=== PATIENT | male | born 1935 | race Caucasian/White ===

== ENCOUNTER → 2016-05-18 | Outpatient (CLI) | payer MEDICARE, OTHER ==
[2016-05-18 09:50] LABS: PROTHROMBIN TIME 28.3 SEC (11.4-15.4)
== END ==
LOC: OD 08:06
PROVIDERS: ATTEND Internal Medicine Cardiovascular Disease
DX: I48.91 Unspecified atrial fibrillation (principal); Z79.01 Long term (current) use of anticoagulants
CPT/HCPCS: 36415; 85610

== ENCOUNTER → 2016-06-01 | Outpatient (CLI) | payer MEDICARE, OTHER ==
[2016-06-01 10:34] LABS: PROTHROMBIN TIME 27.6 SEC (11.4-15.4)
== END ==
LOC: OD 09:08
PROVIDERS: ATTEND Internal Medicine Cardiovascular Disease
DX: I48.0 Paroxysmal atrial fibrillation (principal); Z79.01 Long term (current) use of anticoagulants
CPT/HCPCS: 36415; 85610

== ENCOUNTER → 2016-06-28 | Outpatient (CLI) | payer MEDICARE, OTHER ==
[2016-06-28 10:30] LABS: PROTHROMBIN TIME 30.7 SEC (11.4-15.4)
== END ==
LOC: OD 09:22
PROVIDERS: ATTEND Internal Medicine Cardiovascular Disease
DX: I48.91 Unspecified atrial fibrillation (principal)
CPT/HCPCS: 36415; 85610

== ENCOUNTER → 2016-07-12 | Outpatient (CLI) | payer MEDICARE, OTHER ==
[2016-07-12 08:48] LABS: PROTHROMBIN TIME 25.3 SEC (11.4-15.4)
[2016-07-12 09:12] LABS: ALANINE AMINOTRANSFERASE 65 U/L (21-72); ALBUMIN 3.9 g/dL (3.5-5.0); ALKALINE PHOSPHATASE 71 U/L (38-126); ANION GAP 10 (5-19); ASPARTATE AMINO TRANSFERASE 38 U/L (17-59); BILIRUBIN,TOTAL 1.1 mg/dL (0.2-1.3); BLOOD UREA NITROGEN 32 mg/dL (7-20); CALCIUM 9.7 mg/dL (8.4-10.2); CARBON DIOXIDE 29 mmol/L (22-30); CHLORIDE 101 mmol/L (98-107); CREATININE RESULT 1.41 mg/dL (0.52-1.25); GLUCOSE 163 mg/dL (75-110); MAGNESIUM 1.8 mg/dL (1.6-2.3); POTASSIUM 5.3 mmol/L (3.6-5.0); SODIUM 139.6 mmol/L (137-145)
== END ==
LOC: OD 07:14
PROVIDERS: ATTEND Internal Medicine Cardiovascular Disease
DX: I48.91 Unspecified atrial fibrillation (principal); Z79.01 Long term (current) use of anticoagulants; Z79.899 Other long term (current) drug therapy
CPT/HCPCS: 36415; 80048; 80076; 83735; 85610

== ENCOUNTER → 2016-07-27 | Outpatient (CLI) | payer MEDICARE, OTHER | LOC: OD 17:56 | PROVIDERS: ATTEND Urology | DX: N40.0 Benign prostatic hyperplasia without lower urinary tract symptoms (principal) | CPT/HCPCS: 36415; 84153 ==

== ENCOUNTER → 2016-08-09 | Outpatient (CLI) | payer MEDICARE, OTHER ==
[2016-08-09 08:27] LABS: PROTHROMBIN TIME 26.4 SEC (11.4-15.4)
[2016-08-09 15:54] LABS: CHOLESTEROL 144.11 mg/dL (0-200); Direct HDL 24 mg/dL (>40); TRIGLYCERIDES 281 mg/dL (<150)
[2016-08-09 16:05] LABS: DIRECT LDL 44 mg/dL (<100)
[2016-08-09 16:09] LABS: VLDL CHOLESTEROL 56.2 mg/dL (10-31)
== END ==
LOC: OD 07:37
PROVIDERS: ATTEND Internal Medicine Cardiovascular Disease
DX: Z79.899 Other long term (current) drug therapy (principal); E78.2 Mixed hyperlipidemia; I48.91 Unspecified atrial fibrillation; Z79.01 Long term (current) use of anticoagulants
CPT/HCPCS: 36415; 80061; 83735; 85610

== ENCOUNTER → 2016-09-06 | Outpatient (CLI) | payer MEDICARE, OTHER ==
[2016-09-06 10:49] LABS: PROTHROMBIN TIME 26.2 SEC (11.4-15.4)
== END ==
LOC: OD 09:54
PROVIDERS: ATTEND Internal Medicine Cardiovascular Disease
DX: Z79.01 Long term (current) use of anticoagulants (principal); I48.0 Paroxysmal atrial fibrillation
CPT/HCPCS: 36415; 85610

== ENCOUNTER → 2016-09-09 | Outpatient (CLI) | payer MEDICARE, OTHER ==
[2016-09-09 09:27] LABS: ABSOLUTE BASOPHILS # (AUTO) 0.1 10^3/uL (0.0-0.2); ABSOLUTE EOSINOPHILS # (AUTO) 0.1 10^3/uL (0.0-0.6); ABSOLUTE LYMPHOCYTES (AUTO) 1.1 10^3/uL (0.5-4.7); ABSOLUTE MONOCYTES (AUTO) 0.8 10^3/uL (0.1-1.4); ABSOLUTE NEUT (AUTO) 5.1 10^3/uL (1.7-8.2); BASOPHILS % (AUTO) 1.2 % (0-2); EOSINOPHILS % (AUTO) 1.4 % (0-6); HEMATOCRIT 46.3 % (37.9-51.0); HEMOGLOBIN 15.5 g/dL (13.5-17.0); HGB HCT DIFFERENCE 0.2; LYMPHOCYTES % (AUTO) 15.5 % (13-45); MEAN CORPUSCULAR HEMOGLOBIN 27.5 pg (27.0-33.4); MEAN CORPUSCULAR HGB CONC 33.4 g/dL (32.0-36.0); MEAN CORPUSCULAR VOLUME 82 fl (80-97); MONOCYTES % (AUTO) 10.6 % (3-13); RED BLOOD COUNT 5.64 10^6/uL (4.35-5.55); RED CELL DISTRIBUTION WIDTH 16.2 % (11.5-14.0); SEGMENTED NEUTROPHILS % (AUTO) 71.3 % (42-78); WHITE BLOOD COUNT 7.2 10^3/uL (4.0-10.5)
[2016-09-09 10:04] LABS: ALANINE AMINOTRANSFERASE 70 U/L (21-72); ALBUMIN 4.1 g/dL (3.5-5.0); ALKALINE PHOSPHATASE 77 U/L (38-126); ANION GAP 12 (5-19); ASPARTATE AMINO TRANSFERASE 44 U/L (17-59); BILIRUBIN,DIRECT 0.3 mg/dL (0.0-0.4); BILIRUBIN,TOTAL 1.4 mg/dL (0.2-1.3); BLOOD UREA NITROGEN 28 mg/dL (7-20); CALCIUM 9.3 mg/dL (8.4-10.2); CARBON DIOXIDE 29 mmol/L (22-30); CHLORIDE 104 mmol/L (98-107); CHOLESTEROL 147.35 mg/dL (0-200); CREATININE RESULT 1.37 mg/dL (0.52-1.25); Direct HDL 28 mg/dL (>40); GLUCOSE 122 mg/dL (75-110); POTASSIUM 5.5 mmol/L (3.6-5.0); SODIUM 145.1 mmol/L (137-145); TOTAL PROTEIN 7.4 g/dL (6.3-8.2); TRIGLYCERIDES 306 mg/dL (<150)
[2016-09-09 10:15] LABS: DIRECT LDL 52 mg/dL (<100)
[2016-09-09 10:23] LABS: VLDL CHOLESTEROL 61.2 mg/dL (10-31)
== END ==
LOC: OD 08:21
PROVIDERS: ATTEND Internal Medicine
DX: E11.9 Type 2 diabetes mellitus without complications (principal); I25.10 Atherosclerotic heart disease of native coronary artery without angina pectoris; E78.5 Hyperlipidemia, unspecified; R53.83 Other fatigue
CPT/HCPCS: 36415; 80053; 80061; 83036; 84443; 85025

== ENCOUNTER → 2016-10-04 | Outpatient (CLI) | payer MEDICARE, OTHER ==
[2016-10-04 10:57] LABS: PROTHROMBIN TIME 27.8 SEC (11.4-15.4)
[2016-10-04 11:07] LABS: ALANINE AMINOTRANSFERASE 85 U/L (21-72); ALBUMIN 3.6 g/dL (3.5-5.0); ALKALINE PHOSPHATASE 74 U/L (38-126); ANION GAP 11 (5-19); ASPARTATE AMINO TRANSFERASE 49 U/L (17-59); BILIRUBIN,DIRECT 0.3 mg/dL (0.0-0.4); BILIRUBIN,TOTAL 1.2 mg/dL (0.2-1.3); BLOOD UREA NITROGEN 41 mg/dL (7-20); CALCIUM 8.9 mg/dL (8.4-10.2); CARBON DIOXIDE 26 mmol/L (22-30); CHLORIDE 102 mmol/L (98-107); GLUCOSE 161 mg/dL (75-110); MAGNESIUM 2.1 mg/dL (1.6-2.3); POTASSIUM 4.8 mmol/L (3.6-5.0); SODIUM 138.5 mmol/L (137-145); TOTAL PROTEIN 6.5 g/dL (6.3-8.2)
== END ==
LOC: OD 09:59
PROVIDERS: ATTEND Internal Medicine Cardiovascular Disease
DX: I48.91 Unspecified atrial fibrillation (principal); Z79.01 Long term (current) use of anticoagulants; Z79.899 Other long term (current) drug therapy
CPT/HCPCS: 36415; 80048; 80076; 83735; 85610

== ENCOUNTER → 2016-11-01 | Outpatient (CLI) | payer MEDICARE, OTHER ==
[2016-11-01 11:34] LABS: PROTHROMBIN TIME 25.7 SEC (11.4-15.4)
== END ==
LOC: OD 10:10
PROVIDERS: ATTEND Internal Medicine Cardiovascular Disease
DX: I48.0 Paroxysmal atrial fibrillation (principal); Z79.01 Long term (current) use of anticoagulants
CPT/HCPCS: 36415; 85610

== ENCOUNTER → 2016-11-02 | Outpatient (CLI) | payer MEDICARE, OTHER ==
[2016-11-02 10:56] LABS: ALANINE AMINOTRANSFERASE 64 U/L (21-72); ALBUMIN 3.5 g/dL (3.5-5.0); ALKALINE PHOSPHATASE 77 U/L (38-126); ASPARTATE AMINO TRANSFERASE 49 U/L (17-59); BILIRUBIN,DIRECT 0.3 mg/dL (0.0-0.4); BILIRUBIN,TOTAL 1.1 mg/dL (0.2-1.3); TOTAL PROTEIN 6.4 g/dL (6.3-8.2)
== END ==
LOC: OD 09:28
PROVIDERS: ATTEND Internal Medicine Cardiovascular Disease
DX: Z79.01 Long term (current) use of anticoagulants (principal)
CPT/HCPCS: 36415; 80076

== ENCOUNTER → 2016-11-29 | Outpatient (CLI) | payer MEDICARE, OTHER ==
[2016-11-29 10:48] LABS: PROTHROMBIN TIME 23.6 SEC (11.4-15.4)
[2016-11-29 11:34] LABS: ALANINE AMINOTRANSFERASE 59 U/L (21-72); ALBUMIN 3.4 g/dL (3.5-5.0); ALKALINE PHOSPHATASE 85 U/L (38-126); ANION GAP 10 (5-19); ASPARTATE AMINO TRANSFERASE 36 U/L (17-59); BILIRUBIN,DIRECT 0.3 mg/dL (0.0-0.4); BLOOD UREA NITROGEN 33 mg/dL (7-20); CARBON DIOXIDE 27 mmol/L (22-30); CHLORIDE 102 mmol/L (98-107); CREATININE RESULT 1.35 mg/dL (0.52-1.25); GLUCOSE 234 mg/dL (75-110); MAGNESIUM 1.8 mg/dL (1.6-2.3); POTASSIUM 5.5 mmol/L (3.6-5.0); SODIUM 138.6 mmol/L (137-145); TOTAL PROTEIN 6.6 g/dL (6.3-8.2)
== END ==
LOC: OD 09:20
PROVIDERS: ATTEND Internal Medicine Cardiovascular Disease
DX: I48.91 Unspecified atrial fibrillation (principal); Z79.01 Long term (current) use of anticoagulants; Z79.899 Other long term (current) drug therapy
CPT/HCPCS: 36415; 80048; 80076; 83735; 85610

== ENCOUNTER → 2016-12-03 | Outpatient (CLI) | payer MEDICARE, OTHER ==
[2016-12-03 11:52] LABS: ANION GAP 11 (5-19); BLOOD UREA NITROGEN 32 mg/dL (7-20); CALCIUM 8.9 mg/dL (8.4-10.2); CARBON DIOXIDE 27 mmol/L (22-30); CHLORIDE 102 mmol/L (98-107); CREATININE RESULT 1.37 mg/dL (0.52-1.25); GLUCOSE 186 mg/dL (75-110); POTASSIUM 4.9 mmol/L (3.6-5.0); SODIUM 139.6 mmol/L (137-145)
== END ==
LOC: OD 09:57
PROVIDERS: ATTEND Internal Medicine Nephrology
DX: E11.22 Type 2 diabetes mellitus with diabetic chronic kidney disease (principal); I12.9 Hypertensive chronic kidney disease with stage 1 through stage 4 chronic kidney disease, or unspecified chronic kidney disease; N18.3 Chronic kidney disease, stage 3 (moderate); E87.5 Hyperkalemia
CPT/HCPCS: 36415; 80048

== ENCOUNTER → 2016-12-13 | Outpatient (CLI) | payer MEDICARE, OTHER ==
[2016-12-13 10:23] LABS: PROTHROMBIN TIME 23.6 SEC (11.4-15.4)
== END ==
LOC: OD 09:21
PROVIDERS: ATTEND Internal Medicine Cardiovascular Disease
DX: I48.91 Unspecified atrial fibrillation (principal); Z79.01 Long term (current) use of anticoagulants; Z79.899 Other long term (current) drug therapy; E87.5 Hyperkalemia
CPT/HCPCS: 36415; 85610

== ENCOUNTER → 2016-12-27 | Outpatient (CLI) | payer MEDICARE, OTHER ==
[2016-12-27 12:20] LABS: ALANINE AMINOTRANSFERASE 62 U/L (21-72); ALBUMIN 3.6 g/dL (3.5-5.0); ALKALINE PHOSPHATASE 96 U/L (38-126); ANION GAP 10 (5-19); ASPARTATE AMINO TRANSFERASE 43 U/L (17-59); BILIRUBIN,DIRECT 0.4 mg/dL (0.0-0.4); BILIRUBIN,TOTAL 1.3 mg/dL (0.2-1.3); BLOOD UREA NITROGEN 24 mg/dL (7-20); CALCIUM 8.9 mg/dL (8.4-10.2); CARBON DIOXIDE 27 mmol/L (22-30); CHLORIDE 103 mmol/L (98-107); CREATININE RESULT 1.19 mg/dL (0.52-1.25); GLUCOSE 122 mg/dL (75-110); MAGNESIUM 1.8 mg/dL (1.6-2.3); POTASSIUM 4.5 mmol/L (3.6-5.0); SODIUM 139.8 mmol/L (137-145); TOTAL PROTEIN 6.9 g/dL (6.3-8.2)
[2016-12-29 12:07] LABS: PROTHROMBIN TIME 34.9 SEC (11.4-15.4)
== END ==
LOC: OD 10:35
PROVIDERS: ATTEND Internal Medicine Cardiovascular Disease
DX: I48.1 Persistent atrial fibrillation (principal); Z79.899 Other long term (current) drug therapy
CPT/HCPCS: 36415; 80048; 80076; 83735; 85610

== ENCOUNTER → 2017-01-10 | Outpatient (CLI) | payer MEDICARE, OTHER | LOC: OD 10:17 | PROVIDERS: ATTEND Internal Medicine Cardiovascular Disease | DX: I48.91 Unspecified atrial fibrillation (principal); Z79.01 Long term (current) use of anticoagulants; Z79.899 Other long term (current) drug therapy | CPT/HCPCS: 36415; 85610 ==

== ENCOUNTER → 2017-01-19 | Outpatient (CLI) | payer MEDICARE, OTHER ==
[2017-01-19 08:40] LABS: PROTHROMBIN TIME 35.1 SEC (11.4-15.4)
== END ==
LOC: OD 07:53
PROVIDERS: ATTEND Internal Medicine Cardiovascular Disease
DX: I48.91 Unspecified atrial fibrillation (principal); Z79.01 Long term (current) use of anticoagulants
CPT/HCPCS: 36415; 85610

== ENCOUNTER 2017-01-24 17:01 | Inpatient (IN) | payer MEDICARE, OTHER ==
[2017-01-24] MEDS ORDERED: NORMAL SALINE 1000 ML 1,000 ML IV ONE (17:39)
--- NOTE | 2017-01-24 17:39 | ER Document Report ---
ED Medical Screen (RME) - General Chief Complaint: Weakness Stated Complaint: WEAKNESS Time Seen by Provider: 01/24/17 17:36 Mode of Arrival: Wheelchair Information source: Patient Notes: 81-year-old male presents to ED for weakness blurry vision dizziness for several days and dark stools for 2 weeks. States he went to the eye doctor today and they told him he needs to have wet macular degeneration or diabetes changes. He is a diabetic takes 34 units of Lantus insulin at night this morning his blood sugar is 148 this afternoon it was 146. states she told him that if he did need he she was going to the emergency room to get admitted but he is also having black stools for 2 weeks that he did not tell the until Tuesday. Manual blood pressure when I checked it 99/40. Lungs sound diminished clear I have greeted and performed a rapid initial assessment of this patient. A comprehensive ED assessment and evaluation of the patient, analysis of test results and completion of medical decision making process will be conducted by an additional ED providers. TRAVEL OUTSIDE OF THE [place] IN LAST 30 DAYS: No - Related Data Allergies/Adverse Reactions: amoxicillin [Amoxicillin] Allergy (Verified 01/24/17 17:11) amoxicillin trihydrate [From Augmentin XR] Allergy (Verified 01/24/17 17:11) cephalexin monohydrate [From Keflex] Allergy (Verified 01/24/17 17:11) Potassium Clavulanate * [From Augmentin XR] Allergy (Verified 01/24/17 17:11) Tuberculin,Ppd,Multi-Puncture [From Tuberculin PPD Mireya Test] Allergy (Verified 01/24/17 17:11) Past Medical History - Past Medical History Cardiac Medical History: Reports: Hx Atrial Fibrillation, Hx Congestive Heart Failure, Hx Coronary Artery Disease - high chol , Hx Heart Attack, Hx Hypercholesterolemia, Hx Hypertension Neurological Medical History: Denies: Hx Seizures Endocrine Medical History: Reports: Hx Diabetes Mellitus Type 2 Renal/ Medical History: Denies: Hx Peritoneal Dialysis Musculoskeltal Medical History: Reports Hx Arthritis Psychiatric Medical History: Reports: Hx Depression Past Surgical History: Reports: Hx Cardiac Catheterization, Hx Cardiac Surgery - stent x's4, patient had 2 stents on 07/18/2013 at [facility], Hx Tonsillectomy - Immunizations Hx Diphtheria, Pertussis, Tetanus Vaccination: Yes Physical Exam - Vital signs Vitals: Temp Pulse Resp BP Pulse Ox 97.5 F 55 L 16 127/40 H 97 01/24/17 17:02 01/24/17 17:02 01/24/17 17:02 01/24/17 17:02 01/24/17 17:02 Course - Vital Signs Vital signs: Temp Pulse Resp BP Pulse Ox 97.5 F 55 L 16 127/40 H 97 01/24/17 17:02 01/24/17 17:02 01/24/17 17:02 01/24/17 17:02 01/24/17 17:02
--- NOTE | 2017-01-24 18:25 | ER Document Report ---
ED General - General Mode of Arrival: Wheelchair Information source: Patient TRAVEL OUTSIDE OF THE [place] IN LAST 30 DAYS: No - HPI Similar symptoms previously: No Recently seen / treated by doctor: No <CHANEL PADILLA - Last Filed: 01/24/17 19:04> <ALBIN GASTELUM - Last Filed: 01/24/17 20:56> - General Chief Complaint: Weakness Stated Complaint: WEAKNESS Time Seen by Provider: 01/24/17 17:36 Notes: This 81-year-old male patient is a dark black stools for 2 weeks. He is on Coumadin. 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 No bleeding was found at that time. Family history he subsequently was seen at [facility] and scoped more than once and reportedly had bleeding from a little polyp. Family is a little confused about a history claiming the bleeding started here after he had a colonoscopy, when in fact the colonoscopy was done because of the bleeding. (ALBIN GASTELUM) - HPI Notes: Patient is an 81 year old male presenting to the emergency department black stools x 2 weeks and some weakness/blurry vision x 3-4 days. Patient states he feels weak and has some dizziness when standing up and doing activities. Patient states he has had some blurry vision especially in this right eye. Patient describes it as blurry and a "dark cloud." Patient did see an physician office nurse today and had his eyes dilated. Patient takes Coumadin and has not been taking Plavix for some time. Patient did not get his dose of Coumadin at 18 :00 this evening. Patient has a history of A-fib, CAD, CHF, [place] x4, cardiac stents, hypertension, hypercholesterolemia, and diabetes. Patient takes 34 units of Lantis for his diabetes. (CHANEL PADILLA) - Related Data Allergies/Adverse Reactions: amoxicillin [Amoxicillin] Allergy (Verified 01/24/17 17:11) amoxicillin trihydrate [From Augmentin XR] Allergy (Verified 01/24/17 17:11) cephalexin monohydrate [From Keflex] Allergy (Verified 01/24/17 17:11) Potassium Clavulanate * [From Augmentin XR] Allergy (Verified 01/24/17 17:11) Tuberculin,Ppd,Multi-Puncture [From Tuberculin PPD Mireya Test] Allergy (Verified 01/24/17 17:11) Past Medical History - General Information source: Patient - Social History Smoking Status: Never Smoker Cigarette use (# per day): No Chew tobacco use (# tins/day): No Smoking Education Provided: No Frequency of alcohol use: None Drug Abuse: None Family History: CAD, DM Patient has suicidal ideation: No Patient has homicidal ideation: No - Past Medical History Cardiac Medical History: Reports: Hx Atrial Fibrillation, Hx Congestive Heart Failure, Hx Coronary Artery Disease - high chol , Hx Heart Attack - x4, Hx Hypercholesterolemia, Hx Hypertension Endocrine Medical History: Reports: Hx Diabetes Mellitus Type 2 Musculoskeltal Medical History: Reports Hx Arthritis Psychiatric Medical History: Reports: Hx Depression Past Surgical History: Reports: Hx Cardiac Catheterization, Hx Cardiac Surgery - stent x's4, patient had 2 stents on 07/18/2013 at [facility], Hx Tonsillectomy - Immunizations Hx Diphtheria, Pertussis, Tetanus Vaccination: Yes Hx Pneumococcal Vaccination: 05/25/13 <CHANEL PADILLA - Last Filed: 01/24/17 19:04> Review of Systems - Review of Systems Constitutional: No symptoms reported EENT: See HPI, Blurred vision Cardiovascular: See HPI, Dizziness Respiratory: No symptoms reported Gastrointestinal: See HPI, Black stools - x2 weeks Genitourinary: No symptoms reported Male Genitourinary: No symptoms reported Musculoskeletal: No symptoms reported Skin: No symptoms reported Hematologic/Lymphatic: No symptoms reported Neurological/Psychological: See HPI, Weakness -: Yes All other systems reviewed and negative <CHANEL PADILLA - Last Filed: 01/24/17 19:04> Physical Exam - Vital signs Interpretation: Normal <CHANEL PADILLA - Last Filed: 01/24/17 19:04> <ALBIN GASTELUM - Last Filed: 01/24/17 20:56> - Vital signs Vitals: Temp Pulse Resp BP Pulse Ox 97.5 F 55 L 16 127/40 H 97 01/24/17 17:02 01/24/17 17:02 01/24/17 17:02 01/24/17 17:02 01/24/17 17:02 - Notes Notes: GENERAL: Alert, interacts well. No acute distress. HEAD: Normocephalic, atraumatic. EYES: Appear normal. Pupils equal, round, and reactive to light. Conjunctiva is pale. ENT: Moist mucus membranes, tongue midline. NECK: Full range of motion. Supple. Trachea midline. No bruit but the systolic murmur can be heard in the neck. LUNGS: Clear to auscultation bilaterally, no wheezes, rales, or rhonchi. No respiratory distress. HEART: Regular rate and rhythm. 2-3 systolic murmur. ABDOMEN: Soft, non-tender. Non-distended. Normal bowel sounds. RECTAL: Stool is black. EXTREMITIES: Moves all 4 extremities spontaneously. Normal strength. No edema. NEUROLOGICAL: Alert and oriented x3. Normal speech. No focal neurological deficits. GCS 15. PSYCH: Normal affect, normal mood. SKIN: Warm, dry, normal turgor. No rashes or lesions noted. (CHANEL PADILLA) Course - Laboratory Result Diagrams: 01/24/17 18:20 01/24/17 18:20 <CHANEL PADILLA - Last Filed: 01/24/17 19:04> - Laboratory Result Diagrams: 01/24/17 18:20 01/24/17 18:20 - EKG Interpretation by De EKG shows normal: Sinus rhythm, [place], Intervals, QRS Complexes. abnormal: ST-T Waves - Borderline T-wave abnormalities Rate: Normal - 55 Rhythm: NSR - Consults Dr. Mendez Consulted provider: will see as inpatient - We will be available for endoscopic consultation if needed. Dr. Callahan Time consulted: 20:50 Consulted provider: will come to ER - IMCU admission <ALBIN GASTELUM - Last Filed: 01/24/17 20:56> - Vital Signs Vital signs: Temp Pulse Resp BP Pulse Ox 97.5 F 55 L 16 111/59 L 94 01/24/17 17:02 01/24/17 17:02 01/24/17 19:02 01/24/17 19:02 01/24/17 19:02 - Laboratory Laboratory results interpreted by wy: 01/24/17 01/24/17 01/24/17 18:20 18:20 18:20 RBC 3.30 L Hgb 8.9 L Hct 27.7 L MCH 26.9 L RDW 15.7 H PT BUN 94 H Creatinine 1.62 H Est GFR ( Amer) 50 L Est GFR (Non-Af Amer) 41 L Glucose 115 H Urine Ascorbic Acid Crossmatch See Detail 01/24/17 01/24/17 18:20 19:30 RBC Hgb Hct MCH RDW PT 37.1 H BUN Creatinine Est GFR ( Amer) Est GFR (Non-Af Amer) Glucose Urine Ascorbic Acid 20 H Crossmatch Discharge <CHANEL PADILLA - Last Filed: 01/24/17 19:04> - Discharge Admitting Provider: Hospitalist Unit Admitted: IMCU <ALBIN GASTELUM - Last Filed: 01/24/17 20:56> - Discharge Clinical Impression: Upper GI bleeding, 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, Excessive anticoagulation Anemia Qualifiers: Anemia type: other cause Other causes of anemia: acute posthemorrhagic Qualified Code(s): D62 - Acute posthemorrhagic anemia Condition: Stable Disposition: ADMITTED INPATIENT Referrals: LEANDRA HOPKINS MD [Primary Care Provider] - Follow up as needed Scribe Attestation: 01/24/17 20:46 I personally performed the services described in the documentation, reviewed and edited the documentation which was dictated to the scribe in my presence, and it accurately records my words and actions. (ALBIN GASTELUM) Scribe Documentation - Scribe Written by Alize:: Alize King 01/24/2017 18:40 acting as scribe for :: Fan <CHANEL PADILLA - Last Filed: 01/24/17 19:04>
--- NOTE | 2017-01-24 18:44 | RADIOLOGY REPORT (SQ) ---
EXAM DESCRIPTION: CHEST PA/LAT COMPLETED DATE/TIME: 01/24/2017 6:17 pm REASON FOR STUDY: weakness COMPARISON: August 2014 EXAM PARAMETERS: NUMBER OF VIEWS: two views TECHNIQUE: Digital Frontal and Lateral radiographic views of the chest acquired. RADIATION DOSE: NA LIMITATIONS: none FINDINGS: LUNGS AND PLEURA: No opacities, masses or pneumothorax. No pleural effusion. MEDIASTINUM AND HILAR STRUCTURES: No masses or contour abnormalities. HEART AND VASCULAR STRUCTURES: Heart normal size. No evidence for failure. BONES: Degenerative changes are identified in the thoracic spine. HARDWARE: None in the chest. OTHER: Some elevation of the left hemidiaphragm is again seen. IMPRESSION: No significant interval change. No acute findings. Other findings as noted above TECHNICAL DOCUMENTATION: JOB ID: [id number] [employer]- All Rights Reserved
[2017-01-24 18:53] LABS: ABSOLUTE BASOPHILS # (AUTO) 0.1 10^3/uL (0.0-0.2); ABSOLUTE EOSINOPHILS # (AUTO) 0.1 10^3/uL (0.0-0.6); ABSOLUTE LYMPHOCYTES (AUTO) 1.7 10^3/uL (0.5-4.7); ABSOLUTE NEUT (AUTO) 7.3 10^3/uL (1.7-8.2); EOSINOPHILS % (AUTO) 0.8 % (0-6); HEMATOCRIT 27.7 % (37.9-51.0); HEMOGLOBIN 8.9 g/dL (13.5-17.0); LYMPHOCYTES % (AUTO) 16.3 % (13-45); MEAN CORPUSCULAR HEMOGLOBIN 26.9 pg (27.0-33.4); MEAN CORPUSCULAR HGB CONC 32.1 g/dL (32.0-36.0); MEAN CORPUSCULAR VOLUME 84 fl (80-97); RED CELL DISTRIBUTION WIDTH 15.7 % (11.5-14.0); SEGMENTED NEUTROPHILS % (AUTO) 71.9 % (42-78); WHITE BLOOD COUNT 10.2 10^3/uL (4.0-10.5)
[2017-01-24 19:03] LABS: PROTHROMBIN TIME 37.1 SEC (11.4-15.4)
[2017-01-24 19:09] LABS: ALANINE AMINOTRANSFERASE 49 U/L (21-72); ALBUMIN 3.5 g/dL (3.5-5.0); ALKALINE PHOSPHATASE 71 U/L (38-126); ANION GAP 12 (5-19); ASPARTATE AMINO TRANSFERASE 28 U/L (17-59); BILIRUBIN,DIRECT 0.3 mg/dL (0.0-0.4); BILIRUBIN,TOTAL 0.6 mg/dL (0.2-1.3); BLOOD UREA NITROGEN 94 mg/dL (7-20); CALCIUM 9.7 mg/dL (8.4-10.2); CARBON DIOXIDE 24 mmol/L (22-30); CHLORIDE 103 mmol/L (98-107); CREATINE KINASE 57 U/L (55-170); CREATININE RESULT 1.62 mg/dL (0.52-1.25); GLUCOSE 115 mg/dL (75-110); MAGNESIUM 2.3 mg/dL (1.6-2.3); POTASSIUM 4.8 mmol/L (3.6-5.0); SODIUM 138.7 mmol/L (137-145); TOTAL PROTEIN 6.3 g/dL (6.3-8.2)
[2017-01-24 19:22] LABS: CREATINE KINASE MB 2.07 ng/mL (<4.55); TROPONIN I < 0.012 ng/mL
[2017-01-24 19:48] LABS: APPEARANCE,URINE CLEAR; BILIRUBIN,URINE NEGATIVE (NEGATIVE); GLUCOSE, URINE NEGATIVE (NEGATIVE); KETONES,URINE NEGATIVE (NEGATIVE); LEUKOCYTE ESTERASE,URINE NEGATIVE (NEGATIVE); NITRITE,URINE NEGATIVE (NEGATIVE); PROTEIN,URINE NEGATIVE (NEGATIVE); URINE SPECIFIC GRAVITY 1.009; UROBILINOGEN,URINE NEGATIVE mg/dL (<2.0)
[2017-01-24] MEDS ORDERED: NORMAL SALINE 250 ML IV PRN (20:29)
--- NOTE | 2017-01-24 20:35 | EKG REPORT ---
SEVERITY:- BORDERLINE ECG - SINUS RHYTHM BORDERLINE T WAVE ABNORMALITIES : Confirmed by: Negro Chaidez 24-Jan-2017 20:35:25
[2017-01-24] MEDS ORDERED: PHYTONADIONE INJ 10 MG/1 ML AMPULE PO ONE (20:42)
[2017-01-25] MEDS ORDERED: DEXTROSE 40% GEL 15 GM TUBE PO PRN ×2 (00:34)
[2017-01-25] MEDS ORDERED: DEXTROSE 50%-WATER 25 GM/50 ML DISP.SYRIN IV PRN ×2 (00:34)
[2017-01-25] MEDS ORDERED: GLUCAGON,HUMAN RECOMB 1 MG INJ IM PRN (00:34)
[2017-01-25] MEDS ORDERED: PROMETHAZINE HCL 25 MG TABLET PO PRN (00:59)
[2017-01-25] MEDS ORDERED: ACETAMINOPHEN 325 MG TABLET PO PRN (00:59)
--- NOTE | 2017-01-25 01:27 | PDOC H&P ---
History of Present Illness Admission Date/PCP: 01/24/17 21:[address] Patient complains of: black stools History of Present Illness: ADELAIDE COOPER JR is a 81 year old male with underlying type 1 diabetes mellitus, hyperlipidemia, hypothyroidism, and atrial fibrillation, on chronic Coumadin for same, who presents to the emergency room for evaluation of a 2 week history of black stools. Associated weakness and dizziness with standing up and doing activities. However, no fever or chills, chest or abdominal pain. No nausea vomiting. No bright red blood per rectum. Patient has been discussed with emergency room physician who evaluated the patient. Rectal exam by emergency room physician revealed melenic stool. Prior to my being called, the emergency room physician did speak with the on- call general surgeon, Dr. Mendez, who has agreed to see the patient in consultation, and provide endoscopy services. He is currently resting quietly, without specific complaints. He is status post upper endoscopy November 2013 that revealed erosive gastritis, and fundic gland polyps. He is status post colonoscopy May 2013 that revealed polyps in the ascending colon and sigmoid colon and rectum, moderate- sized internal hemorrhoids, and cecal angiodysplasia. Negative upper endoscopy at that time. Denies any specific history of peptic ulcer disease. 1 unit of packed cells has been started by the emergency room physician, with ER physician having signed a blood transfusion permit. Dictation via voice recognition software. Laboratory results are listed in [employer] and are reviewed. X-ray summary results are listed below, with full report(s) reviewed. . EKG reviewed and compared to prior tracing from September 10, 2014. Social history/personal habits: . Adult children. Lives with . Retired. No use of alcohol tobacco or illicit drugs. Allergies/adverse reactions are listed in [employer] and are reviewed. Home medications initially autopopulated into [employer] may not accurately reflect patient's true medications, dosages, and/or frequencies. model technician has reconciled medications. REVIEW OF SYSTEMS: Constitutional: No fever or chills. Eyes: Wears glasses. ENT: No swallowing problems or complaints. Partial hearing loss. Pulmonary: No current complaints. Cardiovascular: No current complaints, including chest pain. Gastrointestinal: See history and present illness. Skin: No current complaints, including rashes. Hematologic: Easy bruising. Neurologic: No current complaints, including numbness or tingling. Musculoskeletal: Joint pain from arthritis. Psychiatric: Mild anxiety and depression. Denies suicidal or homicidal ideation. Endocrine: No current complaints, including polyuria. Genitourinary: No current complaints, including dysuria. PHYSICAL EXAMINATION: 5 feet 6 inches tall. 84.8 kg. BMI 30.2 kg/m. Blood pressure 121/51. Pulse 60 and regular. 94% saturation on room air. Respirations are 16 and unlabored. Temperature 97.9. Slightly obese otherwise well-nourished well-developed male who appears a number of years younger than his stated age. Pleasant awake alert and cooperative. No obvious distress other than somewhat anxious. Skin is warm and dry. No grossly obvious evidence of rash in areas of skin examined. No subcutaneous nodules palpated. ENT: Hearing grossly normal to normal conversation. Tongue midline on protrusion pink and slightly tacky. Eyes: No scleral icterus. Pupils equal and reactive to light at 4 mm. [place] conjunctivae. Neck is supple and nontender to gentle active range of motion and palpation. Midline trachea. No palpable thyroid nodule mass enlargement or tenderness. Lymphatic: No palpable cervical or clavicular nodes. Neck and lymphatic exams limited by patient body habitus. Psychiatric: Reasonable insight into acute and chronic medical issues. Oriented to time location and why here. Lungs: Auscultation reveals clear and equal breath sounds bilaterally. No use of accessory respiratory muscles. Cardiovascular: Heart regular rate and rhythm, without gallop or rub. No carotid or abdominal aortic bruits. No ankle or pedal edema. Faintly palpable dorsalis pedis pulses. Very subtle holosystolic ejection murmur heard at cardiac apex. Abdomen:soft slightly distended nontender with positive bowel sounds. Unable to adequately evaluate abdomen for masses or organomegaly due to distention. Extremities: Feet are warm and dry. No calf tenderness to compression. No grossly obvious visual evidence of calf swelling. Gentle manipulation of lower extremities fails to reveal any obvious evidence of injury or instability to knees hips or ankles. Neurologic: Moves upper extremities grossly normally. Patellar reflexes absent. Absent Babinski. Light touch is intact at feet. Dorsiflexion and plantarflexion of feet 5 / 5 and symmetric. Past Medical History Cardiac Medical History: Reports: Atrial Fibrillation, Congestive Heart Failure , Coronary Artery Disease, Myocardial Infarction - x4, Hyperlipidema, Hypertension Denies: DVT, Pulmonary Embolism Pulmonary Medical History: Denies: Asthma, Bronchitis, Chronic Obstructive Pulmonary Disease (COPD), Pneumonia, Tuberculosis EENT Medical History: Reports: Eyes - Glasses, Ears - Partial hearing loss Denies: Throat Neurological Medical History: Denies: Hemorrhagic CVA, Ischemic CVA, Seizures Endocrine Medical History: Reports: Diabetes Mellitus Type 1, Hypothyroidism Denies: Hyperthyroidism Renal/ Medical History: Reports: Chronic Kidney Disease GI Medical History: Reports: Other - Angiodysplasia of cecum, 2013. Denies: Cirrhosis, Gastroesophageal Reflux Disease, Hepatitis Musculoskeltal Medical History: Reports: Arthritis Skin Medical History: Reports: None Psychiatric Medical History: Reports: Depression, General Anxiety Disorder Denies: Alcohol Dependency, Substance Abuse, Tobacco Dependency Infectious Medical History: Denies: Hepatitis B, Hepatitis C Past Surgical History Past Surgical History: Reports: Cardiac Catheterization, Coronary Stent - 5, Tonsillectomy Social History Information Source: Patient, Emergency Med Personnel, [facility] Records Lives with: Spouse/Significant other Smoking Status: Unknown if Ever Smoked Frequency of Alcohol Use: None Hx Recreational Drug Use: No Drugs: None Hx Prescription Drug Abuse: No - Advance Directive Resuscitation Status: Full Code Surrogate healthcare decision maker:: Family History Family History: CAD, DM Parental Family History Reviewed: Yes - Mother of TB; father of [place]. Children Family History Reviewed: Yes - Healthy Sibling(s) Family History Reviewed.: Yes - Brother ; sister with heart trouble Medication/Allergy Home Medications: Amlodipine Besylate [Norvasc 10 mg Tablet] 10 mg PO DAILY 01/24/17 Atorvastatin Calcium [Lipitor 40 mg Tablet] 40 mg PO DAILY 01/24/17 Cetirizine HCl [Zyrtec 10 mg Tablet] 10 mg PO QHS 01/24/17 Ezetimibe [Zetia 10 mg Tablet] 10 mg PO QAM 01/24/17 Hydrochlorothiazide [Hydrodiuril 12.5 mg Capsule] 12.5 mg PO QAM 01/24/17 Levothyroxine Sodium [Synthroid] 100 mcg PO QAM 01/24/17 Losartan Potassium [Cozaar 50 mg Tablet] 50 mg PO QAM 01/24/17 Magnesium Oxide [Mag-Ox 400 mg Tablet] 400 mg PO BID 01/24/17 Sotalol HCl [Sotalol] 80 mg PO BID@0800,199901/24/17 Ubidecarenone/Vit E Acetate [Co Q-10 100 mg Softgel] 1 each PO DAILY 01/24/17 Vit C/Asif AC/Lut/Copper/Znox [Preservision Lutein Softgel] 1 each PO DAILY 04/01 Warfarin Sodium [Coumadin] 5 mg PO ASDIR PRN 01/24/17 Allergies/Adverse Reactions: amoxicillin [Amoxicillin] Allergy (Verified 01/24/17 17:11) amoxicillin trihydrate [From Augmentin XR] Allergy (Verified 01/24/17 17:11) cephalexin monohydrate [From Keflex] Allergy (Verified 01/24/17 17:11) Potassium Clavulanate * [From Augmentin XR] Allergy (Verified 01/24/17 17:11) Tuberculin,Ppd,Multi-Puncture [From Tuberculin PPD Mireya Test] Allergy (Verified 01/24/17 17:11) Physical Exam Vital Signs: Temp Pulse Resp BP Pulse Ox 97.9 F 55 L 17 123/47 L 93 01/24/17 23:52 01/24/17 17:02 01/24/17 23:52 01/24/17 23:52 01/24/17 23:52 Intake & Output 01/24/17 01/25/17 01/26/17 00:59 00:59 00:59 Intake Total 0 Balance 0 Results Impressions: Chest X-Ray 01/24/17 17:39 IMPRESSION: No significant interval change. No acute findings. Other findings as noted above Assessment & Plan - Diagnosis (1) Acute post-hemorrhagic anemia Is this a current diagnosis for this admission?: Yes Plan: Transfuse as needed. He is receiving his first unit of packed cells at the present time. Blood transfusion permit has been signed by ER physician. (2) Acute worsening of stage 3 chronic kidney disease Is this a current diagnosis for this admission?: Yes Plan: Follow-up chemistry. (3) Melena Is this a current diagnosis for this admission?: Yes Plan: Surgery consult with Dr. Mendez, who has agreed to see the patient in consultation, and will provide endoscopic services. I have strongly encouraged patient not to get out of bed without notifying staff , to avoid a fall with injury. Knee high SCDs for DVT prophylaxis; with patient anticoagulated with Coumadin, no need for Lovenox or heparin, combined with his obvious GI bleeding. Impression and plans were discussed with patient, who concurs. Time spent in evaluation and management of patient: 80 minutes. (4) Supratherapeutic INR Is this a current diagnosis for this admission?: Yes Plan: As received vitamin K per ER physician. Follow-up PT/INR. (5) Atrial fibrillation Qualifiers: Atrial fibrillation type: unspecified Qualified Code(s): I48.91 - Unspecified atrial fibrillation Is this a current diagnosis for this admission?: Yes Plan: Resume home medications as appropriate once these have been determined and reviewed. (6) Diabetes mellitus type 1 Qualifiers: Diabetes mellitus complication status: without complication Qualified Code( s): E10.9 - Type 1 diabetes mellitus without complications Is this a current diagnosis for this admission?: Yes Plan: Ice chips only at the present time. Accu-Cheks with appropriate sliding scale coverage. Resume home medications as appropriate once these have been determined and reviewed. (7) HLD (hyperlipidemia) Qualifiers: Hyperlipidemia type: unspecified Qualified Code(s): E78.5 - Hyperlipidemia , unspecified Is this a current diagnosis for this admission?: Yes Plan: Resume home medications as appropriate once these have been determined and reviewed. (8) Hypothyroid Qualifiers: Hypothyroidism type: unspecified Qualified Code(s): E03.9 - Hypothyroidism , unspecified Is this a current diagnosis for this admission?: Yes Plan: Resume home medications as appropriate once these have been determined and reviewed. (9) Stented coronary artery Is this a current diagnosis for this admission?: Yes Plan: Resume home medications as appropriate once these have been determined and reviewed. - Time Time Spent: Greater than 70 Minutes Medications reviewed and adjusted accordingly: Yes Anticipated discharge: Home Within: within 72 hours - Inpatient Certification Based on my medical assessment, after consideration of the patient's comorbidities, presenting symptoms, or acuity I expect that the services needed warrant INPATIENT care.: Yes I certify that my determination is in accordance with my understanding of Medicare's requirements for reasonable and necessary INPATIENT services [42 CFR 412.3e].: Yes Medical Necessity: Need Close Monitoring Due to Risk of Patient Decompensation, Need For Continuous Telemetry Monitoring, Risk of Diagnosis Which Will Require Inpatient Eval/Care/Monitoring Post Hospital Care: D/C or Transfer Summary
[2017-01-25] MEDS: PANTOPRAZOLE SODIUM 40 MG VIAL IV SCH ×3 (01:49→21:16)
[2017-01-25] MEDS: SUCRALFATE 1 GM TABLET PO SCH ×5 (01:49→23:58)
[2017-01-25 03:03] LABS: HEMATOCRIT 27.5 % (37.9-51.0); HEMOGLOBIN 9.3 g/dL (13.5-17.0); HGB HCT DIFFERENCE 0.4; MEAN CORPUSCULAR HEMOGLOBIN 28.6 pg (27.0-33.4); MEAN CORPUSCULAR HGB CONC 33.9 g/dL (32.0-36.0); MEAN CORPUSCULAR VOLUME 85 fl (80-97); RED BLOOD COUNT 3.25 10^6/uL (4.35-5.55); RED CELL DISTRIBUTION WIDTH 16.5 % (11.5-14.0); WHITE BLOOD COUNT 9.4 10^3/uL (4.0-10.5)
[2017-01-25 03:12] LABS: PROTHROMBIN TIME 37.9 SEC (11.4-15.4)
[2017-01-25 03:23] LABS: ANION GAP 8 (5-19); BLOOD UREA NITROGEN 76 mg/dL (7-20); CALCIUM 8.9 mg/dL (8.4-10.2); CARBON DIOXIDE 24 mmol/L (22-30); CHLORIDE 109 mmol/L (98-107); CREATININE RESULT 1.42 mg/dL (0.52-1.25); GLUCOSE 100 mg/dL (75-110); POTASSIUM 4.5 mmol/L (3.6-5.0); SODIUM 140.7 mmol/L (137-145)
[2017-01-25] MEDS ORDERED: NORMAL SALINE 1000 ML 1,000 ML IV PRN (08:07)
[2017-01-25] MEDS ORDERED: NORMAL SALINE 250 ML IV PRN ×2 (08:08)
[2017-01-25] MEDS: LEVOTHYROXINE SODIUM 0.1 MG TABLET PO SCH (08:14)
[2017-01-25] MEDS: EZETIMIBE 10 MG TABLET PO SCH (08:18)
--- NOTE | 2017-01-25 09:43 | CONSULTATION REPORT E ---
Consultation Report NAME: ADELAIDE COOPER : 1935 AGE: 81Y DATE: 01/25/2017 321 A TO: CARI MEEHAN M.D. FROM: ANNY SHRESTHA M.D. Requesting Physician REASON FOR CONSULTATION: Patient with dark stools for the past 2 weeks with weakness and hemoglobin of 8.9 when admitted last night in the emergency room. HISTORY OF PRESENT ILLNESS: This is an 81-year-old male with a history of A-fib and has been on Coumadin, noted to have dark stools for the past 2 weeks. Past 3-4 days complaining of weakness and worse when seen in the emergency room last night with hemoglobin 8.9. He was transfused a unit of blood. Patient denies any abdominal pains, diarrhea, nor constipation. No nausea or vomiting. PAST MEDICAL HISTORY: 1. He had colon polyps removed about 3 years ago. Also, at this time, he was noted to have lower GI bleed and had a cecal AVM cauterized. 2. He also had 2 stents placed in the coronary arteries in [place] around that time. He also had another 2 coronary artery stents placed about 10 years prior. 3. He had a history of atrial fibrillation and CHF. 4. Coronary artery disease, with high cholesterol. 5. IA x4. 6. Hypercholesterolemia. 7. Hypertension. 8. Endocrine history of diabetes mellitus type 2. 9. Musculoskeletal: Reports arthritis. 10. Psychiatric: Complaining of depression. PAST SURGICAL HISTORY: 1. *------* catheterization x2 with stent placement. 2. History of tonsillectomy. SOCIAL HISTORY: Never smoked. Denies alcohol use. Denies drug use. FAMILY HISTORY: Positive for coronary artery disease and diabetes mellitus. ALLERGIES: 1. AMOXICILLIN. 2. CEPHALEXIN. 3. AUGMENTIN. 4. TUBERCULIN PPD. REVIEW OF SYSTEMS: GENERAL: Complaining of weakness. ENT: Complaining of blurred vision. No ear or nasal problems. CARDIOVASCULAR: Complaining of dizziness. No chest pains. RESPIRATORY: No shortness of breath. GASTROINTESTINAL: Black stool x2 weeks. GENITOURINARY: No symptoms reported. MUSCULOSKELETAL: No joint pains. SKIN: No rash. HEMATOLOGIC: No easy bruisability or lymph node enlargement. NEUROLOGIC/PSYCHOLOGICAL: Complaining of weakness. Patient is alert and oriented. No seizures. Other systems reviewed and negative. PHYSICAL EXAMINATION: GENERAL: Well-developed, well-nourished, male, alert and oriented, in no apparent acute distress. VITAL SIGNS: Temp 97.5 degrees Fahrenheit, heart rate of 55 per minute, respiratory rate 16 per minute, blood pressure 127/40, pulse ox of 97% on room air. LUNGS: Clear. HEART: Irregular rate and rhythm. ABDOMEN: Soft, nontender. RECTAL: Stool is black. EXTREMITIES: Moves all extremities. Normal strength. NEUROLOGIC: Alert and oriented x3. PSYCHIATRIC: Normal affect. SKIN: Warm, dry. No rash. LABORATORY: On admission, his hemoglobin is 8.9 and had a unit of packed cells with a hemoglobin going up to 9.3. His coag is low. PT last night was 37.9, INR 3.65. He did not take his last dose of Coumadin last night. Electrolytes are essentially normal. BUN is 76, creatinine of 1.42. Stool is positive for occult blood. UA: Ascorbic acid elevated to 20, but no evidence of infection. LFTs were normal and troponin was normal. TSH of 6.16. IMPRESSION: 1. Diabetes mellitus type 2. 2. Atrial fib on Coumadin. 3. GI bleed with dark stools and anemia. PLAN: 1. Agree with blood transfusion. 2. Discussed with Dr. Wright, his primary physician, who told me his previous GI was Dr. Mcgrath, so we will consult Dr. Mcgrath again for possible upper and lower endoscopy. 3. Meantime, hold off on the Coumadin and consult Cardiology. DICTATING PHYSICIAN: CARI MEEHAN M.D. [id number] PHY#: [id number] ID: [id number] JOB#: [id number] ACCT: [id number] cc:CARI MEEHAN M.D. >
[2017-01-25] MEDS: ATORVASTATIN CALCIUM 40 MG TABLET PO SCH (09:45)
[2017-01-25] MEDS: AMLODIPINE BESYLATE 10 MG TABLET PO SCH (09:45)
--- NOTE | 2017-01-25 10:37 | PDOC CONSULTATION ---
Consultation Consult Date: 01/25/17 Attending physician:: TRAVIS MARROQUIN Consult reason:: Upper GI bleeding. patient on anticoagulation. history of polyps. cecal AVM History of Present Illness Admission Date/PCP: 01/24/17 21:09 LEANDRA HOPKINS, History of Present Illness: I am asked to see this patient by the primary attending. patient was seen about 3 years ago. He had been a patient of Dr Pierce in 2013, the story is somewhat confusing but apparently had a colonoscopy done that demonstrated multiple polyps that were removed. There is a possibility that patient had some bleeding after that colonoscopy. went to [facility] and had another colonoscopy done there did not appear to have a post polypectomy bleed but a cecal AVM was noted that was cauterized patient then came to see me at the request of Dr Maldonado following that Dr Maldonado continues to be his primary nuclear engineer, and in fact did see patient last Tuesday he had previously been on Plavix but is now on Coumadin previous colonoscopy did demonstrate polyp that were removed he is due for a surveillance has been having dark stools, decreased H/H and receiving transfusions Coumadin has been stopped not clear what his baseline H/H is, will ask Dr Maldonado to see patient will need to have EGD and possibly another colonoscopy done his dark stools are more indicative of a possible upper GI source he does have a history of A FIB and several stent placements patient will need colonoscopy as well to see if his AVM is the culprit lesion patient is willing to proceed will talk to Dr Maldonado to see how to manage his anticoagulation status, whether or not we can allow his INR to drift back down or whether it would be OK to correct with either Vit K or FFP . Past Medical History Cardiac Medical History: Reports: Atrial Fibrillation, Congestive Heart Failure , Coronary Artery Disease, Myocardial Infarction - x4, Hyperlipidema, Hypertension Denies: DVT, Pulmonary Embolism Pulmonary Medical History: Denies: Asthma, Bronchitis, Chronic Obstructive Pulmonary Disease (COPD), Pneumonia, Tuberculosis EENT Medical History: Reports: Eyes - Glasses, Ears - Partial hearing loss Denies: Throat Neurological Medical History: Denies: Hemorrhagic CVA, Ischemic CVA, Seizures Endocrine Medical History: Reports: Diabetes Mellitus Type 1, Diabetes Mellitus Type 2, Hypothyroidism Denies: Hyperthyroidism Renal/ Medical History: Reports: Chronic Kidney Disease GI Medical History: Reports: Other - Angiodysplasia of cecum, 2014. Denies: Cirrhosis, Gastroesophageal Reflux Disease, Hepatitis Musculoskeltal Medical History: Reports: Arthritis Skin Medical History: Reports: None Psychiatric Medical History: Reports: Depression, General Anxiety Disorder Denies: Alcohol Dependency, Substance Abuse, Tobacco Dependency Hematology: Denies: Anemia Infectious Medical History: Denies: Hepatitis B, Hepatitis C Past Surgical History Past Surgical History: Reports: Cardiac Catheterization, Coronary Stent - 5, Tonsillectomy Social History Lives with: Spouse/Significant other Smoking Status: Unknown if Ever Smoked Frequency of Alcohol Use: None Hx Recreational Drug Use: No Drugs: None Hx Prescription Drug Abuse: No - Advance Directive Resuscitation Status: Full Code Family History Family History: CAD, DM Parental Family History Reviewed: Yes Children Family History Reviewed: Unknown Sibling(s) Family History Reviewed.: Unknown Medication/Allergy Home Medications: Amlodipine Besylate [Norvasc 10 mg Tablet] 10 mg PO DAILY 01/24/17 Atorvastatin Calcium [Lipitor 40 mg Tablet] 40 mg PO DAILY 01/24/17 Cetirizine HCl [Zyrtec 10 mg Tablet] 10 mg PO QHS 01/24/17 Ezetimibe [Zetia 10 mg Tablet] 10 mg PO QAM 01/24/17 Hydrochlorothiazide [Hydrodiuril 12.5 mg Capsule] 12.5 mg PO QAM 01/24/17 Levothyroxine Sodium [Synthroid] 100 mcg PO QAM 01/24/17 Losartan Potassium [Cozaar 50 mg Tablet] 50 mg PO QAM 01/24/17 Magnesium Oxide [Mag-Ox 400 mg Tablet] 400 mg PO BID 01/24/17 Sotalol HCl [Sotalol] 80 mg PO BID@0800,2000 01/24/17 Ubidecarenone/Vit E Acetate [Co Q-10 100 mg Softgel] 1 each PO DAILY 01/24/17 Vit C/Asif AC/Lut/Copper/Znox [Preservision Lutein Softgel] 1 each PO DAILY 04/01 Warfarin Sodium [Coumadin] 5 mg PO ASDIR PRN 01/24/17 Allergies/Adverse Reactions: amoxicillin [Amoxicillin] Allergy (Verified 01/24/17 17:11) amoxicillin trihydrate [From Augmentin XR] Allergy (Verified 01/24/17 17:11) cephalexin monohydrate [From Keflex] Allergy (Verified 01/24/17 17:11) Potassium Clavulanate * [From Augmentin XR] Allergy (Verified 01/24/17 17:11) Tuberculin,Ppd,Multi-Puncture [From Tuberculin PPD Mireya Test] Allergy (Verified 01/24/17 17:11) Review of Systems Constitutional: PRESENT: weakness. ABSENT: fever(s), headache(s), night sweats Eyes: ABSENT: visual disturbances Ears: ABSENT: hearing changes Nose, Mouth, and Throat: ABSENT: mouth pain, sore throat Cardiovascular: ABSENT: chest pain, orthropnea Respiratory: ABSENT: dyspnea, hemoptysis Gastrointestinal: ABSENT: dysphagia, nausea, vomiting Genitourinary: ABSENT: dysuria, hematuria Musculoskeletal: ABSENT: deformity, joint swelling Integumentary: ABSENT: pruritus Neurological: ABSENT: syncope, tingling, tremor(s), vertigo Endocrine: ABSENT: polydipsia, polyphagia, polyuria Hematologic/Lymphatic: ABSENT: easy bruising Physical Exam Vital Signs: Temp Pulse Resp BP Pulse Ox 97.5 F 59 L 16 111/47 L 100 01/25/17 10:09 01/25/17 10:09 01/25/17 10:09 01/25/17 10:09 01/25/17 10:09 Intake & Output 01/24/17 01/25/17 01/26/17 06:59 06:59 06:59 Intake Total 320 0 Balance 320 0 Weight 86 kg General appearance: PRESENT: no acute distress, well-developed, well-nourished Head exam: PRESENT: atraumatic, normocephalic Eye exam: PRESENT: EOMI, PERRLA. ABSENT: nystagmus, scleral icterus Mouth exam: PRESENT: moist, neck supple Throat exam: ABSENT: tonsillar exudate Neck exam: ABSENT: meningismus, tenderness, thyromegaly Respiratory exam: PRESENT: symmetrical, unlabored. ABSENT: tachypnea, wheezes Cardiovascular exam: PRESENT: RRR, +S1, +S2 GI/Abdominal exam: PRESENT: soft. ABSENT: rebound, rigid, tenderness Extremities exam: PRESENT: full ROM. ABSENT: calf tenderness, joint swelling Musculoskeletal exam: PRESENT: full ROM Neurological exam: PRESENT: oriented to time, oriented to situation, CN II-XII grossly intact Psychiatric exam: PRESENT: appropriate affect Skin exam: PRESENT: normal color. ABSENT: mottled, pallor, petechiae, urticaria , vesicles Results Laboratory Results: 01/25/17 02:57 01/25/17 02:57 01/25/17 01/25/17 02:57 02:57 WBC 9.4 RBC 3.25 L Hgb 9.3 L Hct 27.5 L MCV 85 MCH 28.6 MCHC 33.9 RDW 16.5 H Plt Count 189 Sodium 140.7 Potassium 4.5 Chloride 109 H Carbon Dioxide 24 Anion Gap 8 BUN 76 H Creatinine 1.42 H Est GFR ( Amer) 58 L Est GFR (Non-Af Amer) 48 L Glucose 100 Calcium 8.9 Impressions: Chest X-Ray 01/24/17 17:39 IMPRESSION: No significant interval change. No acute findings. Other findings as noted above Assessment & Plan - Diagnosis (1) Upper GI bleeding Plan: As discussed above, the question is whether or not this is an upper GI source vs cecal AVM that is bleeding patient does not want to see Dr Pierce, which I had offered to him since it was Dr Pierce that initally saw him in 2013. he will need EGD and colonoscopy Risks, benefits and alternatives are discussed with the patient in detail he is willing to proceed I will ask Dr Maldonado to assist with his anticoagulant management at this point further recommendations to follow, - Time Time Spent: 50 to 70 Minutes
[2017-01-25] MEDS: FUROSEMIDE INJ/PF 40 MG/4 ML SDV IV SCH ×2 (12:18→21:16)
[2017-01-25] MEDS: INSULIN LISPRO 100 UNIT/ML 3 ML VIAL SUBCUT PRN ×2 (13:04→21:52)
[2017-01-25 18:25] LABS: ABSOLUTE BASOPHILS # (AUTO) 0.1 10^3/uL (0.0-0.2); ABSOLUTE EOSINOPHILS # (AUTO) 0.1 10^3/uL (0.0-0.6); ABSOLUTE LYMPHOCYTES (AUTO) 1.2 10^3/uL (0.5-4.7); ABSOLUTE NEUT (AUTO) 6.5 10^3/uL (1.7-8.2); BASOPHILS % (AUTO) 0.9 % (0-2); EOSINOPHILS % (AUTO) 1.2 % (0-6); HGB HCT DIFFERENCE 0.8; LYMPHOCYTES % (AUTO) 13.5 % (13-45); MEAN CORPUSCULAR HEMOGLOBIN 28.9 pg (27.0-33.4); MEAN CORPUSCULAR VOLUME 85 fl (80-97); MONOCYTES % (AUTO) 11.1 % (3-13); RED BLOOD COUNT 4.34 10^6/uL (4.35-5.55); SEGMENTED NEUTROPHILS % (AUTO) 73.3 % (42-78); WHITE BLOOD COUNT 8.9 10^3/uL (4.0-10.5)
[2017-01-25 18:38] LABS: HEMOGLOBIN 12.6 g/dL (13.5-17.0)
[2017-01-25] MEDS: SOTALOL HCL 80 MG TABLET PO SCH (21:17)
[2017-01-26 04:59] LABS: ABSOLUTE BASOPHILS # (AUTO) 0.1 10^3/uL (0.0-0.2); ABSOLUTE EOSINOPHILS # (AUTO) 0.2 10^3/uL (0.0-0.6); ABSOLUTE LYMPHOCYTES (AUTO) 1.1 10^3/uL (0.5-4.7); ABSOLUTE MONOCYTES (AUTO) 0.9 10^3/uL (0.1-1.4); BASOPHILS % (AUTO) 0.9 % (0-2); EOSINOPHILS % (AUTO) 1.7 % (0-6); HEMATOCRIT 35.8 % (37.9-51.0); HGB HCT DIFFERENCE 0.2; LYMPHOCYTES % (AUTO) 11.9 % (13-45); MEAN CORPUSCULAR HEMOGLOBIN 28.5 pg (27.0-33.4); MEAN CORPUSCULAR HGB CONC 33.5 g/dL (32.0-36.0); MEAN CORPUSCULAR VOLUME 85 fl (80-97); MONOCYTES % (AUTO) 10.1 % (3-13); RED BLOOD COUNT 4.19 10^6/uL (4.35-5.55); RED CELL DISTRIBUTION WIDTH 16.1 % (11.5-14.0); SEGMENTED NEUTROPHILS % (AUTO) 75.4 % (42-78); WHITE BLOOD COUNT 9.2 10^3/uL (4.0-10.5)
[2017-01-26] MEDS: SUCRALFATE 1 GM TABLET PO SCH ×3 (05:18→17:32)
[2017-01-26 05:19] LABS: ALANINE AMINOTRANSFERASE 39 U/L (21-72); ALBUMIN 3.2 g/dL (3.5-5.0); ALKALINE PHOSPHATASE 71 U/L (38-126); ANION GAP 10 (5-19); ASPARTATE AMINO TRANSFERASE 25 U/L (17-59); BILIRUBIN,DIRECT 0.5 mg/dL (0.0-0.4); BILIRUBIN,TOTAL 2.3 mg/dL (0.2-1.3); BLOOD UREA NITROGEN 47 mg/dL (7-20); CALCIUM 8.7 mg/dL (8.4-10.2); CARBON DIOXIDE 28 mmol/L (22-30); CHLORIDE 105 mmol/L (98-107); CREATININE RESULT 1.44 mg/dL (0.52-1.25); GLUCOSE 90 mg/dL (75-110); POTASSIUM 4.4 mmol/L (3.6-5.0); SODIUM 143.3 mmol/L (137-145); TOTAL PROTEIN 5.9 g/dL (6.3-8.2)
[2017-01-26] MEDS ORDERED: NORMAL SALINE 1000 ML 1,000 ML IV PRN (08:11)
--- NOTE | 2017-01-26 08:19 | PDOC PROGRESS REPORT ---
Subjective Progress Note for:: 01/26/17 Subjective:: The patient states to feel better. He denies any lightheadedness. His blood pressure is well controlled. He denies any chest pain or shortness of breath. He denies any further bowel movements. Physical Exam Vital Signs: Temp Pulse Resp BP Pulse Ox 97.6 F 58 L 18 123/50 L 97 01/26/17 04:15 01/26/17 04:15 01/26/17 04:15 01/26/17 04:15 01/26/17 04:15 Intake & Output 01/25/17 01/26/17 01/27/17 06:59 06:59 06:59 Intake Total 320 4938 Output Total 2250 Balance 320 2688 Weight 86 kg General appearance: PRESENT: no acute distress Head exam: PRESENT: atraumatic Eye exam: PRESENT: conjunctiva pink Mouth exam: PRESENT: moist Neck exam: ABSENT: carotid bruit Respiratory exam: PRESENT: clear to auscultation erika Cardiovascular exam: PRESENT: +S1, +S2 Pulses: PRESENT: +1 pedal pulses bilateral GI/Abdominal exam: PRESENT: normal bowel sounds, soft Extremities exam: PRESENT: full ROM Musculoskeletal exam: PRESENT: ambulatory Neurological exam: PRESENT: alert, awake Results Laboratory Results: 01/26/17 04:24 01/26/17 04:24 01/25/17 01/26/17 01/26/17 18:10 04:24 04:24 WBC 8.9 9.2 RBC 4.34 L 4.19 L Hgb 12.6 L D 12.0 L Hct 37.0 L 35.8 L MCV 85 85 MCH 28.9 28.5 MCHC 34.0 33.5 RDW 16.0 H 16.1 H Plt Count 226 195 Seg Neutrophils % 73.3 75.4 Lymphocytes % 13.5 11.9 L Monocytes % 11.1 10.1 Eosinophils % 1.2 1.7 Basophils % 0.9 0.9 Absolute Neutrophils 6.5 7.0 Absolute Lymphocytes 1.2 1.1 Absolute Monocytes 1.0 0.9 Absolute Eosinophils 0.1 0.2 Absolute Basophils 0.1 0.1 Sodium 143.3 Potassium 4.4 Chloride 105 Carbon Dioxide 28 Anion Gap 10 BUN 47 H Creatinine 1.44 H Est GFR ( Amer) 57 L Est GFR (Non-Af Amer) 47 L Glucose 90 Calcium 8.7 Total Bilirubin 2.3 H AST 25 ALT 39 Alkaline Phosphatase 71 Total Protein 5.9 L Albumin 3.2 L TSH 01/26/17 04:24 WBC RBC Hgb Hct MCV MCH MCHC RDW Plt Count Seg Neutrophils % Lymphocytes % Monocytes % Eosinophils % Basophils % Absolute Neutrophils Absolute Lymphocytes Absolute Monocytes Absolute Eosinophils Absolute Basophils Sodium Potassium Chloride Carbon Dioxide Anion Gap BUN Creatinine Est GFR ( Amer) Est GFR (Non-Af Amer) Glucose Calcium Total Bilirubin AST ALT Alkaline Phosphatase Total Protein Albumin TSH 5.68 H Impressions: Chest X-Ray 01/24/17 17:39 IMPRESSION: No significant interval change. No acute findings. Other findings as noted above Assessment & Plan - Diagnosis (1) Acute post-hemorrhagic anemia Is this a current diagnosis for this admission?: Yes Plan: Patient was transfused with 3 units of packed red blood cells. No further bleeding noted (2) Acute worsening of stage 3 chronic kidney disease Is this a current diagnosis for this admission?: Yes Plan: Most probably secondary to GI bleed and dehydration. Creatinine has improved with IV fluids (3) Melena Is this a current diagnosis for this admission?: Yes Plan: Patient is scheduled for EGD and colonoscopy (4) Upper GI bleeding Is this a current diagnosis for this admission?: Yes Plan: Scheduled for EGD and colonoscopy (5) 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 Is this a current diagnosis for this admission?: Yes Plan: Awaiting colonoscopy and EGD (6) Atrial fibrillation Qualifiers: Atrial fibrillation type: unspecified Qualified Code(s): I48.91 - Unspecified atrial fibrillation Is this a current diagnosis for this admission?: Yes Plan: Stable continue current medications (7) Diabetes mellitus type 2 with complications Is this a current diagnosis for this admission?: Yes Plan: Continue Accu-Cheks and insulin (8) Hypothyroid Qualifiers: Hypothyroidism type: unspecified Qualified Code(s): E03.9 - Hypothyroidism , unspecified Is this a current diagnosis for this admission?: Yes Plan: TSH slightly elevated. I would not adjust the dose until the patient is stable and discharged home where we can recheck it and adjust accordingly (9) History of myocardial infarction Is this a current diagnosis for this admission?: Yes Plan: Continue current medications
[2017-01-26] MEDS: EZETIMIBE 10 MG TABLET PO SCH (08:39)
[2017-01-26] MEDS: LEVOTHYROXINE SODIUM 0.1 MG TABLET PO SCH (08:39)
[2017-01-26] MEDS: SOTALOL HCL 80 MG TABLET PO SCH ×2 (08:40→21:16)
--- NOTE | 2017-01-26 09:31 | PDOC PROGRESS REPORT ---
Subjective Progress Note for:: 01/26/17 Subjective:: patient is seen and examined, family is in room Dr Maldonado has been in touch with the family will check his coagulation status today and see where he is Dr Maldonado to see patient a little later patient did get VitK in the ED no further bleeding patient had elevated INR has had several unit PRBC transfusion he denies any SOB or CP no further melena Physical Exam Vital Signs: Temp Pulse Resp BP Pulse Ox 97.6 F 125 H 18 114/47 L 100 01/26/17 08:13 01/26/17 08:13 01/26/17 08:13 01/26/17 08:13 01/26/17 08:13 Intake & Output 01/25/17 01/26/17 01/27/17 06:59 06:59 06:59 Intake Total 320 4938 Output Total 2250 Balance 320 2688 Weight 86 kg General appearance: PRESENT: no acute distress, well-developed, well-nourished Head exam: PRESENT: atraumatic, normocephalic Eye exam: PRESENT: EOMI, PERRLA. ABSENT: scleral icterus Mouth exam: PRESENT: moist, neck supple Throat exam: ABSENT: tonsillar exudate Neck exam: ABSENT: meningismus, tenderness, thyromegaly Respiratory exam: PRESENT: symmetrical, unlabored. ABSENT: tachypnea, wheezes Cardiovascular exam: PRESENT: irregular rhythm, +S1, +S2. ABSENT: RRR Pulses: PRESENT: normal carotid pulses GI/Abdominal exam: PRESENT: soft. ABSENT: rebound, rigid, tenderness Extremities exam: ABSENT: joint swelling Musculoskeletal exam: PRESENT: full ROM Neurological exam: PRESENT: oriented to time, oriented to situation, CN II-XII grossly intact Psychiatric exam: PRESENT: appropriate affect Skin exam: PRESENT: normal color. ABSENT: mottled, pallor, urticaria, vesicles Results Laboratory Results: 01/26/17 04:24 01/26/17 04:24 01/25/17 01/26/17 01/26/17 18:10 04:24 04:24 WBC 8.9 9.2 RBC 4.34 L 4.19 L Hgb 12.6 L D 12.0 L Hct 37.0 L 35.8 L MCV 85 85 MCH 28.9 28.5 MCHC 34.0 33.5 RDW 16.0 H 16.1 H Plt Count 226 195 Seg Neutrophils % 73.3 75.4 Lymphocytes % 13.5 11.9 L Monocytes % 11.1 10.1 Eosinophils % 1.2 1.7 Basophils % 0.9 0.9 Absolute Neutrophils 6.5 7.0 Absolute Lymphocytes 1.2 1.1 Absolute Monocytes 1.0 0.9 Absolute Eosinophils 0.1 0.2 Absolute Basophils 0.1 0.1 Sodium 143.3 Potassium 4.4 Chloride 105 Carbon Dioxide 28 Anion Gap 10 BUN 47 H Creatinine 1.44 H Est GFR ( Amer) 57 L Est GFR (Non-Af Amer) 47 L Glucose 90 Calcium 8.7 Total Bilirubin 2.3 H AST 25 ALT 39 Alkaline Phosphatase 71 Total Protein 5.9 L Albumin 3.2 L TSH 01/26/17 04:24 WBC RBC Hgb Hct MCV MCH MCHC RDW Plt Count Seg Neutrophils % Lymphocytes % Monocytes % Eosinophils % Basophils % Absolute Neutrophils Absolute Lymphocytes Absolute Monocytes Absolute Eosinophils Absolute Basophils Sodium Potassium Chloride Carbon Dioxide Anion Gap BUN Creatinine Est GFR ( Amer) Est GFR (Non-Af Amer) Glucose Calcium Total Bilirubin AST ALT Alkaline Phosphatase Total Protein Albumin TSH 5.68 H Impressions: Chest X-Ray 01/24/17 17:39 IMPRESSION: No significant interval change. No acute findings. Other findings as noted above Assessment & Plan - Diagnosis (1) Upper GI bleeding Is this a current diagnosis for this admission?: Yes Plan: patient is scheduled for EGD and colonoscopy tomorrow to allow for any potential adjustment of coagulation profile since had melena will need EGD has a history of both colon polyps ( due for surveillance) and a history of of colonic AVM ( previously ablated at [facility]) Risks, benefits and alternatives are discussed with the patient in detail further recommendations to follow - Time Time Spent with patient: 15-24 minutes
[2017-01-26] MEDS: ATORVASTATIN CALCIUM 40 MG TABLET PO SCH (09:41)
[2017-01-26] MEDS: FUROSEMIDE 40 MG TABLET PO SCH (09:42)
[2017-01-26] MEDS: AMLODIPINE BESYLATE 10 MG TABLET PO SCH (09:42)
[2017-01-26] MEDS: PANTOPRAZOLE SODIUM 40 MG VIAL IV SCH (09:43)
[2017-01-26] MEDS: MAGNESIUM OXIDE 400 MG TABLET PO SCH ×2 (09:43→17:33)
[2017-01-26 10:24] LABS: PROTHROMBIN TIME 34.4 SEC (11.4-15.4)
[2017-01-26 10:25] LABS: PARTIAL THROMBOPLASTIN TIME 50.4 SEC (23.5-35.8)
[2017-01-26] MEDS ORDERED: PEG 3350/NA SULF,BICARB,CL/KCL 4000 ML PO ONE (12:00)
[2017-01-26] MEDS: INSULIN LISPRO 100 UNIT/ML 3 ML VIAL SUBCUT PRN ×2 (12:13→17:09)
--- NOTE | 2017-01-26 13:42 | PROGRESS NOTE E ---
Progress Note NAME: ADELAIDE COOPER : 1935 AGE: 81Y DATE: 01/26/2017 ROOM: 321 The patient continued to have no abdominal pains. His vital signs are stable. His hemoglobin is up to 12.0 and white count of 9.2. He has not had a bowel movement yet today. He is supposed to have upper and lower endoscopy to be done by Dr. Mcgrath tomorrow afternoon. His abdomen is soft and remains nontender. His PT/INR is still elevated. PT is 34 and INR of 3.2 and a PTT of 50.4. At this point, the patient appears to have been quite stable and will follow him up on a p.r.n. basis. DICTATING PHYSICIAN: CARI MEEHAN M.D. [id number] PHY#: [id number] ID: [id number] JOB#: [id number] ACCT: [id number] cc: >
--- NOTE | 2017-01-27 00:23 | CONSULTATION REPORT E ---
Consultation Report NAME: ADELAIDE COOPER : 1935 AGE: 81Y DATE: 01/26/2017 321 A TO: JESSICA HUBBARD M.D. FROM: ANNY SHRESTHA M.D. Requesting Physician CHIEF COMPLAINT: GI bleed; paroxysmal atrial fibrillation on rhythm control; over-coumadinization secondary to drug-drug interaction with Tylenol. PRESENT ILLNESS: This very pleasant 81-year-old male noticed black stool for approximately 2 weeks but did not bring it to my attention. Then he started feeling weak for the past one week with postural dizziness, no nausea or vomiting, no fever, no chest pain, no shortness of breath, and he came to the ER whereupon he was diagnosed as having GI bleed because of melena. His blood pressure was 121/51 and the heart rate was 60 because he was on sotalol. Examination of the heart showed a systolic ejection murmur. Abdomen was benign. There was no peripheral edema. Initial hemoglobin was 8.9. PT/INR was 3.55. The BUN was 94, creatinine was 1.62. The troponin I was less than 0.012. The TSH was 6.16, showing no hyperthyroidism. The stool was positive for blood. The initial EKG showed sinus rhythm with nonspecific anterolateral ST-changes. The chest x-ray was negative for heart failure. The patient was given 1 mg IV vitamin K in the ER by Dr. Wilson. Also he was given IV fluids with up to 3 units of packed cells. After discussion with Dr. Mcgrath, the GI automobile sales consultant, he recommended he get a couple of units of FFP, which he is now getting his second unit to bring INR back to below 2 before upper and lower endoscopy tomorrow if possible and appropriate treatment for whatever the source of his bleeding discovered on endoscopy. The patient is currently stable in terms of vital signs. He is undergoing GI prep and he said his stool color is now green, not melanotic. MEDICAL PROBLEMS: 1. Paroxysmal atrial fibrillation. His CHADS2-VASc is 4/9. He is under rhythm control on Sotalol and stroke prevention on Coumadin. On admission, his rhythm was still in sinus rhythm and Sotalol has been continued since his admission. Prior to admission, we deliberately tried to keep his PT/INR in the low 2 to 2.5 due to his known risk of GI bleed. On 01/19/2017 his INR was discovered to be 3.3 on 5 mg 5 days a week and 2.5 mg 2 days a week, and patient reported recent use of Tylenol, so on that day, we requested him to stop his Coumadin for one day and then reduce the dose to 5 mg 4 days a week and 2.5 mg 3 days a week with repeat INR in 2 weeks. At that time we did not know that his stool was already melanotic. 2. Gastrointestinal hemorrhage. The patient is known to have high risk GI bleed due to previous findings of cecal AVM during a GI bleed episode on 06/10/2013 treated at [place], where he had GI bleed x 3-4 days and was admitted through ER. At that time his INR was only 2.7 when that happened. On colonoscopy he was found to have AVM in the cecum and a 6 mm polyp in the proximal ascending colon which was not removed(?) and there were moderate sized hemorrhoids. Later he was found to have proximal descending colon polyp which turned out to be tubular adenoma, and he had a rectal polyp with inflamed hyperplastic polyp which was not removed. Subsequently in November 2013 he was found to have C. difficile colitis and treated with Flagyl and subsequently put on probiotic. Hence, he is at high risk for GI bleeding. 3. 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 The patient's latest stents were done on 08/2014 and was subsequently treated with triple antiplatelet/Coumadin TAPT for about a month followed by 11 months of Plavix and Coumadin without aspirin (in order to decrease the risk of GI bleeding). He is also known to be a high-risk stent patient due to the multiple stents he has had and previous MO, diabetes, CKD, age greater than 65 with documented in-stent restenosis in the proximal and mid LAD stents followed by distal diffuse disease. His most recent stress test was done on 10/20/2016 and this showed no reversible ischemia, only fixed diffusion defects. 4. Hypertension. 5. Hypercholesterolemia with recent LDL in July of 2016 of 44, controlled by Lipitor 40 mg and Zetia 10 mg, and tolerated this combination without any muscle side effects. 6. Mild aortic stenosis by echo as recent as September 2016. This showed that patient had mild calcific aortic valvular stenosis especially due to a fixed noncoronary cusp with a peak pressure gradient of 28 and mean pressure gradient of 19 but no aortic regurgitation. There was mild left ventricular hypertrophy, trace mitral regurgitation, normal EF of 60% with stage 1 left ventricular dysfunction with hypokinetic IVS and the posterior wall with no pulmonary hypertension in the right heart. 7. Chronic kidney disease. His most recent 12/29/2016 renal function showed BUN 24, creatinine 1.19, sodium 140, potassium 4.5 with an estimated GFR of 59 mL/min. He is under Dr Sanders for CKD. CURRENT MEDICATIONS: 1. Hydrochlorothiazide 12.5 mg 3 times a week. 2. Cozaar 50 mg daily. 3. Zetia 10 mg daily. 4. Lipitor 40 mg daily. 5. Sotalol 80 mg twice a day. 6. Norvasc 10 mg daily. 7. Magnesium oxide 400 mg b.i.d. 8. Synthroid 100 mg daily. 9. Nitroglycerin p.r.n. 10. Lantus insulin. 11. Coumadin as described above. 12. Zyrtec. 13. Restasis. 14. Pressure Vision AREDS 2 capsule. ALLERGIES: 1. POTASSIUM CLAVULANATE. 2. AMOXICILLIN. 3. CRESTOR. 4. KEFLEX. 5. TAPE RASH. REVIEW OF SYSTEMS: Showed the patient had fatigue and postural dizziness and weakness for approximately 1-2 weeks without nausea, vomiting or fever. He has arthritis. He had no stroke symptoms and no recent chest pains, mild exertional dyspnea. No genitourinary symptoms. No neurologic deficits or stroke symptoms. PHYSICAL EXAMINATION: VITAL SIGNS: Temperature afebrile. Blood pressure 123/47, pulse oximetry 93, respirations 17. CARDIOVASCULAR: Showed PMI not palpable. S4 present. Heart sounds normal. A 3/6 systolic ejection murmur in the aortic area radiating to the neck was heard. CHEST: Normal to auscultation and percussion. ABDOMEN: Showed active bowel sounds. No specific tenderness in any of the 4 quadrants and no hepatosplenomegaly. EXTREMITIES: Showed no ankle edema. NEUROLOGIC: Entirely normal. LABORATORY DATA: Laboratory testing and diagnostic testing are dictated above. ASSESSMENT: 1. Gastrointestinal bleeding. Pending upper endoscopy and colonoscopy. Known history of GI bleeding from 2013 due to AVM in the cecum. Also has hemorrhoids, polyps, tubular adenoma and rectal polyp including episodes of C. difficile colitis in 2014. This makes his second GI bleeding while on Coumadin. His previous INR in 2014 when he bled was 2.7. His INR when he was bleeding this time was 3.3 secondary to ingestion of Tylenol. 2. Supratherapeutic INR. 3. Paroxysmal atrial fibrillation. On rhythm control with Sotalol and for stroke prevention due to CHADS2-VASc of 4/9 on Coumadin. 4. Coronary artery disease with multiple stents ever since 2000 with known in-stent restenosis. The patient is a high risk stent patient and had been on Coumadin and not aspirin due to history of easy bleeding from his GI. 5. Anemia. Hemoglobin 8.9, transfused to 12.0 after 3 units of packed cells. RECOMMENDATIONS: Continue sotalol 80 mg p.o. b.i.d. for rhythm control so patient can stay in sinus rhythm without lapsing into atrial fibrillation, which would increase his chance of stroke while he is off the Coumadin for purpose of normalization of the INR so that we can do upper and lower endoscopy to discover the site of his GI bleed at this time. FFP has been given 2 units to help normalize the INR. Once the source is identified, hopefully they can be treated effectively. Once his repeat stool is negative for blood after 3-4 days, (it may be possible to resume his Coumadin in about 7 days). Restarting Coumadin after an episode of major GIB is assoc. with improved survival and decreased TE without increased risk of GIB after 7 days of interruption. (AJC vol 113, issue 4, pp 542-133, 06/30/13). However, Long-term protection from stroke, cannot be rely on through the use of Coumadin, since this is the second time he bled and he is a proven high-risk major bleeder. Therefore, I would seriously consider GENNARO device protection using either aWatchman's device or the Lariat. This is recommended so that his dependence on oral anticoagulants, whether it be Coumadin or Eliquis , can be short term instead of fpc. Once the device is deployed and is proven to be working (ie no leaks) then he can be treated with aspirin to prevent stent thrombosis and if he should need further stenting for his high-risk coronary artery disease, even DAPT could be possible down the road, with less fear of major rebleed. I have discussed in detail the possible options of using Watchman device to help him prevent stroke in the future. Will call Dr. Almodovar his interventionalist to coordinate the heart team at [facility] to explore this option. ( 2 hours 8-10 pm 01/26/17. ) DICTATING PHYSICIAN: JESSICA HUBBARD M.D. [id number] PHY#: [id number] ID: [id number] JOB#: [id number] ACCT: [id number] cc:JESSICA HUBBARD M.D. > MTDD
[2017-01-27] MEDS: PANTOPRAZOLE SODIUM 40 MG VIAL IV SCH ×2 (00:39→11:18)
[2017-01-27] MEDS: SUCRALFATE 1 GM TABLET PO SCH ×5 (00:47→23:25)
[2017-01-27 01:12] LABS: HEMATOCRIT 35.4 % (37.9-51.0); HGB HCT DIFFERENCE 0.6; MEAN CORPUSCULAR HEMOGLOBIN 28.1 pg (27.0-33.4); MEAN CORPUSCULAR HGB CONC 33.9 g/dL (32.0-36.0); MEAN CORPUSCULAR VOLUME 83 fl (80-97); RED BLOOD COUNT 4.27 10^6/uL (4.35-5.55); RED CELL DISTRIBUTION WIDTH 16.1 % (11.5-14.0)
[2017-01-27 01:19] LABS: PARTIAL THROMBOPLASTIN TIME 40.3 SEC (23.5-35.8)
[2017-01-27 05:53] LABS: PROTHROMBIN TIME 22.3 SEC (11.4-15.4)
[2017-01-27 05:54] LABS: ABSOLUTE BASOPHILS # (AUTO) 0.1 10^3/uL (0.0-0.2); ABSOLUTE EOSINOPHILS # (AUTO) 0.1 10^3/uL (0.0-0.6); ABSOLUTE MONOCYTES (AUTO) 0.9 10^3/uL (0.1-1.4); ABSOLUTE NEUT (AUTO) 6.2 10^3/uL (1.7-8.2); BASOPHILS % (AUTO) 0.8 % (0-2); HEMATOCRIT 31.9 % (37.9-51.0); HGB HCT DIFFERENCE 1.1; LYMPHOCYTES % (AUTO) 12.1 % (13-45); MEAN CORPUSCULAR HEMOGLOBIN 28.6 pg (27.0-33.4); MEAN CORPUSCULAR HGB CONC 34.5 g/dL (32.0-36.0); MEAN CORPUSCULAR VOLUME 83 fl (80-97); MONOCYTES % (AUTO) 11.3 % (3-13); RED BLOOD COUNT 3.85 10^6/uL (4.35-5.55); RED CELL DISTRIBUTION WIDTH 16.1 % (11.5-14.0); SEGMENTED NEUTROPHILS % (AUTO) 74.8 % (42-78); WHITE BLOOD COUNT 8.3 10^3/uL (4.0-10.5)
[2017-01-27 06:26] LABS: ALANINE AMINOTRANSFERASE 33 U/L (21-72); ALBUMIN 3.3 g/dL (3.5-5.0); ALKALINE PHOSPHATASE 78 U/L (38-126); ANION GAP 11 (5-19); ASPARTATE AMINO TRANSFERASE 25 U/L (17-59); BILIRUBIN,DIRECT 0.4 mg/dL (0.0-0.4); BILIRUBIN,TOTAL 1.9 mg/dL (0.2-1.3); BLOOD UREA NITROGEN 31 mg/dL (7-20); CALCIUM 8.1 mg/dL (8.4-10.2); CARBON DIOXIDE 27 mmol/L (22-30); CHLORIDE 102 mmol/L (98-107); CREATININE RESULT 1.32 mg/dL (0.52-1.25); GLUCOSE 117 mg/dL (75-110); POTASSIUM 3.7 mmol/L (3.6-5.0); SODIUM 140.2 mmol/L (137-145)
--- NOTE | 2017-01-27 08:18 | PDOC PROGRESS REPORT ---
Subjective Progress Note for:: 01/27/17 Subjective:: The patient states to feel better. He denies any further melena. He is having some lower abdominal cramping after GoLYTELY. He is presently scheduled for an upper endoscopy and colonoscopy. He has received 3 units of FFP's and 3 units of blood Physical Exam Vital Signs: Temp Pulse Resp BP Pulse Ox 98.5 F 76 18 120/40 L 95 01/27/17 03:44 01/27/17 03:44 01/27/17 03:44 01/27/17 03:44 01/27/17 03:44 Intake & Output 01/26/17 01/27/17 01/28/17 06:59 06:59 06:59 Intake Total 4938 3412 Output Total 2250 1625 Balance 2688 1787 Weight 85.8 kg General appearance: PRESENT: mild distress Head exam: PRESENT: atraumatic Eye exam: PRESENT: conjunctiva pink Neck exam: ABSENT: carotid bruit Respiratory exam: PRESENT: clear to auscultation erika Cardiovascular exam: PRESENT: irregular rhythm Pulses: PRESENT: +1 pedal pulses bilateral Vascular exam: PRESENT: pallor GI/Abdominal exam: PRESENT: soft, tenderness Extremities exam: PRESENT: full ROM Musculoskeletal exam: PRESENT: ambulatory Neurological exam: PRESENT: alert, awake Results Laboratory Results: 01/27/17 05:40 01/27/17 05:40 01/27/17 01/27/17 01/27/17 01:00 05:40 05:40 WBC 12.0 H 8.3 RBC 4.27 L 3.85 L Hgb 12.0 L 11.0 L Hct 35.4 L 31.9 L MCV 83 83 MCH 28.1 28.6 MCHC 33.9 34.5 RDW 16.1 H 16.1 H Plt Count 238 195 Seg Neutrophils % 74.8 Lymphocytes % 12.1 L Monocytes % 11.3 Eosinophils % 1.0 Basophils % 0.8 Absolute Neutrophils 6.2 Absolute Lymphocytes 1.0 Absolute Monocytes 0.9 Absolute Eosinophils 0.1 Absolute Basophils 0.1 Sodium 140.2 Potassium 3.7 Chloride 102 Carbon Dioxide 27 Anion Gap 11 BUN 31 H Creatinine 1.32 H Est GFR ( Amer) > 60 Est GFR (Non-Af Amer) 52 L Glucose 117 H Calcium 8.1 L Total Bilirubin 1.9 H AST 25 ALT 33 Alkaline Phosphatase 78 Total Protein 6.0 L Albumin 3.3 L Impressions: Chest X-Ray 01/24/17 17:39 IMPRESSION: No significant interval change. No acute findings. Other findings as noted above Assessment & Plan - Diagnosis (1) Acute post-hemorrhagic anemia Is this a current diagnosis for this admission?: Yes Plan: Patient has received 3 units of blood (2) Acute worsening of stage 3 chronic kidney disease Is this a current diagnosis for this admission?: Yes Plan: Continue IV hydration (3) Melena Is this a current diagnosis for this admission?: Yes (4) Upper GI bleeding Is this a current diagnosis for this admission?: Yes Plan: Cornelia scheduled for an upper endoscopy (5) 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 Is this a current diagnosis for this admission?: Yes Plan: Continue holding Coumadin and upper and lower endoscopy (6) Atrial fibrillation Qualifiers: Atrial fibrillation type: unspecified Qualified Code(s): I48.91 - Unspecified atrial fibrillation Is this a current diagnosis for this admission?: Yes Plan: Cardiology consultation appreciated. Will continue with current medications (7) Diabetes mellitus type 2 with complications Is this a current diagnosis for this admission?: Yes Plan: Continue current treatment (8) Hypothyroid Qualifiers: Hypothyroidism type: unspecified Qualified Code(s): E03.9 - Hypothyroidism , unspecified Is this a current diagnosis for this admission?: Yes Plan: Continue current medications (9) History of myocardial infarction Is this a current diagnosis for this admission?: Yes Plan: Follow cardiology recommendations
--- NOTE | 2017-01-27 08:57 | PDOC PROGRESS REPORT ---
Subjective Progress Note for:: 01/27/17 Subjective:: Feels well. No complaints. Tolerated bowel prep. Denies any blood per rectum with his bowel prep. Physical Exam Vital Signs: Temp Pulse Resp BP Pulse Ox 98.1 F 82 16 135/54 H 94 01/27/17 08:43 01/27/17 08:43 01/27/17 07:58 01/27/17 07:58 01/27/17 08:43 Intake & Output 01/26/17 01/27/17 01/28/17 06:59 06:59 06:59 Intake Total 4938 3412 0 Output Total 2250 1625 Balance 2688 1787 0 Weight 85.8 kg General appearance: PRESENT: no acute distress, cooperative Respiratory exam: PRESENT: clear to auscultation erika Cardiovascular exam: PRESENT: irregular rhythm GI/Abdominal exam: PRESENT: other - Soft, nondistended, nontender to palpation. Results Laboratory Results: 01/27/17 05:40 01/27/17 05:40 01/27/17 01/27/17 01/27/17 01:00 05:40 05:40 WBC 12.0 H 8.3 RBC 4.27 L 3.85 L Hgb 12.0 L 11.0 L Hct 35.4 L 31.9 L MCV 83 83 MCH 28.1 28.6 MCHC 33.9 34.5 RDW 16.1 H 16.1 H Plt Count 238 195 Seg Neutrophils % 74.8 Lymphocytes % 12.1 L Monocytes % 11.3 Eosinophils % 1.0 Basophils % 0.8 Absolute Neutrophils 6.2 Absolute Lymphocytes 1.0 Absolute Monocytes 0.9 Absolute Eosinophils 0.1 Absolute Basophils 0.1 Sodium 140.2 Potassium 3.7 Chloride 102 Carbon Dioxide 27 Anion Gap 11 BUN 31 H Creatinine 1.32 H Est GFR ( Amer) > 60 Est GFR (Non-Af Amer) 52 L Glucose 117 H Calcium 8.1 L Total Bilirubin 1.9 H AST 25 ALT 33 Alkaline Phosphatase 78 Total Protein 6.0 L Albumin 3.3 L Impressions: Chest X-Ray 01/24/17 17:39 IMPRESSION: No significant interval change. No acute findings. Other findings as noted above Assessment & Plan - Diagnosis (1) Gastrointestinal bleeding Is this a current diagnosis for this admission?: Yes Plan: Of unknown etiology. Pending EGD and colonoscopy by gastroenterology. Although his hematocrit did decrease slightly patient appears stable and patient denies any recent blood per rectum.
[2017-01-27] MEDS ORDERED: NALOXONE HCL INJ/PF 0.4 MG/1 ML SDV ONE (10:45)
[2017-01-27] MEDS ORDERED: DIPHENHYDRAMINE HCL 50 MG/ML VIAL ONE (10:45)
[2017-01-27] MEDS ORDERED: ONDANSETRON HCL INJ/PF 4 MG/2 ML SDV ONE (10:45)
[2017-01-27] MEDS ORDERED: MIDAZOLAM 2 MG/2 ML INJ ONE (10:46)
[2017-01-27] MEDS ORDERED: FLUMAZENIL INJ 0.5 MG/5 ML VIAL ONE (10:46)
[2017-01-27] MEDS ORDERED: EPINEPHRINE INJ 1 MG/10 ML DISP.SYRIN ONE (10:46)
[2017-01-27] MEDS ORDERED: FENTANYL CITRATE INJ/PF 100 MCG/2 ML AMPUL ONE (10:46)
[2017-01-27] MEDS ORDERED: GLUCAGON,HUMAN RECOMB 1 MG INJ ONE (10:46)
[2017-01-27] MEDS: ATORVASTATIN CALCIUM 40 MG TABLET PO SCH (11:18)
[2017-01-27] MEDS: LEVOTHYROXINE SODIUM 0.1 MG TABLET PO SCH (11:18)
[2017-01-27] MEDS: EZETIMIBE 10 MG TABLET PO SCH (11:18)
[2017-01-27] MEDS: AMLODIPINE BESYLATE 10 MG TABLET PO SCH (11:18)
[2017-01-27] MEDS: SOTALOL HCL 80 MG TABLET PO SCH ×2 (11:18→21:13)
[2017-01-27] MEDS: MAGNESIUM OXIDE 400 MG TABLET PO SCH ×2 (11:18→18:31)
[2017-01-27] MEDS: FUROSEMIDE 40 MG TABLET PO SCH (11:18)
[2017-01-27] MEDS: MIDAZOLAM 2 MG/2 ML INJ ONE ×3 (12:36→12:49)
--- NOTE | 2017-01-27 14:35 | Operative Report ---
Operative Report DATE OF SURGERY: 01/27/17 Operative Report: The risks, benefits and alternatives of the procedure including risks of bleeding, perforation requiring surgery are explained to the patient detail and informed consent was obtained. Patient was taken to the endoscopy suite and placed in the left, lateral decubital position. Timeout was called. Conscious sedation medications administered. A rectal examination was done which did not reveal any masses, tears or fissures. An Olympus videoscope was inserted into the patient's rectum. The scope was then carefully advanced all the way to the cecum. The cecum was identified by the usual anatomical landmarks including the ileocecal valve as well as the appendiceal office. Photodocumentation is obtained. Scope was then sequentially pulled back via the various segments of the colon including the ascending colon, hepatic flexure, transverse colon, splenic flexure, descending colon finding to the rectosigmoid portions of the colon. Retroflexion maneuvers performed. The risks benefits and alternatives of the procedure explained to the patient in detail and informed consent is obtained.A GIF Olympus video scope was inserted into the patient's mouth and hypopharynx, the esophagus is identified intubated and insufflated, the scope was then advanced through the esophagus stomach and duodenum, retroflexion maneuver is done, the esophagus stomach and first and second portions of the duodenum examined PREOPERATIVE DIAGNOSIS: GI bleeding. Personal history of polyps. Chronic anemia POSTOPERATIVE DIAGNOSIS: 8 polyps noted at the colon, there was a polyp that looked as though there was some bleeding at the head of the polyp. This polyp was located in the descending colon. The other polyps are as noted one in the cecal area that was removed via snare polypectomy the second at the hepatic flexure which was essentially ablated in situ another one in the ascending colon another polyp noted in the splenic flexure, and a total of 4 ascending colon polyps. Internal hemorrhoids. Gastritis status post biopsy OPERATION: Colonoscopy with snare polypectomy. EGD with biopsy SURGEON: TRAVIS MARROQUIN ANESTHESIA: Moderate Sedation - 4 mg of Versed, 50 mcg of fentanyl. TISSUE REMOVED OR ALTERED: All the polyps as noted above retrieved. COMPLICATIONS: None. ESTIMATED BLOOD LOSS: None. INTRAOPERATIVE FINDINGS: As described above. No upper GI lesion that is bleeding. Previous cecal AVM that was ablated looks as though there is no longer an issue. Mild diverticulosis. Could have been the cause of bleeding as well. PROCEDURE: Patient tolerated the procedure well. No immediate postprocedure complications are noted. Patient sent back to his room in good condition. I spoke with his painter mirror regarding the resumption of his anticoagulation. It would be preferable to restart his anticoagulation in 48 hours to allow for the post polypectomy sites to heal. His new anticoagulation regimen will be dual antiplatelet therapy with aspirin and Eliquis No further Coumadin for now. Surveillance colonoscopy in 5 years. Watch for other signs of bleeding and possibly needing a bleeding scan We will continue to follow patient
[2017-01-27 15:12] LABS: PROTHROMBIN TIME 19.8 SEC (11.4-15.4)
[2017-01-28 04:51] LABS: ABSOLUTE EOSINOPHILS # (AUTO) 0.1 10^3/uL (0.0-0.6); ABSOLUTE MONOCYTES (AUTO) 0.8 10^3/uL (0.1-1.4); ABSOLUTE NEUT (AUTO) 5.8 10^3/uL (1.7-8.2); BASOPHILS % (AUTO) 0.5 % (0-2); EOSINOPHILS % (AUTO) 1.1 % (0-6); HEMATOCRIT 31.7 % (37.9-51.0); HGB HCT DIFFERENCE 1.3; LYMPHOCYTES % (AUTO) 13.2 % (13-45); MEAN CORPUSCULAR HGB CONC 34.8 g/dL (32.0-36.0); MEAN CORPUSCULAR VOLUME 84 fl (80-97); MONOCYTES % (AUTO) 10.1 % (3-13); RED BLOOD COUNT 3.79 10^6/uL (4.35-5.55); RED CELL DISTRIBUTION WIDTH 16.7 % (11.5-14.0); SEGMENTED NEUTROPHILS % (AUTO) 75.1 % (42-78); WHITE BLOOD COUNT 7.8 10^3/uL (4.0-10.5)
[2017-01-28 04:55] LABS: PROTHROMBIN TIME 19.3 SEC (11.4-15.4)
[2017-01-28 05:13] LABS: ALANINE AMINOTRANSFERASE 31 U/L (21-72); ALKALINE PHOSPHATASE 71 U/L (38-126); ANION GAP 11 (5-19); ASPARTATE AMINO TRANSFERASE 21 U/L (17-59); BILIRUBIN,DIRECT 0.4 mg/dL (0.0-0.4); BILIRUBIN,TOTAL 1.7 mg/dL (0.2-1.3); BLOOD UREA NITROGEN 23 mg/dL (7-20); CARBON DIOXIDE 27 mmol/L (22-30); CHLORIDE 103 mmol/L (98-107); CREATININE RESULT 1.35 mg/dL (0.52-1.25); GLUCOSE 110 mg/dL (75-110); POTASSIUM 3.8 mmol/L (3.6-5.0); SODIUM 140.7 mmol/L (137-145); TOTAL PROTEIN 5.7 g/dL (6.3-8.2)
[2017-01-28] MEDS: SUCRALFATE 1 GM TABLET PO SCH (05:14)
--- NOTE | 2017-01-28 08:05 | EKG REPORT ---
SEVERITY:- BORDERLINE ECG - SINUS RHYTHM BORDERLINE T WAVE ABNORMALITIES : Confirmed by: Negro Chaidez 28-Jan-2017 08:03:46
--- NOTE | 2017-01-28 08:55 | PDOC DISCHARGE SUMMARY ---
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 We will start aspirin and Eliquis as an outpatient in 48 hours (7) Diabetes mellitus type 2 with complications Is this a current diagnosis for this admission?: Yes Summary: Continue diabetic diet (8) Hypothyroid Is this a current diagnosis for this admission?: Yes (9) History of myocardial infarction Is this a current diagnosis for this admission?: Yes Summary: Continue current medications aloe up with cardiology - Additional Information Resuscitation Status: Full Code Discharge Diet: As Tolerated Discharge Activity: Activity As Tolerated Home Medications: Amlodipine Besylate [Norvasc 10 mg Tablet] 10 mg PO DAILY 01/24/17 Atorvastatin Calcium [Lipitor 40 mg Tablet] 40 mg PO DAILY 01/24/17 Cetirizine HCl [Zyrtec 10 mg Tablet] 10 mg PO QHS 01/24/17 Ezetimibe [Zetia 10 mg Tablet] 10 mg PO QAM 01/24/17 Hydrochlorothiazide [Hydrodiuril 12.5 mg Capsule] 12.5 mg PO QAM 01/24/17 Levothyroxine Sodium [Synthroid] 100 mcg PO QAM 01/24/17 Losartan Potassium [Cozaar 50 mg Tablet] 50 mg PO QAM 01/24/17 Magnesium Oxide [Mag-Ox 400 mg Tablet] 400 mg PO BID 01/24/17 Sotalol HCl [Sotalol] 80 mg PO BID@0800,199901/24/17 Ubidecarenone/Vit E Acet [Co Q-10 100 mg Softgel] 1 each PO DAILY 01/24/17 Vit C/Vit E AC/Lut/Copper/Zinc [Preservision Lutein Softgel] 1 each PO DAILY 04/01 Acetaminophen [Tylenol 325 mg Tablet] 650 mg PO Q8HP PRN tablet 01/28/17 History of Present Illness History of Present Illness: ADELAIDE COOPER JR is a 81 year old male Hospital Course Hospital Course: The patient was admitted with profound symptomatic lower GI bleed and anemia. The possibility of an upper GI bleed has been undertaken. He has received 3 units of packed red blood cells. His Coumadin was stopped. He has received vitamin K in the emergency room and FFP's after the hospitalization. His H&H has remained stable. He underwent a colonoscopy and the source of bleeding was found and cauterized. His H&H has remained stable. Discussed with cardiology about restarting Eliquis and stopping Coumadin. Will give 48-72 hours for the current areas of recent treatment to heal Physical Exam Vital Signs: Temp Pulse Resp BP Pulse Ox 98.7 F 64 19 123/38 L 92 01/28/17 03:06 01/28/17 03:06 01/27/17 23:54 01/28/17 03:06 01/28/17 03:06 Intake & Output 01/27/17 01/28/17 01/29/17 06:59 06:59 06:59 Intake Total 3412 3641 Output Total 1625 Balance 1787 3641 Weight 85.8 kg General appearance: PRESENT: no acute distress Head exam: PRESENT: atraumatic Eye exam: PRESENT: conjunctiva pink Neck exam: ABSENT: carotid bruit Respiratory exam: PRESENT: clear to auscultation erika Cardiovascular exam: PRESENT: irregular rhythm, +S1, +S2 Pulses: PRESENT: +1 pedal pulses bilateral GI/Abdominal exam: PRESENT: normal bowel sounds, soft Extremities exam: PRESENT: full ROM Musculoskeletal exam: PRESENT: ambulatory Neurological exam: PRESENT: awake Results Laboratory Results: 01/28/17 04:31 01/28/17 04:31 01/28/17 01/28/17 04:31 04:31 WBC 7.8 RBC 3.79 L Hgb 11.0 L Hct 31.7 L MCV 84 MCH 29.0 MCHC 34.8 RDW 16.7 H Plt Count 188 Seg Neutrophils % 75.1 Lymphocytes % 13.2 Monocytes % 10.1 Eosinophils % 1.1 Basophils % 0.5 Absolute Neutrophils 5.8 Absolute Lymphocytes 1.0 Absolute Monocytes 0.8 Absolute Eosinophils 0.1 Absolute Basophils 0.0 Sodium 140.7 Potassium 3.8 Chloride 103 Carbon Dioxide 27 Anion Gap 11 BUN 23 H Creatinine 1.35 H Est GFR ( Amer) > 60 Est GFR (Non-Af Amer) 51 L Glucose 110 Calcium 8.0 L Total Bilirubin 1.7 H AST 21 ALT 31 Alkaline Phosphatase 71 Total Protein 5.7 L Albumin 3.0 L Impressions: Chest X-Ray 01/24/17 17:39 IMPRESSION: No significant interval change. No acute findings. Other findings as noted above
[2017-01-28] MEDS: SOTALOL HCL 80 MG TABLET PO SCH (10:14)
[2017-01-28] MEDS: EZETIMIBE 10 MG TABLET PO SCH (10:14)
[2017-01-28] MEDS: MAGNESIUM OXIDE 400 MG TABLET PO SCH (10:15)
[2017-01-28] MEDS: FUROSEMIDE 40 MG TABLET PO SCH (10:15)
[2017-01-28] MEDS: LEVOTHYROXINE SODIUM 0.1 MG TABLET PO SCH (10:16)
[2017-01-28] MEDS: ATORVASTATIN CALCIUM 40 MG TABLET PO SCH (10:16)
[2017-01-28] MEDS: AMLODIPINE BESYLATE 10 MG TABLET PO SCH (10:16)
[2017-01-28 10:20] VITALS: BP 129/51
--- NOTE | 2017-01-28 10:48 | PROGRESS NOTE E ---
Progress Note NAME: ADELAIDE COOPER : 1935 AGE: 81Y DATE: 01/28/2017 ROOM: 321 The patient had colonoscopy done by Dr. Mcgrath yesterday and showed bleeding likely from a polyp. This was cauterized by Dr. Mcgrath and removed a couple of more polyps. This morning his abdomen is soft and no tenderness. No more bloody bowel movement. I agree with stopping his Coumadin and switching him to Eliquis. We will see him in followup on a p.r.n. basis. DICTATING PHYSICIAN: CARI MEEHAN M.D. [id number] PHY#: [id number] ID: [id number] JOB#: [id number] ACCT: [id number] cc: >
== END 2017-01-28 10:38 | disposition home or self-care (01) | DRG 378 ==
LOC: ER 17:01 → UNDOADMIN 21:09 → EH 21:09 → 3W 01-25 01:14 → EH 01-25 01:14
PROVIDERS: ADMIT Family Medicine; ATTEND Family Medicine
PROC: 30233N1 Transfusion of Nonautologous Red Blood Cells into Peripheral Vein, Percutaneous Approach (ICD-10-PCS; 2017-01-25)
PROC: 30233K1 Transfusion of Nonautologous Frozen Plasma into Peripheral Vein, Percutaneous Approach (ICD-10-PCS; 2017-01-26)
PROC: 0DBL8ZX Excision of Transverse Colon, Via Natural or Artificial Opening Endoscopic, Diagnostic (ICD-10-PCS; 2017-01-27)
PROC: 0DBK8ZX Excision of Ascending Colon, Via Natural or Artificial Opening Endoscopic, Diagnostic (ICD-10-PCS; 2017-01-27)
PROC: 0DBM8ZX Excision of Descending Colon, Via Natural or Artificial Opening Endoscopic, Diagnostic (ICD-10-PCS; 2017-01-27)
PROC: 30233K1 Transfusion of Nonautologous Frozen Plasma into Peripheral Vein, Percutaneous Approach (ICD-10-PCS; 2017-01-27)
PROC: 0DB68ZX Excision of Stomach, Via Natural or Artificial Opening Endoscopic, Diagnostic (ICD-10-PCS; principal; 2017-01-27 12:30)
PROC: 0DBH8ZX Excision of Cecum, Via Natural or Artificial Opening Endoscopic, Diagnostic (ICD-10-PCS; 2017-01-27 12:30)
DX: K92.2 Gastrointestinal hemorrhage, unspecified (principal); D62 Acute posthemorrhagic anemia; I13.0 Hypertensive heart and chronic kidney disease with heart failure and stage 1 through stage 4 chronic kidney disease, or unspecified chronic kidney disease; D12.4 Benign neoplasm of descending colon; D12.0 Benign neoplasm of cecum; D12.2 Benign neoplasm of ascending colon; D12.3 Benign neoplasm of transverse colon; K64.8 Other hemorrhoids; K29.70 Gastritis, unspecified, without bleeding; K57.30 Diverticulosis of large intestine without perforation or abscess without bleeding; Z86.010 Personal history of colon polyps; E10.22 Type 1 diabetes mellitus with diabetic chronic kidney disease; N18.3 Chronic kidney disease, stage 3 (moderate); I50.9 Heart failure, unspecified; I48.91 Unspecified atrial fibrillation; E78.5 Hyperlipidemia, unspecified; E03.9 Hypothyroidism, unspecified; I25.10 Atherosclerotic heart disease of native coronary artery without angina pectoris; F32.9 Major depressive disorder, single episode, unspecified; F41.1 Generalized anxiety disorder; Z79.01 Long term (current) use of anticoagulants; I25.2 Old myocardial infarction; Z95.5 Presence of coronary angioplasty implant and graft; Z88.1 Allergy status to other antibiotic agents; Z91.09 Other allergy status, other than to drugs and biological substances
CPT/HCPCS: 36415; 36430; 43239; 45385; 71020; 80048; 80053; 81001; 82272; 82550; 82553; 82962; 83735; 84443; 84484; 85025; 85027; 85610; 85730; 86850; 86900; 86901; 86920; 88305; 93005; 93010; 99285; J0171; J1200; J1610; J1815; J1940; J2250; J2310; J2405; J3010; J3490; J7030; P9016; P9017; S0164

== ENCOUNTER → 2017-02-04 | Outpatient (CLI) | payer MEDICARE, OTHER ==
[2017-02-04 13:47] LABS: ABSOLUTE BASOPHILS # (AUTO) 0.1 10^3/uL (0.0-0.2); ABSOLUTE EOSINOPHILS # (AUTO) 0.1 10^3/uL (0.0-0.6); ABSOLUTE MONOCYTES (AUTO) 0.8 10^3/uL (0.1-1.4); ABSOLUTE NEUT (AUTO) 6.2 10^3/uL (1.7-8.2); BASOPHILS % (AUTO) 0.9 % (0-2); HEMATOCRIT 35.2 % (37.9-51.0); HEMOGLOBIN 11.9 g/dL (13.5-17.0); HGB HCT DIFFERENCE 0.5; LYMPHOCYTES % (AUTO) 11.6 % (13-45); MEAN CORPUSCULAR HEMOGLOBIN 28.6 pg (27.0-33.4); MEAN CORPUSCULAR HGB CONC 33.8 g/dL (32.0-36.0); MEAN CORPUSCULAR VOLUME 85 fl (80-97); MONOCYTES % (AUTO) 10.2 % (3-13); RED BLOOD COUNT 4.16 10^6/uL (4.35-5.55); RED CELL DISTRIBUTION WIDTH 15.9 % (11.5-14.0); SEGMENTED NEUTROPHILS % (AUTO) 76.3 % (42-78); WHITE BLOOD COUNT 8.2 10^3/uL (4.0-10.5)
[2017-02-04 14:44] LABS: ERYTHROCYTE SEDIMENTATION RATE 78 mm/hr (0-20)
== END ==
LOC: OD 11:43
PROVIDERS: ATTEND Ophthalmology
DX: D31.32 Benign neoplasm of left choroid (principal); H53.131 Sudden visual loss, right eye
CPT/HCPCS: 36415; 85025; 85652; 86140

== ENCOUNTER → 2017-03-29 | Outpatient (CLI) | payer MEDICARE, OTHER ==
[2017-03-29 09:38] LABS: PROTHROMBIN TIME 45.8 SEC (11.4-15.4)
== END ==
LOC: OD 08:27
PROVIDERS: ATTEND Internal Medicine Cardiovascular Disease
DX: I48.0 Paroxysmal atrial fibrillation (principal); Z79.01 Long term (current) use of anticoagulants
CPT/HCPCS: 36415; 85610

== ENCOUNTER 2017-03-31 09:04 | Emergency (ER) | payer MEDICARE, OTHER ==
[2017-03-31 09:39] LABS: ABSOLUTE BASOPHILS # (AUTO) 0.2 10^3/uL (0.0-0.2); ABSOLUTE EOSINOPHILS # (AUTO) 0.1 10^3/uL (0.0-0.6); ABSOLUTE LYMPHOCYTES (AUTO) 1.4 10^3/uL (0.5-4.7); ABSOLUTE MONOCYTES (AUTO) 1.2 10^3/uL (0.1-1.4); ABSOLUTE NEUT (AUTO) 7.4 10^3/uL (1.7-8.2); BASOPHILS % (AUTO) 1.5 % (0-2); HEMATOCRIT 34.8 % (37.9-51.0); HEMOGLOBIN 11.5 g/dL (13.5-17.0); HGB HCT DIFFERENCE -0.3; LYMPHOCYTES % (AUTO) 13.3 % (13-45); MEAN CORPUSCULAR VOLUME 82 fl (80-97); MONOCYTES % (AUTO) 12.1 % (3-13); RED BLOOD COUNT 4.26 10^6/uL (4.35-5.55); RED CELL DISTRIBUTION WIDTH 16.2 % (11.5-14.0); SEGMENTED NEUTROPHILS % (AUTO) 72.1 % (42-78); WHITE BLOOD COUNT 10.2 10^3/uL (4.0-10.5)
--- NOTE | 2017-03-31 09:40 | ER Document Report ---
ED General - General Chief Complaint: Black/Tarry Stools Stated Complaint: BREATHING PROBLEMS Information source: Patient Notes: 81-year-old male with past medical history as recorded including myocardial infarction 5 and stent 6, on Coumadin for intermittent atrial fibrillation, status post watchman appendage placed in the heart at [facility] secondary to an episode in January of GI bleeding. During that episode in January the patient was found to have multiple polyps with some resections. Patient states April 20, 45 days status post surgery, if the watchman appendage is successful he will be taken off his Coumadin. Patient presents today stating some 4 out of 10 maximum chest "pressure" with some radiation this morning. He denies any vomiting. He states mild nausea. He denies any calf pain or leg swelling. Patient states mild shortness of breath when he was here in the emergency department. He denies any palpitations. Patient also states he had one episode of black stool this morning. He denies any gross blood. He denies any and all abdominal pain, flank pain, or dysuria. TRAVEL OUTSIDE OF THE [place] IN LAST 30 DAYS: No - HPI Onset: Other - See above Onset/Duration: Gradual Quality of pain: Other - See above Severity: Mild Pain Level: Denies Associated symptoms: Other - See above Exacerbated by: Denies Relieved by: Denies Similar symptoms previously: Yes Recently seen / treated by doctor: Yes - Related Data Allergies/Adverse Reactions: amoxicillin [Amoxicillin] Allergy (Verified 01/24/17 17:11) amoxicillin trihydrate [From Augmentin XR] Allergy (Verified 01/24/17 17:11) cephalexin monohydrate [From Keflex] Allergy (Verified 01/24/17 17:11) Potassium Clavulanate * [From Augmentin XR] Allergy (Verified 01/24/17 17:11) Tuberculin,Ppd,Multi-Puncture [From Tuberculin PPD Mireya Test] Allergy (Verified 01/24/17 17:11) Past Medical History - General Information source: Patient - Social History Smoking Status: Unknown if Ever Smoked Cigarette use (# per day): No Chew tobacco use (# tins/day): No Smoking Education Provided: No Family History: CAD, DM - Past Medical History Cardiac Medical History: Reports: Hx Atrial Fibrillation, Hx Congestive Heart Failure, Hx Coronary Artery Disease, Hx Heart Attack - x4, Hx Hypercholesterolemia, Hx Hypertension Denies: Hx DVT, Hx Pulmonary Embolism Pulmonary Medical History: Denies: Hx Asthma, Hx Bronchitis, Hx COPD, Hx Pneumonia, Hx Tuberculosis Neurological Medical History: Denies: Hx Seizures Endocrine Medical History: Reports: Hx Diabetes Mellitus Type 1, Hx Diabetes Mellitus Type 2, Hx Hypothyroidism. Denies: Hx Hyperthyroidism Renal/ Medical History: Denies: Hx Peritoneal Dialysis GI Medical History: Denies: Hx Cirrhosis, Hx Gastroesophageal Reflux Disease, Hx Hepatitis Musculoskeltal Medical History: Reports Hx Arthritis Psychiatric Medical History: Reports: Hx Depression Infectious Medical History: Denies: Hx Hepatitis Past Surgical History: Reports: Hx Cardiac Catheterization, Hx Cardiac Surgery - stent x's4, patient had 2 stents on 07/18/2013 at [facility], Hx Coronary Stent - 5, Hx Tonsillectomy - Immunizations Hx Diphtheria, Pertussis, Tetanus Vaccination: Yes Hx Pneumococcal Vaccination: 05/25/13 Review of Systems - Review of Systems Constitutional: denies: Fever EENT: denies: Eye discharge, Nose discharge Cardiovascular: Chest pain. denies: Palpitations Respiratory: denies: Cough, Hurts to breathe Gastrointestinal: Nausea. denies: Diarrhea, Vomiting Genitourinary: denies: Dysuria Musculoskeletal: denies: Leg swelling Skin: Other - no hives. denies: Rash Neurological/Psychological: Other - no slurred speech -: Yes All other systems reviewed and negative Physical Exam - Vital signs Vitals: Resp Pulse Ox 18 100 03/31/17 09:18 03/31/17 09:18 Notes: Reviewed vital signs and nursing note as charted by RN. CONSTITUTIONAL: Alert and oriented and responds appropriately to questions. Well -appearing; well-nourished HEAD: Normocephalic; atraumatic EYES: Sclerae non-icteric ENT: Moist mucous membranes; pharynx without lesions noted NECK: Supple without meningismus; non-tender CARD: Regular rate and rhythm; 4/6 systolic murmur heard best at the right sternal border, no clicks, no rubs, no gallops; symmetric distal pulses RESP: Normal chest excursion without splinting or tachypnea; breath sounds clear and equal bilaterally ABD/GI: Normal bowel sounds; non-distended; soft, non-tende; no palpable organomegaly or masses BACK: The back appears normal and is non-tender to palpation EXT: Normal ROM in all joints; non-tender to palpation; no edema SKIN: No acute lesions noted NEURO: Moves all extremities equally; Motor and sensory function intact PSYCH: The patient's mood and manner are appropriate. Grooming and personal hygiene are appropriate. Course - Re-evaluation Re-evalutation: 03/31/17 09:39 Given the above history and physical examination, we will obtain basic labs, troponin, EKG, PT/INR, and reassess. Patient had an oxygen saturation of 88% without a waveform out front. Patient's: Oxygen saturation on room air is 98%. Heart rate is 62. I do believe pulmonary embolism and aortic dissection to be unlikely at this time. Patient currently is pain-free. I will hold aspirin given his GI bleeding on Coumadin. EKG shows a heart rate of 51, normal sinus rhythm, normal axis, no obvious ST elevation or depression. I performed a rectal examination and see no gross blood. Hemoccult is pending. 03/31/17 11:32 Hemoglobin is recorded. Patient currently has no abdominal or chest pain. Vital signs are stable. INR is 4. Hemoccult is positive. I am attempting to call the patient's primary care provider. 03/31/17 11:47 Repeat EKG shows a heart of 53, normal sinus rhythm, normal axis, no obvious ST elevation or depression. Possibly increase flattening T waves in leads I, 2, aVL, V4 through V6. - Vital Signs Vital signs: Temp Pulse Resp BP Pulse Ox 23 H 98/52 L 95 03/31/17 11:31 03/31/17 11:31 03/31/17 11:31 - Laboratory Result Diagrams: 03/31/17 09:20 03/31/17 09:20 Laboratory results interpreted by me: 03/31/17 03/31/17 03/31/17 09:20 09:20 09:20 RBC 4.26 L Hgb 11.5 L Hct 34.8 L RDW 16.2 H PT 43.1 H BUN 35 H Creatinine 1.47 H Est GFR ( Amer) 55 L Est GFR (Non-Af Amer) 46 L Glucose 144 H Direct Bilirubin 0.5 H Discharge - Discharge Clinical Impression: Rectal bleeding, Supratherapeutic INR Chest pain Qualifiers: Chest pain type: unspecified Qualified Code(s): R07.9 - Chest pain, unspecified Condition: Fair Disposition: Tertiary-Other Referrals: LEANDRA HOPKINS MD [Primary Care Provider] - Follow up as needed
[2017-03-31 09:54] LABS: PROTHROMBIN TIME 43.1 SEC (11.4-15.4)
[2017-03-31 10:06] LABS: ALANINE AMINOTRANSFERASE 35 U/L (21-72); ALBUMIN 3.8 g/dL (3.5-5.0); ALKALINE PHOSPHATASE 75 U/L (38-126); ANION GAP 8 (5-19); ASPARTATE AMINO TRANSFERASE 29 U/L (17-59); BILIRUBIN,DIRECT 0.5 mg/dL (0.0-0.4); BILIRUBIN,TOTAL 0.9 mg/dL (0.2-1.3); BLOOD UREA NITROGEN 35 mg/dL (7-20); CALCIUM 9.2 mg/dL (8.4-10.2); CARBON DIOXIDE 30 mmol/L (22-30); CHLORIDE 105 mmol/L (98-107); CREATINE KINASE 81 U/L (55-170); CREATININE RESULT 1.47 mg/dL (0.52-1.25); GLUCOSE 144 mg/dL (75-110); POTASSIUM 4.8 mmol/L (3.6-5.0); SODIUM 143.1 mmol/L (137-145); TOTAL PROTEIN 7.2 g/dL (6.3-8.2)
[2017-03-31 10:17] LABS: CREATINE KINASE MB 2.1 ng/mL (<4.55); TROPONIN I 0.018 ng/mL
--- NOTE | 2017-03-31 10:19 | RADIOLOGY REPORT (SQ) ---
EXAM DESCRIPTION: CHEST SINGLE VIEW COMPLETED DATE/TIME: 03/31/2017 10:07 am REASON FOR STUDY: dif breathing COMPARISON: 01/24/2017, 09/09/2014 EXAM PARAMETERS: NUMBER OF VIEWS: One view. TECHNIQUE: Single frontal radiographic view of the chest acquired. RADIATION DOSE: NA LIMITATIONS: None. FINDINGS: LUNGS AND PLEURA: No opacities, masses or pneumothorax. No pleural effusion. MEDIASTINUM AND HILAR STRUCTURES: No masses. Contour normal. HEART AND VASCULAR STRUCTURES: Heart normal in size. Normal vasculature. BONES: No acute findings. HARDWARE: None in the chest. OTHER: No other significant finding. IMPRESSION: NO ACUTE RADIOGRAPHIC FINDING IN THE CHEST. TECHNICAL DOCUMENTATION: JOB ID: [id number] [employer]- All Rights Reserved
[2017-03-31] MEDS ORDERED: NORMAL SALINE 1000 ML 1,000 ML IV ONE (12:03)
[2017-03-31 13:56] VITALS: BP 129/50
--- NOTE | 2017-04-01 09:34 | EKG REPORT ---
SEVERITY:- BORDERLINE ECG - SINUS RHYTHM BORDERLINE T WAVE ABNORMALITIES : Confirmed by: Negro Chaidez 01-Apr-2017 09:33:12
--- NOTE | 2017-04-01 09:34 | EKG REPORT ---
SEVERITY:- NORMAL ECG - SINUS RHYTHM : Confirmed by: Negro Chaidez 01-Apr-2017 09:33:16
== END 2017-03-31 14:23 | disposition short-term general hospital (02) ==
LOC: ER 09:04
DX: K62.5 Hemorrhage of anus and rectum (principal); R79.1 Abnormal coagulation profile; R07.9 Chest pain, unspecified; R11.0 Nausea; I48.91 Unspecified atrial fibrillation; I50.9 Heart failure, unspecified; I25.10 Atherosclerotic heart disease of native coronary artery without angina pectoris; E78.00 Pure hypercholesterolemia, unspecified; I11.0 Hypertensive heart disease with heart failure; E11.9 Type 2 diabetes mellitus without complications; I25.2 Old myocardial infarction
CPT/HCPCS: 93005; 99285; 96360; 36415; 82553; 82550; 85025; 85610; 82272; 80053; 84484; 71010; 93010; J7030

== ENCOUNTER → 2017-04-11 | Outpatient (CLI) | payer MEDICARE, OTHER | LOC: OD 10:17 | PROVIDERS: ATTEND Internal Medicine Cardiovascular Disease | DX: Z79.01 Long term (current) use of anticoagulants (principal); I48.0 Paroxysmal atrial fibrillation | CPT/HCPCS: 36415; 85610 ==

== ENCOUNTER 2017-04-13 17:19 | Emergency (ER) | payer MEDICARE, OTHER ==
[2017-04-13] MEDS ORDERED: NORMAL SALINE 1000 ML 1,000 ML IV ONE (17:58)
--- NOTE | 2017-04-13 17:59 | ER Document Report ---
ED Medical Screen (RME) - General Chief Complaint: Bloody Stools Stated Complaint: BLOOD IN STOOL Time Seen by Provider: 04/13/17 17:58 Notes: Patient states he was at [facility] several days ago for GI bleeding. He states he had both a lower and upper GI studies done. He states some lesions were cauterized mainly in the upper intestinal tract. He states he started once again today with chest pain as well as bright red blood from the rectum. TRAVEL OUTSIDE OF THE [place] IN LAST 30 DAYS: No - Related Data Allergies/Adverse Reactions: amoxicillin [Amoxicillin] Allergy (Verified 01/24/17 17:11) amoxicillin trihydrate [From Augmentin XR] Allergy (Verified 01/24/17 17:11) cephalexin monohydrate [From Keflex] Allergy (Verified 01/24/17 17:11) Potassium Clavulanate * [From Augmentin XR] Allergy (Verified 01/24/17 17:11) Tuberculin,Ppd,Multi-Puncture [From Tuberculin PPD Mireya Test] Allergy (Verified 01/24/17 17:11) Past Medical History - Social History Chew tobacco use (# tins/day): No Frequency of alcohol use: None Drug Abuse: None - Past Medical History Cardiac Medical History: Reports: Hx Atrial Fibrillation, Hx Congestive Heart Failure, Hx Coronary Artery Disease, Hx Heart Attack - x4, Hx Hypercholesterolemia, Hx Hypertension Denies: Hx DVT, Hx Pulmonary Embolism Pulmonary Medical History: Denies: Hx Asthma, Hx Bronchitis, Hx COPD, Hx Pneumonia, Hx Tuberculosis Neurological Medical History: Denies: Hx Seizures Endocrine Medical History: Reports: Hx Diabetes Mellitus Type 1, Hx Diabetes Mellitus Type 2, Hx Hypothyroidism. Denies: Hx Hyperthyroidism Renal/ Medical History: Denies: Hx Peritoneal Dialysis GI Medical History: Denies: Hx Cirrhosis, Hx Gastroesophageal Reflux Disease, Hx Hepatitis Musculoskeltal Medical History: Reports Hx Arthritis Psychiatric Medical History: Reports: Hx Depression Infectious Medical History: Denies: Hx Hepatitis Past Surgical History: Reports: Hx Cardiac Catheterization, Hx Cardiac Surgery - stent x's4, patient had 2 stents on 07/18/2013 at [facility], Hx Coronary Stent - 5, Hx Tonsillectomy - Immunizations Hx Diphtheria, Pertussis, Tetanus Vaccination: Yes Physical Exam - Vital signs Vitals: Temp Pulse Resp BP Pulse Ox 97.8 F 62 20 122/48 L 95 04/13/17 17:33 04/13/17 17:33 04/13/17 17:33 04/13/17 17:33 04/13/17 17:33 Course - Vital Signs Vital signs: Temp Pulse Resp BP Pulse Ox 97.8 F 62 20 122/48 L 95 04/13/17 17:33 04/13/17 17:33 04/13/17 17:33 04/13/17 17:33 04/13/17 17:33
[2017-04-13 19:10] LABS: ABSOLUTE BASOPHILS # (AUTO) 0.1 10^3/uL (0.0-0.2); ABSOLUTE EOSINOPHILS # (AUTO) 0.1 10^3/uL (0.0-0.6); ABSOLUTE LYMPHOCYTES (AUTO) 0.9 10^3/uL (0.5-4.7); ABSOLUTE NEUT (AUTO) 7.2 10^3/uL (1.7-8.2); BASOPHILS % (AUTO) 1.4 % (0-2); EOSINOPHILS % (AUTO) 0.9 % (0-6); HEMATOCRIT 28.2 % (37.9-51.0); HEMOGLOBIN 9.3 g/dL (13.5-17.0); HGB HCT DIFFERENCE -0.3; LYMPHOCYTES % (AUTO) 9.9 % (13-45); MEAN CORPUSCULAR HEMOGLOBIN 26.4 pg (27.0-33.4); MEAN CORPUSCULAR HGB CONC 32.9 g/dL (32.0-36.0); MEAN CORPUSCULAR VOLUME 80 fl (80-97); MONOCYTES % (AUTO) 10.6 % (3-13); RED BLOOD COUNT 3.52 10^6/uL (4.35-5.55); RED CELL DISTRIBUTION WIDTH 16.9 % (11.5-14.0); SEGMENTED NEUTROPHILS % (AUTO) 77.2 % (42-78); WHITE BLOOD COUNT 9.3 10^3/uL (4.0-10.5)
[2017-04-13 19:29] LABS: ALANINE AMINOTRANSFERASE 24 U/L (21-72); ALBUMIN 3.5 g/dL (3.5-5.0); ALKALINE PHOSPHATASE 62 U/L (38-126); ANION GAP 10 (5-19); ASPARTATE AMINO TRANSFERASE 19 U/L (17-59); BILIRUBIN,DIRECT 0.3 mg/dL (0.0-0.4); BILIRUBIN,TOTAL 0.4 mg/dL (0.2-1.3); BLOOD UREA NITROGEN 29 mg/dL (7-20); CALCIUM 8.5 mg/dL (8.4-10.2); CARBON DIOXIDE 25 mmol/L (22-30); CHLORIDE 107 mmol/L (98-107); CREATININE RESULT 1.72 mg/dL (0.52-1.25); GLUCOSE 142 mg/dL (75-110); POTASSIUM 4.6 mmol/L (3.6-5.0); SODIUM 142.3 mmol/L (137-145); TOTAL PROTEIN 6.4 g/dL (6.3-8.2)
--- NOTE | 2017-04-13 20:03 | RADIOLOGY REPORT (SQ) ---
EXAM DESCRIPTION: CHEST SINGLE VIEW COMPLETED DATE/TIME: 04/13/2017 7:48 pm REASON FOR STUDY: acute GI bleed COMPARISON: 03/31/2017 EXAM PARAMETERS: NUMBER OF VIEWS: One view. TECHNIQUE: Single frontal radiographic view of the chest acquired. RADIATION DOSE: NA LIMITATIONS: None. FINDINGS: LUNGS AND PLEURA: No acute opacities, masses or pneumothorax. No pleural effusion. MEDIASTINUM AND HILAR STRUCTURES: Stable. HEART AND VASCULAR STRUCTURES: Stable. BONES: No acute findings. HARDWARE: None in the chest. OTHER: No other significant finding. IMPRESSION: NO ACUTE RADIOGRAPHIC FINDING IN THE CHEST. TECHNICAL DOCUMENTATION: JOB ID: [id number] [place]-72 2010 [employer]- All Rights Reserved
--- NOTE | 2017-04-13 20:18 | EKG REPORT ---
SEVERITY:- NORMAL ECG - SINUS RHYTHM : Confirmed by: Abel Maldonado MD 13-Apr-2017 20:17:28
[2017-04-13] MEDS ORDERED: PANTOPRAZOLE SODIUM 40 MG VIAL IV PRN (21:03)
[2017-04-13 22:15] VITALS: BP 112/54
--- NOTE | 2017-04-13 23:56 | ER Document Report ---
ED General - General Chief Complaint: Bloody Stools Stated Complaint: BLOOD IN STOOL Time Seen by Provider: 04/13/17 17:58 Mode of Arrival: Wheelchair Information source: Patient Notes: This is an 81-year-old man with a history of atrial fibrillation (on Coumadin), history of GI bleeding, who is brought into the emergency room because of lower abdominal cramping and GI bleeding. Patient's states that he had a bowel movement at 5 PM which was gross blood. Patient did have 2 bloody bowel movements in the emergency room. I did witness toilet filled with bright red blood. TRAVEL OUTSIDE OF THE [place] IN LAST 30 DAYS: No - HPI Onset: Just prior to arrival Onset/Duration: Sudden Quality of pain: Cramping Severity: None Pain Level: 1 Associated symptoms: denies: Chills, Fever Exacerbated by: Denies Relieved by: Denies Similar symptoms previously: Yes Recently seen / treated by doctor: Yes - Related Data Allergies/Adverse Reactions: amoxicillin [Amoxicillin] Allergy (Verified 01/24/17 17:11) amoxicillin trihydrate [From Augmentin XR] Allergy (Verified 01/24/17 17:11) cephalexin monohydrate [From Keflex] Allergy (Verified 01/24/17 17:11) Potassium Clavulanate * [From Augmentin XR] Allergy (Verified 01/24/17 17:11) Tuberculin,Ppd,Multi-Puncture [From Tuberculin PPD Mireya Test] Allergy (Verified 01/24/17 17:11) Past Medical History - General Information source: Patient - Social History Smoking Status: Never Smoker Cigarette use (# per day): No Chew tobacco use (# tins/day): No Frequency of alcohol use: None Drug Abuse: None Lives with: Spouse/Significant other Family History: CAD, DM Patient has suicidal ideation: No Patient has homicidal ideation: No - Past Medical History Cardiac Medical History: Reports: Hx Atrial Fibrillation, Hx Congestive Heart Failure, Hx Coronary Artery Disease, Hx Heart Attack - x4, Hx Hypercholesterolemia, Hx Hypertension Denies: Hx DVT, Hx Pulmonary Embolism Pulmonary Medical History: Denies: Hx Asthma, Hx Bronchitis, Hx COPD, Hx Pneumonia, Hx Tuberculosis Neurological Medical History: Denies: Hx Seizures Endocrine Medical History: Reports: Hx Diabetes Mellitus Type 1, Hx Diabetes Mellitus Type 2, Hx Hypothyroidism. Denies: Hx Hyperthyroidism Renal/ Medical History: Denies: Hx Peritoneal Dialysis GI Medical History: Denies: Hx Cirrhosis, Hx Gastroesophageal Reflux Disease, Hx Hepatitis Musculoskeltal Medical History: Reports Hx Arthritis Psychiatric Medical History: Reports: Hx Depression Infectious Medical History: Denies: Hx Hepatitis Past Surgical History: Reports: Hx Cardiac Catheterization, Hx Cardiac Surgery - stent x's4, patient had 2 stents on 07/18/2013 at [facility], Hx Coronary Stent - 5, Hx Tonsillectomy - Immunizations Hx Diphtheria, Pertussis, Tetanus Vaccination: Yes Hx Pneumococcal Vaccination: 05/25/13 Review of Systems - Review of Systems Constitutional: Chills, Fever EENT: No symptoms reported Cardiovascular: No symptoms reported Respiratory: No symptoms reported Gastrointestinal: See HPI Genitourinary: No symptoms reported Male Genitourinary: No symptoms reported Musculoskeletal: No symptoms reported Skin: No symptoms reported Hematologic/Lymphatic: No symptoms reported Neurological/Psychological: No symptoms reported Physical Exam - Vital signs Vitals: Temp Pulse Resp BP Pulse Ox 97.8 F 62 20 122/48 L 95 04/13/17 17:33 04/13/17 17:33 04/13/17 17:33 04/13/17 17:33 04/13/17 17:33 Notes: Physical exam: GENERAL: 81-year-old man, alert and oriented 3, no acute distress HEAD: Atraumatic, normocephalic. EYES: Pupils equal round and reactive to light, extraocular movements intact, sclera anicteric, conjunctiva are normal. ENT: TMs normal, nares patent, oropharynx clear without exudates. Moist mucous membranes. NECK: Normal range of motion, supple without obvious mass or JVD. LUNGS: Breath sounds clear to auscultation bilaterally and equal. No wheezes rales or rhonchi. HEART: Regular rate and rhythm without murmurs, rubs or gallops. ABDOMEN: Soft, normoactive bowel sounds. Mild tenderness to the lower quadrants , without rebound or guarding. Rectal: Shows gross blood EXTREMITIES: Normal range of motion, no pitting or edema. No clubbing or cyanosis. NEUROLOGICAL: Cranial nerves II through XII grossly intact. Normal speech, moving all extremities. PSYCH: Normal mood, normal affect. SKIN: Warm, Dry, normal turgor, no rashes or lesions noted. Course - Re-evaluation Re-evalutation: 04/13/17 23:[address] Ken Astudillo is willing to accept the patient in transfer. We do not have GI services. - Vital Signs Vital signs: Temp Pulse Resp BP Pulse Ox 98.3 F 63 16 112/54 L 96 04/13/17 22:25 04/13/17 22:25 04/13/17 22:53 04/13/17 22:53 04/13/17 22:53 - Laboratory Result Diagrams: 04/13/17 18:52 04/13/17 18:52 Laboratory results interpreted by me: 04/13/17 04/13/17 04/13/17 18:52 18:52 18:52 RBC 3.52 L Hgb 9.3 L Hct 28.2 L MCH 26.4 L RDW 16.9 H Lymphocytes % 9.9 L PT 25.0 H BUN 29 H Creatinine 1.72 H Est GFR ( Amer) 46 L Est GFR (Non-Af Amer) 38 L Glucose 142 H Critical Care Note - Critical Care Note Total time excluding time spent on procedures (mins): 60 Discharge - Discharge Clinical Impression: GI bleed Condition: Stable Disposition: OTHER Referrals: LEANDRA HOPKINS MD [Primary Care Provider] - Follow up as needed
== END 2017-04-13 22:25 | disposition other institution (70) ==
LOC: ER 17:19
DX: K92.2 Gastrointestinal hemorrhage, unspecified (principal); R50.9 Fever, unspecified; R10.30 Lower abdominal pain, unspecified; I48.91 Unspecified atrial fibrillation; Z79.01 Long term (current) use of anticoagulants; I25.10 Atherosclerotic heart disease of native coronary artery without angina pectoris; I10 Essential (primary) hypertension; I25.2 Old myocardial infarction; E11.9 Type 2 diabetes mellitus without complications; Z95.5 Presence of coronary angioplasty implant and graft; Z88.0 Allergy status to penicillin; Z88.1 Allergy status to other antibiotic agents; Z88.7 Allergy status to serum and vaccine
CPT/HCPCS: 93005; 99291; 96361; 96374; 36415; 85025; 85610; 80053; 84484; 71010; 93010; C9113; J7030; S0164

== ENCOUNTER → 2017-04-20 | Outpatient (CLI) | payer MEDICARE, OTHER ==
[2017-04-20 09:15] LABS: ALANINE AMINOTRANSFERASE 29 U/L (21-72); ALBUMIN 3.3 g/dL (3.5-5.0); ALKALINE PHOSPHATASE 63 U/L (38-126); ANION GAP 12 (5-19); ASPARTATE AMINO TRANSFERASE 18 U/L (17-59); BILIRUBIN,DIRECT 0.3 mg/dL (0.0-0.4); BILIRUBIN,TOTAL 0.8 mg/dL (0.2-1.3); BLOOD UREA NITROGEN 14 mg/dL (7-20); CALCIUM 8.5 mg/dL (8.4-10.2); CARBON DIOXIDE 27 mmol/L (22-30); CHLORIDE 106 mmol/L (98-107); CREATININE RESULT 1.32 mg/dL (0.52-1.25); GLUCOSE 115 mg/dL (75-110); MAGNESIUM 1.4 mg/dL (1.6-2.3); POTASSIUM 4.9 mmol/L (3.6-5.0); SODIUM 144.8 mmol/L (137-145); TOTAL PROTEIN 5.6 g/dL (6.3-8.2)
== END ==
LOC: OD 07:57
PROVIDERS: ATTEND Internal Medicine Cardiovascular Disease
DX: I48.0 Paroxysmal atrial fibrillation (principal); N18.9 Chronic kidney disease, unspecified; Z79.899 Other long term (current) drug therapy; Z79.01 Long term (current) use of anticoagulants
CPT/HCPCS: 36415; 80048; 80076; 83735

== ENCOUNTER → 2017-04-26 | Outpatient (CLI) | payer MEDICARE, OTHER ==
[2017-04-27 11:56] LABS: HEMATOCRIT 32.4 % (37.9-51.0); HEMOGLOBIN 10.8 g/dL (13.5-17.0); MEAN CORPUSCULAR HEMOGLOBIN 27.6 pg (27.0-33.4); MEAN CORPUSCULAR HGB CONC 33.2 g/dL (32.0-36.0); RED CELL DISTRIBUTION WIDTH 16.7 % (11.5-14.0)
[2017-04-27 11:57] LABS: MEAN CORPUSCULAR VOLUME 83 fl (80-97)
== END ==
LOC: OD 08:03
PROVIDERS: ATTEND Internal Medicine Cardiovascular Disease
DX: K92.2 Gastrointestinal hemorrhage, unspecified (principal)
CPT/HCPCS: 36415; 82272; 85027

== ENCOUNTER → 2017-05-05 | Outpatient (CLI) | payer MEDICARE, OTHER | LOC: OD 10:18 | PROVIDERS: ATTEND Ophthalmology Retina Specialist | DX: H35.371 Puckering of macula, right eye (principal); H35.722 Serous detachment of retinal pigment epithelium, left eye; H47.011 Ischemic optic neuropathy, right eye; E11.9 Type 2 diabetes mellitus without complications; H43.811 Vitreous degeneration, right eye; H35.4 Peripheral retinal degeneration; H04.123 Dry eye syndrome of bilateral lacrimal glands | CPT/HCPCS: 36415; 85652; 86140 ==

== ENCOUNTER → 2017-05-25 | Outpatient (CLI) | payer MEDICARE, OTHER ==
[2017-05-25 18:49] LABS: ANION GAP 12 (5-19); BLOOD UREA NITROGEN 36 mg/dL (7-20); CALCIUM 9.9 mg/dL (8.4-10.2); CARBON DIOXIDE 26 mmol/L (22-30); CHLORIDE 106 mmol/L (98-107); GLUCOSE 85 mg/dL (75-110); MAGNESIUM 1.9 mg/dL (1.6-2.3); POTASSIUM 5.3 mmol/L (3.6-5.0); SODIUM 143.5 mmol/L (137-145)
[2017-05-26 12:58] LABS: HEMATOCRIT 33.9 % (37.9-51.0); HEMOGLOBIN 10.8 g/dL (13.5-17.0); MEAN CORPUSCULAR HEMOGLOBIN 24.8 pg (27.0-33.4); MEAN CORPUSCULAR HGB CONC 31.8 g/dL (32.0-36.0); PLATELET COUNT 367 10^3/uL (150-450); RED BLOOD COUNT 4.35 10^6/uL (4.35-5.55); RED CELL DISTRIBUTION WIDTH 18.3 % (11.5-14.0); WHITE BLOOD COUNT 8.2 10^3/uL (4.0-10.5)
[2017-05-26 13:14] LABS: MEAN CORPUSCULAR VOLUME 78 fl (80-97)
== END ==
LOC: OD 17:31
PROVIDERS: ATTEND Internal Medicine Cardiovascular Disease
DX: R07.9 Chest pain, unspecified (principal); D64.9 Anemia, unspecified; I48.91 Unspecified atrial fibrillation
CPT/HCPCS: 36415; 80048; 83735; 84443; 84484; 85027

== ENCOUNTER → 2017-06-03 | Outpatient (CLI) | payer MEDICARE, OTHER ==
[2017-06-03 15:20] LABS: HEMATOCRIT 33.3 % (37.9-51.0); HEMOGLOBIN 11.1 g/dL (13.5-17.0); MEAN CORPUSCULAR HEMOGLOBIN 24.9 pg (27.0-33.4); MEAN CORPUSCULAR HGB CONC 33.2 g/dL (32.0-36.0); MEAN CORPUSCULAR VOLUME 75 fl (80-97); PLATELET COUNT 378 10^3/uL (150-450); RED BLOOD COUNT 4.44 10^6/uL (4.35-5.55); WHITE BLOOD COUNT 7.9 10^3/uL (4.0-10.5)
[2017-06-03 15:36] LABS: APPEARANCE,URINE CLEAR; BILIRUBIN,URINE NEGATIVE (NEGATIVE); COLOR,URINE YELLOW; GLUCOSE, URINE NEGATIVE (NEGATIVE); KETONES,URINE NEGATIVE (NEGATIVE); LEUKOCYTE ESTERASE,URINE NEGATIVE (NEGATIVE); NITRITE,URINE NEGATIVE (NEGATIVE); PROTEIN,URINE 30 mg/dL (NEGATIVE); URINE SPECIFIC GRAVITY 1.006; UROBILINOGEN,URINE NEGATIVE mg/dL (<2.0)
[2017-06-03 16:09] LABS: UR PRO/CREAT RATIO RESULT 1.2 mg/mg (0.0-0.2); URINE CREATININE 53.7 mg/dL (22-328); URINE PROTEIN 64.3 mg/dL (<12)
[2017-06-03 16:15] LABS: ANION GAP 10 (5-19); BLOOD UREA NITROGEN 29 mg/dL (7-20); CALCIUM 9.2 mg/dL (8.4-10.2); CARBON DIOXIDE 23 mmol/L (22-30); CHLORIDE 107 mmol/L (98-107); GLUCOSE 66 mg/dL (75-110); POTASSIUM 4.5 mmol/L (3.6-5.0); SODIUM 139.6 mmol/L (137-145)
== END ==
LOC: OD 14:29
PROVIDERS: ATTEND Physician Assistant Medical
DX: I12.9 Hypertensive chronic kidney disease with stage 1 through stage 4 chronic kidney disease, or unspecified chronic kidney disease (principal); N18.3 Chronic kidney disease, stage 3 (moderate); E11.9 Type 2 diabetes mellitus without complications; E87.5 Hyperkalemia; R80.9 Proteinuria, unspecified
CPT/HCPCS: 36415; 80048; 81001; 82570; 84156; 85027

== ENCOUNTER 2017-07-01 22:45 | Emergency (ER) | payer MEDICARE, OTHER ==
[2017-07-01 23:31] LABS: HEMATOCRIT 37.7 % (37.9-51.0); MEAN CORPUSCULAR HEMOGLOBIN 24.2 pg (27.0-33.4); MEAN CORPUSCULAR HGB CONC 31.8 g/dL (32.0-36.0); MEAN CORPUSCULAR VOLUME 76 fl (80-97); PLATELET COUNT 344 10^3/uL (150-450); RED BLOOD COUNT 4.94 10^6/uL (4.35-5.55); RED CELL DISTRIBUTION WIDTH 20.2 % (11.5-14.0); WHITE BLOOD COUNT 18.1 10^3/uL (4.0-10.5)
[2017-07-01 23:32] LABS: INTERNATIONAL RATION (INR) 0.94; PROTHROMBIN TIME 13.3 SEC (11.4-15.4)
[2017-07-01 23:48] LABS: ABSOLUTE LYMPHOCYTES# (MANUAL) 0.5 10^3/uL (0.5-4.7); ABSOLUTE MONOCYTES # (MANUAL) 0.4 10^3/uL (0.1-1.4); ABSOLUTE NEUTROPHILS# (MANUAL) 17.2 10^3/uL (1.7-8.2); BAND NEUTROPHILS % (MANUAL) 1 % (3-5); BASOPHILS % (MANUAL) 0 % (0-2); EOSINOPHILS % (MANUAL) 0 % (0-6); LYMPHOCYTES % (MANUAL) 3 % (13-45); MONOCYTES % (MANUAL) 2 % (3-13); SEGMENTED NEUTROPHILS % (MAN) 94 % (42-78); TOTAL CELLS COUNTED 100
[2017-07-01 23:51] LABS: TOXIC VACUOLATION PRESENT
[2017-07-01 23:52] LABS: ANISOCYTOSIS 2+
[2017-07-01 23:53] LABS: POIKILOCYTOSIS 1+; POLYCHROMASIA SLIGHT
[2017-07-01 23:56] LABS: HYPOCHROMASIA SLIGHT; OVALOCYTES 2+; PLATELET COMMENT ADEQUATE
[2017-07-02 00:09] LABS: CREATINE KINASE MB 2.45 ng/mL (<4.55)
[2017-07-02 00:14] LABS: TROPONIN I 0.038 ng/mL
--- NOTE | 2017-07-02 01:09 | ER Document Report ---
Addendum entered and electronically signed by MARIELA NAQVI PA 07/02/17 07:54: Course - Re-evaluation Re-evalutation: 07/02/17 07:50 Called and spoke to patient's , Sonal, updated her on patient's status and transfer location. She states she will meet him up at [facility]. Reevaluated patient at bedside, discussed conversation, he states that he is chest pain-free , denies any current complaints. Vital signs unchanged. Stable for transport. - Vital Signs Vital signs: Temp Pulse Resp BP Pulse Ox 98.0 F 57 L 16 143/59 H 98 07/02/17 06:31 07/01/17 23:00 07/02/17 07:31 07/02/17 07:31 07/02/17 07:31 - Laboratory Result Diagrams: 07/01/17 22:18 07/02/17 00:34 Laboratory results interpreted by me: 07/01/17 07/02/17 07/02/17 22:18 00:34 03:22 WBC 18.1 H Hgb 12.0 L Hct 37.7 L MCV 76 L MCH 24.2 L MCHC 31.8 L RDW 20.2 H Seg Neuts % (Manual) 94 H Band Neutrophils % 1 L Lymphocytes % (Manual) 3 L Monocytes % (Manual) 2 L Abs Neuts (Manual) 17.2 H Carbon Dioxide 21 L BUN 49 H Creatinine 1.54 H Est GFR ( Amer) 53 L Est GFR (Non-Af Amer) 43 L Glucose 339 H AST 16 L Urine Protein 100 H Urine Glucose (UA) >=500 H Urine Ascorbic Acid 40 H Original Note: ED Cardiac - General TRAVEL OUTSIDE OF THE [place] IN LAST 30 DAYS: No <MARIELA NAQVI - Last Filed: 07/02/17 07:51> <DIA DE LEON - Last Filed: 07/02/17 08:44> - General Chief Complaint: Chest Pain Stated Complaint: CHEST PAIN Time Seen by Provider: 07/02/17 00:49 Notes: Patient is an 81-year-old male comes emergency department for chief complaint of chest pain. He states that 830 tonight he started having pressure in his chest, he took nitroglycerin, he states it improved but then when he was changing clothes later it worsened and he called the ambulance. EMS gave him 324 mg of aspirin, 3 sublingual nitroglycerin, afterwards pain resolved. Patient denies any current symptoms. He does state that he has had a mild cough and congestion for the past few days but he denies fever chills, nausea or vomiting, abdominal pain, headache, dizziness. Patient has significant medical history of for heart attacks, 5 stents, last stent was about 5 years ago. He also has atrial fibrillation, he is on Plavix, he has CHF, hypertension , diabetes. He states his stents were placed at [facility] in [place]. He sees local java analyst Dr. Maldonado. ([facility]) - Related Data Allergies/Adverse Reactions: amoxicillin [Amoxicillin] Allergy (Verified 01/24/17 17:11) amoxicillin trihydrate [From Augmentin XR] Allergy (Verified 01/24/17 17:11) cephalexin monohydrate [From Keflex] Allergy (Verified 01/24/17 17:11) Potassium Clavulanate * [From Augmentin XR] Allergy (Verified 01/24/17 17:11) Tuberculin,Ppd,Multi-Puncture [From Tuberculin PPD Mireya Test] Allergy (Verified 01/24/17 17:11) Past Medical History - General Information source: Patient - Social History Smoking Status: Never Smoker Frequency of alcohol use: None Drug Abuse: None Family History: CAD, DM - Past Medical History Cardiac Medical History: Reports: Hx Atrial Fibrillation, Hx Congestive Heart Failure, Hx Coronary Artery Disease, Hx Heart Attack - x4, Hx Hypercholesterolemia, Hx Hypertension Denies: Hx DVT, Hx Pulmonary Embolism Pulmonary Medical History: Denies: Hx Asthma, Hx Bronchitis, Hx COPD, Hx Pneumonia, Hx Tuberculosis Neurological Medical History: Denies: Hx Seizures Endocrine Medical History: Reports: Hx Diabetes Mellitus Type 1, Hx Diabetes Mellitus Type 2, Hx Hypothyroidism. Denies: Hx Hyperthyroidism Renal/ Medical History: Denies: Hx Peritoneal Dialysis GI Medical History: Denies: Hx Cirrhosis, Hx Gastroesophageal Reflux Disease, Hx Hepatitis Musculoskeltal Medical History: Reports Hx Arthritis Psychiatric Medical History: Reports: Hx Depression Infectious Medical History: Denies: Hx Hepatitis Past Surgical History: Reports: Hx Cardiac Catheterization, Hx Cardiac Surgery - stent x's4, patient had 2 stents on 07/18/2013 at [facility], Hx Coronary Stent - 5, Hx Tonsillectomy - Immunizations Hx Diphtheria, Pertussis, Tetanus Vaccination: Yes Hx Pneumococcal Vaccination: 05/25/13 <DRISSBOBMARIELA - Last Filed: 07/02/17 07:51> Review of Systems - Review of Systems Constitutional: See HPI EENT: No symptoms reported Cardiovascular: No symptoms reported Respiratory: No symptoms reported Gastrointestinal: No symptoms reported Genitourinary: No symptoms reported Male Genitourinary: No symptoms reported Musculoskeletal: See HPI Skin: No symptoms reported Hematologic/Lymphatic: No symptoms reported Neurological/Psychological: See HPI <DRISSBOBMARIELA Kendrick Last Filed: 07/02/17 07:51> Physical Exam - General General appearance: Appears well In distress: None - HEENT Head: Normocephalic, Atraumatic Eyes: Normal Extraocular movements intact: Yes Eyelashes: Normal Pupils: PERRL Mouth/Lips: Normal Mucous membranes: Normal Pharynx: Normal Neck: Normal - Respiratory Respiratory status: No respiratory distress Breath sounds: Normal. No: Decreased air movement, Wheezing - Cardiovascular Rhythm: Regular Heart sounds: Normal auscultation, S1 appreciated, S2 appreciated Murmur: Yes Normal capillary refill: Yes - Abdominal Inspection: Normal Tenderness: Nontender. No: Tender, Guarding - Back Back: Normal, Nontender. No: Tender - Extremities General upper extremity: Normal inspection, Nontender, Normal strength, Normal temperature General lower extremity: Normal inspection, Nontender, Normal strength, Normal temperature. 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 Sensory: Normal - Psychological Associated symptoms: Normal affect, Normal mood - Skin Skin Temperature: Warm Skin Moisture: Dry Skin Color: Normal <TOBINMARIELA ROMEO Last Filed: 07/02/17 07:51> - Vital signs Vitals: Temp Pulse Resp BP Pulse Ox 97.5 F 57 L 20 134/46 H 95 07/01/17 23:00 07/01/17 23:00 07/01/17 23:00 07/01/17 23:00 07/01/17 23:00 Course - Laboratory Result Diagrams: 07/01/17 22:18 02/17/18 00:34 <MARIELA NAQVI - Last Filed: 07/02/17 07:51> - Laboratory Result Diagrams: 07/01/17 22:18 07/02/17 00:34 <DIA DE LEON - Last Filed: 07/02/17 08:44> - Re-evaluation Re-evalutation: EKG shows sinus rhythm with no ST segment or T-wave inversions in consecutive leads. Chest x-ray is unremarkable. Patient is alert and well-appearing, vital signs are unremarkable. CBC shows leukocytosis, however patient Been on the steroids "for his eyes", states he was taking oral prednisone 4 days. Most likely secondary to steroids. Urinalysis does not show infection, abdomen is soft, patient with no sick symptoms. No fever. Chemistry shows hyperglycemia with bicarbonate of 21 and normal anion gap. Chronic kidney disease. Initial troponin is 0.038, indeterminate. This was cycled and is slightly uptrending at 0.052. Patient's presentation with chest pain on exertion that resolves with nitroglycerin, is concerning previous medical history of multiple MIs with multiple stents, and his recent stress test in April all are concerning that patient most likely needs a cardiac catheterization and management by interventional cardiology. He states he sees Dr. Wright [facility] in [place] , he states that that is his place of choice. I discussed patient with Dr. Pittman, recommendation is to transfer him for interventional cardiology evaluation and management. Patient states that he was starting to feel a twinge of discomfort, he was given nitroglycerin and this resolved. He has been chest pain-free since. 07/02/17 04:[address] Barth, cardiology on-call for Dr. Wright, he accepts patient for transfer. Patient states satisfaction with this plan. (MARIELA NAQVI) 07/02/17 08:44 Upon transport arrival patient was complaining of some mild chest pain. He was involved in a cardiac arrest at that time requested that the nurse obtained an EKG. I did review the EKG no signs of acute ST segment elevations. By the time I was able to evaluate the patient in person patient now resting comfortably states he has no chest pain and is ready to be transported to [facility]. Informed the transport. I agree with transport at this time. (DIA DE LEON) - Vital Signs Vital signs: Temp Pulse Resp BP Pulse Ox 98.0 F 57 L 16 143/59 H 98 07/02/17 06:31 07/01/17 23:00 07/02/17 08:37 07/02/17 08:37 07/02/17 08:37 - Laboratory Laboratory results interpreted by me: 07/01/17 07/02/17 07/02/17 22:18 00:34 03:22 WBC 18.1 H Hgb 12.0 L Hct 37.7 L MCV 76 L MCH 24.2 L MCHC 31.8 L RDW 20.2 H Seg Neuts % (Manual) 94 H Band Neutrophils % 1 L Lymphocytes % (Manual) 3 L Monocytes % (Manual) 2 L Abs Neuts (Manual) 17.2 H Carbon Dioxide 21 L BUN 49 H Creatinine 1.54 H Est GFR ( Amer) 53 L Est GFR (Non-Af Amer) 43 L Glucose 339 H AST 16 L Urine Protein 100 H Urine Glucose (UA) >=500 H Urine Ascorbic Acid 40 H Discharge <MARIELA NAQVI - Last Filed: 07/02/17 07:51> <DIA DE LEON - Last Filed: 07/02/17 08:44> - Discharge Clinical Impression: Elevated troponin Chest pain Qualifiers: Chest pain type: unspecified Qualified Code(s): R07.9 - Chest pain, unspecified Condition: Stable Disposition: OTHER Referrals: LEANDRA HOPKINS MD [Primary Care Provider] - Follow up as needed
[2017-07-02 01:12] LABS: ALANINE AMINOTRANSFERASE 24 U/L (21-72); ALBUMIN 3.9 g/dL (3.5-5.0); ALKALINE PHOSPHATASE 71 U/L (38-126); ANION GAP 13 (5-19); ASPARTATE AMINO TRANSFERASE 16 U/L (17-59); BILIRUBIN,DIRECT 0.4 mg/dL (0.0-0.4); BILIRUBIN,TOTAL 0.7 mg/dL (0.2-1.3); BLOOD UREA NITROGEN 49 mg/dL (7-20); CALCIUM 9.7 mg/dL (8.4-10.2); CARBON DIOXIDE 21 mmol/L (22-30); CHLORIDE 103 mmol/L (98-107); CREATINE KINASE 68 U/L (55-170); GLUCOSE 339 mg/dL (75-110); POTASSIUM 4.9 mmol/L (3.6-5.0); SODIUM 137.3 mmol/L (137-145); TOTAL PROTEIN 6.7 g/dL (6.3-8.2)
--- NOTE | 2017-07-02 01:56 | RADIOLOGY REPORT (SQ) ---
EXAM DESCRIPTION: CHEST SINGLE VIEW CLINICAL HISTORY: 81 years Male, cp COMPARISON: 04/13/2017 NUMBER OF VIEWS/TECHNIQUE: 1/AP LIMITATIONS: None. FINDINGS: Moderate lung volume, clear parenchyma, normal cardiac silhouette, and intact bony thorax. IMPRESSION: No acute cardiopulmonary findings.
[2017-07-02 03:44] LABS: APPEARANCE,URINE CLEAR; BILIRUBIN,URINE NEGATIVE (NEGATIVE); COLOR,URINE YELLOW; GLUCOSE, URINE >=500 mg/dL (NEGATIVE); KETONES,URINE NEGATIVE (NEGATIVE); LEUKOCYTE ESTERASE,URINE NEGATIVE (NEGATIVE); NITRITE,URINE NEGATIVE (NEGATIVE); PROTEIN,URINE 100 mg/dL (NEGATIVE); URINE SPECIFIC GRAVITY 1.014; UROBILINOGEN,URINE NEGATIVE mg/dL (<2.0)
[2017-07-02] MEDS ORDERED: NITROGLYCERIN 2% OINTMENT 1 GM PACKET TP ONE (05:09)
[2017-07-02 07:34] VITALS: BP 143/59
--- NOTE | 2017-07-02 09:54 | EKG REPORT ---
SEVERITY:- NORMAL ECG - SINUS RHYTHM : Confirmed by: Negro Chaidez 02-Jul-2017 09:53:58
--- NOTE | 2017-07-02 09:55 | EKG REPORT ---
SEVERITY:- NORMAL ECG - SINUS RHYTHM : Confirmed by: Negro Chaidez 02-Jul-2017 09:54:06
== END 2017-07-02 08:58 | disposition other institution (70) ==
LOC: ER 22:45
DX: R07.9 Chest pain, unspecified (principal); R79.89 Other specified abnormal findings of blood chemistry; I48.91 Unspecified atrial fibrillation; Z79.02 Long term (current) use of antithrombotics/antiplatelets; I50.9 Heart failure, unspecified; I10 Essential (primary) hypertension; E11.9 Type 2 diabetes mellitus without complications; I25.2 Old myocardial infarction; E78.00 Pure hypercholesterolemia, unspecified
CPT/HCPCS: 93005 ×2; 99285; 36415; 82553; 82550; 85025; 85610; 80053; 81001; 84484; 71045; 93010 ×2; A9270

== ENCOUNTER → 2017-07-13 | Outpatient (CLI) | payer MEDICARE, OTHER ==
[2017-07-13 13:02] LABS: HEMOGLOBIN 13.5 g/dL (13.5-17.0); MEAN CORPUSCULAR HEMOGLOBIN 24.5 pg (27.0-33.4); MEAN CORPUSCULAR HGB CONC 31.3 g/dL (32.0-36.0); MEAN CORPUSCULAR VOLUME 78 fl (80-97); PLATELET COUNT 274 10^3/uL (150-450); RED BLOOD COUNT 5.49 10^6/uL (4.35-5.55); RED CELL DISTRIBUTION WIDTH 21.2 % (11.5-14.0); WHITE BLOOD COUNT 17.2 10^3/uL (4.0-10.5)
[2017-07-13 13:22] LABS: ALANINE AMINOTRANSFERASE 38 U/L (21-72); ALKALINE PHOSPHATASE 62 U/L (38-126); ANION GAP 9 (5-19); ASPARTATE AMINO TRANSFERASE 22 U/L (17-59); BILIRUBIN,DIRECT 0.4 mg/dL (0.0-0.4); BILIRUBIN,TOTAL 1.2 mg/dL (0.2-1.3); BLOOD UREA NITROGEN 42 mg/dL (7-20); CALCIUM 9.3 mg/dL (8.4-10.2); CARBON DIOXIDE 28 mmol/L (22-30); CHLORIDE 103 mmol/L (98-107); GLUCOSE 227 mg/dL (75-110); POTASSIUM 5.4 mmol/L (3.6-5.0); SODIUM 139.7 mmol/L (137-145); TOTAL PROTEIN 6.7 g/dL (6.3-8.2)
== END ==
LOC: OD 12:01
PROVIDERS: ATTEND Internal Medicine Cardiovascular Disease
DX: I48.0 Paroxysmal atrial fibrillation (principal); K92.2 Gastrointestinal hemorrhage, unspecified; Z79.899 Other long term (current) drug therapy
CPT/HCPCS: 36415; 80048; 80076; 82272; 83735; 85027

== ENCOUNTER → 2017-07-18 | Outpatient (CLI) | payer MEDICARE, OTHER ==
[2017-07-18 10:02] LABS: ANION GAP 9 (5-19); BLOOD UREA NITROGEN 47 mg/dL (7-20); CALCIUM 9.6 mg/dL (8.4-10.2); CARBON DIOXIDE 29 mmol/L (22-30); CHLORIDE 105 mmol/L (98-107); GLUCOSE 80 mg/dL (75-110); POTASSIUM 4.5 mmol/L (3.6-5.0); SODIUM 142.8 mmol/L (137-145)
== END ==
LOC: OD 07:06
PROVIDERS: ATTEND Internal Medicine Cardiovascular Disease
DX: E87.5 Hyperkalemia (principal)
CPT/HCPCS: 36415; 80048

== ENCOUNTER → 2017-07-19 | Outpatient (CLI) | payer MEDICARE, OTHER ==
[2017-07-19 08:06] LABS: ABSOLUTE BASOPHILS # (AUTO) 0.1 10^3/uL (0.0-0.2); ABSOLUTE EOSINOPHILS # (AUTO) 0.1 10^3/uL (0.0-0.6); ABSOLUTE LYMPHOCYTES (AUTO) 1.4 10^3/uL (0.5-4.7); ABSOLUTE NEUT (AUTO) 8.7 10^3/uL (1.7-8.2); BASOPHILS % (AUTO) 0.5 % (0-2); EOSINOPHILS % (AUTO) 0.5 % (0-6); HEMOGLOBIN 13.3 g/dL (13.5-17.0); LYMPHOCYTES % (AUTO) 12.6 % (13-45); MEAN CORPUSCULAR HEMOGLOBIN 24.6 pg (27.0-33.4); MEAN CORPUSCULAR HGB CONC 31.7 g/dL (32.0-36.0); MEAN CORPUSCULAR VOLUME 78 fl (80-97); MONOCYTES % (AUTO) 8.8 % (3-13); PLATELET COUNT 190 10^3/uL (150-450); RED BLOOD COUNT 5.41 10^6/uL (4.35-5.55); SEGMENTED NEUTROPHILS % (AUTO) 77.6 % (42-78); TOTAL CELLS COUNTED % (AUTO) 100 %; WHITE BLOOD COUNT 11.2 10^3/uL (4.0-10.5)
[2017-07-19 08:32] LABS: ALANINE AMINOTRANSFERASE 41 U/L (21-72); ALBUMIN 3.8 g/dL (3.5-5.0); ALKALINE PHOSPHATASE 48 U/L (38-126); ANION GAP 10 (5-19); ASPARTATE AMINO TRANSFERASE 19 U/L (17-59); BILIRUBIN,DIRECT 0.3 mg/dL (0.0-0.4); BLOOD UREA NITROGEN 46 mg/dL (7-20); CALCIUM 9.5 mg/dL (8.4-10.2); CARBON DIOXIDE 29 mmol/L (22-30); CHLORIDE 103 mmol/L (98-107); CHOLESTEROL 125.04 mg/dL (0-200); GLUCOSE 58 mg/dL (75-110); SODIUM 142.2 mmol/L (137-145); TRIGLYCERIDES 95 mg/dL (<150)
[2017-07-19 08:43] LABS: DIRECT LDL 63 mg/dL (<100)
== END ==
LOC: OD 07:10
PROVIDERS: ATTEND Internal Medicine
DX: E11.9 Type 2 diabetes mellitus without complications (principal); I25.10 Atherosclerotic heart disease of native coronary artery without angina pectoris; E78.5 Hyperlipidemia, unspecified
CPT/HCPCS: 36415; 80053; 80061; 83036; 84443; 85025

== ENCOUNTER → 2017-07-25 | Outpatient (CLI) | payer MEDICARE, OTHER | LOC: OD 07:18 | PROVIDERS: ATTEND Urology | DX: C61 Malignant neoplasm of prostate (principal) | CPT/HCPCS: 36415; 84153 ==

== ENCOUNTER 2017-08-01 11:39 | Inpatient (IN) | payer MEDICARE, OTHER ==
[2017-08-01] MEDS ORDERED: ASPIRIN 81 MG TABLET, CHEWABLE PO ONE (11:44)
[2017-08-01] MEDS ORDERED: DILTIAZEM HCL INJ 25 MG/5 ML VIAL IV ONE (11:54)
--- NOTE | 2017-08-01 11:59 | ER Document Report ---
ED General - General Stated Complaint: CHEST PAIN Time Seen by Provider: 08/01/17 11:44 Mode of Arrival: Medic Information source: Patient Notes: 81 yr old male hx of afib, 5 stents 4 VT presents with complaints of racing heart rate in the 140s, pt notes he is on sotalol bid, has no recent changes of meds. pt also notes that he had chest pain 1 hour prior to arrival. TRAVEL OUTSIDE OF THE [place] IN LAST 30 DAYS: No - HPI Onset: This morning Onset/Duration: Sudden Quality of pain: Pressure Severity: Mild Pain Level: 1 Associated symptoms: Chest pain Exacerbated by: Denies Relieved by: Denies Similar symptoms previously: Yes Recently seen / treated by doctor: Yes - Related Data Allergies/Adverse Reactions: amoxicillin [Amoxicillin] Allergy (Verified 08/01/17 12:20) amoxicillin trihydrate [From Augmentin XR] Allergy (Verified 08/01/17 12:20) cephalexin monohydrate [From Keflex] Allergy (Verified 08/01/17 12:20) Potassium Clavulanate * [From Augmentin XR] Allergy (Verified 08/01/17 12:20) Tuberculin,Ppd,Multi-Puncture [From Tuberculin PPD Mireya Test] Allergy (Verified 08/01/17 12:20) Past Medical History - Social History Smoking Status: Never Smoker Cigarette use (# per day): No Chew tobacco use (# tins/day): No Smoking Education Provided: No Family History: CAD, DM - Past Medical History Cardiac Medical History: Reports: Hx Atrial Fibrillation, Hx Congestive Heart Failure, Hx Coronary Artery Disease, Hx Heart Attack - x4, Hx Hypercholesterolemia, Hx Hypertension Denies: Hx DVT, Hx Pulmonary Embolism Pulmonary Medical History: Denies: Hx Asthma, Hx Bronchitis, Hx COPD, Hx Pneumonia, Hx Tuberculosis Neurological Medical History: Denies: Hx Seizures Endocrine Medical History: Reports: Hx Diabetes Mellitus Type 1, Hx Diabetes Mellitus Type 2, Hx Hypothyroidism. Denies: Hx Hyperthyroidism Renal/ Medical History: Denies: Hx Peritoneal Dialysis GI Medical History: Denies: Hx Cirrhosis, Hx Gastroesophageal Reflux Disease, Hx Hepatitis Musculoskeltal Medical History: Reports Hx Arthritis Psychiatric Medical History: Reports: Hx Depression Infectious Medical History: Denies: Hx Hepatitis Past Surgical History: Reports: Hx Cardiac Catheterization, Hx Cardiac Surgery - stent x's4, patient had 2 stents on 07/18/2013 at [facility], Hx Coronary Stent - 5, Hx Tonsillectomy - Immunizations Hx Diphtheria, Pertussis, Tetanus Vaccination: Yes Hx Pneumococcal Vaccination: 05/25/13 Review of Systems - Review of Systems Notes: REVIEW OF SYSTEMS: CONSTITUTIONAL : Denies fever, chills, or sweats. Denies recent illness. EENT: Denies eye, ear, throat, or mouth pain or symptoms. Denies nasal or sinus congestion or discharge. Denies throat, tongue, or mouth swelling or difficulty swallowing. CARDIOVASCULAR: Admits to chest pain or racing heart. RESPIRATORY: Denies cough, cold, or chest congestion. Denies shortness of breath, difficulty breathing, or wheezing. GASTROINTESTINAL: Denies abdominal pain or distention. Denies nausea, vomiting , or diarrhea. Denies blood in vomitus, stools, or per rectum. Denies black, tarry stools. Denies constipation. GENITOURINARY: Denies difficulty urinating, painful urination, burning, frequency, blood in urine, or discharge. MUSCULOSKELETAL: Denies back or neck pain or stiffness. Denies joint pain or swelling. SKIN: Denies rash, lesions or sores. HEMATOLOGIC : Denies easy bruising or bleeding. LYMPHATIC: Denies swollen, enlarged glands. NEUROLOGICAL: Denies confusion or altered mental status. Denies passing out or loss of consciousness. Denies dizziness or lightheadedness. Denies headache. Denies weakness or paralysis or loss of use of either side. Denies problems with gait or speech. Denies sensory loss, numbness, or tingling. Denies seizures. PSYCHIATRIC: Denies anxiety or stress. Denies depression, suicidal ideation, or homicidal ideation. ALL OTHER SYSTEMS REVIEWED AND NEGATIVE. Dictation was performed using [employer] voice recognition software PHYSICAL EXAMINATION: GENERAL: Well-appearing, well-nourished and in no acute distress. HEAD: Atraumatic, normocephalic. EYES: Pupils equal round and reactive to light, extraocular movements intact, sclera anicteric, conjunctiva are normal. ENT: Nares patent, oropharynx clear without exudates. Moist mucous membranes. NECK: Normal range of motion, supple without lymphadenopathy LUNGS: Breath sounds clear to auscultation bilaterally and equal. No wheezes rales or rhonchi. HEART: A. fib RVR ABDOMEN: Soft, nontender, nondistended abdomen. No guarding, no rebound. No masses appreciated. Musculoskeletal: Normal range of motion, no pitting or edema. No cyanosis. NEUROLOGICAL: Cranial nerves grossly intact. Normal speech, normal gait. Normal sensory, motor exams PSYCH: Normal mood, normal affect. SKIN: Warm, Dry, normal turgor, no rashes or lesions noted. Physical Exam - Vital signs Vitals: Resp BP Pulse Ox 18 149/91 H 95 08/01/17 11:51 08/01/17 11:51 08/01/17 11:51 Course - Re-evaluation Re-evalutation: 08/01/17 11:59 Patient is noted to be in A. fib rvrwill give Cardizem lab work pending 08/01/17 13:01 Pt hr improved significantly with cardizem bolus will defer on drip. 08/01/17 14:01 Patient's heart rate on its own went down to 43 Dr correa pagechrista 08/01/17 14:23 Dr Garay will accept to the IMCU - Vital Signs Vital signs: Temp Pulse Resp BP Pulse Ox 98.0 F 21 H 128/56 H 92 08/01/17 12:02 08/01/17 14:46 08/01/17 14:46 08/01/17 14:46 - Laboratory Result Diagrams: 08/01/17 11:53 08/01/17 11:53 Laboratory results interpreted by me: 08/01/17 08/01/17 11:53 11:53 WBC 13.2 H RBC 5.92 H MCV 78 L MCH 25.2 L RDW 23.1 H Seg Neutrophils % 88.9 H Lymphocytes % 6.3 L Absolute Neutrophils 11.8 H Potassium 5.1 H BUN 50 H Creatinine 1.38 H Est GFR (Non-Af Amer) 49 L Glucose 65 L Creatine Kinase 41 L - Diagnostic Test Radiology reviewed: Image reviewed, Reports reviewed - EKG Interpretation by Me EKG shows normal: QRS Complexes, ST-T Waves Rate: Tachycardia Rhythm: A.Fib Critical Care Note - Critical Care Note Total time excluding time spent on procedures (mins): 33 Comments: 33 minutes of critical care time spent in direct contact evaluating and reevaluating the patient, treating symptoms, reviewing labs and studies and speaking with family and consultants excluding any procedures Discharge - Discharge Clinical Impression: Atrial fibrillation with RVR Chest pain Qualifiers: Chest pain type: unspecified Qualified Code(s): R07.9 - Chest pain, unspecified Condition: Stable Disposition: ADMITTED INPATIENT Admitting Provider: Kyle Unit Admitted: [facility]
[2017-08-01 12:18] LABS: ABSOLUTE EOSINOPHILS # (AUTO) 0.1 10^3/uL (0.0-0.6); ABSOLUTE LYMPHOCYTES (AUTO) 0.8 10^3/uL (0.5-4.7); ABSOLUTE MONOCYTES (AUTO) 0.5 10^3/uL (0.1-1.4); ABSOLUTE NEUT (AUTO) 11.8 10^3/uL (1.7-8.2); BASOPHILS % (AUTO) 0.3 % (0-2); EOSINOPHILS % (AUTO) 0.4 % (0-6); HEMATOCRIT 46.4 % (37.9-51.0); HEMOGLOBIN 14.9 g/dL (13.5-17.0); LYMPHOCYTES % (AUTO) 6.3 % (13-45); MEAN CORPUSCULAR HEMOGLOBIN 25.2 pg (27.0-33.4); MEAN CORPUSCULAR HGB CONC 32.1 g/dL (32.0-36.0); MEAN CORPUSCULAR VOLUME 78 fl (80-97); MONOCYTES % (AUTO) 4.1 % (3-13); PLATELET COUNT 247 10^3/uL (150-450); RED BLOOD COUNT 5.92 10^6/uL (4.35-5.55); RED CELL DISTRIBUTION WIDTH 23.1 % (11.5-14.0); SEGMENTED NEUTROPHILS % (AUTO) 88.9 % (42-78); TOTAL CELLS COUNTED % (AUTO) 100 %; WHITE BLOOD COUNT 13.2 10^3/uL (4.0-10.5)
--- NOTE | 2017-08-01 12:23 | RADIOLOGY REPORT (SQ) ---
EXAM DESCRIPTION: CHEST SINGLE VIEW COMPLETED DATE/TIME: 08/01/2017 12:03 pm REASON FOR STUDY: chest pain COMPARISON: 07/02/2017 EXAM PARAMETERS: NUMBER OF VIEWS: One view. TECHNIQUE: Single frontal radiographic view of the chest acquired. RADIATION DOSE: NA LIMITATIONS: None. FINDINGS: LUNGS AND PLEURA: No opacities, masses or pneumothorax. No pleural effusion. MEDIASTINUM AND HILAR STRUCTURES: No masses. Contour normal. HEART AND VASCULAR STRUCTURES: Heart normal in size. Normal vasculature. BONES: No acute findings. HARDWARE: None in the chest. OTHER: No other significant finding. IMPRESSION: 1 No significant interval changes since the prior examination dated 07/02/2017. No acute pulmonary findings. TECHNICAL DOCUMENTATION: JOB ID: [id number] [employer]- All Rights Reserved Reading location - IP/workstation name: [email or web address]
[2017-08-01 12:26] LABS: ALANINE AMINOTRANSFERASE 47 U/L (21-72); ALBUMIN 4.2 g/dL (3.5-5.0); ALKALINE PHOSPHATASE 55 U/L (38-126); ANION GAP 11 (5-19); ASPARTATE AMINO TRANSFERASE 24 U/L (17-59); BILIRUBIN,DIRECT 0.3 mg/dL (0.0-0.4); BLOOD UREA NITROGEN 50 mg/dL (7-20); CALCIUM 10.2 mg/dL (8.4-10.2); CARBON DIOXIDE 28 mmol/L (22-30); CHLORIDE 104 mmol/L (98-107); CREATINE KINASE 41 U/L (55-170); GLUCOSE 65 mg/dL (75-110); POTASSIUM 5.1 mmol/L (3.6-5.0); SODIUM 142.6 mmol/L (137-145)
[2017-08-01 12:36] LABS: CREATINE KINASE MB 3.57 ng/mL (<4.55)
[2017-08-01 12:42] LABS: TROPONIN I 0.059 ng/mL
[2017-08-01] MEDS ORDERED: DEXTROSE 40% GEL 15 GM TUBE PO PRN ×2 (17:08)
[2017-08-01] MEDS ORDERED: DEXTROSE 50%-WATER 25 GM/50 ML DISP.SYRIN IV PRN ×2 (17:08)
[2017-08-01] MEDS ORDERED: GLUCAGON,HUMAN RECOMB 1 MG INJ IM PRN (17:08)
--- NOTE | 2017-08-01 17:15 | PDOC H&P ---
History of Present Illness Admission Date/PCP: 08/01/17 14:53 Patient complains of: Chest pain and palpitations History of Present Illness: ADELAIDE COOPER JR is a 81 year old male Past Medical History Cardiac Medical History: Reports: Atrial Fibrillation, Congestive Heart Failure , Coronary Artery Disease, Myocardial Infarction - x4, Hyperlipidema, Hypertension Denies: DVT, Pulmonary Embolism Pulmonary Medical History: Denies: Asthma, Bronchitis, Chronic Obstructive Pulmonary Disease (COPD), Pneumonia, Tuberculosis Neurological Medical History: Denies: Seizures Endocrine Medical History: Reports: Diabetes Mellitus Type 2, Hypothyroidism Denies: Hyperthyroidism GI Medical History: Denies: Cirrhosis, Gastroesophageal Reflux Disease, Hepatitis Musculoskeltal Medical History: Reports: Arthritis Psychiatric Medical History: Reports: Depression Hematology: Denies: Anemia Past Surgical History Past Surgical History: Reports: Cardiac Catheterization, Coronary Stent - 5, Tonsillectomy Social History Information Source: Patient Lives with: Spouse/Significant other Smoking Status: Never Smoker Frequency of Alcohol Use: None Hx Recreational Drug Use: No Drugs: None Hx Prescription Drug Abuse: No - Advance Directive Resuscitation Status: Full Code Family History Family History: CAD, DM Parental Family History Reviewed: Yes Children Family History Reviewed: Yes Sibling(s) Family History Reviewed.: Yes Medication/Allergy Home Medications: Amlodipine Besylate [Norvasc 10 mg Tablet] 10 mg PO DAILY 01/24/17 Atorvastatin Calcium [Lipitor 40 mg Tablet] 40 mg PO DAILY 01/24/17 Ezetimibe [Zetia 10 mg Tablet] 10 mg PO DAILY 01/24/17 Levothyroxine Sodium [Synthroid] 100 mcg PO Q6AM 01/24/17 Losartan Potassium [Cozaar 50 mg Tablet] 50 mg PO DAILY 01/24/17 Magnesium Oxide [Mag-Ox 400 mg Tablet] 800 mg PO DAILY 01/24/17 Sotalol HCl [Sotalol] 80 mg PO BID@0800,199901/24/17 Aspirin [Ecotrin] 81 mg PO DAILY 08/01/17 Clopidogrel Bisulfate [Plavix 75 mg Tablet] 75 mg PO DAILY 08/01/17 Dexlansoprazole [Dexilant 30 mg Capsule] 30 mg PO DAILY 08/01/17 Ferrous Sulfate [Feosol 325 mg Tablet] 325 mg PO BID 08/01/17 Hydrochlorothiazide [Hydrochlorothiazide] 1 tab PO DAILY 08/01/17 Insulin Glargine,Hum.rec.anlog [Lantus Solostar] 34 unit SQ QHS 08/01/17 Isosorbide Mononitrate [Imdur 60 mg Tablet.er] 60 mg PO DAILY 08/01/17 Nitroglycerin [Nitrostat 0.4 mg (1/150 Gr) Tabs 25/Bottle] 1 tab SL Q5MP PRN Prednisone 20 mg PO TID 08/01/17 Ubidecarenone [Co Q-10] 100 mg PO DAILY 08/01/17 Vit C/Vit E/Lutein/Min/[place]-3 [Ocuvite Softgel] 1 each PO DAILY 08/01/17 Allergies/Adverse Reactions: amoxicillin [Amoxicillin] Allergy (Verified 08/01/17 12:20) amoxicillin trihydrate [From Augmentin XR] Allergy (Verified 08/01/17 12:20) cephalexin monohydrate [From Keflex] Allergy (Verified 08/01/17 12:20) Potassium Clavulanate * [From Augmentin XR] Allergy (Verified 08/01/17 12:20) Tuberculin,Ppd,Multi-Puncture [From Tuberculin PPD Mireya Test] Allergy (Verified 08/01/17 12:20) Review of Systems All systems: as per PMH Physical Exam Vital Signs: Temp Pulse Resp BP Pulse Ox 98.0 F 16 134/65 H 95 08/01/17 12:02 08/01/17 17:02 08/01/17 17:02 08/01/17 17:02 General appearance: PRESENT: mild distress Head exam: PRESENT: atraumatic Eye exam: PRESENT: conjunctiva pink Neck exam: ABSENT: JVD Respiratory exam: PRESENT: crackles Cardiovascular exam: PRESENT: irregular rhythm, +S1, +S2 Pulses: PRESENT: +1 pedal pulses bilateral GI/Abdominal exam: PRESENT: normal bowel sounds, soft Extremities exam: PRESENT: full ROM Musculoskeletal exam: PRESENT: ambulatory Neurological exam: PRESENT: alert, awake Results Laboratory Results: 08/01/17 15:30 Troponin I 0.056 Impressions: Chest X-Ray 08/01/17 11:44 IMPRESSION: 1 No significant interval changes since the prior examination dated 07/02/2017. No acute pulmonary findings. Assessment & Plan - Diagnosis (1) Atrial fibrillation with RVR Is this a current diagnosis for this admission?: Yes Plan: Continue monitoring. Will consider starting on Cardizem drip or increasing sotalol (2) Chest pain Qualifiers: Chest pain type: unspecified Qualified Code(s): R07.9 - Chest pain, unspecified Is this a current diagnosis for this admission?: Yes Plan: Continue current medications. Will recheck to cardiac enzymes and make sure that they are trending down (3) Diabetes mellitus type 2 with complications Is this a current diagnosis for this admission?: Yes Plan: We will continue with current dose of insulin and use sliding scale for the Accu -Cheks before meals and at bedtime (4) HLD (hyperlipidemia) Qualifiers: Is this a current diagnosis for this admission?: Yes Plan: Continue current treatment (5) Hypothyroid Qualifiers: Is this a current diagnosis for this admission?: Yes Plan: Continue current treatment
[2017-08-01] MEDS: INSULIN LISPRO 100 UNIT/ML 3 ML VIAL SUBCUT PRN (18:09)
[2017-08-01] MEDS: FERROUS SULFATE 325 MG TABLET PO SCH (18:21)
[2017-08-01] MEDS: SOTALOL HCL 80 MG TABLET PO SCH (18:21)
[2017-08-01 21:59] LABS: CREATINE KINASE MB 3.08 ng/mL (<4.55); TROPONIN I 0.045 ng/mL
[2017-08-01] MEDS: INSULIN GLARGINE,HUM.REC.ANLOG 300 UNIT/3 ML INSULN.PEN SUBCUT SCH (23:09)
--- NOTE | 2017-08-01 23:53 | EKG REPORT ---
SEVERITY:- ABNORMAL ECG - ATRIAL FIBRILLATION : Confirmed by: Negro Chaidez 01-Aug-2017 23:51:51
[2017-08-02 03:34] LABS: ABSOLUTE LYMPHOCYTES (AUTO) 1.2 10^3/uL (0.5-4.7); ABSOLUTE NEUT (AUTO) 8.2 10^3/uL (1.7-8.2); BASOPHILS % (AUTO) 0.4 % (0-2); EOSINOPHILS % (AUTO) 0.4 % (0-6); HEMATOCRIT 43.8 % (37.9-51.0); HEMOGLOBIN 13.9 g/dL (13.5-17.0); LYMPHOCYTES % (AUTO) 11.5 % (13-45); MEAN CORPUSCULAR HGB CONC 31.8 g/dL (32.0-36.0); MEAN CORPUSCULAR VOLUME 79 fl (80-97); MONOCYTES % (AUTO) 9.2 % (3-13); PLATELET COUNT 193 10^3/uL (150-450); RED BLOOD COUNT 5.58 10^6/uL (4.35-5.55); RED CELL DISTRIBUTION WIDTH 23.1 % (11.5-14.0); SEGMENTED NEUTROPHILS % (AUTO) 78.5 % (42-78); TOTAL CELLS COUNTED % (AUTO) 100 %; WHITE BLOOD COUNT 10.5 10^3/uL (4.0-10.5)
[2017-08-02 03:40] LABS: ANION GAP 7 (5-19); BLOOD UREA NITROGEN 50 mg/dL (7-20); CALCIUM 9.4 mg/dL (8.4-10.2); CARBON DIOXIDE 27 mmol/L (22-30); CHLORIDE 107 mmol/L (98-107); GLUCOSE 117 mg/dL (75-110); POTASSIUM 4.7 mmol/L (3.6-5.0); SODIUM 141.1 mmol/L (137-145)
[2017-08-02 03:56] LABS: CREATINE KINASE MB 2.15 ng/mL (<4.55); TOXIC GRANULATION 1+
[2017-08-02 03:57] LABS: ANISOCYTOSIS 3+; HYPOCHROMASIA SLIGHT; OVALOCYTES 2+; PLATELET COMMENT ADEQUATE; PLATELET LARGE PRESENT; POIKILOCYTOSIS 1+; POLYCHROMASIA 1+; TOXIC VACUOLATION PRESENT
[2017-08-02 03:59] LABS: TROPONIN I 0.035 ng/mL
[2017-08-02] MEDS: SOTALOL HCL 80 MG TABLET PO SCH ×2 (06:57→17:44)
[2017-08-02] MEDS: LEVOTHYROXINE SODIUM 0.1 MG TABLET PO SCH (06:58)
[2017-08-02] MEDS: LANSOPRAZOLE 15 MG TAB.RAP.DR PO SCH (06:58)
--- NOTE | 2017-08-02 09:33 | EKG REPORT ---
SEVERITY:- NORMAL ECG - SINUS RHYTHM : Confirmed by: Negro Chaidez 02-Aug-2017 09:32:03
[2017-08-02 09:56] LABS: TROPONIN I 0.037 ng/mL
[2017-08-02] MEDS ORDERED: (PENDING PHARMACY ID) (Vit C/Vit E/Lutein/Min/Omega-3 [Ocuvite Softgel] 1 EACH) PO SCH (10:00)
[2017-08-02] MEDS ORDERED: (PENDING PHARMACY ID) (Dexlansoprazole [Dexilant 30 Mg Capsule] 30 MG) PO SCH (10:00)
[2017-08-02] MEDS ORDERED: (PENDING PHARMACY ID) (Ubidecarenone [Co Q-10] 100 MG) PO SCH (10:00)
[2017-08-02] MEDS: FERROUS SULFATE 325 MG TABLET PO SCH ×2 (11:00→17:44)
[2017-08-02] MEDS: HYDROCHLOROTHIAZIDE 12.5 MG CAPSULE PO SCH (11:01)
[2017-08-02] MEDS: MAGNESIUM OXIDE 400 MG TABLET PO SCH (11:01)
[2017-08-02] MEDS: EZETIMIBE 10 MG TABLET PO SCH (11:02)
[2017-08-02] MEDS: LOSARTAN POTASSIUM 50 MG TABLET PO SCH (11:02)
[2017-08-02] MEDS: CLOPIDOGREL BISULFATE 75 MG TABLET PO SCH (11:03)
[2017-08-02] MEDS: AMLODIPINE BESYLATE 10 MG TABLET PO SCH (11:03)
[2017-08-02] MEDS: ASPIRIN 81 MG TABLET, ENT COATED PO SCH (11:03)
[2017-08-02] MEDS: ISOSORBIDE MONONITRATE 60 MG TAB.ER.24H PO SCH (11:04)
[2017-08-02] MEDS: ATORVASTATIN CALCIUM 40 MG TABLET PO SCH (11:04)
[2017-08-02] MEDS: PREDNISONE 20 MG TABLET PO SCH (11:05)
--- NOTE | 2017-08-02 13:06 | PDOC PROGRESS REPORT ---
Subjective Progress Note for:: 08/02/17 Subjective:: The patient states to feel better. He denies any further chest pain or palpitations. His cardiac enzymes are trending down. Reason For Visit: CHEST PAIN RULE OUT [place],A.FIB WITH RAPID VENTRICULA Physical Exam Vital Signs: Temp Pulse Resp BP Pulse Ox 97.9 F 51 L 18 169/60 H 95 08/02/17 07:18 08/02/17 07:18 08/02/17 07:18 08/02/17 07:18 08/02/17 07:18 Intake & Output 08/01/17 08/02/17 08/03/17 06:59 06:59 06:59 Intake Total 8 Output Total 900 Balance -892 Weight 86.7 kg General appearance: PRESENT: mild distress Head exam: PRESENT: atraumatic Eye exam: PRESENT: conjunctiva pink Neck exam: ABSENT: carotid bruit, JVD Respiratory exam: PRESENT: clear to auscultation erika Cardiovascular exam: PRESENT: irregular rhythm, +S1, +S2 Pulses: PRESENT: +1 pedal pulses bilateral GI/Abdominal exam: PRESENT: normal bowel sounds, soft Extremities exam: PRESENT: full ROM Musculoskeletal exam: PRESENT: ambulatory Neurological exam: PRESENT: alert, awake Results Laboratory Results: 08/02/17 03:16 08/02/17 03:16 08/02/17 08/02/17 03:16 03:16 WBC 10.5 RBC 5.58 H Hgb 13.9 Hct 43.8 MCV 79 L MCH 25.0 L MCHC 31.8 L RDW 23.1 H Plt Count 193 Seg Neutrophils % 78.5 H Lymphocytes % 11.5 L Monocytes % 9.2 Eosinophils % 0.4 Basophils % 0.4 Absolute Neutrophils 8.2 Absolute Lymphocytes 1.2 Absolute Monocytes 1.0 Absolute Eosinophils 0.0 Absolute Basophils 0.0 Sodium 141.1 Potassium 4.7 Chloride 107 Carbon Dioxide 27 Anion Gap 7 BUN 50 H Creatinine 1.37 H Est GFR ( Amer) > 60 Est GFR (Non-Af Amer) 50 L Glucose 117 H Calcium 9.4 08/01/17 08/01/17 08/02/17 15:30 21:12 03:16 CK-MB (CK-2) 3.08 2.15 Troponin I 0.056 0.045 0.035 08/02/17 09:19 CK-MB (CK-2) 2.00 Troponin I 0.037 Impressions: Chest X-Ray 08/01/17 11:44 IMPRESSION: 1 No significant interval changes since the prior examination dated 07/02/2017. No acute pulmonary findings. Assessment & Plan - Diagnosis (1) Atrial fibrillation with RVR Is this a current diagnosis for this admission?: Yes Plan: Rate controlled. Will assess the patient with exertion (2) Chest pain Qualifiers: Chest pain type: unspecified Qualified Code(s): R07.9 - Chest pain, unspecified Is this a current diagnosis for this admission?: Yes Plan: Rate controlled will continue with current medications and evaluate with exertion (3) Diabetes mellitus type 2 with complications Is this a current diagnosis for this admission?: Yes Plan: Continue current treatment (4) HLD (hyperlipidemia) Qualifiers: Is this a current diagnosis for this admission?: Yes Plan: Continue current treatment (5) Hypothyroid Qualifiers: Is this a current diagnosis for this admission?: Yes Plan: Continue current dose of medication
[2017-08-02] MEDS: INSULIN LISPRO 100 UNIT/ML 3 ML VIAL SUBCUT PRN (17:21)
[2017-08-02] MEDS: INSULIN GLARGINE,HUM.REC.ANLOG 300 UNIT/3 ML INSULN.PEN SUBCUT SCH (23:06)
[2017-08-03] MEDS: LANSOPRAZOLE 15 MG TAB.RAP.DR PO SCH (05:47)
[2017-08-03] MEDS: LEVOTHYROXINE SODIUM 0.1 MG TABLET PO SCH (05:49)
[2017-08-03] MEDS: SOTALOL HCL 80 MG TABLET PO SCH (05:49)
[2017-08-03 07:22] LABS: ABSOLUTE LYMPHOCYTES (AUTO) 1.1 10^3/uL (0.5-4.7); ABSOLUTE MONOCYTES (AUTO) 0.9 10^3/uL (0.1-1.4); ABSOLUTE NEUT (AUTO) 8.4 10^3/uL (1.7-8.2); BASOPHILS % (AUTO) 0.4 % (0-2); EOSINOPHILS % (AUTO) 0.3 % (0-6); HEMATOCRIT 43.9 % (37.9-51.0); HEMOGLOBIN 14.1 g/dL (13.5-17.0); LYMPHOCYTES % (AUTO) 10.1 % (13-45); MEAN CORPUSCULAR HEMOGLOBIN 25.1 pg (27.0-33.4); MEAN CORPUSCULAR HGB CONC 32.1 g/dL (32.0-36.0); MEAN CORPUSCULAR VOLUME 78 fl (80-97); MONOCYTES % (AUTO) 8.7 % (3-13); PLATELET COUNT 200 10^3/uL (150-450); RED BLOOD COUNT 5.62 10^6/uL (4.35-5.55); RED CELL DISTRIBUTION WIDTH 23.1 % (11.5-14.0); SEGMENTED NEUTROPHILS % (AUTO) 80.5 % (42-78); TOTAL CELLS COUNTED % (AUTO) 100 %; WHITE BLOOD COUNT 10.5 10^3/uL (4.0-10.5)
[2017-08-03 07:44] LABS: ANION GAP 9 (5-19); BLOOD UREA NITROGEN 52 mg/dL (7-20); CALCIUM 9.8 mg/dL (8.4-10.2); CARBON DIOXIDE 28 mmol/L (22-30); CHLORIDE 103 mmol/L (98-107); GLUCOSE 86 mg/dL (75-110); POTASSIUM 4.6 mmol/L (3.6-5.0); SODIUM 139.6 mmol/L (137-145)
[2017-08-03 07:58] VITALS: BP 162/59
--- NOTE | 2017-08-03 08:58 | PDOC DISCHARGE SUMMARY ---
General - Admit/Disc Date/PCP Admission Date/Primary Care Provider: 08/01/17 14:53 Discharge Date: 08/03/17 - Discharge Diagnosis (1) Atrial fibrillation with RVR Is this a current diagnosis for this admission?: Yes Summary: Rate controlled. Continue current treatment (2) Chest pain Is this a current diagnosis for this admission?: Yes Summary: Resolved. NC ruled out (3) Diabetes mellitus type 2 with complications Is this a current diagnosis for this admission?: Yes Summary: Resume home insulin (4) HLD (hyperlipidemia) Is this a current diagnosis for this admission?: Yes (5) Hypothyroid Is this a current diagnosis for this admission?: Yes Summary: Resume home medication - Additional Information Resuscitation Status: Full Code Discharge Diet: Cardiac, Diabetic Discharge Activity: Activity As Tolerated Home Medications: Amlodipine Besylate [Norvasc 10 mg Tablet] 10 mg PO DAILY 01/24/17 Atorvastatin Calcium [Lipitor 40 mg Tablet] 40 mg PO DAILY 01/24/17 Ezetimibe [Zetia 10 mg Tablet] 10 mg PO DAILY 01/24/17 Levothyroxine Sodium [Synthroid] 100 mcg PO Q6AM 01/24/17 Losartan Potassium [Cozaar 50 mg Tablet] 50 mg PO DAILY 01/24/17 Magnesium Oxide [Mag-Ox 400 mg Tablet] 800 mg PO DAILY 01/24/17 Sotalol HCl [Sotalol] 80 mg PO BID@0800,199901/24/17 Aspirin [Ecotrin] 81 mg PO DAILY 08/01/17 Clopidogrel Bisulfate [Plavix 75 mg Tablet] 75 mg PO DAILY 08/01/17 Dexlansoprazole [Dexilant 30 mg Capsule] 30 mg PO DAILY 08/01/17 Ferrous Sulfate [Feosol 325 mg Tablet] 325 mg PO BID 08/01/17 Hydrochlorothiazide 1 tab PO DAILY 08/01/17 Insulin Glargine,Hum.rec.anlog [Lantus Solostar] 34 unit SQ QHS 08/01/17 Isosorbide Mononitrate [Imdur 60 mg Tablet.er] 60 mg PO DAILY 08/01/17 Nitroglycerin [Nitrostat 0.4 mg (1/150 Gr) Tabs 25/Bottle] 1 tab SL Q5MP PRN Prednisone 20 mg PO TID 08/01/17 Ubidecarenone [Co Q-10] 100 mg PO DAILY 08/01/17 Vit C/Vit E/Lutein/Min/[place]-3 [Ocuvite Softgel] 1 each PO DAILY 08/01/17 History of Present Illness History of Present Illness: ADELAIDE COOPER JR is a 81 year old male Hospital Course Hospital Course: The patient did well after the hospitalization. He has received a bolus of Cardizem in the emergency room which has controlled his heart rate. He did not start on a drip. His cardiac enzymes initially were slightly elevated but have drifted down over the course of 48 hours. Physical Exam Vital Signs: Temp Pulse Resp BP Pulse Ox 97.6 F 48 L 20 162/59 H 97 08/03/17 07:16 08/03/17 07:16 08/03/17 07:16 08/03/17 07:16 08/03/17 07:16 Intake & Output 08/02/17 08/03/17 08/04/17 06:59 06:59 06:59 Intake Total 8 1833 Output Total 900 Balance -892 1833 Weight 86.7 kg 86.8 kg General appearance: PRESENT: no acute distress Head exam: PRESENT: atraumatic Eye exam: PRESENT: conjunctiva pink Neck exam: ABSENT: carotid bruit, JVD Respiratory exam: PRESENT: clear to auscultation erika Cardiovascular exam: PRESENT: irregular rhythm, +S1, +S2 Pulses: PRESENT: +1 pedal pulses bilateral GI/Abdominal exam: PRESENT: normal bowel sounds, soft Extremities exam: PRESENT: full ROM Musculoskeletal exam: PRESENT: ambulatory Neurological exam: PRESENT: alert, awake Results Laboratory Results: 08/03/17 07:03 08/03/17 07:03 08/03/17 08/03/17 07:03 07:03 WBC 10.5 RBC 5.62 H Hgb 14.1 Hct 43.9 MCV 78 L MCH 25.1 L MCHC 32.1 RDW 23.1 H Plt Count 200 Seg Neutrophils % 80.5 H Lymphocytes % 10.1 L Monocytes % 8.7 Eosinophils % 0.3 Basophils % 0.4 Absolute Neutrophils 8.4 H Absolute Lymphocytes 1.1 Absolute Monocytes 0.9 Absolute Eosinophils 0.0 Absolute Basophils 0.0 Sodium 139.6 Potassium 4.6 Chloride 103 Carbon Dioxide 28 Anion Gap 9 BUN 52 H Creatinine 1.42 H Est GFR ( Amer) 58 L Est GFR (Non-Af Amer) 48 L Glucose 86 Calcium 9.8 08/01/17 08/01/17 08/02/17 15:30 21:12 03:16 CK-MB (CK-2) 3.08 2.15 Troponin I 0.056 0.045 0.035 08/02/17 09:19 CK-MB (CK-2) 2.00 Troponin I 0.037 Impressions: Chest X-Ray 08/01/17 11:44 IMPRESSION: 1 No significant interval changes since the prior examination dated 07/02/2017. No acute pulmonary findings. Qualifiers - * PATEINT BEING DISCHARGED WITH ANY OF THE FOLLOWING DIAGNOSIS?: No
[2017-08-03] MEDS: MAGNESIUM OXIDE 400 MG TABLET PO SCH (09:38)
[2017-08-03] MEDS: ATORVASTATIN CALCIUM 40 MG TABLET PO SCH (09:39)
[2017-08-03] MEDS: FERROUS SULFATE 325 MG TABLET PO SCH (09:39)
[2017-08-03] MEDS: PREDNISONE 20 MG TABLET PO SCH (09:39)
[2017-08-03] MEDS: LOSARTAN POTASSIUM 50 MG TABLET PO SCH (09:40)
[2017-08-03] MEDS: HYDROCHLOROTHIAZIDE 12.5 MG CAPSULE PO SCH (09:40)
[2017-08-03] MEDS: CLOPIDOGREL BISULFATE 75 MG TABLET PO SCH (09:40)
[2017-08-03] MEDS: EZETIMIBE 10 MG TABLET PO SCH (09:40)
[2017-08-03] MEDS: AMLODIPINE BESYLATE 10 MG TABLET PO SCH (09:41)
[2017-08-03] MEDS: ASPIRIN 81 MG TABLET, ENT COATED PO SCH (09:41)
[2017-08-03] MEDS: ISOSORBIDE MONONITRATE 60 MG TAB.ER.24H PO SCH (09:41)
== END 2017-08-03 11:21 | disposition home or self-care (01) | DRG 310 ==
LOC: ER 11:39 → EH 14:53 → 3W 20:35 → 3S 20:51
PROVIDERS: ADMIT Internal Medicine; ATTEND Internal Medicine
DX: I48.91 Unspecified atrial fibrillation (principal); I11.0 Hypertensive heart disease with heart failure; I50.9 Heart failure, unspecified; E11.9 Type 2 diabetes mellitus without complications; E03.9 Hypothyroidism, unspecified; I25.10 Atherosclerotic heart disease of native coronary artery without angina pectoris; E78.00 Pure hypercholesterolemia, unspecified; M19.90 Unspecified osteoarthritis, unspecified site; F32.9 Major depressive disorder, single episode, unspecified; I25.2 Old myocardial infarction; Z79.82 Long term (current) use of aspirin; Z79.4 Long term (current) use of insulin; Z79.899 Other long term (current) drug therapy; Z95.5 Presence of coronary angioplasty implant and graft; Z88.1 Allergy status to other antibiotic agents; Z88.0 Allergy status to penicillin; Z88.8 Allergy status to other drugs, medicaments and biological substances; Z83.3 Family history of diabetes mellitus; Z82.49 Family history of ischemic heart disease and other diseases of the circulatory system
CPT/HCPCS: 36415; 71045; 80048; 80053; 82550; 82553; 82962; 83735; 84443; 84484; 85025; 93005; 93010; 96374; 99291; J1815; J3490; J7512

== ENCOUNTER 2017-09-18 13:22 | Inpatient (IN) | payer MEDICARE, OTHER ==
[2017-09-18] MEDS ORDERED: DILTIAZEM HCL INJ 25 MG/5 ML VIAL IV ONE (13:32)
[2017-09-18] MEDS: DILTIAZEM HCL/D5W 125 MG/125 ML RTUINJ IV PRN ×2 (13:55→15:48)
--- NOTE | 2017-09-18 14:03 | RADIOLOGY REPORT (SQ) ---
EXAM DESCRIPTION: CHEST SINGLE VIEW COMPLETED DATE/TIME: 09/18/2017 1:54 pm REASON FOR STUDY: bed 1 cp COMPARISON: 08/01/2017 EXAM PARAMETERS: NUMBER OF VIEWS: One view. TECHNIQUE: Single frontal radiographic view of the chest acquired. RADIATION DOSE: NA LIMITATIONS: None. FINDINGS: LUNGS AND PLEURA: No opacities, masses or pneumothorax. No pleural effusion. MEDIASTINUM AND HILAR STRUCTURES: No masses. Contour normal. HEART AND VASCULAR STRUCTURES: Heart stable in size. Normal vasculature. BONES: No acute findings. HARDWARE: None in the chest. OTHER: No other significant finding. IMPRESSION: NO ACUTE RADIOGRAPHIC FINDING IN THE CHEST. TECHNICAL DOCUMENTATION: JOB ID: [id number] [employer]- All Rights Reserved Reading location - IP/workstation name: [email or web address]
[2017-09-18 14:10] LABS: ABSOLUTE LYMPHOCYTES (AUTO) 0.7 10^3/uL (0.5-4.7); ABSOLUTE MONOCYTES (AUTO) 0.4 10^3/uL (0.1-1.4); ABSOLUTE NEUT (AUTO) 11.7 10^3/uL (1.7-8.2); BASOPHILS % (AUTO) 0.2 % (0-2); EOSINOPHILS % (AUTO) 0.1 % (0-6); HEMATOCRIT 47.8 % (37.9-51.0); HEMOGLOBIN 15.6 g/dL (13.5-17.0); LYMPHOCYTES % (AUTO) 5.4 % (13-45); MEAN CORPUSCULAR HEMOGLOBIN 26.2 pg (27.0-33.4); MEAN CORPUSCULAR HGB CONC 32.7 g/dL (32.0-36.0); MEAN CORPUSCULAR VOLUME 80 fl (80-97); MONOCYTES % (AUTO) 2.7 % (3-13); PLATELET COUNT 255 10^3/uL (150-450); RED BLOOD COUNT 5.96 10^6/uL (4.35-5.55); RED CELL DISTRIBUTION WIDTH 21.2 % (11.5-14.0); SEGMENTED NEUTROPHILS % (AUTO) 91.6 % (42-78); TOTAL CELLS COUNTED % (AUTO) 100 %; WHITE BLOOD COUNT 12.8 10^3/uL (4.0-10.5)
[2017-09-18] MEDS ORDERED: NITROGLYCERIN 2% OINTMENT 1 GM PACKET TP ONE (14:12)
[2017-09-18 14:29] LABS: ALANINE AMINOTRANSFERASE 69 U/L (21-72); ALBUMIN 3.9 g/dL (3.5-5.0); ALKALINE PHOSPHATASE 50 U/L (38-126); ANION GAP 13 (5-19); ASPARTATE AMINO TRANSFERASE 35 U/L (17-59); BILIRUBIN,DIRECT 0.2 mg/dL (0.0-0.4); BILIRUBIN,TOTAL 0.9 mg/dL (0.2-1.3); BLOOD UREA NITROGEN 58 mg/dL (7-20); CALCIUM 9.5 mg/dL (8.4-10.2); CARBON DIOXIDE 24 mmol/L (22-30); CHLORIDE 104 mmol/L (98-107); CREATINE KINASE 59 U/L (55-170); GLUCOSE 243 mg/dL (75-110); SODIUM 140.7 mmol/L (137-145); TOTAL PROTEIN 6.5 g/dL (6.3-8.2)
[2017-09-18 14:38] LABS: CREATINE KINASE MB 3.58 ng/mL (<4.55)
[2017-09-18 14:40] LABS: TROPONIN I < 0.012 ng/mL
[2017-09-18] MEDS ORDERED: MAGNESIUM HYDROXIDE SUSP 30 ML UDCUP PO PRN (15:11)
[2017-09-18] MEDS ORDERED: IPRATROPIUM/ALBUTEROL 0.5-2.5 MG/3 ML AMPUL NEB PRN (15:11)
[2017-09-18] MEDS ORDERED: OXYCODONE-ACETAMINOPHEN 5-325 MG TABLET PO PRN (15:11)
[2017-09-18] MEDS ORDERED: ONDANSETRON HCL INJ/PF 4 MG/2 ML SDV IV PRN (15:11)
[2017-09-18] MEDS ORDERED: ACETAMINOPHEN 325 MG TABLET PO PRN (15:11)
[2017-09-18] MEDS ORDERED: NITROGLYCERIN 0.4 MG/TAB 25 TAB/BOTTLE SL PRN (15:17)
[2017-09-18] MEDS ORDERED: DEXTROSE 50%-WATER 25 GM/50 ML DISP.SYRIN IV PRN ×2 (15:22)
[2017-09-18] MEDS ORDERED: DEXTROSE 40% GEL 15 GM TUBE PO PRN ×2 (15:22)
[2017-09-18] MEDS ORDERED: GLUCAGON,HUMAN RECOMB 1 MG INJ IM PRN (15:22)
--- NOTE | 2017-09-18 16:28 | ER Document Report ---
ED General - General Chief Complaint: Chest Pain Stated Complaint: CHEST PAIN Time Seen by Provider: 09/18/17 13:32 TRAVEL OUTSIDE OF THE [place] IN LAST 30 DAYS: No - HPI Patient complains to provider of: Chest pain palpitations Notes: Patient has a history of atrial fibrillation states that around 12:00 today started having chest pain palpitations EMS arrived found patient to be in A. fib RVR with significant ST segment depression on his 12-lead patient was given nitro and transported to the ER for further evaluation. Patient denies any resolution of his pain. States this is similar to an occurrence when he was admitted in July for A. fib with RVR. Patient states that he was on Coumadin at one point however this led to GI bleeding therefore the patient is currently only on Plavix. Patient also has a device placed and is hard to capture clots. Patient otherwise resting comfortably upon my evaluation states compliant with all of his medications. - Related Data Allergies/Adverse Reactions: amoxicillin [Amoxicillin] Allergy (Verified 08/01/17 12:20) amoxicillin trihydrate [From Augmentin XR] Allergy (Verified 08/01/17 12:20) cephalexin monohydrate [From Keflex] Allergy (Verified 08/01/17 12:20) Potassium Clavulanate * [From Augmentin XR] Allergy (Verified 08/01/17 12:20) Tuberculin,Ppd,Multi-Puncture [From Tuberculin PPD Mireya Test] Allergy (Verified 08/01/17 12:20) Past Medical History - Social History Smoking Status: Never Smoker Chew tobacco use (# tins/day): No Frequency of alcohol use: None Drug Abuse: None Family History: CAD, DM Patient has suicidal ideation: No Patient has homicidal ideation: No - Past Medical History Cardiac Medical History: Reports: Hx Atrial Fibrillation, Hx Congestive Heart Failure, Hx Coronary Artery Disease, Hx Heart Attack - x4, Hx Hypercholesterolemia, Hx Hypertension Denies: Hx DVT, Hx Pulmonary Embolism Pulmonary Medical History: Denies: Hx Asthma, Hx Bronchitis, Hx COPD, Hx Pneumonia, Hx Tuberculosis Neurological Medical History: Denies: Hx Seizures Endocrine Medical History: Reports: Hx Diabetes Mellitus Type 1, Hx Diabetes Mellitus Type 2, Hx Hypothyroidism. Denies: Hx Hyperthyroidism Renal/ Medical History: Denies: Hx Peritoneal Dialysis GI Medical History: Denies: Hx Cirrhosis, Hx Gastroesophageal Reflux Disease, Hx Hepatitis Musculoskeltal Medical History: Reports Hx Arthritis Psychiatric Medical History: Reports: Hx Depression Infectious Medical History: Denies: Hx Hepatitis Past Surgical History: Reports: Hx Cardiac Catheterization, Hx Cardiac Surgery - stent x's4, patient had 2 stents on 07/18/2013 at [facility], Hx Coronary Stent - 5, Hx Tonsillectomy - Immunizations Hx Diphtheria, Pertussis, Tetanus Vaccination: Yes Hx Pneumococcal Vaccination: 05/25/13 Review of Systems - Review of Systems Constitutional: No symptoms reported EENT: No symptoms reported Cardiovascular: Chest pain, Palpitations Respiratory: No symptoms reported Gastrointestinal: No symptoms reported Genitourinary: No symptoms reported Male Genitourinary: No symptoms reported Musculoskeletal: No symptoms reported Skin: No symptoms reported Hematologic/Lymphatic: No symptoms reported Neurological/Psychological: No symptoms reported -: Yes All other systems reviewed and negative Physical Exam - Vital signs Vitals: Resp 25 H 09/18/17 13:30 Interpretation: Tachycardic - General General appearance: Appears well, Alert - HEENT Head: Normocephalic, Atraumatic Eyes: Normal Pupils: PERRL - Respiratory Respiratory status: No respiratory distress Chest status: Tender - Tenderness palpation anterior chest wall reproduces patient's pain Breath sounds: Normal Chest palpation: Normal - Cardiovascular Rhythm: Irregularly irregular, Tachycardia Heart sounds: Normal auscultation Murmur: No - Abdominal Inspection: Normal Distension: No distension Bowel sounds: Normal Tenderness: Nontender Organomegaly: No organomegaly - Back Back: Normal, Nontender - Extremities General upper extremity: Normal inspection, Nontender, Normal color, Normal ROM , Normal temperature General lower extremity: Normal inspection, Nontender, Normal color, Normal ROM , Normal temperature, Normal weight bearing. No: Carmelo's sign - Neurological Neuro grossly intact: Yes Cognition: Normal Orientation: AAOx4 Olivia Coma Scale Eye Opening: Spontaneous Olivia Coma Scale Verbal: Oriented Olivia Coma Scale Motor: Obeys Commands [place] Coma Scale Total: 15 Speech: Normal Motor strength normal: LUE, RUE, LLE, RLE Sensory: Normal - Psychological Associated symptoms: Normal affect, Normal mood - Skin Skin Temperature: Warm Skin Moisture: Dry Skin Color: Normal Course - Re-evaluation Re-evalutation: 09/18/17 16:24 Patient coming in for evaluation chest pain and palpitations found to be in A. fib with RVR. Patient has a history of GI bleeding in the past with aggressive anticoagulation therefore did not start the patient on heparin. Patient also is very insistent that his palpitations began at 12:00. The A. fib RVR and ST segment depression did improve after administration of Cardizem. Patient was placed on a Cardizem drip. Troponin otherwise negative chest x-ray is negative as well. Patient's case was discussed with the hospitalist for further evaluation and admission to the hospital. - Vital Signs Vital signs: Temp Pulse Resp BP Pulse Ox 98.7 F 25 H 131/80 H 95 09/18/17 13:32 09/18/17 16:01 09/18/17 16:01 09/18/17 16:01 - Laboratory Result Diagrams: 09/18/17 13:36 09/18/17 13:36 Laboratory results interpreted by me: 09/18/17 09/18/17 13:36 13:36 WBC 12.8 H RBC 5.96 H MCH 26.2 L RDW 21.2 H Seg Neutrophils % 91.6 H Lymphocytes % 5.4 L Monocytes % 2.7 L Absolute Neutrophils 11.7 H BUN 58 H Creatinine 1.75 H Est GFR ( Amer) 45 L Est GFR (Non-Af Amer) 38 L Glucose 243 H Critical Care Note - Critical Care Note Total time excluding time spent on procedures (mins): 35 Comments: Multiple evaluation patient with A. fib with RVR Discharge - Discharge Clinical Impression: Atrial fibrillation with RVR Chest pain Qualifiers: Chest pain type: unspecified Qualified Code(s): R07.9 - Chest pain, unspecified Condition: Good Disposition: ADMITTED INPATIENT Admitting Provider: Hospitalist - [facility] Unit Admitted: IMCU Referrals: LEANDRA HOPKINS MD [Primary Care Provider] - Follow up as needed
--- NOTE | 2017-09-18 16:49 | PDOC H&P ---
History of Present Illness Admission Date/PCP: LEANDRA HOPKINS, Patient complains of: This patient presents emergency room with complaints of chest pain associated with palpitations which started around noon today. He has a known history of atrial fibrillation. History of Present Illness: ADELAIDE COOPER JR is a 81 year old male This patient presents emergency room with complaints of chest pain associated with palpitations which started around noon today. He has a known history of atrial fibrillation. He said he had been compliant with his medications and took his sotalol this morning. He admits found him to be in atrial fibrillation with ST segment depression on EKG. He was given sublingual nitroglycerin and at the time of my exam he denies any chest pain. He was found to be tachycardic on arrival to the emergency room and was treated with diltiazem 20 mg IV bolus as well as started on Cardizem drip. Patient denies any cough, fever, dysuria frequency abdominal pain or any other pertinent symptoms. He said he had been well until all this started abruptly. He was on Coumadin until April 2017 when it was discontinued due to GI bleeding. He tells me that he has a history of filter to prevent blood clots that was inserted in February of last year and he had been on Plavix up until about 6 days ago. Past Medical History Cardiac Medical History: Reports: Atrial Fibrillation, Congestive Heart Failure , Coronary Artery Disease, Myocardial Infarction - x4, Hyperlipidema, Hypertension Denies: DVT, Pulmonary Embolism Pulmonary Medical History: Denies: Asthma, Bronchitis, Chronic Obstructive Pulmonary Disease (COPD), Pneumonia, Tuberculosis Neurological Medical History: Denies: Seizures Endocrine Medical History: Reports: Diabetes Mellitus Type 1, Diabetes Mellitus Type 2, Hypothyroidism Denies: Hyperthyroidism Renal/ Medical History: Reports: None GI Medical History: Reports: Other - GI bleeding Denies: Cirrhosis, Gastroesophageal Reflux Disease, Hepatitis Musculoskeltal Medical History: Reports: Arthritis Psychiatric Medical History: Reports: None, Depression Hematology: Denies: Anemia Past Surgical History Past Surgical History: Reports: Cardiac Catheterization, Coronary Stent - 5, Tonsillectomy Social History Information Source: Patient Lives with: Family Smoking Status: Never Smoker Frequency of Alcohol Use: None Hx Recreational Drug Use: No Drugs: None Hx Prescription Drug Abuse: No - Advance Directive Resuscitation Status: Full Code Family History Family History: CAD, DM Parental Family History Reviewed: No - Unavailable Children Family History Reviewed: Unknown Sibling(s) Family History Reviewed.: Unknown Medication/Allergy Home Medications: Amlodipine Besylate [Norvasc 10 mg Tablet] 10 mg PO DAILY 09/18/17 Aspirin [Aspirin EC] 81 mg PO DAILY 09/18/17 Atorvastatin Calcium [Lipitor 40 mg Tablet] 40 mg PO DAILY 09/18/17 Dexlansoprazole [Dexilant 30 mg Capsule] 30 mg PO DAILY 09/18/17 Ezetimibe [Zetia 10 mg Tablet] 10 mg PO DAILY 09/18/17 Ferrous Sulfate [Feosol 325 mg Tablet] 325 mg PO BID 09/18/17 Hydrochlorothiazide [Hydrodiuril 12.5 mg Capsule] 12.5 mg PO DAILY 09/18/17 Insulin Glargine,Hum.rec.anlog [Lantus Solostar] 34 unit SQ QHS 09/18/17 Isosorbide Mononitrate [Imdur 60 mg Tablet.er] 60 mg PO DAILY 09/18/17 Levothyroxine Sodium [Synthroid 0.1 mg Tablet] 0.1 mg PO Q6AM 09/18/17 Losartan Potassium [Cozaar 50 mg Tablet] 50 mg PO QAM 09/18/17 Magnesium Oxide [Mag-Ox 400 mg Tablet] 800 mg PO DAILY 09/18/17 Nitroglycerin [Nitrostat 0.4 mg (1/150 Gr) Tabs 25/Bottle] 1 tab SL Q5MP PRN 10/31 Prednisone [Deltasone 20 mg Tablet] 20 mg PO TID 09/18/17 Sotalol HCl [Sotalol] 80 mg PO Q12 09/18/17 Ubidecarenone [Co Q-10] 100 mg PO DAILY 09/18/17 Vit C/Vit E/Lutein/Min/[place]-3 [Ocuvite Softgel] 1 each PO DAILY 09/18/17 Allergies/Adverse Reactions: amoxicillin [Amoxicillin] Allergy (Verified 08/01/17 12:20) amoxicillin trihydrate [From Augmentin XR] Allergy (Verified 08/01/17 12:20) cephalexin monohydrate [From Keflex] Allergy (Verified 08/01/17 12:20) Potassium Clavulanate * [From Augmentin XR] Allergy (Verified 08/01/17 12:20) Tuberculin,Ppd,Multi-Puncture [From Tuberculin PPD Mireya Test] Allergy (Verified 08/01/17 12:20) Review of Systems Constitutional: ABSENT: chills, fever(s), weakness Eyes: ABSENT: visual disturbances Ears: ABSENT: hearing changes Cardiovascular: PRESENT: chest pain, dyspnea on exertion, palpitations Respiratory: ABSENT: cough, dyspnea, hemoptysis Gastrointestinal: ABSENT: abdominal pain, constipation, diarrhea, hematemesis, hematochezia, nausea, vomiting Genitourinary: ABSENT: dysuria, hematuria Integumentary: ABSENT: rash, wounds Neurological: ABSENT: abnormal gait, abnormal speech, confusion, dizziness, focal weakness, syncope Psychiatric: ABSENT: anxiety, depression, homidical ideation, suicidal ideation Endocrine: ABSENT: cold intolerance, heat intolerance, polydipsia, polyuria Physical Exam Vital Signs: Temp Pulse Resp BP Pulse Ox 98.7 F 25 H 131/80 H 95 09/18/17 13:32 09/18/17 16:01 09/18/17 16:01 09/18/17 16:01 Intake & Output 09/17/17 09/18/17 09/19/17 06:59 06:59 06:59 Weight 87.09 kg General appearance: PRESENT: cooperative, well-developed, other - elderly Head exam: PRESENT: atraumatic Eye exam: PRESENT: conjunctiva pink, EOMI, PERRLA. ABSENT: scleral icterus Mouth exam: PRESENT: moist, tongue midline Neck exam: ABSENT: carotid bruit, JVD, lymphadenopathy, thyromegaly Respiratory exam: PRESENT: clear to auscultation erika. ABSENT: rales, rhonchi, wheezes Cardiovascular exam: PRESENT: irregular rhythm, tachycardia GI/Abdominal exam: PRESENT: normal bowel sounds, soft. ABSENT: distended, guarding, mass, organolmegaly, rebound, tenderness Rectal exam: PRESENT: deferred Neurological exam: PRESENT: alert, awake, oriented to person, oriented to place , oriented to time, oriented to situation, reflexes normal Psychiatric exam: PRESENT: appropriate affect Results Laboratory Results: 09/18/17 13:36 09/18/17 13:36 09/18/17 09/18/17 13:36 13:36 WBC 12.8 H RBC 5.96 H Hgb 15.6 Hct 47.8 MCV 80 MCH 26.2 L MCHC 32.7 RDW 21.2 H Plt Count 255 Seg Neutrophils % 91.6 H Lymphocytes % 5.4 L Monocytes % 2.7 L Eosinophils % 0.1 Basophils % 0.2 Absolute Neutrophils 11.7 H Absolute Lymphocytes 0.7 Absolute Monocytes 0.4 Absolute Eosinophils 0.0 Absolute Basophils 0.0 Sodium 140.7 Potassium 5.0 Chloride 104 Carbon Dioxide 24 Anion Gap 13 BUN 58 H Creatinine 1.75 H Est GFR ( Amer) 45 L Est GFR (Non-Af Amer) 38 L Glucose 243 H Calcium 9.5 Total Bilirubin 0.9 AST 35 ALT 69 Alkaline Phosphatase 50 Total Protein 6.5 Albumin 3.9 09/18/17 09/18/17 13:36 13:36 Creatine Kinase 59 CK-MB (CK-2) 3.58 Troponin I < 0.012 EKG Comments: Atrial fibrillation with RVR and ST segment depression Impressions: Chest X-Ray 09/18/17 13:23 IMPRESSION: NO ACUTE RADIOGRAPHIC FINDING IN THE CHEST. Assessment & Plan - Diagnosis (1) Atrial fibrillation with RVR Is this a current diagnosis for this admission?: Yes Plan: Continue Cardizem drip and wean off as tolerated. Will hold off Sotalol for now. Will check Thyroid function and rule out any occult infectious etiology (2) Chest pain Qualifiers: Chest pain type: unspecified Qualified Code(s): R07.9 - Chest pain, unspecified Is this a current diagnosis for this admission?: Yes Plan: Likely secondary to palpitations. Will cycle enzymes, cont Nitropaste prn (3) Acute worsening of stage 3 chronic kidney disease Is this a current diagnosis for this admission?: Yes Plan: Cautious hydration, hold HCTZ for now (4) Hypothyroid Qualifiers: Is this a current diagnosis for this admission?: Yes Plan: Will check thyroid function - Time Time Spent: 30 to 50 Minutes Medications reviewed and adjusted accordingly: Yes Anticipated discharge: Home Within: within 24 hours - Inpatient Certification Based on my medical assessment, after consideration of the patient's comorbidities, presenting symptoms, or acuity I expect that the services needed warrant INPATIENT care.: Yes Medical Necessity: Significant Comorbidiites Make Outpatient Treatment Too Risky , Need For IV Fluids
--- NOTE | 2017-09-18 19:08 | EKG REPORT ---
SEVERITY:- ABNORMAL ECG - ATRIAL FIBRILLATION REPOL ABNRM SUGGESTS ISCHEMIA, ANT-LAT LEADS BORDERLINE PROLONGED QT INTERVAL : Confirmed by: Negro Chaidez 18-Sep-2017 19:07:55
--- NOTE | 2017-09-18 19:08 | EKG REPORT ---
SEVERITY:- ABNORMAL ECG - ATRIAL FIBRILLATION MINIMAL ST DEPRESSION, INFERIOR LEADS : Confirmed by: Negro Chaidez 18-Sep-2017 19:07:43
[2017-09-18] MEDS: FERROUS SULFATE 325 MG TABLET PO SCH (20:23)
[2017-09-18] MEDS: INSULIN REG, HUMAN 100 UNIT/ML 3 ML VIAL (PYX) SUBCUT PRN ×2 (20:23→23:00)
[2017-09-18] MEDS: 1/2 NORMAL SALINE 1,000 ML IV PRN (20:42)
[2017-09-18] MEDS ORDERED: RIVAROXABAN 10 MG TABLET PO SCH (22:00)
[2017-09-18] MEDS ORDERED: SOTALOL HCL 80 MG TABLET PO SCH (22:00)
[2017-09-18] MEDS ORDERED: INSULIN GLARGINE,HUM.REC.ANLOG 1,000 UNIT/10 ML UNIT SUBCUT ONE (22:53)
[2017-09-18 23:00] LABS: APPEARANCE,URINE CLEAR; BILIRUBIN,URINE NEGATIVE (NEGATIVE); COLOR,URINE STRAW; GLUCOSE, URINE >=500 mg/dL (NEGATIVE); KETONES,URINE NEGATIVE (NEGATIVE); LEUKOCYTE ESTERASE,URINE NEGATIVE (NEGATIVE); NITRITE,URINE NEGATIVE (NEGATIVE); PROTEIN,URINE 100 mg/dL (NEGATIVE); URINE SPECIFIC GRAVITY 1.013; UROBILINOGEN,URINE NEGATIVE mg/dL (<2.0)
[2017-09-18] MEDS: INSULIN GLARGINE,HUM.REC.ANLOG 300 UNIT/3 ML INSULN.PEN SUBCUT SCH (23:05)
[2017-09-19] MEDS ORDERED: DILTIAZEM HCL 120 MG CAP.SR.24H PO ONE (02:00)
[2017-09-19 05:51] LABS: ANION GAP 9 (5-19); BLOOD UREA NITROGEN 55 mg/dL (7-20); CALCIUM 9.2 mg/dL (8.4-10.2); CARBON DIOXIDE 27 mmol/L (22-30); CHLORIDE 107 mmol/L (98-107); GLUCOSE 153 mg/dL (75-110); POTASSIUM 4.2 mmol/L (3.6-5.0); SODIUM 142.9 mmol/L (137-145)
[2017-09-19] MEDS: LANSOPRAZOLE 30 MG TAB.RAP.DR PO SCH (06:47)
[2017-09-19] MEDS: LEVOTHYROXINE SODIUM 0.1 MG TABLET PO SCH (06:47)
[2017-09-19] MEDS: 1/2 NORMAL SALINE 1,000 ML IV PRN ×2 (06:48→17:20)
--- NOTE | 2017-09-19 08:59 | PDOC PROGRESS REPORT ---
Subjective Progress Note for:: 09/19/17 Subjective:: The patient denies any further palpitations but he appears to be very short of breath. Reason For Visit: ATRIAL FIBRILLATION WITH RVR Physical Exam Vital Signs: Temp Pulse Resp BP Pulse Ox 98.3 F 84 18 139/77 H 92 09/19/17 03:20 09/19/17 07:00 09/19/17 03:20 09/19/17 03:20 09/19/17 03:20 Intake & Output 09/18/17 09/19/17 09/20/17 06:59 06:59 06:59 Intake Total 1984 Output Total 1175 Balance 809 Weight 90.7 kg General appearance: PRESENT: mild distress Head exam: PRESENT: atraumatic Eye exam: PRESENT: conjunctiva pink Neck exam: PRESENT: carotid bruit Respiratory exam: PRESENT: crackles Cardiovascular exam: PRESENT: irregular rhythm, +S1, +S2 GI/Abdominal exam: PRESENT: normal bowel sounds, soft Extremities exam: PRESENT: full ROM Musculoskeletal exam: PRESENT: ambulatory Neurological exam: PRESENT: alert, awake, oriented to time Results Laboratory Results: 09/19/17 04:22 09/18/17 09/19/17 09/19/17 22:40 04:22 04:22 Sodium 142.9 Potassium 4.2 Chloride 107 Carbon Dioxide 27 Anion Gap 9 BUN 55 H Creatinine 1.54 H Est GFR ( Amer) 53 L Est GFR (Non-Af Amer) 43 L Glucose 153 H Calcium 9.2 TSH 1.90 Urine Color STRAW Urine Appearance CLEAR Urine pH 5.0 Ur Specific Merrill 1.013 Urine Protein 100 H Urine Glucose (UA) >=500 H Urine Ketones NEGATIVE Urine Blood NEGATIVE Urine Nitrite NEGATIVE Ur Leukocyte Esterase NEGATIVE Urine RBC (Auto) 0 09/18/17 09/19/17 18:56 04:22 Troponin I 0.360 0.885 Impressions: Chest X-Ray 09/18/17 13:23 IMPRESSION: NO ACUTE RADIOGRAPHIC FINDING IN THE CHEST. Assessment & Plan - Diagnosis (1) Non-STEMI (non-ST elevated myocardial infarction) Is this a current diagnosis for this admission?: Yes Plan: Cardiology consultation. We will continue with current treatment (2) Atrial fibrillation with RVR Is this a current diagnosis for this admission?: Yes Plan: Continue with current treatment for rate control (3) Chest pain Qualifiers: Chest pain type: unspecified Qualified Code(s): R07.9 - Chest pain, unspecified Is this a current diagnosis for this admission?: Yes Plan: We will recheck to cardiac enzymes because of recent elevation. Most probably related to heart rate (4) Acute worsening of stage 3 chronic kidney disease Is this a current diagnosis for this admission?: Yes (5) Diabetes mellitus type 2 with complications Is this a current diagnosis for this admission?: Yes Plan: Continue current treatment (6) Hypothyroid Qualifiers: Is this a current diagnosis for this admission?: Yes Plan: Continue current medications
[2017-09-19] MEDS ORDERED: ONDANSETRON HCL INJ/PF 4 MG/2 ML SDV IV PRN (09:00)
[2017-09-19] MEDS: EZETIMIBE 10 MG TABLET PO SCH (09:52)
[2017-09-19] MEDS: PREDNISONE 20 MG TABLET PO SCH ×3 (09:52→17:21)
[2017-09-19] MEDS: ISOSORBIDE MONONITRATE 60 MG TAB.ER.24H PO SCH (09:53)
[2017-09-19] MEDS: ASPIRIN 81 MG TABLET, ENT COATED PO SCH (09:53)
[2017-09-19] MEDS: FERROUS SULFATE 325 MG TABLET PO SCH ×2 (09:53→17:20)
[2017-09-19] MEDS: ATORVASTATIN CALCIUM 40 MG TABLET PO SCH (09:55)
[2017-09-19] MEDS: DOCUSATE SODIUM 100 MG CAPSULE PO SCH (09:55)
[2017-09-19] MEDS: LOSARTAN POTASSIUM 50 MG TABLET PO SCH (09:56)
[2017-09-19] MEDS ORDERED: DILTIAZEM HCL 120 MG CAP.SR.24H PO SCH (10:00)
[2017-09-19] MEDS ORDERED: (PENDING PHARMACY ID) (Dexlansoprazole [Dexilant 30 Mg Capsule] 30 MG) PO SCH (10:00)
[2017-09-19] MEDS ORDERED: MAGNESIUM OXIDE 400 MG TABLET PO SCH (10:00)
[2017-09-19] MEDS: INSULIN REG, HUMAN 100 UNIT/ML 3 ML VIAL (PYX) SUBCUT PRN ×3 (12:01→21:51)
[2017-09-19] MEDS ORDERED: SOTALOL HCL 80 MG TABLET PO ONE ×2 (19:45→20:15)
[2017-09-19] MEDS: DILTIAZEM HCL 120 MG CAP.SR.24H PO SCH (21:32)
[2017-09-19] MEDS: INSULIN GLARGINE,HUM.REC.ANLOG 300 UNIT/3 ML INSULN.PEN SUBCUT SCH (21:51)
[2017-09-19] MEDS ORDERED: SOTALOL HCL 80 MG TABLET PO SCH (22:00)
[2017-09-20] MEDS: 1/2 NORMAL SALINE 1,000 ML IV PRN (03:50)
[2017-09-20 05:30] LABS: ANION GAP 10 (5-19); BLOOD UREA NITROGEN 48 mg/dL (7-20); CALCIUM 9.2 mg/dL (8.4-10.2); CARBON DIOXIDE 26 mmol/L (22-30); CHLORIDE 109 mmol/L (98-107); GLUCOSE 104 mg/dL (75-110); POTASSIUM 4.6 mmol/L (3.6-5.0); SODIUM 144.9 mmol/L (137-145)
[2017-09-20 05:36] LABS: TROPONIN I 0.268 ng/mL
[2017-09-20] MEDS: LANSOPRAZOLE 30 MG TAB.RAP.DR PO SCH (06:31)
[2017-09-20] MEDS: LEVOTHYROXINE SODIUM 0.1 MG TABLET PO SCH (06:31)
--- NOTE | 2017-09-20 07:21 | EKG REPORT ---
SEVERITY:- BORDERLINE ECG - SINUS RHYTHM, CONVERTED FROM A FIB. BORDERLINE T ABNORMALITIES, ANT-LAT LEADS QTC 414MS : Confirmed by: Abel Maldonado MD 20-Sep-2017 07:21:23
--- NOTE | 2017-09-20 07:25 | EKG REPORT ---
SEVERITY:- ABNORMAL ECG - SINUS RHYTHM NONSPECIFIC T ABNORMALITIES, DIFFUSE LEADS QTC 426 MS AFTER FIRST DOSE SOTALOL 120MG : Confirmed by: Abel Maldonado MD 20-Sep-2017 07:25:04
[2017-09-20] MEDS: FERROUS SULFATE 325 MG TABLET PO SCH ×2 (10:47→18:13)
[2017-09-20] MEDS: ASPIRIN 81 MG TABLET, ENT COATED PO SCH (10:47)
[2017-09-20] MEDS: PREDNISONE 20 MG TABLET PO SCH (10:47)
[2017-09-20] MEDS: LOSARTAN POTASSIUM 50 MG TABLET PO SCH (10:47)
[2017-09-20] MEDS: ATORVASTATIN CALCIUM 40 MG TABLET PO SCH (10:48)
[2017-09-20] MEDS: DILTIAZEM HCL 120 MG CAP.SR.24H PO SCH ×2 (10:48→21:42)
[2017-09-20] MEDS: EZETIMIBE 10 MG TABLET PO SCH (10:48)
[2017-09-20] MEDS: SOTALOL HCL 80 MG TABLET PO SCH ×2 (10:49→21:43)
[2017-09-20] MEDS: ISOSORBIDE MONONITRATE 60 MG TAB.ER.24H PO SCH (10:49)
[2017-09-20] MEDS: MAGNESIUM OXIDE 400 MG TABLET PO SCH ×2 (10:49→18:13)
[2017-09-20] MEDS: DOCUSATE SODIUM 100 MG CAPSULE PO SCH (10:50)
[2017-09-20 11:11] LABS: CREATINE KINASE MB 2.85 ng/mL (<4.55); TROPONIN I 0.251 ng/mL
--- NOTE | 2017-09-20 11:46 | PDOC PROGRESS REPORT ---
Subjective Progress Note for:: 09/20/17 Subjective:: The patient states to feel better. He denies any chest pain or shortness of breath. Discussed the case with cardiology. By the time there was a consideration for patient transfer to [place] the patient converted to sinus and have remained in sinus. Possibly the A. fib with RVR was related to the patient missing his medications. Reason For Visit: AFIB WITH RVR, NON STEMI, NIDDM, CKD Physical Exam Vital Signs: Temp Pulse Resp BP Pulse Ox 98.4 F 55 L 20 188/60 H 96 09/20/17 04:16 09/20/17 08:47 09/20/17 08:47 09/20/17 08:47 09/20/17 08:47 Intake & Output 09/19/17 09/20/17 09/21/17 06:59 06:59 06:59 Intake Total 1984 4157 Output Total 1175 2780 Balance 809 1377 Weight 90.7 kg 90.1 kg General appearance: PRESENT: no acute distress Head exam: PRESENT: atraumatic Eye exam: PRESENT: conjunctiva pink Neck exam: PRESENT: carotid bruit Respiratory exam: PRESENT: crackles Cardiovascular exam: PRESENT: RRR, +S1, +S2 GI/Abdominal exam: PRESENT: normal bowel sounds, soft Extremities exam: PRESENT: full ROM Musculoskeletal exam: PRESENT: ambulatory Neurological exam: PRESENT: awake Results Laboratory Results: 09/20/17 03:57 09/20/17 03:57 Sodium 144.9 Potassium 4.6 Chloride 109 H Carbon Dioxide 26 Anion Gap 10 BUN 48 H Creatinine 1.39 H Est GFR ( Amer) 59 L Est GFR (Non-Af Amer) 49 L Glucose 104 Calcium 9.2 Magnesium 1.9 09/18/17 09/19/17 09/19/17 18:56 04:22 20:37 Creatine Kinase CK-MB (CK-2) Troponin I 0.360 0.885 0.275 NT-Pro-B Natriuret Pep 09/20/17 09/20/17 09/20/17 03:57 10:15 10:15 Creatine Kinase 37 L CK-MB (CK-2) 2.85 Troponin I 0.268 0.251 NT-Pro-B Natriuret Pep 2500 H Impressions: Chest X-Ray 09/18/17 13:23 IMPRESSION: NO ACUTE RADIOGRAPHIC FINDING IN THE CHEST. Assessment & Plan - Diagnosis (1) Non-STEMI (non-ST elevated myocardial infarction) Is this a current diagnosis for this admission?: Yes Plan: The enzymes are improving. Might be related to the heart rate prior to admission (2) Atrial fibrillation with RVR Is this a current diagnosis for this admission?: Yes Plan: Resolved presently normal sinus rhythm. Might be related to a missing doses of sotalol (3) Chest pain Qualifiers: Chest pain type: unspecified Qualified Code(s): R07.9 - Chest pain, unspecified Is this a current diagnosis for this admission?: Yes (4) Acute worsening of stage 3 chronic kidney disease Is this a current diagnosis for this admission?: Yes Plan: We will continue hydration (5) Diabetes mellitus type 2 with complications Is this a current diagnosis for this admission?: Yes Plan: Continue current medications (6) Hypothyroid Qualifiers: Is this a current diagnosis for this admission?: Yes Plan: Stable continue current treatment
[2017-09-20 16:27] LABS: CREATINE KINASE MB 2.3 ng/mL (<4.55); TROPONIN I 0.222 ng/mL
[2017-09-20] MEDS: INSULIN REG, HUMAN 100 UNIT/ML 3 ML VIAL (PYX) SUBCUT PRN ×2 (16:45→21:39)
--- NOTE | 2017-09-20 20:58 | XCELERA REPORT ---
[address] [address] Transthoracic Echocardiogram Report Name: ADELAIDE COOPER JR Age: 81 yrs Gender: Male : 1935 Patient Status: Inpatient Patient Location: [address] [place], [place] [address]A Study Date: 09/20/2017 08:44 AM Height: 66 in Weight: 199 lb BSA: 2.0 m2 Reason For Study: afib Ordering Physician: LEANDRA HOPKINS Performed By: Tricia Tejeda Interpretation Summary , Poor study, poor apical views and PLAX view, unable to see LV segemental enodcardial definition. LVEF probably globally normal. no LV enlargement. Unable to assess regional wall motion abnormality. AV shows calcific with prob 3 cusps, mean gradient is 26 mm Hg, peak gradient is 41 suggests mod with mild AR and no LV enlargement. R heart porly seen no pulm hypertension, mild TR with RVSP 19 mm Hg. MAV mod, no MS no MVP and mild MR, no LA enlargement. MMode/2D Measurements & Calculations RVDd: 2.2 cm LVIDd: 4.7 cm FS: 24.0 % Ao root diam: IVSd: 1.1 cm LVIDs: 3.5 cm EDV(Teich): 2.6 cm LVPWd: 1.1 cm 100.4 ml Ao root area: ESV(Teich): 52.4 ml 5.3 cm2 EF(Teich): 47.8 %LA dimension: 3.8 cm LVOT diam: 2.0 cm LA A2Cs: LA length: 6.6 cm LA A4Cs: 20.8 cm2 LVOT area: 3.0 cm2 22.2 cm2 LA Vol Index (BP): LA Volume: 29.9 ml/m2 59.6 ml Doppler Measurements & Calculations MV E max gilson: MV P1/2t max gilson: Ao V2 max: LV V1 max P.8 cm/sec 94.3 cm/sec 320.3 cm/sec 4.8 mmHg MV A max gilson: MV P1/2t: 70.6 msec Ao max PG: LV V1 mean P.9 cm/sec 41.0 mmHg 2.7 mmHg MV E/A: 1.1 MVA(P1/2t): 3.1 cm2 Ao V2 mean: LV V1 max: MV dec slope: 243.5 cm/sec 109.6 cm/sec 391.3 cm/sec2 Ao mean PG: LV V1 mean: 26.1 mmHg 79.1 cm/sec Ao V2 VTI: 84.0 cmLV V1 VTI: 32.3 cm SANDY(I,D): 1.2 cm2 SANDY(V,D): 1.0 cm2 SV(LVOT): 97.4 ml PA V2 max: PI end-d gilson: TR max gilson: 88.4 cm/sec 153.8 cm/sec 201.5 cm/sec PA max P.1 mmHg TR max P.2 mmHg Left Ventricle The left ventricle is grossly normal size. Due to the poor quality of the echocardiogram, an assessment of left ventricular ejection fraction cannot be made. Best estimate is normal. The E/E' ratio between the mitral E wave and the mitral annulus E' wave is abnormal, with a value of > 10. The E/E' ratio between the mitral E wave and the mitral annulus E' wave is 18. Regional wall motion abnormalities cannot be excluded due to limited visualization. The left ventricular apex is not well visualized. Right Ventricle The right ventricle is normal in size, thickness and function. Atria The right atrium is normal. The left atrial size is normal. The interatrial septum is intact with no evidence for an atrial septal defect. Mitral Valve The mitral valve leaflets are sclerotic and show some degree of functional abnormality. There is moderate mitral annular calcification. There is no evidence of mitral valve prolapse. There is no mitral valve stenosis. There is a mild amount of mitral regurgitation. Aortic Valve The aortic valve is sclerotic and shows some degree of functional abnormality. The aortic valve is trileaflet. The aortic valve is normal in structure but functionally abnormal. Cannot exclude aortic valvular vegetation. There is a peak gradient of 41 mm of Hg. There is a mild amount of aortic regurgitation. Tricuspid Valve The tricuspid valve is not well visualized secondary to technical limitations. There is a trace or physiologic amount of tricuspid regurgitation. Best estimated RVSP is approximately 19 mm/Hg. Pulmonic Valve The pulmonic valve is not well visualized. There is a mild amount of pulmonic regurgitation. Great Vessels The aortic root is normal size. Effusions Minimal pericardial effusion. I WMSI = 2.50 % Normal = 0 Segments Size X - Cannot 2 - 4 - 1-2 small Interpret 1 - Normal Hypokinetic 3 - AkineticDyskinetic 3-5 moderate 5 - 6-14 large Aneurysmal 15-16 diffuse : LEANDRA HOPKINS > Abel Maldonado
[2017-09-20] MEDS: INSULIN GLARGINE,HUM.REC.ANLOG 300 UNIT/3 ML INSULN.PEN SUBCUT SCH (21:41)
--- NOTE | 2017-09-20 22:04 | PROGRESS NOTE E ---
Progress Note NAME: ADELAIDE COOPER : 1935 AGE: 81Y DATE: 09/20/2017 ROOM: 303 SUBJECTIVE: This 81-year-old male patient is stable since conversion of his A-fib at 6 p.m. last night. He is currently on sotalol 120 mg q.12 hours, the third dose is supposed to be given at 10 p.m. a half an hour from now. His QTC is not prolonged, today was at 426 ms, daily EKGs will be done x3. OBJECTIVE: VITAL SIGNS: Stable with heart rate ranging 51-69 while on sotalol 120 mg every 12 hours and Cardizem CD 120 mg q.12 hours. His blood pressure varies from 116 systolic to a higher 188. ASSESSMENT AND PLAN: 1. ATRIAL FIBRILLATION, SPONTANEOUS CONVERSION, NOW IN SINUS RHYTHM AND REMAINING IN SINUS RHYTHM FOR 24-HOURS SO FAR: The patient is on increased sotalol 120 mg b.i.d. and Cardizem CD 120 mg twice a day with only aspirin as a stroke prevention strategy in addition to his Watchman's device. So far 2 doses of increased sotalol did not produce any proarrhythmias. His QTC is at 426 ms. Magnesium is 1.9. His echocardiogram showed left ventricular ejection fraction difficult to assess but appears to be normal visually, his left atrial volume appears to be normal. He has moderate aortic stenosis with peak pressure gradient of 41 mmHg and mean pressure gradient of 26 mmHg. The LV segments were not well visualized from this echo. He had no pulmonary hypertension and no left ventricular diastolic dysfunction. The plan is to keep him here for another day, recheck the QTC and probably discharge him tomorrow night on Cardizem CD 120 mg 1-2 a day depending on his heart rate and blood pressure in the next 24 hours, to continue with sotalol 120 mg b.i.d. and aspirin 81 mg daily. Then will need a 24-hour Holter as an outpatient and eventually an IV Lexiscan stress MPI to assess him for coronary artery disease since both times when he lapsed into A-fib with RVR he had complained of chest pains. 2. HYPERTENSION. This is borderline controlled with continuous steroid use. Systolic blood pressure was 188. He will continue with Cozaar 50 mg, 100 mg if need be. Hydrochlorothiazide 12.5 mg daily and nitroglycerin p.r.n. if blood pressure were to be high surreptitiously. 3. TYPE 2 AZ. During this admission his initial troponin I was 0.012, it went up to 0.885 and eventually dropped to 0.268 this morning, trending down. He had no further chest pain after admission. EKG showed mild T-inversion in the anterior leads today. He has been ambulating and is ambulatory. Blood pressure appeared to be around 148/46 with a heart rate of 54. His NT-proBNP was 2500 this morning but since then he has diuresed a bit today and his room air O2 sat is about 96%, will not diurese him. This elevated troponin I, therefore, is due to a type 2 AZ (demand greater than supply during the episode of A-fib with RVR). The patient has been receiving Imdur 60 mg once a day with Nitrostat p.r.n. 4. CKD. His serum creatinine has improved, on admission serum creatinine was 1.75, since spontaneous conversion, his renal panel showed a BUN 48, creatinine 1.39, sodium 145, potassium 4.6, and the estimated EGFR was 49 mL. We will continue observation. I have discussed tentative discharge plans with patient. We will discuss this with Dr. Wall in the morning. It is noted that his Plavix has been discontinued by Dr. Maciel, who implanted his Watchman's device, this was stopped on 09/12/17. Since the patient is already on Cardizem this admission Norvasc has been discontinued. He will continue with Synthroid 100 mcg and his TSH is therapeutic at 1.9 on admission, so this dose will be continued. May need too increase his Cozaar for uncontrolled hypertension. DICTATING PHYSICIAN: JESSICA HUBBARD M.D. [id number] PHY#: [id number] ID: [id number] JOB#: [id number] ACCT: [id number] cc: > Dr Mara BHATIA
[2017-09-20 23:05] LABS: CREATINE KINASE MB 2.16 ng/mL (<4.55)
[2017-09-20 23:08] LABS: TROPONIN I 0.181 ng/mL
[2017-09-21 04:53] LABS: ABSOLUTE LYMPHOCYTES (AUTO) 0.9 10^3/uL (0.5-4.7); ABSOLUTE MONOCYTES (AUTO) 0.8 10^3/uL (0.1-1.4); ABSOLUTE NEUT (AUTO) 9.9 10^3/uL (1.7-8.2); BASOPHILS % (AUTO) 0.3 % (0-2); EOSINOPHILS % (AUTO) 0.3 % (0-6); HEMATOCRIT 43.7 % (37.9-51.0); HEMOGLOBIN 14.3 g/dL (13.5-17.0); LYMPHOCYTES % (AUTO) 7.8 % (13-45); MEAN CORPUSCULAR HEMOGLOBIN 25.9 pg (27.0-33.4); MEAN CORPUSCULAR HGB CONC 32.7 g/dL (32.0-36.0); MEAN CORPUSCULAR VOLUME 79 fl (80-97); MONOCYTES % (AUTO) 7.1 % (3-13); PLATELET COUNT 194 10^3/uL (150-450); RED BLOOD COUNT 5.52 10^6/uL (4.35-5.55); RED CELL DISTRIBUTION WIDTH 20.3 % (11.5-14.0); SEGMENTED NEUTROPHILS % (AUTO) 84.5 % (42-78); TOTAL CELLS COUNTED % (AUTO) 100 %; WHITE BLOOD COUNT 11.7 10^3/uL (4.0-10.5)
[2017-09-21 05:15] LABS: ALANINE AMINOTRANSFERASE 45 U/L (21-72); ALBUMIN 3.2 g/dL (3.5-5.0); ALKALINE PHOSPHATASE 39 U/L (38-126); ANION GAP 8 (5-19); ASPARTATE AMINO TRANSFERASE 23 U/L (17-59); BILIRUBIN,DIRECT 0.1 mg/dL (0.0-0.4); BILIRUBIN,TOTAL 0.7 mg/dL (0.2-1.3); BLOOD UREA NITROGEN 45 mg/dL (7-20); CALCIUM 9.3 mg/dL (8.4-10.2); CARBON DIOXIDE 30 mmol/L (22-30); CHLORIDE 106 mmol/L (98-107); GLUCOSE 99 mg/dL (75-110); POTASSIUM 4.2 mmol/L (3.6-5.0); SODIUM 144.2 mmol/L (137-145); TOTAL PROTEIN 5.9 g/dL (6.3-8.2)
[2017-09-21] MEDS: LANSOPRAZOLE 30 MG TAB.RAP.DR PO SCH (05:29)
[2017-09-21] MEDS: LEVOTHYROXINE SODIUM 0.1 MG TABLET PO SCH (05:29)
--- NOTE | 2017-09-21 07:48 | EKG REPORT ---
SEVERITY:- BORDERLINE ECG - SINUS BRADYCARDIA QTC IS 448 MS, DAY 2 OF INCREASED SOTALOL 120MG Q12H. BORDERLINE T WAVE ABNORMALITIES ANTERIOR LEADS HAVE IMPROVED. : Confirmed by: Abel Maldonado MD 21-Sep-2017 07:47:34
[2017-09-21] MEDS: LOSARTAN POTASSIUM 50 MG TABLET PO SCH (08:22)
[2017-09-21 08:24] VITALS: BP 162/58
[2017-09-21] MEDS: EZETIMIBE 10 MG TABLET PO SCH (09:06)
[2017-09-21] MEDS: SOTALOL HCL 80 MG TABLET PO SCH (09:06)
[2017-09-21] MEDS: MAGNESIUM OXIDE 400 MG TABLET PO SCH (09:07)
[2017-09-21] MEDS: DOCUSATE SODIUM 100 MG CAPSULE PO SCH (09:07)
[2017-09-21] MEDS: ATORVASTATIN CALCIUM 40 MG TABLET PO SCH (09:07)
[2017-09-21] MEDS: FERROUS SULFATE 325 MG TABLET PO SCH (09:07)
[2017-09-21] MEDS: ISOSORBIDE MONONITRATE 60 MG TAB.ER.24H PO SCH (09:07)
[2017-09-21] MEDS: ASPIRIN 81 MG TABLET, ENT COATED PO SCH (09:08)
--- NOTE | 2017-09-21 09:38 | PDOC DISCHARGE SUMMARY ---
General - Admit/Disc Date/PCP Admission Date/Primary Care Provider: 09/18/17 16:36 LEANDRA HOPKINS, Discharge Date: 09/21/17 - Discharge Diagnosis (1) Non-STEMI (non-ST elevated myocardial infarction) Is this a current diagnosis for this admission?: Yes Summary: Most probably related to A. fib with RVR. The enzymes have decreased down. (2) Atrial fibrillation with RVR Is this a current diagnosis for this admission?: Yes Summary: Presently in normal sinus rhythm on sotalol 120 twice a day and Cardizem. Patient is to follow-up with cardiology for a Holter monitor and a stress test (3) Chest pain Is this a current diagnosis for this admission?: Yes (4) Acute worsening of stage 3 chronic kidney disease Is this a current diagnosis for this admission?: Yes Summary: Stable continue current medications (5) Diabetes mellitus type 2 with complications Is this a current diagnosis for this admission?: Yes Summary: Stable continue current treatment (6) Hypothyroid Is this a current diagnosis for this admission?: Yes Summary: Stable continue current treatment - Additional Information Resuscitation Status: Full Code Discharge Diet: Cardiac, Diabetic Discharge Activity: Activity As Tolerated Prescriptions: Sotalol HCl [Betapace 80 mg Tablet] 120 mg PO Q12 #60 tablet Home Medications: Aspirin [Aspirin EC] 81 mg PO DAILY 09/18/17 Atorvastatin Calcium [Lipitor 40 mg Tablet] 40 mg PO DAILY 09/18/17 Dexlansoprazole [Dexilant 30 mg Capsule] 30 mg PO DAILY 09/18/17 Ezetimibe [Zetia 10 mg Tablet] 10 mg PO DAILY 09/18/17 Ferrous Sulfate [Feosol 325 mg Tablet] 325 mg PO BID 09/18/17 Hydrochlorothiazide [Hydrodiuril 12.5 mg Capsule] 12.5 mg PO DAILY 09/18/17 Insulin Glargine,Hum.rec.anlog [Lantus Solostar] 34 unit SQ QHS 09/18/17 Isosorbide Mononitrate [Imdur 60 mg Tablet.er] 60 mg PO DAILY 09/18/17 Levothyroxine Sodium [Synthroid 0.1 mg Tablet] 0.1 mg PO Q6AM 09/18/17 Losartan Potassium [Cozaar 50 mg Tablet] 50 mg PO QAM 09/18/17 Magnesium Oxide [Mag-Ox 400 mg Tablet] 800 mg PO DAILY 09/18/17 Nitroglycerin [Nitrostat 0.4 mg (1/150 Gr) Tabs 25/Bottle] 1 tab SL Q5MP PRN 10/31 Ubidecarenone [Co Q-10] 100 mg PO DAILY 09/18/17 Vit C/Vit E/Lutein/Min/[employer]-3 [Ocuvite Softgel] 1 each PO DAILY 09/18/17 Sotalol HCl [Betapace 80 mg Tablet] 120 mg PO Q12 #60 tablet 09/21/17 History of Present Illness History of Present Illness: ADELAIDE COOPER JR is a 81 year old male Hospital Course Hospital Course: The patient was admitted with A. fib and RVR. He was started on Cardizem drip. He apparently has missed couple of doses of sotalol. He had an echocardiogram done by Dr. Maldonado. He was restarted on sotalol and Cardizem and have converted to normal sinus rhythm. The patient is presently not on any anticoagulant because of prior history of bleed. He did quite well after conversion back to normal sinus rhythm and upon cardiology evaluation and discussion with the boiler water tester we have decided to discharge patient and follow -up as an outpatient Physical Exam Vital Signs: Temp Pulse Resp BP Pulse Ox 97.5 F 51 L 16 162/58 H 99 09/21/17 07:59 09/21/17 07:59 09/21/17 07:59 09/21/17 07:59 09/21/17 07:59 Intake & Output 09/20/17 09/21/17 09/22/17 06:59 06:59 06:59 Intake Total 4157 2530 Output Total 2780 2075 Balance 1377 455 Weight 90.1 kg 89.4 kg General appearance: PRESENT: no acute distress Head exam: PRESENT: atraumatic Eye exam: PRESENT: conjunctiva pink Neck exam: PRESENT: carotid bruit. ABSENT: JVD Respiratory exam: PRESENT: clear to auscultation erika Cardiovascular exam: PRESENT: RRR, +S1, +S2 GI/Abdominal exam: PRESENT: normal bowel sounds, soft Extremities exam: PRESENT: full ROM Musculoskeletal exam: PRESENT: ambulatory Neurological exam: PRESENT: alert, awake, oriented to person, oriented to place Results Laboratory Results: 09/21/17 04:05 09/21/17 04:05 09/21/17 09/21/17 04:05 04:05 WBC 11.7 H RBC 5.52 Hgb 14.3 Hct 43.7 MCV 79 L MCH 25.9 L MCHC 32.7 RDW 20.3 H Plt Count 194 Seg Neutrophils % 84.5 H Lymphocytes % 7.8 L Monocytes % 7.1 Eosinophils % 0.3 Basophils % 0.3 Absolute Neutrophils 9.9 H Absolute Lymphocytes 0.9 Absolute Monocytes 0.8 Absolute Eosinophils 0.0 Absolute Basophils 0.0 Sodium 144.2 Potassium 4.2 Chloride 106 Carbon Dioxide 30 Anion Gap 8 BUN 45 H Creatinine 1.46 H Est GFR ( Amer) 56 L Est GFR (Non-Af Amer) 46 L Glucose 99 Calcium 9.3 Total Bilirubin 0.7 AST 23 ALT 45 Alkaline Phosphatase 39 Total Protein 5.9 L Albumin 3.2 L 09/18/17 09/19/17 09/19/17 18:56 04:22 20:37 Creatine Kinase CK-MB (CK-2) Troponin I 0.360 0.885 0.275 NT-Pro-B Natriuret Pep 09/20/17 09/20/17 09/20/17 03:57 10:15 10:15 Creatine Kinase 37 L CK-MB (CK-2) 2.85 Troponin I 0.268 0.251 NT-Pro-B Natriuret Pep 2500 H 09/20/17 09/20/17 09/20/17 15:50 15:50 22:25 Creatine Kinase 29 L 37 L CK-MB (CK-2) 2.30 Troponin I 0.222 NT-Pro-B Natriuret Pep 09/20/17 22:25 Creatine Kinase CK-MB (CK-2) 2.16 Troponin I 0.181 NT-Pro-B Natriuret Pep Impressions: Chest X-Ray 09/18/17 13:23 IMPRESSION: NO ACUTE RADIOGRAPHIC FINDING IN THE CHEST. Qualifiers - * PATIENT BEING DISCHARGED WITH ANY OF THE FOLLOWING DIAGNOSIS: [place] Pt being discharged on Aspirin therapy?: Yes [place] Pt being discharged on Statins?: Yes [place] Pt discharged ACEI/ARBS?: Yes
[2017-09-21] MEDS ORDERED: DILTIAZEM HCL 120 MG CAP.SR.24H PO SCH (10:00)
[2017-09-21] MEDS ORDERED: PREDNISONE 20 MG TABLET PO SCH (10:00)
== END 2017-09-21 09:22 | disposition home or self-care (01) | DRG 281 ==
LOC: ER 13:22 → EH 16:36 → OBSVTOIN 16:36 → INTOOBSV 16:36 → 3N 17:54
PROVIDERS: ADMIT Family Medicine; ATTEND Family Medicine
DX: I21.A1 Myocardial infarction type 2 (principal); I13.0 Hypertensive heart and chronic kidney disease with heart failure and stage 1 through stage 4 chronic kidney disease, or unspecified chronic kidney disease; I48.91 Unspecified atrial fibrillation; N18.3 Chronic kidney disease, stage 3 (moderate); E78.5 Hyperlipidemia, unspecified; I50.9 Heart failure, unspecified; I25.10 Atherosclerotic heart disease of native coronary artery without angina pectoris; E11.22 Type 2 diabetes mellitus with diabetic chronic kidney disease; E03.9 Hypothyroidism, unspecified; F32.9 Major depressive disorder, single episode, unspecified; M19.90 Unspecified osteoarthritis, unspecified site; Z79.4 Long term (current) use of insulin; Z79.84 Long term (current) use of oral hypoglycemic drugs; Z95.5 Presence of coronary angioplasty implant and graft; Z83.3 Family history of diabetes mellitus; Z82.49 Family history of ischemic heart disease and other diseases of the circulatory system; Z88.0 Allergy status to penicillin; Z88.7 Allergy status to serum and vaccine
CPT/HCPCS: 36415; 71045; 80048; 80053; 81001; 82550; 82553; 82962; 83735; 83880; 84443; 84484; 85025; 93005; 93010; 93306; G0378; J1815; J3490; J7512

== ENCOUNTER → 2017-10-03 | Outpatient (CLI) | payer MEDICARE, OTHER ==
[2017-10-03 09:08] LABS: ALANINE AMINOTRANSFERASE 48 U/L (21-72); ALBUMIN 3.5 g/dL (3.5-5.0); ALKALINE PHOSPHATASE 48 U/L (38-126); ANION GAP 10 (5-19); ASPARTATE AMINO TRANSFERASE 31 U/L (17-59); BILIRUBIN,DIRECT 0.3 mg/dL (0.0-0.4); BILIRUBIN,TOTAL 0.6 mg/dL (0.2-1.3); BLOOD UREA NITROGEN 43 mg/dL (7-20); CALCIUM 9.5 mg/dL (8.4-10.2); CARBON DIOXIDE 32 mmol/L (22-30); CHLORIDE 102 mmol/L (98-107); GLUCOSE 125 mg/dL (75-110); POTASSIUM 5.5 mmol/L (3.6-5.0); SODIUM 144.2 mmol/L (137-145)
== END ==
LOC: OD 07:32
PROVIDERS: ATTEND Internal Medicine Cardiovascular Disease
DX: I48.0 Paroxysmal atrial fibrillation (principal); Z79.899 Other long term (current) drug therapy
CPT/HCPCS: 36415; 80048; 80076; 83735

== ENCOUNTER → 2017-10-05 | Outpatient (CLI) | payer MEDICARE, OTHER ==
[2017-10-05 09:27] LABS: ANION GAP 11 (5-19); BLOOD UREA NITROGEN 32 mg/dL (7-20); CALCIUM 9.5 mg/dL (8.4-10.2); CARBON DIOXIDE 27 mmol/L (22-30); CHLORIDE 106 mmol/L (98-107); GLUCOSE 103 mg/dL (75-110); POTASSIUM 4.3 mmol/L (3.6-5.0); SODIUM 143.7 mmol/L (137-145)
== END ==
LOC: LAB 08:23
PROVIDERS: ATTEND Internal Medicine Cardiovascular Disease
DX: E87.5 Hyperkalemia (principal)
CPT/HCPCS: 36415; 80048

== ENCOUNTER → 2017-12-02 | Outpatient (CLI) | payer MEDICARE, OTHER ==
[2017-12-02 12:07] LABS: HEMATOCRIT 48.2 % (37.9-51.0); HEMOGLOBIN 15.8 g/dL (13.5-17.0); MEAN CORPUSCULAR HEMOGLOBIN 28.4 pg (27.0-33.4); MEAN CORPUSCULAR HGB CONC 32.8 g/dL (32.0-36.0); MEAN CORPUSCULAR VOLUME 86 fl (80-97); PLATELET COUNT 190 10^3/uL (150-450); RED BLOOD COUNT 5.58 10^6/uL (4.35-5.55); RED CELL DISTRIBUTION WIDTH 16.7 % (11.5-14.0); WHITE BLOOD COUNT 12.7 10^3/uL (4.0-10.5)
[2017-12-02 12:39] LABS: ANION GAP 9 (5-19); BLOOD UREA NITROGEN 32 mg/dL (7-20); CALCIUM 8.9 mg/dL (8.4-10.2); CARBON DIOXIDE 32 mmol/L (22-30); CHLORIDE 102 mmol/L (98-107); GLUCOSE 170 mg/dL (75-110); POTASSIUM 5.5 mmol/L (3.6-5.0); SODIUM 143.2 mmol/L (137-145)
[2017-12-02 12:40] LABS: URINE CREATININE 53.9 mg/dL (22-328)
[2017-12-02 12:49] LABS: UR PRO/CREAT RATIO RESULT 5.3 mg/mg (0.0-0.2); URINE PROTEIN 284.7 mg/dL (<12)
== END ==
LOC: OD 11:00
PROVIDERS: ATTEND Physician Assistant Medical
DX: N18.3 Chronic kidney disease, stage 3 (moderate) (principal); E11.9 Type 2 diabetes mellitus without complications; D64.9 Anemia, unspecified; E87.5 Hyperkalemia
CPT/HCPCS: 36415; 80048; 82570; 84156; 85027

== ENCOUNTER → 2017-12-07 | Outpatient (CLI) | payer MEDICARE, OTHER | LOC: OD 09:54 | PROVIDERS: ATTEND Internal Medicine Nephrology | DX: E87.5 Hyperkalemia (principal) | CPT/HCPCS: 36415; 84132 ==

== ENCOUNTER → 2017-12-20 | Outpatient (CLI) | payer MEDICARE, OTHER ==
[2017-12-20 08:55] LABS: CHOLESTEROL 131.62 mg/dL (0-200); TRIGLYCERIDES 124 mg/dL (<150)
[2017-12-20 08:56] LABS: ALANINE AMINOTRANSFERASE 86 U/L (21-72); ALBUMIN 3.2 g/dL (3.5-5.0); ALKALINE PHOSPHATASE 39 U/L (38-126); ANION GAP 8 (5-19); ASPARTATE AMINO TRANSFERASE 32 U/L (17-59); BILIRUBIN,DIRECT 0.3 mg/dL (0.0-0.4); BILIRUBIN,TOTAL 1.1 mg/dL (0.2-1.3); BLOOD UREA NITROGEN 41 mg/dL (7-20); CALCIUM 8.8 mg/dL (8.4-10.2); CARBON DIOXIDE 31 mmol/L (22-30); CHLORIDE 106 mmol/L (98-107); GLUCOSE 78 mg/dL (75-110); POTASSIUM 4.5 mmol/L (3.6-5.0); SODIUM 145.3 mmol/L (137-145); TOTAL PROTEIN 5.6 g/dL (6.3-8.2)
[2017-12-20 09:06] LABS: DIRECT LDL 66 mg/dL (<100)
== END ==
LOC: OD 07:11
PROVIDERS: ATTEND Internal Medicine Cardiovascular Disease
DX: E78.2 Mixed hyperlipidemia (principal); I48.0 Paroxysmal atrial fibrillation; Z79.899 Other long term (current) drug therapy
CPT/HCPCS: 36415; 80048; 80061; 80076; 83735

== ENCOUNTER 2018-01-05 22:49 | Inpatient (IN) | payer MEDICARE, OTHER ==
[2018-01-05] MEDS ORDERED: ASPIRIN 81 MG TABLET, CHEWABLE PO ONE (22:51)
[2018-01-05] MEDS ORDERED: NITROGLYCERIN 5 MG (0.2 MG/HR) PATCH.TD24 TD ONE (23:03)
--- NOTE | 2018-01-05 23:05 | ER Document Report ---
ED General - General Stated Complaint: CHEST PAIN Time Seen by Provider: 01/05/18 23:02 Notes: Patient is a 82-year-old male with a past medical history of diabetes, hypertension, coronary artery disease status post 6 total stent placements who presents with chest pain that has now resolved after receiving nitroglycerin by EMS. Patient approximately 30 minutes prior to arrival to the emergency department developed an abrupt onset of retrosternal chest discomfort described as a constant, aching, pressure. No radiation of the pain although the patient states that he was somewhat nauseated. After receiving a total of 5 sublingual nitroglycerin patient did have resolution of his chest discomfort. He states he no longer has any pain at all. Nothing triggers pain although he notes that he does feel similar to when he has had coronary events in the past. TRAVEL OUTSIDE OF THE [place] IN LAST 30 DAYS: No - Related Data Allergies/Adverse Reactions: amoxicillin [Amoxicillin] Allergy (Verified 08/01/17 12:20) amoxicillin trihydrate [From Augmentin XR] Allergy (Verified 08/01/17 12:20) cephalexin monohydrate [From Keflex] Allergy (Verified 08/01/17 12:20) Potassium Clavulanate * [From Augmentin XR] Allergy (Verified 08/01/17 12:20) Tuberculin,Ppd,Multi-Puncture [From Tuberculin PPD Mireya Test] Allergy (Verified 08/01/17 12:20) Past Medical History - General Information source: Patient - Social History Smoking Status: Never Smoker Frequency of alcohol use: None Drug Abuse: None Lives with: Family Family History: CAD, DM - Past Medical History Cardiac Medical History: Reports: Hx Atrial Fibrillation, Hx Congestive Heart Failure, Hx Coronary Artery Disease, Hx Heart Attack - x4, Hx Hypercholesterolemia, Hx Hypertension Denies: Hx DVT, Hx Pulmonary Embolism Pulmonary Medical History: Denies: Hx Asthma, Hx Bronchitis, Hx COPD, Hx Pneumonia, Hx Tuberculosis Neurological Medical History: Denies: Hx Seizures Endocrine Medical History: Reports: Hx Diabetes Mellitus Type 1, Hx Diabetes Mellitus Type 2, Hx Hypothyroidism. Denies: Hx Hyperthyroidism Renal/ Medical History: Denies: Hx Peritoneal Dialysis GI Medical History: Denies: Hx Cirrhosis, Hx Gastroesophageal Reflux Disease, Hx Hepatitis Musculoskeletal Medical History: Reports Hx Arthritis Psychiatric Medical History: Reports: Hx Depression Infectious Medical History: Denies: Hx Hepatitis Past Surgical History: Reports: Hx Cardiac Catheterization, Hx Cardiac Surgery - stent x's4, patient had 2 stents on 07/18/2013 at [facility], Hx Coronary Stent - 5, Hx Tonsillectomy - Immunizations Hx Diphtheria, Pertussis, Tetanus Vaccination: Yes Hx Pneumococcal Vaccination: 05/25/13 Review of Systems - Review of Systems Notes: Constitutional: Negative for fever. HENT: Negative for sore throat. Eyes: Negative for visual changes. Cardiovascular: Positive for chest pain now resolved Respiratory: Negative for shortness of breath. Gastrointestinal: Negative for abdominal pain, vomiting or diarrhea. Genitourinary: Negative for dysuria. Musculoskeletal: Negative for back pain. Skin: Negative for rash. Neurological: Negative for headaches, weakness or numbness. 10 point ROS negative except as marked above and in HPI. Physical Exam - Vital signs Vitals: Pulse Ox 94 01/05/18 22:51 Interpretation: Hypertensive Notes: PHYSICAL EXAMINATION: GENERAL: Well-appearing, well-nourished and in no acute distress. HEAD: Atraumatic, normocephalic. EYES: Pupils equal round and reactive to light, extraocular movements intact, sclera anicteric, conjunctiva are normal. ENT: nares patent, oropharynx clear without exudates. Moderately dry mucous membranes. NECK: Normal range of motion, supple without lymphadenopathy LUNGS: Breath sounds clear to auscultation bilaterally and equal. No wheezes rales or rhonchi. HEART: Regular rate and rhythm, 4 out of 6 systolic ejection murmur ABDOMEN: Soft, nontender, normoactive bowel sounds. No guarding, no rebound. No masses appreciated. EXTREMITIES: Normal range of motion, no pitting or edema. No cyanosis. NEUROLOGICAL: No focal neurological deficits. Moves all extremities spontaneously and on command. PSYCH: Normal mood, normal affect. SKIN: Warm, Dry, normal turgor, no rashes or lesions noted. Course - Re-evaluation Re-evalutation: 01/05/18 23:04 Presentation of chest pain in an otherwise well appearing patient. Primary concern is for ACS as initial EKG by EMS showed half millimeter elevation in aVR with depression in the lateral leads that is now resolved after receiving 5 sublingual nitroglycerin. The patient's chest pain is also resolved. EKG here is without any ischemic changes although this normalization with nitroglycerin vertically with the patient's history is highly worrisome for a coronary event. Nitro paste has been applied. Patient has been given a dose of aspirin. Awaiting troponin assay testing. PE seems unlikely given clinical history, absence of tachycardia or dyspnea. Wells score is 0. CXR without evidence of pneumothorax or pneumonia. No widened mediastinum. Aortic dissection also seems unlikely given history, symmetric pulses, CXR, and vitals. 01/06/18 03:26 Patient has remained completely chest pain-free during the duration of his time here in the emergency department. His initial, troponin did hemolyzed but the subsequent draw as well as his delta troponin have only shown minimal elevation , 0.047 and 0.176. His vitals have remained within acceptable limits. I discussed the hospitalist as this patient does meet criteria to remain here at [facility]. He requested that I speak with senior speech pathologist. I did discuss with Dr. Hubbard. We did review the patient's labs, initial EMS EKG followed by EKG upon arrival here in the emergency department. He agrees that the patient is stable to remain here, has recommended transition to a nitroglycerin infusion as opposed to nitro patch. He states that the patient begins to have recurrent pain for deterioration of condition at transfer with him appropriate. - Vital Signs Vital signs: Temp Pulse Resp BP Pulse Ox 98.1 F 72 24 H 187/77 H 94 01/05/18 23:20 01/05/18 23:20 01/05/18 23:20 01/05/18 23:20 01/05/18 23:20 - Laboratory Result Diagrams: 01/05/18 22:32 01/06/18 00:03 Laboratory results interpreted by me: 01/05/18 01/06/18 22:32 00:03 WBC 11.9 H RBC 5.63 H RDW 16.1 H Seg Neutrophils % 84.1 H Lymphocytes % 7.0 L Absolute Neutrophils 10.0 H BUN 44 H Creatinine 1.60 H Est GFR ( Amer) 50 L Est GFR (Non-Af Amer) 41 L Glucose 130 H AST 72 H ALT 121 H Total Protein 5.7 L Albumin 3.3 L - Diagnostic Test Radiology reviewed: Image reviewed, Reports reviewed Radiology results interpreted by me: 01/06/18 03:28 Chest x-ray: No acute infiltrate or pneumothorax - EKG Interpretation by Me Additional EKG results interpreted by me: 01/06/18 03:28 Sinus rhythm, rate 76. No ST elevations or depressions. QTC 476. Discharge - Discharge Clinical Impression: NSTEMI (non-ST elevated myocardial infarction) Chest pain Qualifiers: Chest pain type: unspecified Qualified Code(s): R07.9 - Chest pain, unspecified Condition: Fair Disposition: ADMITTED INPATIENT Admitting Provider: Hospitalist Unit Admitted: IMCU Referrals: JESSICA HUBBARD MD [Primary Care Provider] - Follow up as needed
[2018-01-05 23:36] LABS: ABSOLUTE LYMPHOCYTES (AUTO) 0.8 10^3/uL (0.5-4.7); BASOPHILS % (AUTO) 0.4 % (0-2); EOSINOPHILS % (AUTO) 0.2 % (0-6); HEMATOCRIT 49.1 % (37.9-51.0); HEMOGLOBIN 16.4 g/dL (13.5-17.0); MEAN CORPUSCULAR HGB CONC 33.3 g/dL (32.0-36.0); MEAN CORPUSCULAR VOLUME 87 fl (80-97); MONOCYTES % (AUTO) 8.3 % (3-13); PLATELET COUNT 234 10^3/uL (150-450); RED BLOOD COUNT 5.63 10^6/uL (4.35-5.55); RED CELL DISTRIBUTION WIDTH 16.1 % (11.5-14.0); SEGMENTED NEUTROPHILS % (AUTO) 84.1 % (42-78); TOTAL CELLS COUNTED % (AUTO) 100 %; WHITE BLOOD COUNT 11.9 10^3/uL (4.0-10.5)
--- NOTE | 2018-01-06 00:15 | RADIOLOGY REPORT (SQ) ---
EXAM DESCRIPTION: XR CHEST 1 VIEW COMPLETED DATE/TME: 01/05/2018 22:51 CLINICAL HISTORY: Chest pain COMPARISON: 09/18/2017 FINDINGS: Single frontal view of the chest. The cardiomediastinal silhouette has normal size and contour. No consolidation, pneumothorax, or pleural effusion. No displaced rib fractures identified. Leads overlie the chest. Low lung volumes. Upper abdominal soft tissues are unremarkable. IMPRESSION: 1. No acute pulmonary process identified.
[2018-01-06 00:36] LABS: ALANINE AMINOTRANSFERASE 121 U/L (21-72); ALBUMIN 3.3 g/dL (3.5-5.0); ALKALINE PHOSPHATASE 52 U/L (38-126); ANION GAP 8 (5-19); ASPARTATE AMINO TRANSFERASE 72 U/L (17-59); BILIRUBIN,DIRECT 0.2 mg/dL (0.0-0.4); BILIRUBIN,TOTAL 1.1 mg/dL (0.2-1.3); BLOOD UREA NITROGEN 44 mg/dL (7-20); CALCIUM 9.2 mg/dL (8.4-10.2); CARBON DIOXIDE 28 mmol/L (22-30); CHLORIDE 107 mmol/L (98-107); CREATINE KINASE 55 U/L (55-170); GLUCOSE 130 mg/dL (75-110); POTASSIUM 4.3 mmol/L (3.6-5.0); SODIUM 143.4 mmol/L (137-145); TOTAL PROTEIN 5.7 g/dL (6.3-8.2)
[2018-01-06 00:48] LABS: CREATINE KINASE MB 2.94 ng/mL (<4.55)
[2018-01-06 00:52] LABS: TROPONIN I 0.047 ng/mL
[2018-01-06] MEDS ORDERED: NITROGLYCERIN 0.4 MG/TAB 25 TAB/BOTTLE SL PRN ×2 (02:48→11:27)
[2018-01-06] MEDS ORDERED: ATORVASTATIN CALCIUM 80 MG TABLET PO ONE (02:49)
[2018-01-06] MEDS ORDERED: NITROGLYCERIN/D5W 50 MG/250 ML RTUINJ IV PRN (03:00)
[2018-01-06] MEDS: ENOXAPARIN SODIUM INJ 100 MG/1 ML DISP.SYRIN SUBCUT SCH ×3 (03:10→22:02)
--- NOTE | 2018-01-06 05:13 | PDOC H&P ---
History of Present Illness Admission Date/PCP: 01/06/18 03:51 JESSICA HUBBARD MD Patient complains of: Chest pain History of Present Illness: ADELAIDE COOPER JR is a 82 year old male with a known past medical history of coronary artery disease status post 5 stents, history of atrial fibrillation and diabetes on insulin presenting to the emergency department secondary to chest pain. States he was watching TV when he started having sudden right- sided chest pain that is constant in nature associated with palpitations rated 8 out of 10. States he called EMS at which point he was given 5 sublingual nitroglycerin brought to the emergency department. Patient's initial troponin via EMS was abnormal, with repeat EKG in emergency department normal sinus rhythm. Patient given Nitropaste in emergency department and started on nitro drip given significantly elevated blood pressure. Patient is chest pain-free and resting comfortably in bed, does not appear to be in acute distress. Past Medical History Cardiac Medical History: Reports: Atrial Fibrillation, Congestive Heart Failure , Coronary Artery Disease, Myocardial Infarction - x4, Hyperlipidema, Hypertension Denies: DVT, Pulmonary Embolism Pulmonary Medical History: Denies: Asthma, Bronchitis, Chronic Obstructive Pulmonary Disease (COPD), Pneumonia, Tuberculosis Neurological Medical History: Denies: Seizures Endocrine Medical History: Reports: Diabetes Mellitus Type 1, Diabetes Mellitus Type 2, Hypothyroidism Denies: Hyperthyroidism GI Medical History: Denies: Cirrhosis, Gastroesophageal Reflux Disease, Hepatitis Musculoskeltal Medical History: Reports: Arthritis Psychiatric Medical History: Reports: Depression Hematology: Denies: Anemia Past Surgical History Past Surgical History: Reports: Cardiac Catheterization, Coronary Stent - 5, Tonsillectomy Social History Lives with: Family Smoking Status: Never Smoker Frequency of Alcohol Use: None Hx Recreational Drug Use: No Drugs: None Hx Prescription Drug Abuse: No Family History Family History: CAD, DM Parental Family History Reviewed: Yes Children Family History Reviewed: Yes Sibling(s) Family History Reviewed.: Yes Medication/Allergy Home Medications: Aspirin [Aspirin EC] 81 mg PO DAILY 09/18/17 Atorvastatin Calcium [Lipitor 40 mg Tablet] 40 mg PO DAILY 09/18/17 Dexlansoprazole [Dexilant 30 mg Capsule] 30 mg PO DAILY 09/18/17 Ezetimibe [Zetia 10 mg Tablet] 10 mg PO DAILY 09/18/17 Ferrous Sulfate [Feosol 325 mg Tablet] 325 mg PO BID 09/18/17 Hydrochlorothiazide [Hydrodiuril 12.5 mg Capsule] 12.5 mg PO DAILY 09/18/17 Insulin Glargine,Hum.rec.anlog [Lantus Solostar] 34 unit SQ QHS 09/18/17 Isosorbide Mononitrate [Imdur 60 mg Tablet.er] 60 mg PO DAILY 09/18/17 Levothyroxine Sodium [Synthroid 0.1 mg Tablet] 0.1 mg PO Q6AM 09/18/17 Losartan Potassium [Cozaar 50 mg Tablet] 50 mg PO QAM 09/18/17 Magnesium Oxide [Mag-Ox 400 mg Tablet] 800 mg PO DAILY 09/18/17 Nitroglycerin [Nitrostat 0.4 mg (1/150 Gr) Tabs 25/Bottle] 1 tab SL Q5MP PRN 10/31 Ubidecarenone [Co Q-10] 100 mg PO DAILY 09/18/17 Vit C/Vit E/Lutein/Min/[place]-3 [Ocuvite Softgel] 1 each PO DAILY 09/18/17 Sotalol HCl [Betapace 80 mg Tablet] 120 mg PO Q12 #60 tablet 09/21/17 Allergies/Adverse Reactions: amoxicillin [Amoxicillin] Allergy (Verified 08/01/17 12:20) amoxicillin trihydrate [From Augmentin XR] Allergy (Verified 08/01/17 12:20) cephalexin monohydrate [From Keflex] Allergy (Verified 08/01/17 12:20) Potassium Clavulanate * [From Augmentin XR] Allergy (Verified 08/01/17 12:20) Tuberculin,Ppd,Multi-Puncture [From Tuberculin PPD Mireya Test] Allergy (Verified 08/01/17 12:20) Review of Systems Constitutional: ABSENT: chills, fever(s), headache(s), weight gain, weight loss Eyes: ABSENT: visual disturbances Ears: ABSENT: hearing changes Cardiovascular: PRESENT: chest pain, palpitations. ABSENT: dyspnea on exertion , edema, orthropnea Respiratory: ABSENT: cough, hemoptysis Gastrointestinal: PRESENT: nausea. ABSENT: abdominal pain, constipation, diarrhea, hematemesis, hematochezia, vomiting Genitourinary: ABSENT: dysuria, hematuria Musculoskeletal: ABSENT: joint swelling Integumentary: ABSENT: rash, wounds Neurological: ABSENT: abnormal gait, abnormal speech, confusion, dizziness, focal weakness, syncope Psychiatric: ABSENT: anxiety, depression, homidical ideation, suicidal ideation Endocrine: ABSENT: cold intolerance, heat intolerance, polydipsia, polyuria Hematologic/Lymphatic: ABSENT: easy bleeding, easy bruising Physical Exam Vital Signs: Temp Pulse Resp BP Pulse Ox 98.1 F 72 24 H 187/77 H 94 01/05/18 23:20 01/05/18 23:20 01/05/18 23:20 01/05/18 23:20 01/05/18 23:20 General appearance: PRESENT: no acute distress, obese, well-developed, well- nourished Head exam: PRESENT: atraumatic, normocephalic Eye exam: PRESENT: conjunctiva pink, EOMI, PERRLA. ABSENT: scleral icterus Ear exam: PRESENT: normal external ear exam Mouth exam: PRESENT: moist, tongue midline Neck exam: ABSENT: carotid bruit, JVD, lymphadenopathy, thyromegaly Respiratory exam: PRESENT: clear to auscultation erika. ABSENT: rales, rhonchi, wheezes Cardiovascular exam: PRESENT: RRR. ABSENT: diastolic murmur, rubs, systolic murmur Pulses: PRESENT: normal dorsalis pedis pul Vascular exam: PRESENT: normal capillary refill GI/Abdominal exam: PRESENT: normal bowel sounds, soft. ABSENT: distended, guarding, mass, organolmegaly, rebound, tenderness Rectal exam: PRESENT: deferred Extremities exam: PRESENT: full ROM. ABSENT: calf tenderness, clubbing, pedal edema Neurological exam: PRESENT: alert, awake, oriented to person, oriented to place , oriented to time, oriented to situation, CN II-XII grossly intact. ABSENT: motor sensory deficit Psychiatric exam: PRESENT: appropriate affect, normal mood. ABSENT: homicidal ideation, suicidal ideation Skin exam: PRESENT: dry, intact, warm. ABSENT: cyanosis, rash Results Laboratory Results: 01/05/18 01/06/18 01/06/18 22:32 00:03 00:03 WBC 11.9 H Hgb 16.4 Creatinine 1.60 H Troponin I 0.047 Impressions: Chest X-Ray 01/05/18 22:51 IMPRESSION: 1. No acute pulmonary process identified. Assessment & Plan - Diagnosis (1) Non-STEMI (non-ST elevated myocardial infarction) Is this a current diagnosis for this admission?: Yes (2) Hypertensive urgency Is this a current diagnosis for this admission?: Yes (3) History of myocardial infarction Is this a current diagnosis for this admission?: Yes (4) Diabetes mellitus type 2 with complications Qualifiers: Diabetes mellitus group home insulin use: with instrument and controls technician use Qualified Code( s): E11.8 - Type 2 diabetes mellitus with unspecified complications; Z79.4 - snf (current) use of insulin; Z79.4 - snf (current) use of insulin; Z79.4 - tooling engineer (current) use of insulin; Z79.4 - tooling engineer (current) use of insulin Is this a current diagnosis for this admission?: Yes (5) Bvrtd-pi-jfginmn kidney injury Is this a current diagnosis for this admission?: Yes Plan: Patient to be admitted to cardiac telemetry for inpatient monitoring. Patient is currently chest pain-free. No ischemic changes noted on latest EKG. We will continue to trend patient's troponins every 6 hours 3 oriented within normal limits, latest troponin 0.393. Patient started on Lovenox 1 mg/kg twice daily. We will continue to monitor patient's kidney function closely and avoid further nephrotoxic medications with repeat CBC, BMP in a.m. Patient started on Cardene drip, titrate as per protocol. Cardiology consultation pending this a.m. for further workup and evaluation. We will continue to monitor patient closely and adjust accordingly. - Time Time Spent: 30 to 50 Minutes Medications reviewed and adjusted accordingly: Yes Anticipated discharge: Home - Inpatient Certification Based on my medical assessment, after consideration of the patient's comorbidities, presenting symptoms, or acuity I expect that the services needed warrant INPATIENT care.: Yes I certify that my determination is in accordance with my understanding of Medicare's requirements for reasonable and necessary INPATIENT services [42 CFR 412.3e].: Yes Medical Necessity: Need For Continuous Telemetry Monitoring
--- NOTE | 2018-01-06 09:03 | EKG REPORT ---
SEVERITY:- ABNORMAL ECG - SINUS RHYTHM PROBABLE LVH WITH SECONDARY REPOL ABNRM BORDERLINE PROLONGED QT INTERVAL : Confirmed by: Negro Chaidez 06-Jan-2018 09:02:20
[2018-01-06] MEDS: FAMOTIDINE 20 MG TABLET PO SCH ×2 (10:26→22:04)
[2018-01-06] MEDS: ASPIRIN 81 MG TABLET, ENT COATED PO SCH (10:26)
[2018-01-06] MEDS: DILTIAZEM HCL 120 MG CAP.SR.24H PO SCH (14:25)
[2018-01-06] MEDS: SOTALOL HCL 80 MG TABLET PO SCH ×2 (14:25→22:03)
[2018-01-06] MEDS ORDERED: (PENDING PHARMACY ID) (Insulin Aspart [Novolog Flexpen] 10 UNITS) SUBCUT SCH (16:00)
[2018-01-06] MEDS ORDERED: ISOSORBIDE MONONITRATE 60 MG TAB.ER.24H PO SCH (17:00)
[2018-01-06] MEDS ORDERED: HYDROCHLOROTHIAZIDE 12.5 MG TABLET PO ONE (17:00)
[2018-01-06] MEDS ORDERED: LOSARTAN POTASSIUM 50 MG TABLET PO ONE (17:00)
[2018-01-06] MEDS ORDERED: ISOSORBIDE MONONITRATE 60 MG TAB.ER.24H PO ONE (17:30)
[2018-01-06] MEDS: INSULIN LISPRO 100 UNIT/ML 3 ML VIAL SUBCUT SCH (17:49)
[2018-01-06] MEDS: FERROUS SULFATE 325 MG TABLET PO SCH (17:49)
[2018-01-06] MEDS ORDERED: SOTALOL HCL 80 MG TABLET PO SCH (18:00)
--- NOTE | 2018-01-06 19:20 | XCELERA REPORT ---
[address] [address] Transthoracic Echocardiogram Report Name: ADELAIDE COOPER JR Age: 82 yrs Gender: Male : 1935 Patient Status: Inpatient Patient Location: [address] Study Date: 01/06/2018 09:07 AM Procedure: A complete two-dimensional transthoracic echocardiogram was performed (2D, M-mode, spectral and color flow Doppler). The study was technically limited with all images being suboptimal in quality. Reason For Study: LV Function, size, wall thickness,Valve Function Ordering Physician: ANNETTE STILL Performed By: Jeny Belcher Interpretation Summary The study was technically limited with all images being suboptimal in quality. The left ventricular ejection fraction is preserved. Consider additional methods to assess LVEF such as MUGA scan, CTA heart, cardiac MRI, JANINA, etc. if clinically indicated. There is mild concentric left ventricular hypertrophy. The left ventricle is grossly normal size. Doppler measurements suggest pseudonormalized left ventricular relaxation, which is associated with grade II/IV or mild to moderate diastolic dysfunction Regional wall motion abnormalities cannot be excluded due to limited visualization. The right ventricle is not well visualized secondary to technical limitations The left atrium is mildly dilated. Right atrium not well visualized secondary to technical limitations There is a trace to mild amount of mitral regurgitation There is no mitral valve stenosis. There is moderate aortic stenosis. Cannot be very accurate. There is a peak gradient of peak 40 and mean 20 mm of Hg. No aortic regurgitation is present. The tricuspid valve is not well visualized secondary to technical limitations The aortic root is not well visualized. The inferior vena cava was not well visualized There is no pericardial effusion. Consider alternative methods to evaluate LVEF such as MUGA scan, cardiac MRI, or cardiac CTA. MMode/2D Measurements & Calculations RVDd: 2.2 cm LVIDd: 4.3 cm FS: 37.1 % Ao root diam: 2.1 cm IVSd: 0.90 cm LVIDs: 2.7 cm EDV(Teich): 83.8 ml Ao root area: 3.4 cm2 LVPWd: 0.90 cm ESV(Teich): 27.4 ml EF(Teich): 67.3 % Doppler Measurements & Calculations MV E max gilson: MV dec slope: Ao V2 max: LV V1 max P.7 cm/sec 321.3 cm/sec 6.0 mmHg MV A max gilson: 245.9 cm/sec2 Ao max PG: LV V1 mean P.9 cm/sec MV dec time: 41.4 mmHg 3.3 mmHg MV E/A: 0.66 0.27 sec Ao V2 mean: LV V1 max: 223.5 cm/sec 122.3 cm/sec Ao mean PG: LV V1 mean: 22.4 mmHg 87.7 cm/sec Ao V2 VTI: 78.4 cm LV V1 VTI: 30.8 cm PA V2 max: 100.3 cm/sec PA max P.0 mmHg Left Ventricle The left ventricle is grossly normal size. There is mild concentric left ventricular hypertrophy. The left ventricular ejection fraction is preserved. Consider additional methods to assess LVEF such as MUGA scan, CTA heart, cardiac MRI, JANINA, etc. if clinically indicated. Doppler measurements suggest pseudonormalized left ventricular relaxation, which is associated with grade II/IV or mild to moderate diastolic dysfunction. Regional wall motion abnormalities cannot be excluded due to limited visualization. Right Ventricle The right ventricle is not well visualized secondary to technical limitations. Atria Right atrium not well visualized secondary to technical limitations. The left atrium is mildly dilated. Mitral Valve There is mild to moderate mitral leaflet calcification. There is no mitral valve stenosis. There is a trace to mild amount of mitral regurgitation. Aortic Valve The aortic valve is not well visualized secondary to technical limitations. There is moderate aortic stenosis. There is a peak gradient of peak 40 and mean 20 mm of Hg. No aortic regurgitation is present. Tricuspid Valve The tricuspid valve is not well visualized secondary to technical limitations. Pulmonic Valve The pulmonic valve is not well visualized. Great Vessels The aortic root is not well visualized. The inferior vena cava was not well visualized. Effusions There is no pericardial effusion. Incidental Findings Consider alternative methods to evaluate LVEF such as MUGA scan, cardiac MRI, or cardiac CTA. : ANNETTE STILL > Negro Chaidez
--- NOTE | 2018-01-06 20:38 | EKG REPORT ---
SEVERITY:- ABNORMAL ECG - SINUS RHYTHM NONSPECIFIC T ABNORMALITIES, LATERAL LEADS : Confirmed by: Negro Chaidez 06-Jan-2018 17:38:24
[2018-01-06] MEDS ORDERED: EZETIMIBE 10 MG TABLET PO SCH (22:00)
[2018-01-06] MEDS ORDERED: INSULIN GLARGINE,HUM.REC.ANLOG 300 UNIT/3 ML INSULN.PEN SUBCUT SCH (22:00)
[2018-01-06 23:12] LABS: ABSOLUTE BASOPHILS # (AUTO) 0.1 10^3/uL (0.0-0.2); ABSOLUTE EOSINOPHILS # (AUTO) 0.1 10^3/uL (0.0-0.6); ABSOLUTE LYMPHOCYTES (AUTO) 1.2 10^3/uL (0.5-4.7); ABSOLUTE MONOCYTES (AUTO) 0.6 10^3/uL (0.1-1.4); ABSOLUTE NEUT (AUTO) 5.7 10^3/uL (1.7-8.2); BASOPHILS % (AUTO) 0.7 % (0-2); EOSINOPHILS % (AUTO) 1.3 % (0-6); HEMATOCRIT 43.4 % (37.9-51.0); HEMOGLOBIN 14.5 g/dL (13.5-17.0); LYMPHOCYTES % (AUTO) 15.9 % (13-45); MEAN CORPUSCULAR HEMOGLOBIN 29.2 pg (27.0-33.4); MEAN CORPUSCULAR HGB CONC 33.4 g/dL (32.0-36.0); MEAN CORPUSCULAR VOLUME 88 fl (80-97); MONOCYTES % (AUTO) 7.6 % (3-13); PLATELET COUNT 163 10^3/uL (150-450); RED BLOOD COUNT 4.96 10^6/uL (4.35-5.55); RED CELL DISTRIBUTION WIDTH 15.9 % (11.5-14.0); SEGMENTED NEUTROPHILS % (AUTO) 74.5 % (42-78); TOTAL CELLS COUNTED % (AUTO) 100 %; WHITE BLOOD COUNT 7.6 10^3/uL (4.0-10.5)
[2018-01-07 01:03] LABS: CALCIUM 9.2 mg/dL (8.4-10.2); GLUCOSE 111 mg/dL (75-110)
[2018-01-07 01:04] LABS: ALBUMIN 2.7 g/dL (3.5-5.0); CARBON DIOXIDE 27 mmol/L (22-30); CHLORIDE 108 mmol/L (98-107); POTASSIUM 3.9 mmol/L (3.6-5.0); SODIUM 142.1 mmol/L (137-145)
[2018-01-07 01:05] LABS: ALANINE AMINOTRANSFERASE 90 U/L (21-72); ALKALINE PHOSPHATASE 43 U/L (38-126); ASPARTATE AMINO TRANSFERASE 35 U/L (17-59); BILIRUBIN,DIRECT 0.2 mg/dL (0.0-0.4)
[2018-01-07 01:06] LABS: ANION GAP 8 (5-19); BLOOD UREA NITROGEN 41 mg/dL (7-20)
[2018-01-07] MEDS ORDERED: LEVOTHYROXINE SODIUM 0.1 MG TABLET PO SCH (06:00)
[2018-01-07] MEDS ORDERED: DEXTROSE 50%-WATER SYRINGE 12.5 GM/25 ML DOSE IV PRN (06:40)
[2018-01-07] MEDS ORDERED: GLUCAGON,HUMAN RECOMB 1 MG INJ IM PRN (06:40)
[2018-01-07] MEDS ORDERED: DEXTROSE 50%-WATER SYRINGE 25 GM/50 ML DOSE IV PRN (06:40)
[2018-01-07] MEDS ORDERED: DEXTROSE 40% GEL 15 GM TUBE PO PRN (06:40)
[2018-01-07] MEDS ORDERED: DEXTROSE 40% GEL 15 GM TUBE X 2 PO PRN (06:40)
[2018-01-07] MEDS ORDERED: FENTANYL 25 MCG/HR PATCH.TD72 TD ONE (06:45)
[2018-01-07 08:49] LABS: ABSOLUTE BASOPHILS # (AUTO) 0.1 10^3/uL (0.0-0.2); ABSOLUTE EOSINOPHILS # (AUTO) 0.1 10^3/uL (0.0-0.6); ABSOLUTE LYMPHOCYTES (AUTO) 1.2 10^3/uL (0.5-4.7); ABSOLUTE MONOCYTES (AUTO) 0.7 10^3/uL (0.1-1.4); ABSOLUTE NEUT (AUTO) 5.8 10^3/uL (1.7-8.2); BASOPHILS % (AUTO) 0.9 % (0-2); EOSINOPHILS % (AUTO) 1.6 % (0-6); HEMATOCRIT 48.2 % (37.9-51.0); LYMPHOCYTES % (AUTO) 15.3 % (13-45); MEAN CORPUSCULAR HEMOGLOBIN 29.1 pg (27.0-33.4); MEAN CORPUSCULAR HGB CONC 33.3 g/dL (32.0-36.0); MEAN CORPUSCULAR VOLUME 87 fl (80-97); MONOCYTES % (AUTO) 8.4 % (3-13); PLATELET COUNT 183 10^3/uL (150-450); RED BLOOD COUNT 5.51 10^6/uL (4.35-5.55); RED CELL DISTRIBUTION WIDTH 16.2 % (11.5-14.0); SEGMENTED NEUTROPHILS % (AUTO) 73.8 % (42-78); TOTAL CELLS COUNTED % (AUTO) 100 %; WHITE BLOOD COUNT 7.9 10^3/uL (4.0-10.5)
[2018-01-07] MEDS ORDERED: HYDRALAZINE HCL INJ/PF 20 MG/1 ML SDV IV PRN (08:49)
[2018-01-07 09:11] LABS: ANION GAP 10 (5-19); BLOOD UREA NITROGEN 36 mg/dL (7-20); CALCIUM 9.3 mg/dL (8.4-10.2); CARBON DIOXIDE 29 mmol/L (22-30); CHLORIDE 104 mmol/L (98-107); GLUCOSE 96 mg/dL (75-110); POTASSIUM 4.2 mmol/L (3.6-5.0); SODIUM 142.8 mmol/L (137-145)
--- NOTE | 2018-01-07 09:29 | EKG REPORT ---
SEVERITY:- ABNORMAL ECG - SINUS RHYTHM NONSPECIFIC T ABNORMALITIES, LATERAL LEADS : Confirmed by: Negro Chaidez 07-Jan-2018 09:28:29
[2018-01-07] MEDS ORDERED: ASPIRIN 81 MG TABLET, ENT COATED PO SCH (10:00)
[2018-01-07] MEDS ORDERED: MAGNESIUM OXIDE 400 MG TABLET PO SCH (10:00)
[2018-01-07] MEDS ORDERED: ISOSORBIDE MONONITRATE 60 MG TAB.ER.24H PO SCH (10:00)
[2018-01-07] MEDS ORDERED: HYDROCHLOROTHIAZIDE 12.5 MG TABLET PO SCH (10:00)
[2018-01-07] MEDS ORDERED: HYDROCHLOROTHIAZIDE 25 MG TABLET PO SCH (10:00)
[2018-01-07] MEDS ORDERED: LOSARTAN POTASSIUM 50 MG TABLET PO SCH (10:00)
[2018-01-07] MEDS ORDERED: DILTIAZEM HCL 120 MG CAP.SR.24H PO SCH (10:00)
[2018-01-07] MEDS ORDERED: ATORVASTATIN CALCIUM 40 MG TABLET PO SCH ×2 (10:00→22:00)
[2018-01-07] MEDS: ASPIRIN 81 MG TABLET, ENT COATED PO SCH (10:02)
[2018-01-07] MEDS: FAMOTIDINE 20 MG TABLET PO SCH (10:02)
[2018-01-07] MEDS: FERROUS SULFATE 325 MG TABLET PO SCH (10:03)
[2018-01-07] MEDS: INSULIN LISPRO 100 UNIT/ML 3 ML VIAL SUBCUT SCH (10:05)
[2018-01-07] MEDS: ENOXAPARIN SODIUM INJ 100 MG/1 ML DISP.SYRIN SUBCUT SCH (10:06)
[2018-01-07] MEDS: SOTALOL HCL 80 MG TABLET PO SCH (10:12)
[2018-01-07] MEDS: DILTIAZEM HCL 120 MG CAP.SR.24H PO SCH (10:13)
[2018-01-07 10:22] LABS: CHOLESTEROL 148.77 mg/dL (0-200); TRIGLYCERIDES 217 mg/dL (<150)
[2018-01-07 10:33] LABS: DIRECT LDL 73 mg/dL (<100)
[2018-01-07 12:25] LABS: VLDL CHOLESTEROL 43.4 mg/dL (10-31)
[2018-01-07 13:23] VITALS: BP 133/61
--- NOTE | 2018-01-07 14:50 | PDOC CONSULTATION ---
Consultation Consult Date: 01/06/18 Attending physician:: ANNETTE STILL Consult reason:: Chest pain, elevated troponin I History of Present Illness Admission Date/PCP: 01/06/18 03:51 JESSICA MALDONADO MD Patient complains of: Chest pain History of Present Illness: ADELAIDE COOPER JR is a 82 year old male with a known past medical history of coronary artery disease status post 5 stents, history of atrial fibrillation and diabetes on insulin presenting to the emergency department secondary to chest pain. States he was watching TV when he started having sudden right- sided chest pain that is constant in nature associated with palpitations rated 8 out of 10. States he called EMS at which point he was given 5 sublingual nitroglycerin brought to the emergency department. Patient's initial troponin via EMS was abnormal, with repeat EKG in emergency department normal sinus rhythm. Patient given Nitropaste in emergency department and started on nitro drip given significantly elevated blood pressure. Patient is chest pain-free and resting comfortably in bed, does not appear to be in acute distress. I was asked to see this patient although I recognize that patient had a private director diversity Dr. Maldonado, I advised that the hospitalist will be recalled. However I was subsequently told that I was okayed to see the patient. Patient gives history of coronary artery disease with multiple stent placement. He claims that all his procedures were performed by Dr. Wright at [facility] and is scheduled to have a heart catheterization performed as an outpatient. Past Medical History Cardiac Medical History: Reports: Atrial Fibrillation, Congestive Heart Failure , Coronary Artery Disease, Myocardial Infarction - x4, Hyperlipidema, Hypertension Denies: DVT, Pulmonary Embolism Pulmonary Medical History: Denies: Asthma, Bronchitis, Chronic Obstructive Pulmonary Disease (COPD), Pneumonia, Tuberculosis Neurological Medical History: Denies: Seizures Endocrine Medical History: Reports: Diabetes Mellitus Type 1, Diabetes Mellitus Type 2, Hypothyroidism Denies: Hyperthyroidism GI Medical History: Denies: Cirrhosis, Gastroesophageal Reflux Disease, Hepatitis Musculoskeltal Medical History: Reports: Arthritis Psychiatric Medical History: Reports: Depression Hematology: Denies: Anemia Past Surgical History Past Surgical History: Reports: Cardiac Catheterization, Coronary Stent - 5, Tonsillectomy Social History Information Source: Patient Lives with: Family Smoking Status: Never Smoker Frequency of Alcohol Use: None Hx Recreational Drug Use: No Drugs: None Hx Prescription Drug Abuse: No - Advance Directive Resuscitation Status: Full Code Surrogate healthcare decision maker:: Patient's is the surrogate decision-maker Family History Family History: CAD, DM Parental Family History Reviewed: Yes Children Family History Reviewed: Yes Sibling(s) Family History Reviewed.: Yes Medication/Allergy Home Medications: Aspirin [Ecotrin 81 mg EC Tablet] 81 mg PO DAILY 01/06/18 Atorvastatin Calcium [Lipitor 40 mg Tablet] 40 mg PO DAILY 01/06/18 Dexlansoprazole [Dexilant 30 mg Capsule] 30 mg PO DAILY 01/06/18 Diltiazem HCl [Diltiazem 24Hr Cd] 120 mg PO DAILY 01/06/18 Ezetimibe [Zetia] 10 mg PO DAILY 01/06/18 Ferrous Sulfate [Feosol] 325 mg PO BID 01/06/18 Hydrochlorothiazide [Hydrodiuril 12.5 mg Capsule] 12.5 mg PO DAILY 01/06/18 Insulin Aspart [Novolog Flexpen] 15 units SUBCUT AC 01/06/18 Insulin Glargine,Hum.rec.anlog [Lantus Solostar] 34 unit SQ QHS 01/06/18 Isosorbide Mononitrate [Imdur 60 mg Tablet.er] 60 mg PO DAILY 01/06/18 Levothyroxine Sodium [Synthroid 0.1 mg Tablet] 0.1 mg PO Q6AM 01/06/18 Losartan Potassium [Cozaar] 50 mg PO DAILY 01/06/18 Magnesium Oxide [Mag-Ox 400 mg Tablet] 800 mg PO DAILY 01/06/18 Nitroglycerin [Nitrostat 0.4 mg (1/150 Gr) Tabs 25/Bottle] 1 tab SL Q5MP PRN Sotalol HCl [Sotalol] 120 mg PO BID 01/06/18 Ubidecarenone/Vit E Acet [Co Q-10 100 mg Softgel] 100 mg PO DAILY 01/06/18 Vit C/Vit E/Lutein/Min/Canaan-3 [Ocuvite Softgel] 1 each PO DAILY 01/06/18 Allergies/Adverse Reactions: amoxicillin [Amoxicillin] Allergy (Verified 01/06/18 19:52) amoxicillin trihydrate [From Augmentin XR] Allergy (Verified 01/06/18 19:52) cephalexin monohydrate [From Keflex] Allergy (Verified 08/24/18 19:52) Potassium Clavulanate * [From Augmentin XR] Allergy (Verified 01/06/18 19:52) Tuberculin,Ppd,Multi-Puncture [From Tuberculin PPD Mireya Test] Allergy (Verified 01/06/18 19:52) Review of Systems Review of Systems: Please see history of present illness and past medical history as wall. Constitutional: No fever or chills reported. Head : No recent chronic headaches, recent head injury. Eyes: No recent eye pain, diplopia, redness, discharge, acute visual changes. Ears: No recent chronic ear pain, acute hearing loss, ear discharge. Oral cavity: No recent ulcerations, bleeding, oral cavity discomfort. Neck: No recent acute neck pain reported. Hematologic: No recent easy bruising or bleeding. Lymphatic: No recent lymph node enlargement reported. Cardiovascular system review: See history of present illness. Respiratory system review: No hemoptysis or blood clots in the lungs reported. Mild Shortness of breath on exertion Gastrointestinal system review: Negative for any recent acute hematemesis, melena. Genitourinary system review: No recent acute or chronic hematuria, flank pain, UTI etc. reported. Skin system review: Negative for any recent abnormal bruising, no rash, no pruritus reported. Neurologic: No prior history of strokes, mini strokes, seizure disorder. Psychologic: No history of major psychosis or major depression reported. Musculoskeletal: Minor aches and pains reported. No acute joint swelling reported. Endocrine: No recent polyuria, polydipsia, recent heat or cold intolerance. Physical Exam Vital Signs: Temp Pulse Resp BP Pulse Ox 97.6 F 55 L 20 194/62 H 96 01/06/18 15:51 01/06/18 15:51 01/06/18 15:51 01/06/18 15:51 01/06/18 15:51 Intake & Output 01/05/18 01/06/18 01/07/18 06:59 06:59 06:59 Intake Total 14 222 Balance 14 222 Weight 91.5 kg Exam: GENERAL: well-nourished and in no acute distress. Alert and oriented x3 HEAD: Atraumatic, normocephalic. EYES: Pupils equal round and reactive to light, extraocular movements intact, sclera anicteric, conjunctiva are normal. ENT: TMs normal, nares patent, oropharynx clear without exudates. Moist mucous membranes. No oral ulcerations or bleeding gums noted NECK: supple without lymphadenopathy. Trachea is central. No cervical or axillary lymphadenopathy noted. Carotids are 2+, JVD WNL LUNGS: Respiration seems nonlabored, no significant accessory muscle action noted. Breath sounds clear to auscultation bilaterally and equal noted. No wheezes rales or rhonchi noted. No significant dullness noted on percussion. CHEST: Palpation of the chest wall shows no significant chest wall tenderness. 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 ABDOMEN: Soft, no significant tenderness appreciated, normoactive bowel sounds. No guarding, no rebound. No rigidity noted . No masses appreciated. EXTREMITIES: Pedal pulses are 1-2+, no calf tenderness noted. No clubbing or cyanosis. negative pedal edema noted NEUROLOGICAL: Focused neurological exam showed no significant neurologic deficit. Normal speech, no focal weakness appreciated. PSYCH: Normal mood, normal affect. Judgment and insight within normal limits. SKIN: No significant ecchymosis, skin is noted to be warm. MUSCULOSKELETAL EXAM: No significant acute joint swelling noted. Results Laboratory Results: 01/06/18 01/06/18 10:00 16:19 Troponin I 0.694 0.437 EKG Comments: Sinus rhythm, minimal ST segment changes, possibly related to LVH versus ischemia. Impressions: Chest X-Ray 01/05/18 22:51 IMPRESSION: 1. No acute pulmonary process identified. Assessment & Plan - Diagnosis (1) Chest pain Qualifiers: Chest pain type: unspecified Qualified Code(s): R07.9 - Chest pain, unspecified (2) Non-STEMI (non-ST elevated myocardial infarction) Is this a current diagnosis for this admission?: Yes (3) HLD (hyperlipidemia) Qualifiers: Hyperlipidemia type: unspecified Is this a current diagnosis for this admission?: Yes (4) Stented coronary artery Is this a current diagnosis for this admission?: Yes (5) Hypertension Qualifiers: Hypertension type: essential hypertension Qualified Code(s): I10 - Essential (primary) hypertension Is this a current diagnosis for this admission?: Yes - Notes Notes: Chest pain: Patient has positive troponin I, no significant EKG changes. Patient has known CAD. Treat as if patient has acute coronary syndrome. Patient already is scheduled for a heart catheterization at [facility] associated with [facility]. Hopefully patient can be transferred there directly otherwise, recommend keeping the patient at least for 3 days in hospital. This is to make sure that any acute coronary syndrome has stabilized. Patient does not want to pursue any evaluation at this institution at this point. A 2D echocardiogram which was ordered by the hospitalist was reviewed. It did show moderate aortic stenosis. LVEF seems relatively well-preserved. Non-STEMI: Patient has troponin I elevation in the non-STEMI range. Patient has known CAD, chest pain therefore does qualify for this diagnosis. Continue to treat patient as non-STEMI. Hyperlipidemia: Patient on high potency statin therapy and also Zetia which should be continued. History of stented coronary artery disease: It may be worthwhile to obtain records. Hypertension: I am told by the hospitalist that patient had significantly elevated hypertension on presentation. That could be secondary reaction to angina and chest pain. Currently blood pressure seems reasonable. Mild chronic renal failure. This is noted on measurement of BUN and creatinine results. Aortic stenosis: 2D echo was technically difficult but patient is felt to have moderate aortic stenosis. This can be further evaluated with heart catheterization. - Time Time Spent: 30 to 50 Minutes - CODE STATUS was discussed, patient remains full code. Surrogate decision-maker unchanged. Multiple medical problems were addressed. More than 50% of the time spent coordinating care, discussing management plans with involved caregivers. Management plans discussed with involved personnels. Medical decision making was of moderate to high complexity , patient's has multiple comorbidities. Medications reviewed and adjusted accordingly: Yes
--- NOTE | 2018-01-07 15:01 | PDOC PROGRESS REPORT ---
Subjective Progress Note for:: 01/07/18 Subjective:: Patient currently getting somewhat upset as he wants to go home. However patient was informed that it is probably unsafe for him to be discharged at this point. Patient has been diagnosed to have non-STEMI. Patient seems to be doing better with gradual improvement. Pt is denying any chest arm or neck discomfort. Patient denying any PND, orthopnea. Patient denied any sustained palpitations, dizziness, syncope, near syncope. Patient denying any fever chills. Patient denying any other significant discomfort. Patient is maintaining sinus rhythm. Review of systems: Rest review of systems negative. Medications: Medications have been reviewed. Reason For Visit: NSTEMI Physical Exam Vital Signs: Temp Pulse Resp BP Pulse Ox 97.8 F 80 16 133/61 H 97 01/07/18 11:00 01/07/18 11:00 01/07/18 11:00 01/07/18 11:00 01/07/18 11:00 Intake & Output 01/06/18 01/07/18 01/08/18 06:59 06:59 06:59 Intake Total 14 1122 Balance 14 1122 Weight 91.5 kg Exam: GENERAL: well-nourished and in no acute distress. Alert and oriented x3 HEAD: Atraumatic, normocephalic. EYES: Pupils equal round and reactive to light, extraocular movements intact, sclera anicteric, conjunctiva are normal. ENT: TMs normal, nares patent, oropharynx clear without exudates. Moist mucous membranes. No oral ulcerations or bleeding gums noted NECK: supple without lymphadenopathy. Trachea is central. No cervical or axillary lymphadenopathy noted. Carotids are 2+, JVD WNL LUNGS: Respiration seems nonlabored, no significant accessory muscle action noted. Breath sounds clear to auscultation bilaterally and equal noted. No wheezes rales or rhonchi noted. No significant dullness noted on percussion. CHEST: Palpation of the chest wall shows no significant chest wall tenderness. 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 ABDOMEN: Soft, no significant tenderness appreciated, normoactive bowel sounds. No guarding, no rebound. No rigidity noted . No masses appreciated. EXTREMITIES: Pedal pulses are 1-2+, no calf tenderness noted. No clubbing or cyanosis. negative pedal edema noted NEUROLOGICAL: Focused neurological exam showed no significant neurologic deficit. Normal speech, no focal weakness appreciated. PSYCH: Normal mood, normal affect. Judgment and insight within normal limits. SKIN: No significant ecchymosis, skin is noted to be warm. MUSCULOSKELETAL EXAM: No significant acute joint swelling noted. Results Laboratory Results: 01/07/18 08:15 01/07/18 08:15 01/06/18 01/06/18 01/07/18 22:51 22:51 08:15 WBC 7.6 RBC 4.96 Hgb 14.5 Hct 43.4 MCV 88 MCH 29.2 MCHC 33.4 RDW 15.9 H Plt Count 163 Seg Neutrophils % 74.5 Lymphocytes % 15.9 Monocytes % 7.6 Eosinophils % 1.3 Basophils % 0.7 Absolute Neutrophils 5.7 Absolute Lymphocytes 1.2 Absolute Monocytes 0.6 Absolute Eosinophils 0.1 Absolute Basophils 0.1 Sodium 142.1 142.8 Potassium 3.9 4.2 Chloride 108 H 104 Carbon Dioxide 27 29 Anion Gap 8 10 BUN 41 H 36 H Creatinine 1.49 H 1.43 H Est GFR ( Amer) 54 L 57 L Est GFR (Non-Af Amer) 45 L 47 L Glucose 111 H 96 Calcium 9.2 9.3 Magnesium 1.8 Total Bilirubin 1.0 AST 35 ALT 90 H Alkaline Phosphatase 43 Total Protein 5.0 L Albumin 2.7 L Triglycerides Cholesterol LDL Cholesterol Direct VLDL Cholesterol HDL Cholesterol 01/07/18 01/07/18 08:15 08:15 WBC 7.9 RBC 5.51 Hgb 16.0 Hct 48.2 MCV 87 MCH 29.1 MCHC 33.3 RDW 16.2 H Plt Count 183 Seg Neutrophils % 73.8 Lymphocytes % 15.3 Monocytes % 8.4 Eosinophils % 1.6 Basophils % 0.9 Absolute Neutrophils 5.8 Absolute Lymphocytes 1.2 Absolute Monocytes 0.7 Absolute Eosinophils 0.1 Absolute Basophils 0.1 Sodium Potassium Chloride Carbon Dioxide Anion Gap BUN Creatinine Est GFR ( Amer) Est GFR (Non-Af Amer) Glucose Calcium Magnesium Total Bilirubin AST ALT Alkaline Phosphatase Total Protein Albumin Triglycerides 217 H Cholesterol 148.77 LDL Cholesterol Direct 73 VLDL Cholesterol 43.4 H HDL Cholesterol 38 L 01/06/18 01/06/18 01/07/18 10:00 16:19 08:15 Troponin I 0.694 0.437 NT-Pro-B Natriuret Pep 1150 H EKG Comments: Sinus rhythm, no acute ST-T wave changes are noted. Impressions: Chest X-Ray 01/05/18 22:51 IMPRESSION: 1. No acute pulmonary process identified. Assessment & Plan - Diagnosis (1) Chest pain Qualifiers: Chest pain type: unspecified Qualified Code(s): R07.9 - Chest pain, unspecified (2) Non-STEMI (non-ST elevated myocardial infarction) Is this a current diagnosis for this admission?: Yes (3) HLD (hyperlipidemia) Qualifiers: Hyperlipidemia type: unspecified Qualified Code(s): E78.5 - Hyperlipidemia , unspecified Is this a current diagnosis for this admission?: Yes (4) Stented coronary artery Is this a current diagnosis for this admission?: Yes (5) Hypertension Qualifiers: Hypertension type: essential hypertension Qualified Code(s): I10 - Essential (primary) hypertension Is this a current diagnosis for this admission?: Yes - Notes Notes: Patient has been chest pain-free. He has ambulated to the bathroom without any difficulty. 2D echo results were evaluated with the patient. Chest pain: Patient has positive troponin I, no significant EKG changes. Patient has known CAD. Treat as if patient has acute coronary syndrome. Patient already is scheduled for a heart catheterization at [facility] associated with [facility]. Hopefully patient can be transferred there directly otherwise, recommend keeping the patient at least for 3 days in hospital. This is to make sure that any acute coronary syndrome has stabilized. Patient does not want to pursue any evaluation at this institution at this point. A 2D echocardiogram which was ordered by the hospitalist was reviewed. It did show moderate aortic stenosis. LVEF seems relatively well-preserved. Non-STEMI: Patient has troponin I elevation in the non-STEMI range. Patient has known CAD, chest pain therefore does qualify for this diagnosis. Continue to treat patient as non-STEMI. Hyperlipidemia: Patient on high potency statin therapy and also Zetia which should be continued. History of stented coronary artery disease: It may be worthwhile to obtain records. Hypertension: I am told by the hospitalist that patient had significantly elevated hypertension on presentation. That could be secondary reaction to angina and chest pain. Currently blood pressure seems reasonable. Mild chronic renal failure. This is noted on measurement of BUN and creatinine results. Aortic stenosis: 2D echo was technically difficult but patient is felt to have moderate aortic stenosis. This can be further evaluated with heart catheterization. Subsequently in the afternoon, I called [facility] cardiovascular team tube station attendant and arranged for transfer for cardiac catheterization. This was arranged by talking with the clinical coordinator. Dr. Rubin was the accepting physician for Dr. Zev Wright. - Time Time with patient: Greater than 35 minutes - CODE STATUS was discussed, patient remains full code. Surrogate decision-maker unchanged. Multiple medical problems were addressed. More than 50% of the time spent coordinating care, discussing management plans with involved caregivers. Management plans discussed with involved personnels. Medical decision making was of moderate to high complexity, patient's has multiple comorbidities. Significant time spent arranging transfer which was subsequently related to hospitalist. He was advised to dictate a transfer summary. Patient agreeable for transfer. Medications reviewed and adjusted accordingly: Yes
--- NOTE | 2018-01-07 16:31 | PDOC TRANSFER SUMMARY ---
General Admission Date/PCP: 01/06/18 03:51 JESSICA HUBBARD MD Resuscitation Status: Full Code - Transfer Diagnosis (2) Diabetes mellitus type 2 with complications Is this a current diagnosis for this admission?: Yes (3) Non-STEMI (non-ST elevated myocardial infarction) Is this a current diagnosis for this admission?: Yes (4) HLD (hyperlipidemia) Is this a current diagnosis for this admission?: Yes (5) History of myocardial infarction Is this a current diagnosis for this admission?: Yes (6) Stented coronary artery Is this a current diagnosis for this admission?: Yes - Transfer Medications Home Medications: Aspirin [Ecotrin 81 mg EC Tablet] 81 mg PO DAILY 01/06/18 Atorvastatin Calcium [Lipitor 40 mg Tablet] 40 mg PO DAILY 01/06/18 Dexlansoprazole [Dexilant 30 mg Capsule] 30 mg PO DAILY 01/06/18 Diltiazem HCl [Diltiazem 24Hr Cd] 120 mg PO DAILY 01/06/18 Ezetimibe [Zetia] 10 mg PO DAILY 01/06/18 Ferrous Sulfate [Feosol] 325 mg PO BID 01/06/18 Hydrochlorothiazide [Hydrodiuril 12.5 mg Capsule] 12.5 mg PO DAILY 01/06/18 Insulin Aspart [Novolog Flexpen] 15 units SUBCUT AC 01/06/18 Insulin Glargine,Hum.rec.anlog [Lantus Solostar] 34 unit SQ QHS 01/06/18 Isosorbide Mononitrate [Imdur 60 mg Tablet.er] 60 mg PO DAILY 01/06/18 Levothyroxine Sodium [Synthroid 0.1 mg Tablet] 0.1 mg PO Q6AM 01/06/18 Losartan Potassium [Cozaar] 50 mg PO DAILY 01/06/18 Magnesium Oxide [Mag-Ox 400 mg Tablet] 800 mg PO DAILY 01/06/18 Nitroglycerin [Nitrostat 0.4 mg (1/150 Gr) Tabs 25/Bottle] 1 tab SL Q5MP PRN Sotalol HCl [Sotalol] 120 mg PO BID 01/06/18 Ubidecarenone/Vit E Acet [Co Q-10 100 mg Softgel] 100 mg PO DAILY 01/06/18 Vit C/Vit E/Lutein/Min/Cantril-3 [Ocuvite Softgel] 1 each PO DAILY 01/06/18 Transfer Medications: Current Medications Aspirin (Ecotrin 81 Mg Ec Tablet) 81 mg PO DAILY [facility] Stop: 02/05/18 09:59 Last Admin: 01/07/18 10:02 Dose: 81 mg Atorvastatin Calcium (Lipitor 40 Mg Tablet) 40 mg PO QHS [facility] Stop: 02/06/18 21:59 Dextrose (Dextrose Inj 50% Syringe (25 Gm/50 Ml)) 12.5 gm IV PRN PRN; Protocol PRN Reason: FOR BG 50-69 IN ALERT PATIENT Stop: 02/06/18 06:39 Dextrose (Dextrose Inj 50% Syringe (25 Gm/50 Ml)) 25 gm IV PRN PRN PRN Reason: Protocol Stop: 02/06/18 06:39 Diltiazem HCl (Cardizem Cd 120 Mg Capsule) 120 mg PO DAILY [facility] Stop: 02/05/18 14:59 Last Admin: 01/07/18 10:13 Dose: 120 mg Ezetimibe (Zetia 10 Mg Tablet) 10 mg PO QHS [facility] Stop: 02/05/18 21:59 Last Admin: 01/06/18 22:10 Dose: 10 mg Enoxaparin Sodium (Lovenox Inj 100 Mg/1 Ml Disp.Syrin) 90 mg SUBCUT Q12 [facility] Stop: 02/05/18 02:59 Last Admin: 01/07/18 10:06 Dose: Not Given Famotidine (Pepcid 20 Mg Tablet) 20 mg PO Q12 [facility] Stop: 02/05/18 09:59 Last Admin: 01/07/18 10:02 Dose: 20 mg Ferrous Sulfate (Feosol 325 Mg Tablet) 325 mg PO BID [facility] Stop: 02/05/18 17:59 Last Admin: 01/07/18 10:03 Dose: 325 mg Glucagon (Glucagen Inj 1 Mg Vial) 1 mg IM PRN PRN; Protocol PRN Reason: EVALUATE FOR BG < 70 Stop: 02/06/18 06:39 Glucose (Glutose 40% Gel 15 Gm Tube) 15 gm PO PRN PRN; Protocol PRN Reason: FOR BG 50-69 IN ALERT PATIENT Stop: 02/06/18 06:39 Glucose (Glutose 40% Gel 15 Gm Tube) 30 gm PO PRN PRN; Protocol PRN Reason: FOR BG < 50 IN ALERT PATIENT Stop: 02/06/18 06:39 Hydralazine HCl (Apresoline Inj/Pf 20 Mg/1 Ml Sdv) 10 mg IV Q6HP PRN PRN Reason: FOR SBP >150 Stop: 02/06/18 08:48 Last Admin: 01/07/18 10:03 Dose: 10 mg Hydrochlorothiazide (Hydrodiuril 25 Mg Tablet) 25 mg PO DAILY [facility] Stop: 02/06/18 09:59 Last Admin: 01/07/18 10:02 Dose: 25 mg Nitroglycerin/Dextrose (Ntg Rtu 50 Mg/D5w 250 Ml Iv Premix Bottle) 50 mg in 250 mls @ 0 mls/hr IV CONTINUOUS PRN; Protocol; Titrate PRN Reason: THIS MED IS NOT "PRN" Stop: 02/05/18 02:59 Last Titration: 01/06/18 04:48 Dose: 35 mcg/min, 10.5 mls/hr Insulin Glargine (Lantus Insulin Inj 300 Unit/3 Ml Pen) 20 unit SUBCUT QHS [facility] Stop: 02/05/18 21:59 Last Admin: 01/06/18 22:01 Dose: 20 units Insulin Human Lispro (Humalog Insulin 100 Unit/1 Ml 3 Ml Vial) 10 unit SUBCUT AC [facility] Stop: 02/05/18 15:59 Last Admin: 01/07/18 10:05 Dose: Not Given Isosorbide Mononitrate (Imdur 60 Mg Tablet.Er) 60 mg PO DAILY [facility] Stop: 02/06/18 09:59 Last Admin: 01/07/18 10:20 Dose: 60 mg Levothyroxine Sodium (Synthroid 0.1 Mg Tablet) 0.1 mg PO Q6AM [facility] Stop: 02/06/18 05:59 Last Admin: 01/07/18 05:51 Dose: 0.1 mg Losartan Potassium (Cozaar 50 Mg Tablet) 50 mg PO DAILY [facility] Stop: 02/06/18 09:59 Last Admin: 01/07/18 10:03 Dose: 50 mg Magnesium Oxide (Mag-Ox 400 Mg Tablet) 800 mg PO DAILY [facility] Stop: 02/06/18 09:59 Last Admin: 01/07/18 10:02 Dose: 800 mg Nitroglycerin (Nitrostat 0.4 Mg (1/150 Gr) Tabs 25/Bottle) 1 tab SL Q5MP PRN PRN Reason: FOR CHEST PAIN Stop: 02/05/18 11:26 Sodium Chloride (Saline Flush 2.5 Ml Monoject Prefil Syrin) 2.5 ml IV Q8 [facility] Stop: 02/05/18 05:59 Last Admin: 01/07/18 05:51 Dose: 2.5 ml Sotalol HCl (Betapace 80 Mg Tablet) 120 mg PO Q12 [facility] Stop: 02/05/18 14:59 Last Admin: 01/07/18 10:12 Dose: 120 mg - Allergies Allergies/Adverse Reactions: amoxicillin [Amoxicillin] Allergy (Verified 01/06/18 19:52) amoxicillin trihydrate [From Augmentin XR] Allergy (Verified 01/06/18 19:52) cephalexin monohydrate [From Keflex] Allergy (Verified 01/06/18 19:52) Potassium Clavulanate * [From Augmentin XR] Allergy (Verified 01/06/18 19:52) Tuberculin,Ppd,Multi-Puncture [From Tuberculin PPD Mireya Test] Allergy (Verified 01/06/18 19:52) - Diet/Activity Discharge Diet: As Tolerated Hospital Course Hospital Course: This is an 82-year-old male past medical history of CAD status post 5 stents, atrial fibrillation, diabetes. Patient was admitted to [facility] on 2017 complaining of chest pain. Patient states he was watching TV when he started having right-sided chest pain which was constant in nature associated with palpitation, pain 8 out of 10. Patient called EMS was given sublingual nitroglycerin. Initial troponin via EMS was abnormal repeat EKG in the emergency department showed normal sinus rhythm Patient was found to be hypertensive was started on nitro drip and was subsequently transitioned to his home medications. Today patient has been chest pain-free. Patient states that he has had multiple stents placed by Dr. Almodvoar at [facility]. He has a scheduled appointment this coming Tuesday for another heart cath. Physical Exam Vital Signs: Temp Pulse Resp BP Pulse Ox 97.8 F 80 16 133/61 H 97 01/07/18 11:00 01/07/18 11:00 01/07/18 11:00 01/07/18 11:00 01/07/18 11:00 Intake & Output 08/24/18 08/25/18 08/26/18 06:59 06:59 06:59 Intake Total 14 1122 Balance 14 1122 Weight 91.5 kg General appearance: PRESENT: no acute distress, well-developed, well-nourished Head exam: PRESENT: atraumatic, normocephalic Eye exam: PRESENT: conjunctiva pink, EOMI, PERRLA. ABSENT: scleral icterus Ear exam: PRESENT: normal external ear exam Mouth exam: PRESENT: moist, tongue midline Neck exam: ABSENT: carotid bruit, JVD, lymphadenopathy, thyromegaly Respiratory exam: PRESENT: clear to auscultation erika. ABSENT: rales, rhonchi, wheezes Cardiovascular exam: PRESENT: RRR. ABSENT: diastolic murmur, rubs, systolic murmur Pulses: PRESENT: normal dorsalis pedis pul Vascular exam: PRESENT: normal capillary refill GI/Abdominal exam: PRESENT: normal bowel sounds, soft. ABSENT: distended, guarding, mass, organolmegaly, rebound, tenderness Rectal exam: PRESENT: deferred Extremities exam: PRESENT: full ROM. ABSENT: calf tenderness, clubbing, pedal edema Neurological exam: PRESENT: alert, awake, oriented to person, oriented to place , oriented to time, oriented to situation, CN II-XII grossly intact. ABSENT: motor sensory deficit Psychiatric exam: PRESENT: appropriate affect, normal mood. ABSENT: homicidal ideation, suicidal ideation Skin exam: PRESENT: dry, intact, warm. ABSENT: cyanosis, rash Results Laboratory Results: 01/07/18 08:15 01/07/18 08:15 01/06/18 01/06/18 01/07/18 22:51 22:51 08:15 WBC 7.6 RBC 4.96 Hgb 14.5 Hct 43.4 MCV 88 MCH 29.2 MCHC 33.4 RDW 15.9 H Plt Count 163 Seg Neutrophils % 74.5 Lymphocytes % 15.9 Monocytes % 7.6 Eosinophils % 1.3 Basophils % 0.7 Absolute Neutrophils 5.7 Absolute Lymphocytes 1.2 Absolute Monocytes 0.6 Absolute Eosinophils 0.1 Absolute Basophils 0.1 Sodium 142.1 142.8 Potassium 3.9 4.2 Chloride 108 H 104 Carbon Dioxide 27 29 Anion Gap 8 10 BUN 41 H 36 H Creatinine 1.49 H 1.43 H Est GFR ( Amer) 54 L 57 L Est GFR (Non-Af Amer) 45 L 47 L Glucose 111 H 96 Calcium 9.2 9.3 Magnesium 1.8 Total Bilirubin 1.0 AST 35 ALT 90 H Alkaline Phosphatase 43 Total Protein 5.0 L Albumin 2.7 L Triglycerides Cholesterol LDL Cholesterol Direct VLDL Cholesterol HDL Cholesterol 01/07/18 01/07/18 08:15 08:15 WBC 7.9 RBC 5.51 Hgb 16.0 Hct 48.2 MCV 87 MCH 29.1 MCHC 33.3 RDW 16.2 H Plt Count 183 Seg Neutrophils % 73.8 Lymphocytes % 15.3 Monocytes % 8.4 Eosinophils % 1.6 Basophils % 0.9 Absolute Neutrophils 5.8 Absolute Lymphocytes 1.2 Absolute Monocytes 0.7 Absolute Eosinophils 0.1 Absolute Basophils 0.1 Sodium Potassium Chloride Carbon Dioxide Anion Gap BUN Creatinine Est GFR ( Amer) Est GFR (Non-Af Amer) Glucose Calcium Magnesium Total Bilirubin AST ALT Alkaline Phosphatase Total Protein Albumin Triglycerides 217 H Cholesterol 148.77 LDL Cholesterol Direct 73 VLDL Cholesterol 43.4 H HDL Cholesterol 38 L 01/06/18 01/06/18 01/07/18 10:00 16:19 08:15 Troponin I 0.694 0.437 NT-Pro-B Natriuret Pep 1150 H Impressions: Chest X-Ray 01/05/18 22:51 IMPRESSION: 1. No acute pulmonary process identified.
== END 2018-01-07 17:00 | disposition short-term general hospital (02) | DRG 281 ==
LOC: ER 22:49 → EH 01-06 03:51 → 4N 01-06 15:15
PROVIDERS: ADMIT Family Medicine; ATTEND Family Medicine
DX: I21.4 Non-ST elevation (NSTEMI) myocardial infarction (principal); N17.9 Acute kidney failure, unspecified; I13.2 Hypertensive heart and chronic kidney disease with heart failure and with stage 5 chronic kidney disease, or end stage renal disease; E78.00 Pure hypercholesterolemia, unspecified; I25.10 Atherosclerotic heart disease of native coronary artery without angina pectoris; I48.91 Unspecified atrial fibrillation; I50.9 Heart failure, unspecified; E03.9 Hypothyroidism, unspecified; M19.90 Unspecified osteoarthritis, unspecified site; F32.9 Major depressive disorder, single episode, unspecified; I16.0 Hypertensive urgency; N18.9 Chronic kidney disease, unspecified; E11.22 Type 2 diabetes mellitus with diabetic chronic kidney disease; Z95.5 Presence of coronary angioplasty implant and graft; Z79.82 Long term (current) use of aspirin; Z79.899 Other long term (current) drug therapy; Z79.4 Long term (current) use of insulin; Z88.1 Allergy status to other antibiotic agents; Z88.7 Allergy status to serum and vaccine; I25.2 Old myocardial infarction; Z83.3 Family history of diabetes mellitus; Z82.49 Family history of ischemic heart disease and other diseases of the circulatory system
CPT/HCPCS: 36415; 71045; 80048; 80053; 80061; 82550; 82553; 82962; 83735; 83880; 84484; 85025; 93005; 93010; 93306; 99285; J0360; J1650; J1815; J3490

== ENCOUNTER → 2018-03-09 | Outpatient (CLI) | payer MEDICARE, OTHER ==
[2018-03-09 08:25] LABS: ANION GAP 6 (5-19); BLOOD UREA NITROGEN 51 mg/dL (7-20); CALCIUM 9.3 mg/dL (8.4-10.2); CARBON DIOXIDE 38 mmol/L (22-30); CHLORIDE 99 mmol/L (98-107); GLUCOSE 78 mg/dL (75-110); POTASSIUM 4.6 mmol/L (3.6-5.0); SODIUM 142.7 mmol/L (137-145)
== END ==
LOC: OD 07:22
PROVIDERS: ATTEND Internal Medicine
DX: E11.22 Type 2 diabetes mellitus with diabetic chronic kidney disease (principal); N18.9 Chronic kidney disease, unspecified
CPT/HCPCS: 36415; 80048; 83735

== ENCOUNTER → 2018-03-24 | Outpatient (CLI) | payer MEDICARE, OTHER ==
[2018-03-24 08:48] LABS: ALANINE AMINOTRANSFERASE 90 U/L (21-72); ALBUMIN 3.6 g/dL (3.5-5.0); ALKALINE PHOSPHATASE 38 U/L (38-126); ANION GAP 11 (5-19); ASPARTATE AMINO TRANSFERASE 34 U/L (17-59); BILIRUBIN,DIRECT 0.1 mg/dL (0.0-0.4); BILIRUBIN,TOTAL 1.3 mg/dL (0.2-1.3); BLOOD UREA NITROGEN 44 mg/dL (7-20); CALCIUM 9.5 mg/dL (8.4-10.2); CARBON DIOXIDE 32 mmol/L (22-30); CHLORIDE 101 mmol/L (98-107); GLUCOSE 71 mg/dL (75-110); SODIUM 143.7 mmol/L (137-145); TOTAL PROTEIN 5.8 g/dL (6.3-8.2)
== END ==
LOC: OD 07:06
PROVIDERS: ATTEND Internal Medicine Cardiovascular Disease
DX: I48.0 Paroxysmal atrial fibrillation (principal); Z79.899 Other long term (current) drug therapy
CPT/HCPCS: 36415; 80048; 80076; 83735

== ENCOUNTER → 2018-03-27 | Outpatient (CLI) | payer MEDICARE, OTHER ==
[2018-03-27 08:31] LABS: ABSOLUTE EOSINOPHILS # (AUTO) 0.1 10^3/uL (0.0-0.6); ABSOLUTE LYMPHOCYTES (AUTO) 1.2 10^3/uL (0.5-4.7); ABSOLUTE MONOCYTES (AUTO) 0.9 10^3/uL (0.1-1.4); BASOPHILS % (AUTO) 0.5 % (0-2); EOSINOPHILS % (AUTO) 0.7 % (0-6); HEMATOCRIT 44.7 % (37.9-51.0); HEMOGLOBIN 15.1 g/dL (13.5-17.0); LYMPHOCYTES % (AUTO) 12.6 % (13-45); MEAN CORPUSCULAR HEMOGLOBIN 29.8 pg (27.0-33.4); MEAN CORPUSCULAR HGB CONC 33.7 g/dL (32.0-36.0); MEAN CORPUSCULAR VOLUME 89 fl (80-97); MONOCYTES % (AUTO) 10.3 % (3-13); PLATELET COUNT 176 10^3/uL (150-450); RED BLOOD COUNT 5.05 10^6/uL (4.35-5.55); SEGMENTED NEUTROPHILS % (AUTO) 75.9 % (42-78); TOTAL CELLS COUNTED % (AUTO) 100 %; WHITE BLOOD COUNT 9.2 10^3/uL (4.0-10.5)
[2018-03-27 09:02] LABS: ALANINE AMINOTRANSFERASE 77 U/L (21-72); ALBUMIN 3.4 g/dL (3.5-5.0); ALKALINE PHOSPHATASE 38 U/L (38-126); ANION GAP 11 (5-19); ASPARTATE AMINO TRANSFERASE 33 U/L (17-59); BILIRUBIN,DIRECT 0.3 mg/dL (0.0-0.4); BILIRUBIN,TOTAL 1.2 mg/dL (0.2-1.3); BLOOD UREA NITROGEN 51 mg/dL (7-20); CARBON DIOXIDE 32 mmol/L (22-30); CHLORIDE 103 mmol/L (98-107); CHOLESTEROL 125.98 mg/dL (0-200); GLUCOSE 65 mg/dL (75-110); POTASSIUM 4.6 mmol/L (3.6-5.0); SODIUM 145.5 mmol/L (137-145); TOTAL PROTEIN 5.8 g/dL (6.3-8.2); TRIGLYCERIDES 100 mg/dL (<150)
[2018-03-27 09:13] LABS: DIRECT LDL 82 mg/dL (<100)
== END ==
LOC: OD 07:18
PROVIDERS: ATTEND Internal Medicine
DX: I12.9 Hypertensive chronic kidney disease with stage 1 through stage 4 chronic kidney disease, or unspecified chronic kidney disease (principal); E11.22 Type 2 diabetes mellitus with diabetic chronic kidney disease; N18.3 Chronic kidney disease, stage 3 (moderate); E78.5 Hyperlipidemia, unspecified; I25.10 Atherosclerotic heart disease of native coronary artery without angina pectoris
CPT/HCPCS: 36415; 80053; 80061; 83036; 84443; 85025

== ENCOUNTER → 2018-04-24 | Outpatient (CLI) | payer MEDICARE, OTHER ==
[2018-04-24 11:30] LABS: ALANINE AMINOTRANSFERASE 69 U/L (21-72); ALBUMIN 3.5 g/dL (3.5-5.0); ALKALINE PHOSPHATASE 41 U/L (38-126); ASPARTATE AMINO TRANSFERASE 36 U/L (17-59); BILIRUBIN,DIRECT 0.2 mg/dL (0.0-0.4); BILIRUBIN,TOTAL 1.3 mg/dL (0.2-1.3); TOTAL PROTEIN 5.5 g/dL (6.3-8.2)
== END ==
LOC: OD 10:09
PROVIDERS: ATTEND Internal Medicine Cardiovascular Disease
DX: I48.0 Paroxysmal atrial fibrillation (principal); Z79.899 Other long term (current) drug therapy
CPT/HCPCS: 36415; 80076

== ENCOUNTER → 2018-05-02 | Outpatient (CLI) | payer MEDICARE, OTHER ==
[2018-05-02 07:59] LABS: ALANINE AMINOTRANSFERASE 49 U/L (21-72); ALBUMIN 3.5 g/dL (3.5-5.0); ALKALINE PHOSPHATASE 36 U/L (38-126); ANION GAP 5 (5-19); ASPARTATE AMINO TRANSFERASE 30 U/L (17-59); BILIRUBIN,DIRECT 0.2 mg/dL (0.0-0.4); BILIRUBIN,TOTAL 1.3 mg/dL (0.2-1.3); BLOOD UREA NITROGEN 64 mg/dL (7-20); CARBON DIOXIDE 35 mmol/L (22-30); CHLORIDE 103 mmol/L (98-107); GLUCOSE 94 mg/dL (75-110); SODIUM 143.4 mmol/L (137-145); TOTAL PROTEIN 5.8 g/dL (6.3-8.2)
== END ==
LOC: OD 07:09
PROVIDERS: ATTEND Internal Medicine Cardiovascular Disease
DX: I48.0 Paroxysmal atrial fibrillation (principal); Z79.899 Other long term (current) drug therapy
CPT/HCPCS: 36415; 80048; 80076; 83735

== ENCOUNTER → 2018-05-22 | Outpatient (CLI) | payer MEDICARE, OTHER ==
[2018-05-22 09:59] LABS: ANION GAP 5 (5-19); BLOOD UREA NITROGEN 62 mg/dL (7-20); CALCIUM 8.9 mg/dL (8.4-10.2); CARBON DIOXIDE 34 mmol/L (22-30); CHLORIDE 104 mmol/L (98-107); GLUCOSE 92 mg/dL (75-110); POTASSIUM 4.8 mmol/L (3.6-5.0); SODIUM 143.2 mmol/L (137-145)
== END ==
LOC: OD 07:30
PROVIDERS: ATTEND Internal Medicine Cardiovascular Disease
DX: I48.0 Paroxysmal atrial fibrillation (principal); R22.9 Localized swelling, mass and lump, unspecified
CPT/HCPCS: 36415; 80048

== ENCOUNTER → 2018-06-09 | Outpatient (CLI) | payer MEDICARE, OTHER ==
[2018-06-09 12:10] LABS: HEMATOCRIT 41.6 % (37.9-51.0); HEMOGLOBIN 14.1 g/dL (13.5-17.0); MEAN CORPUSCULAR HEMOGLOBIN 30.1 pg (27.0-33.4); MEAN CORPUSCULAR HGB CONC 33.8 g/dL (32.0-36.0); MEAN CORPUSCULAR VOLUME 89 fl (80-97); PLATELET COUNT 207 10^3/uL (150-450); RED BLOOD COUNT 4.67 10^6/uL (4.35-5.55); WHITE BLOOD COUNT 6.7 10^3/uL (4.0-10.5)
[2018-06-09 12:18] LABS: APPEARANCE,URINE CLEAR; BILIRUBIN,URINE NEGATIVE (NEGATIVE); COLOR,URINE STRAW; GLUCOSE, URINE NEGATIVE (NEGATIVE); KETONES,URINE NEGATIVE (NEGATIVE); LEUKOCYTE ESTERASE,URINE NEGATIVE (NEGATIVE); NITRITE,URINE NEGATIVE (NEGATIVE); PROTEIN,URINE NEGATIVE (NEGATIVE); URINE SPECIFIC GRAVITY 1.008; UROBILINOGEN,URINE NEGATIVE mg/dL (<2.0)
[2018-06-09 12:34] LABS: ALANINE AMINOTRANSFERASE 49 U/L (21-72); ALBUMIN 3.6 g/dL (3.5-5.0); ALKALINE PHOSPHATASE 57 U/L (38-126); ANION GAP 5 (5-19); ASPARTATE AMINO TRANSFERASE 30 U/L (17-59); BILIRUBIN,DIRECT 0.1 mg/dL (0.0-0.4); BILIRUBIN,TOTAL 1.4 mg/dL (0.2-1.3); BLOOD UREA NITROGEN 34 mg/dL (7-20); CALCIUM 9.2 mg/dL (8.4-10.2); CARBON DIOXIDE 30 mmol/L (22-30); CHLORIDE 105 mmol/L (98-107); GLUCOSE 155 mg/dL (75-110); POTASSIUM 4.8 mmol/L (3.6-5.0); SODIUM 139.9 mmol/L (137-145); TOTAL PROTEIN 5.8 g/dL (6.3-8.2)
[2018-06-09 12:37] LABS: ANION GAP 5 (5-19); BLOOD UREA NITROGEN 34 mg/dL (7-20); CALCIUM 9.2 mg/dL (8.4-10.2); CARBON DIOXIDE 30 mmol/L (22-30); CHLORIDE 105 mmol/L (98-107); GLUCOSE 155 mg/dL (75-110); POTASSIUM 4.8 mmol/L (3.6-5.0); SODIUM 139.9 mmol/L (137-145)
== END ==
LOC: OD 10:47
PROVIDERS: ATTEND Internal Medicine Cardiovascular Disease
DX: N18.3 Chronic kidney disease, stage 3 (moderate) (principal); I48.0 Paroxysmal atrial fibrillation; R80.9 Proteinuria, unspecified; E87.5 Hyperkalemia; E11.22 Type 2 diabetes mellitus with diabetic chronic kidney disease; Z79.899 Other long term (current) drug therapy
CPT/HCPCS: 36415; 80048; 80076; 81001; 83735; 85027

== ENCOUNTER → 2018-08-07 | Outpatient (CLI) | payer MEDICARE, OTHER ==
[2018-08-07 08:19] LABS: ABSOLUTE BASOPHILS # (AUTO) 0.1 10^3/uL (0.0-0.2); ABSOLUTE EOSINOPHILS # (AUTO) 0.1 10^3/uL (0.0-0.6); ABSOLUTE MONOCYTES (AUTO) 0.8 10^3/uL (0.1-1.4); ABSOLUTE NEUT (AUTO) 4.7 10^3/uL (1.7-8.2); BASOPHILS % (AUTO) 0.9 % (0-2); EOSINOPHILS % (AUTO) 1.4 % (0-6); HEMATOCRIT 43.5 % (37.9-51.0); HEMOGLOBIN 14.4 g/dL (13.5-17.0); LYMPHOCYTES % (AUTO) 14.9 % (13-45); MEAN CORPUSCULAR HEMOGLOBIN 28.8 pg (27.0-33.4); MEAN CORPUSCULAR VOLUME 87 fl (80-97); MONOCYTES % (AUTO) 12.5 % (3-13); PLATELET COUNT 224 10^3/uL (150-450); RED BLOOD COUNT 4.98 10^6/uL (4.35-5.55); RED CELL DISTRIBUTION WIDTH 14.2 % (11.5-14.0); SEGMENTED NEUTROPHILS % (AUTO) 70.3 % (42-78); TOTAL CELLS COUNTED % (AUTO) 100 %; WHITE BLOOD COUNT 6.8 10^3/uL (4.0-10.5)
[2018-08-07 08:42] LABS: ALANINE AMINOTRANSFERASE 30 U/L (21-72); ALBUMIN 3.4 g/dL (3.5-5.0); ALKALINE PHOSPHATASE 76 U/L (38-126); ANION GAP 8 (5-19); ASPARTATE AMINO TRANSFERASE 24 U/L (17-59); BILIRUBIN,DIRECT 0.3 mg/dL (0.0-0.4); BILIRUBIN,TOTAL 1.2 mg/dL (0.2-1.3); BLOOD UREA NITROGEN 36 mg/dL (7-20); CALCIUM 9.6 mg/dL (8.4-10.2); CARBON DIOXIDE 29 mmol/L (22-30); CHLORIDE 102 mmol/L (98-107); CHOLESTEROL 118.14 mg/dL (0-200); GLUCOSE 119 mg/dL (75-110); POTASSIUM 4.9 mmol/L (3.6-5.0); SODIUM 139.1 mmol/L (137-145); TOTAL PROTEIN 6.3 g/dL (6.3-8.2); TRIGLYCERIDES 211 mg/dL (<150)
[2018-08-07 08:53] LABS: DIRECT LDL 67 mg/dL (<100)
[2018-08-07 09:00] LABS: VLDL CHOLESTEROL 42.2 mg/dL (10-31)
== END ==
LOC: OD 07:17
PROVIDERS: ATTEND Internal Medicine
DX: C61 Malignant neoplasm of prostate (principal); E11.9 Type 2 diabetes mellitus without complications; I25.10 Atherosclerotic heart disease of native coronary artery without angina pectoris; I10 Essential (primary) hypertension; E03.9 Hypothyroidism, unspecified; E78.5 Hyperlipidemia, unspecified
CPT/HCPCS: 36415; 80053; 80061; 83036; 84153; 84443; 85025

== ENCOUNTER → 2018-09-13 | Outpatient (CLI) | payer MEDICARE, OTHER ==
[2018-09-13 12:58] LABS: APPEARANCE,URINE CLEAR; BILIRUBIN,URINE NEGATIVE (NEGATIVE); COLOR,URINE STRAW; GLUCOSE, URINE NEGATIVE (NEGATIVE); KETONES,URINE NEGATIVE (NEGATIVE); LEUKOCYTE ESTERASE,URINE NEGATIVE (NEGATIVE); NITRITE,URINE NEGATIVE (NEGATIVE); PROTEIN,URINE NEGATIVE (NEGATIVE); URINE SPECIFIC GRAVITY 1.006; UROBILINOGEN,URINE NEGATIVE mg/dL (<2.0)
[2018-09-13 13:05] LABS: ANION GAP 11 (5-19); BLOOD UREA NITROGEN 35 mg/dL (7-20); CALCIUM 9.5 mg/dL (8.4-10.2); CARBON DIOXIDE 29 mmol/L (22-30); CHLORIDE 104 mmol/L (98-107); GLUCOSE 97 mg/dL (75-110); PHOSPHORUS 4.1 mg/dL (2.5-4.5); POTASSIUM 4.9 mmol/L (3.6-5.0); SODIUM 143.7 mmol/L (137-145)
[2018-09-13 13:09] LABS: ALANINE AMINOTRANSFERASE 27 U/L (21-72); ALBUMIN 3.4 g/dL (3.5-5.0); ALKALINE PHOSPHATASE 72 U/L (38-126); ANION GAP 11 (5-19); ASPARTATE AMINO TRANSFERASE 20 U/L (17-59); BILIRUBIN,DIRECT 0.4 mg/dL (0.0-0.4); BILIRUBIN,TOTAL 0.8 mg/dL (0.2-1.3); BLOOD UREA NITROGEN 35 mg/dL (7-20); CALCIUM 9.5 mg/dL (8.4-10.2); CARBON DIOXIDE 29 mmol/L (22-30); CHLORIDE 104 mmol/L (98-107); GLUCOSE 97 mg/dL (75-110); POTASSIUM 4.9 mmol/L (3.6-5.0); SODIUM 143.7 mmol/L (137-145); TOTAL PROTEIN 6.1 g/dL (6.3-8.2)
== END ==
LOC: OD 12:07
PROVIDERS: ATTEND Physician Assistant Medical
DX: I48.0 Paroxysmal atrial fibrillation (principal); Z79.899 Other long term (current) drug therapy; E11.22 Type 2 diabetes mellitus with diabetic chronic kidney disease; I12.9 Hypertensive chronic kidney disease with stage 1 through stage 4 chronic kidney disease, or unspecified chronic kidney disease; N18.3 Chronic kidney disease, stage 3 (moderate); R80.9 Proteinuria, unspecified; E87.5 Hyperkalemia
CPT/HCPCS: 36415; 80048; 80076; 81001; 83735; 83970; 84100

== ENCOUNTER 2018-09-18 15:48 | Emergency (ER) | payer MEDICARE, OTHER ==
[2018-09-18] MEDS ORDERED: DEXTROSE 5%-WATER 250 ML with EPINEPHRINE/PF 1 MG IV PRN ×2 (16:03)
[2018-09-18] MEDS ORDERED: GLUCAGON,HUMAN RECOMB 1 MG INJ SUBCUT ONE (16:14)
[2018-09-18 16:32] LABS: VENOUS BLOOD BASE EXCESS -1.9 mmol/L; VENOUS BLOOD HCO3 24.7 mmol/L (20-32); VENOUS BLOOD PH 7.32 (7.30-7.42)
[2018-09-18 16:32] LABS: ABSOLUTE BASOPHILS # (AUTO) 0.1 10^3/uL (0.0-0.2); ABSOLUTE EOSINOPHILS # (AUTO) 0.1 10^3/uL (0.0-0.6); ABSOLUTE LYMPHOCYTES (AUTO) 1.2 10^3/uL (0.5-4.7); ABSOLUTE MONOCYTES (AUTO) 1.1 10^3/uL (0.1-1.4); ABSOLUTE NEUT (AUTO) 5.2 10^3/uL (1.7-8.2); BASOPHILS % (AUTO) 1.2 % (0-2); EOSINOPHILS % (AUTO) 1.7 % (0-6); HEMATOCRIT 44.7 % (37.9-51.0); HEMOGLOBIN 14.3 g/dL (13.5-17.0); LYMPHOCYTES % (AUTO) 15.3 % (13-45); MEAN CORPUSCULAR HEMOGLOBIN 27.2 pg (27.0-33.4); MEAN CORPUSCULAR VOLUME 85 fl (80-97); MONOCYTES % (AUTO) 14.8 % (3-13); PLATELET COUNT 319 10^3/uL (150-450); RED BLOOD COUNT 5.25 10^6/uL (4.35-5.55); RED CELL DISTRIBUTION WIDTH 14.5 % (11.5-14.0); TOTAL CELLS COUNTED % (AUTO) 100 %; WHITE BLOOD COUNT 7.7 10^3/uL (4.0-10.5)
[2018-09-18 16:35] LABS: INTERNATIONAL RATION (INR) 1.05; PROTHROMBIN TIME 14.3 SEC (11.4-15.4)
[2018-09-18] MEDS ORDERED: EPINEPHRINE INJ/PF 1 MG/1 ML AMPULE ONE (16:39)
[2018-09-18 16:49] LABS: ALANINE AMINOTRANSFERASE 23 U/L (21-72); ALBUMIN 3.5 g/dL (3.5-5.0); ALKALINE PHOSPHATASE 73 U/L (38-126); ANION GAP 10 (5-19); ASPARTATE AMINO TRANSFERASE 22 U/L (17-59); BILIRUBIN,DIRECT 0.3 mg/dL (0.0-0.4); BILIRUBIN,TOTAL 0.4 mg/dL (0.2-1.3); BLOOD UREA NITROGEN 49 mg/dL (7-20); CARBON DIOXIDE 26 mmol/L (22-30); CHLORIDE 104 mmol/L (98-107); CREATINE KINASE 62 U/L (55-170); POTASSIUM 5.5 mmol/L (3.6-5.0); SODIUM 140.2 mmol/L (137-145); TOTAL PROTEIN 6.2 g/dL (6.3-8.2)
[2018-09-18 16:52] LABS: GLUCOSE 62 mg/dL (75-110)
[2018-09-18 17:02] LABS: CREATINE KINASE MB 2.11 ng/mL (<4.55); TROPONIN I < 0.012 ng/mL
[2018-09-18 17:07] LABS: FREE T3 4.11 pg/mL (2.77-5.27); FREE T4 (FREE THYROXINE) 1.64 ng/dL (0.78-2.19)
[2018-09-18 17:21] LABS: THYROID STIMULATING HORMONE 2.29 uIU/mL (0.47-4.68)
--- NOTE | 2018-09-18 18:00 | RADIOLOGY REPORT (SQ) ---
EXAM DESCRIPTION: CT HEAD WITHOUT COMPLETED DATE/TIME: 09/18/2018 5:49 pm REASON FOR STUDY: bradycardia, hypertension, hypopnea, r/o bleed COMPARISON: None. TECHNIQUE: Axial images acquired through the brain without intravenous contrast. Images reviewed wi th bone, brain and subdural windows. Additional sagittal and coronal reconstructions were generated. Images stored on PACS. All CT scanners at this facility use dose modulation, iterative reconstruction, and/or weight based d osing when appropriate to reduce radiation dose to as low as reasonably achievable (ALARA). [facility]: Dose Right [facility]: CareDose [facility]: Dose Right [facility]: Teradose 4D [facility]: Smart DataXu RADIATION DOSE: CT Rad equipment meets quality standard of care and radiation dose reduction techniq ues were employed. CTDIvol: 53.2 mGy. DLP: 1017 mGy-cm. mGy. LIMITATIONS: None. FINDINGS: VENTRICLES: Normal size and contour. CEREBRUM: No masses. No hemorrhage. No midline shift. No evidence for acute infarction. Normal gra y/white matter differentiation. No areas of low density in the white matter. CEREBELLUM: No masses. No hemorrhage. No alteration of density. No evidence for acute infarction. EXTRAAXIAL SPACES: No fluid collections. No masses. ORBITS AND GLOBE: No intra- or extraconal masses. Normal contour of globe without masses. CALVARIUM: No fracture. PARANASAL SINUSES: No fluid or mucosal thickening. SOFT TISSUES: No mass or hematoma. OTHER: No other significant finding. IMPRESSION: NORMAL BRAIN CT WITHOUT CONTRAST. EVIDENCE OF ACUTE STROKE: NO. COMMENT: Quality ID # [id number]: Final reports with documentation of one or more dose reduction techniques (e.g., Automated exposure control, adjustment of the mA and/or kV according to patient size, use of iterative reconstruction technique) TECHNICAL DOCUMENTATION: JOB ID: [id number] [employer]- All Rights Reserved Reading location - IP/workstation name: [email or web address]
[2018-09-18] MEDS ORDERED: DOPAMINE HCL/DEXTROSE 5%-WATER 800 MG/250 ML RTUINJ IV PRN (18:32)
--- NOTE | 2018-09-18 19:05 | ER Document Report ---
Entered by STEPHANIE DUTTA SCRIBE 09/18/18 [id number] Acting as scribe for:BENITO EDWARDS DO ED General - General Stated Complaint: CHEST PAIN Time Seen by Provider: 09/18/18 16:01 Primary Care Provider: DUNCAN VERDIN PA-C [Primary Care Provider] - Follow up as needed Mode of Arrival: Medic Information source: Patient, Emergency Med Personnel Notes: Patient is an 82 year old male with HTN, HLD, type 2 diabetes and a history of 4 MIs (5 stents) presents to the emergency department complaining of general malaise, chest pain and shortness of breath onset 1hr prior to arrival. Patient describes the chest pain as a pressure Patient denies any vomiting or diarrhea. EMS reports a heart rate in the 30s and a blood pressure in the 70s/40s. They proceeded to administer 0.5mg of Atropine x 4 with a total of 2mg and placed the patient on an epinephrine drip. They report an ekg reading of superventricular bradycardia. Patient is currently prescribed sotalol which he states was increased approximately 6 months ago. He also states that he is currently on antibiotics for infection in his right lower extremity. TRAVEL OUTSIDE OF THE [place] IN LAST 30 DAYS: No - Related Data Allergies/Adverse Reactions: amoxicillin [Amoxicillin] Allergy (Verified 01/06/18 19:52) amoxicillin trihydrate [From Augmentin XR] Allergy (Verified 01/06/18 19:52) cephalexin monohydrate [From Keflex] Allergy (Verified 01/06/18 19:52) Potassium Clavulanate * [From Augmentin XR] Allergy (Verified 01/06/18 19:52) Tuberculin,Ppd,Multi-Puncture [From Tuberculin PPD Mireya Test] Allergy (Verified 01/06/18 19:52) Past Medical History - General Information source: Patient, Relative - Social History Smoking Status: Never Smoker Frequency of alcohol use: None Drug Abuse: None Lives with: Spouse/Significant other Family History: CAD, DM - Past Medical History Cardiac Medical History: Reports: Hx Atrial Fibrillation, Hx Coronary Artery Disease, Hx Heart Attack - x4, Hx Hypercholesterolemia, Hx Hypertension Neurological Medical History: Endocrine Medical History: Reports: Hx Diabetes Mellitus Type 2, Hx Hypothyroidism Musculoskeletal Medical History: Reports Hx Arthritis Psychiatric Medical History: Reports: Hx Depression Past Surgical History: Reports: Hx Cardiac Catheterization, Hx Cardiac Surgery - stent x's4, patient had 2 stents on 07/18/2013 at [facility], Hx Coronary Stent - 5, Hx Tonsillectomy - Immunizations Hx Diphtheria, Pertussis, Tetanus Vaccination: Yes Hx Pneumococcal Vaccination: 05/25/13 Review of Systems - Review of Systems Constitutional: See HPI, Malaise EENT: No symptoms reported Cardiovascular: See HPI, Chest pain Respiratory: See HPI, Short of breath Gastrointestinal: No symptoms reported Genitourinary: No symptoms reported Male Genitourinary: No symptoms reported Musculoskeletal: No symptoms reported Skin: No symptoms reported Hematologic/Lymphatic: No symptoms reported Neurological/Psychological: No symptoms reported -: Yes All other systems reviewed and negative Physical Exam - Vital signs Vitals: Temp Pulse Resp BP Pulse Ox 97.8 F 39 L 14 130/64 H 95 09/18/18 15:50 09/18/18 15:50 09/18/18 15:50 09/18/18 15:50 09/18/18 15:50 - Notes Notes: GENERAL: Alert, interacts well. No acute distress. Overweight HEAD: Normocephalic, atraumatic. EYES: Pupils equal, round, and reactive to light. Extraocular movements intact. ENT: Oral mucosa moist, tongue midline. NECK: Full range of motion. Supple. Trachea midline. LUNGS: Clear to auscultation bilaterally, no wheezes, rales, or rhonchi. No respiratory distress. HEART: Bradycardic No murmurs, gallops, or rubs. ABDOMEN: Soft, non-tender. Non-distended. Bowel sounds present in all 4 quadrants. No guarding, rigidity, or rebound. EXTREMITIES: Moves all 4 extremities spontaneously. No edema, radial and dorsalis pedis pulses 2/4 bilaterally. No cyanosis. NEUROLOGICAL: Alert and oriented x3. Normal speech. PSYCH: Normal affect, normal mood. SKIN: Warm, dry, superficial abrasion to the lower third of the anterior tibia with surrounding erythema, clear exudate noted. Erythema is quite mild. Course - Re-evaluation Re-evalutation: 09/18/18 18:41 Epinephrine drip was increased to 4 mcg/min with good response however eventually he became quite hypertensive so it was decreased to 3 mcg/min. In the setting of bradycardia with hypertension I did order CT scan of the head as I was worried about the possibility of an intracranial hemorrhage causing impending herniation with signs of [place]'s triad. CT scan of the head was negative. Patient's hypertension is improving at 3 mcg/min. CBC unremarkable, coags grossly unremarkable, venous blood gas unremarkable, CMP shows acute on chronic renal failure with a BUN of 49 and a creatinine of 3.01, this is likely the cause of his bradycardia as he is probably not clearing his medications as he usually would. I did attempt to give glucagon to reverse the sotalol with no effect. Cardiac enzymes are negative. EKG shows junctional escape rhythm. Discussed patient with Frankie Wright MD who requested the patient be transferred to [facility] for cardiac intervention if necessary. States that as he has had all of his cardiac interventions performed there previously he would feel more comfortable with the patient where there since we cannot insert pacemakers here. Discussed the case with Dr. Null who accepted the patient on behalf of Dr. Almodovar and requested that we attempt to switch from epinephrine to dopamine drip. We are doing this at this time. Patient agreeable to transfer. - Vital Signs Vital signs: Temp Pulse Resp BP Pulse Ox 97.8 F 39 L 23 H 171/57 H 100 09/18/18 15:50 09/18/18 15:50 09/18/18 18:21 09/18/18 18:21 09/18/18 18:21 - Laboratory Result Diagrams: 09/18/18 16:01 09/18/18 16:01 Laboratory results interpreted by me: 09/18/18 09/18/18 09/18/18 16:01 16:01 16:10 RDW 14.5 H Monocytes % 14.8 H Potassium 5.5 H BUN 49 H Creatinine 3.01 H Est GFR ( Amer) 24 L Est GFR (Non-Af Amer) 20 L Glucose 62 L POC Glucose Ionized Calcium Juanita 1.13 L Total Protein 6.2 L 09/18/18 17:05 RDW Monocytes % Potassium BUN Creatinine Est GFR ( Amer) Est GFR (Non-Af Amer) Glucose POC Glucose 125 H Ionized Calcium Juanita Total Protein - EKG Interpretation by Me Additional EKG results interpreted by me: 09/18/18 19:00 EKG shows junctional escape rhythm at a rate of 48, normal axis, QRS is not widened, no ST segment elevations or depressions, there is T wave flattening in lead III per my interpretation. 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
[2018-09-18] MEDS ORDERED: ONDANSETRON HCL INJ/PF 4 MG/2 ML SDV IV ONE (19:16)
--- NOTE | 2018-09-18 20:45 | EKG REPORT ---
SEVERITY:- ABNORMAL ECG - ACCELERATED JUNCTIONAL ESCAPE RHYTHM BORDERLINE PROLONGED QT INTERVAL : Confirmed by: Germaine Oscar MD 18-Sep-2018 20:44:39
--- NOTE | 2018-09-18 20:45 | EKG REPORT ---
SEVERITY:- ABNORMAL ECG - JUNCTIONAL ESCAPE RHYTHM BORDERLINE T ABNORMALITIES, INFERIOR LEADS : Confirmed by: Germaine Oscar MD 18-Sep-2018 20:44:30
[2018-09-18 22:47] LABS: APPEARANCE,URINE SLIGHTLY-CLOUDY; BILIRUBIN,URINE NEGATIVE (NEGATIVE); COLOR,URINE YELLOW; GLUCOSE, URINE NEGATIVE (NEGATIVE); KETONES,URINE NEGATIVE (NEGATIVE); LEUKOCYTE ESTERASE,URINE NEGATIVE (NEGATIVE); NITRITE,URINE NEGATIVE (NEGATIVE); PROTEIN,URINE 30 mg/dL (NEGATIVE); URINE SPECIFIC GRAVITY 1.009; UROBILINOGEN,URINE NEGATIVE mg/dL (<2.0)
[2018-09-19] MEDS ORDERED: ONDANSETRON HCL INJ/PF 4 MG/2 ML SDV IV ONE ×2 (06:28→08:06)
[2018-09-19 08:01] LABS: ABSOLUTE BASOPHILS # (AUTO) 0.1 10^3/uL (0.0-0.2); ABSOLUTE LYMPHOCYTES (AUTO) 0.6 10^3/uL (0.5-4.7); ABSOLUTE MONOCYTES (AUTO) 0.9 10^3/uL (0.1-1.4); ABSOLUTE NEUT (AUTO) 7.6 10^3/uL (1.7-8.2); BASOPHILS % (AUTO) 0.6 % (0-2); EOSINOPHILS % (AUTO) 0.2 % (0-6); HEMATOCRIT 45.1 % (37.9-51.0); HEMOGLOBIN 14.9 g/dL (13.5-17.0); LYMPHOCYTES % (AUTO) 6.7 % (13-45); MEAN CORPUSCULAR HEMOGLOBIN 27.6 pg (27.0-33.4); MEAN CORPUSCULAR VOLUME 84 fl (80-97); PLATELET COUNT 247 10^3/uL (150-450); RED CELL DISTRIBUTION WIDTH 14.5 % (11.5-14.0); SEGMENTED NEUTROPHILS % (AUTO) 82.5 % (42-78); TOTAL CELLS COUNTED % (AUTO) 100 %; WHITE BLOOD COUNT 9.2 10^3/uL (4.0-10.5)
[2018-09-19 08:24] LABS: ALANINE AMINOTRANSFERASE 19 U/L (21-72); ALBUMIN 3.8 g/dL (3.5-5.0); ALKALINE PHOSPHATASE 92 U/L (38-126); ANION GAP 12 (5-19); ASPARTATE AMINO TRANSFERASE 22 U/L (17-59); BILIRUBIN,DIRECT 0.3 mg/dL (0.0-0.4); BILIRUBIN,TOTAL 0.9 mg/dL (0.2-1.3); BLOOD UREA NITROGEN 51 mg/dL (7-20); CALCIUM 9.6 mg/dL (8.4-10.2); CARBON DIOXIDE 26 mmol/L (22-30); CHLORIDE 103 mmol/L (98-107); GLUCOSE 139 mg/dL (75-110); SODIUM 141.3 mmol/L (137-145); TOTAL PROTEIN 6.8 g/dL (6.3-8.2)
[2018-09-19 08:31] LABS: POTASSIUM 6.2 mmol/L (3.6-5.0)
[2018-09-19] MEDS ORDERED: ALBUTEROL SULFATE 0.083% NEB 2.5 MG/3 ML AMPUL NEB ONE (08:34)
[2018-09-19] MEDS ORDERED: CALCIUM GLUCONATE 1000 MG/10 ML INJ IV ONE (08:34)
--- NOTE | 2018-09-19 09:58 | ER Document Report ---
Doctor's Note Notes: 09/19/18 09:57 At this time the patient's blood pressure is 134/57 with a heart rate of 66. Transportation is supposed to arrive between 11 AM and 11:30 AM to take the patient to [facility] in [place].
[2018-09-19 13:08] VITALS: BP 145/63
--- NOTE | 2018-09-19 17:44 | EKG REPORT ---
SEVERITY:- NORMAL ECG - SINUS RHYTHM : Confirmed by: Germaine Oscar MD 19-Sep-2018 17:43:42
== END 2018-09-19 13:25 | disposition other institution (70) ==
LOC: ER 15:48
DX: R00.1 Bradycardia, unspecified (principal); I12.9 Hypertensive chronic kidney disease with stage 1 through stage 4 chronic kidney disease, or unspecified chronic kidney disease; E11.22 Type 2 diabetes mellitus with diabetic chronic kidney disease; N18.3 Chronic kidney disease, stage 3 (moderate); N17.9 Acute kidney failure, unspecified; R53.81 Other malaise; R07.89 Other chest pain; R06.02 Shortness of breath; I25.10 Atherosclerotic heart disease of native coronary artery without angina pectoris; I25.2 Old myocardial infarction; L08.9 Local infection of the skin and subcutaneous tissue, unspecified; S80.812A Abrasion, left lower leg, initial encounter; X58.XXXA Exposure to other specified factors, initial encounter; Z79.899 Other long term (current) drug therapy; Z95.5 Presence of coronary angioplasty implant and graft; Z82.49 Family history of ischemic heart disease and other diseases of the circulatory system; Z88.0 Allergy status to penicillin; Z88.1 Allergy status to other antibiotic agents; Z88.7 Allergy status to serum and vaccine
CPT/HCPCS: 93005 ×2; 36415; 87040; 87086; 84439; 82553; 82962; 82550; 83735; 84443; 85025; 85610; 80053; 81001; 84484; 84481; 82803; 83605; 82330; 70450; 93010 ×2; C1758; J0610; J1265; J0171; J1610; J2405 ×2; J7060; A9270

== ENCOUNTER 2018-09-23 11:39 | Inpatient (IN) | payer MEDICARE, OTHER ==
[2018-09-23] MEDS ORDERED: ASPIRIN 81 MG TABLET, CHEWABLE PO ONE (11:45)
--- NOTE | 2018-09-23 12:08 | ER Document Report ---
ED Cardiac <ELEAZAR PATRICK M - Last Filed: 09/23/18 15:24> - General TRAVEL OUTSIDE OF THE [place] IN LAST 30 DAYS: No <BENITO GAN - Last Filed: 09/24/18 09:12> - General Chief Complaint: Chest Pain Stated Complaint: CHEST PAIN Time Seen by Provider: 09/23/18 11:45 - HPI Notes: Patient is a 82-year-old male that presents to the emergency department for chief complaint of chest pain. Patient had acute onset of chest pain at around 1020 this morning. He described it as a heavy sensation in his chest that radiated into his left arm. The pain occurred while he was up exerting himself but did not relieve when he sat down. He states that he only feels a tiny amount of discomfort currently but it has mostly resolved. He did take 2 sublingual nitro as well as 4 baby aspirin at home prior to EMS arrival. When EMS arrived patient had a heart rate in the 160s and they administered Cardizem bolus of 25 mg and started him on an infusion of 5 mg/h. He does report associated diaphoresis but denies nausea and shortness of breath. Patient reports that his symptoms did improve after EMS medication. He states that he has been having intermittent chest pains and had a heart catheterization that was normal last Tuesday. He does have a history of atrial fibrillation and is on aspirin. He denies being on oral anticoagulants. Past Medical History: Atrial fibrillation, hypertension Past Surgical History: Reviewed in chart Social History: Denies drugs alcohol and tobacco Family History: Reviewed and noncontributory for presenting illness Allergies: Reviewed, see documented allergy list. REVIEW OF SYSTEMS: CONSTITUTIONAL : No fever No chills diaphoresis No recent illness EENT: No vision changes No congestion No sore throat CARDIOVASCULAR: chest pain No palpitations RESPIRATORY: No shortness of breath No cough No difficulty breathing GASTROINTESTINAL: No abdominal pain No nausea No vomiting No diarrhea GENITOURINARY: No dysuria No hematuria No difficulty urinating MUSCULOSKELETAL: No back pain No leg pain No arm pain SKIN: No rashes No lesions LYMPHATIC: No swollen, enlarged glands. NEUROLOGICAL: No lightheadedness No headache No weakness No paresthesias PSYCHIATRIC: No anxiety No depression PHYSICAL EXAMINATION: Vital signs reviewed, nursing noted reviewed. GENERAL: Well-appearing, well-nourished and in no acute distress. HEAD: Atraumatic, normocephalic. EYES: Eyes appear normal, extraocular movements intact, sclera anicteric, conjunctiva are normal. ENT: nares patent, oropharynx clear without exudates. Moist mucous membranes. NECK: Normal range of motion, supple without lymphadenopathy LUNGS: Breath sounds clear to auscultation bilaterally and equal. No wheezes rales or rhonchi. HEART: Irregularly irregular rhythm and regular rate without murmurs ABDOMEN: Soft, nontender, normoactive bowel sounds. No rebound, guarding, or rigidity. No masses appreciated. EXTREMITIES: Nontender, good range of motion, trace pretibial edema. NEUROLOGICAL: No focal neurological deficits. Moves all extremities spontaneously Motor and sensory grossly intact on exam. PSYCH: Normal mood, normal affect. SKIN: Warm, Dry, normal turgor, no rashes or lesions noted on exposed skin (BENITO GAN) - Related Data Allergies/Adverse Reactions: amoxicillin [Amoxicillin] Allergy (Verified 01/06/18 19:52) amoxicillin trihydrate [From Augmentin XR] Allergy (Verified 01/06/18 19:52) cephalexin monohydrate [From Keflex] Allergy (Verified 01/06/18 19:52) Potassium Clavulanate * [From Augmentin XR] Allergy (Verified 01/06/18 19:52) Tuberculin,Ppd,Multi-Puncture [From Tuberculin PPD Mireya Test] Allergy (Verified 01/06/18 19:52) Past Medical History - Social History Smoking Status: Never Smoker Family History: CAD, DM - Past Medical History Cardiac Medical History: Reports: Hx Atrial Fibrillation, Hx Congestive Heart Failure, Hx Coronary Artery Disease, Hx Heart Attack - x4, Hx Hypercholesterolemia, Hx Hypertension Denies: Hx DVT, Hx Pulmonary Embolism Pulmonary Medical History: Denies: Hx Asthma, Hx Bronchitis, Hx COPD, Hx Pneumonia, Hx Tuberculosis Neurological Medical History: Denies: Hx Seizures Endocrine Medical History: Reports: Hx Diabetes Mellitus Type 1, Hx Diabetes Mellitus Type 2, Hx Hypothyroidism. Denies: Hx Hyperthyroidism Renal/ Medical History: Denies: Hx Peritoneal Dialysis GI Medical History: Denies: Hx Cirrhosis, Hx Gastroesophageal Reflux Disease, Hx Hepatitis Musculoskeletal Medical History: Reports Hx Arthritis Psychiatric Medical History: Reports: Hx Depression Infectious Medical History: Denies: Hx Hepatitis Past Surgical History: Reports: Hx Cardiac Catheterization, Hx Cardiac Surgery - stent x's4, patient had 2 stents on 07/18/2013 at [facility], Hx Coronary Stent - 5, Hx Tonsillectomy - Immunizations Hx Diphtheria, Pertussis, Tetanus Vaccination: Yes Hx Pneumococcal Vaccination: 05/25/13 <BENITO GAN - Last Filed: 09/24/18 09:12> - Vital signs Vitals: Resp BP Pulse Ox 16 141/84 H 94 09/23/18 11:44 09/23/18 11:44 09/23/18 11:44 Course - Laboratory Result Diagrams: 09/23/18 12:40 09/23/18 12:40 <ELEAZAR PATRICK - Last Filed: 09/23/18 15:24> - Laboratory Result Diagrams: 09/24/18 06:49 09/24/18 06:49 <BENITO GAN - Last Filed: 09/24/18 09:12> - Re-evaluation Re-evalutation: 09/23/18 12:06 Vitals reviewed. Nursing notes reviewed. Patient's EKG shows atrial fibrillation with a rate of 93 and no acute ischemic changes. Rhythm strip from EMS showed A. fib with RVR which had resolved when he presented to the ER. Cardizem drip was started by EMS but had stopped upon his arrival in the emergency room. Patient's heart rate has now increased to 120 and Cardizem infusion was restarted. Patient has taken full dose of aspirin prior to arrival in the ER therefore none was given in the ED. He was placed on telemetry monitoring. 09/23/18 13:44 Patient's blood work shows improved renal function from his previous visit but still slightly elevated creatinine. He has a negative troponin. The remainder of his testing is unremarkable. Chest x-ray shows no acute cardiao Laboratory 09/23/18 09/23/18 09/23/18 12:40 12:40 12:40 WBC 7.3 RBC 5.61 H Hgb 15.1 Hct 47.0 MCV 84 MCH 27.0 MCHC 32.2 RDW 14.3 H Plt Count 255 Seg Neutrophils % 74.9 Lymphocytes % 11.2 L Monocytes % 10.2 Eosinophils % 2.9 Basophils % 0.8 Absolute Neutrophils 5.4 Absolute Lymphocytes 0.8 Absolute Monocytes 0.7 Absolute Eosinophils 0.2 Absolute Basophils 0.1 Sodium 142.4 Potassium 4.8 Chloride 104 Carbon Dioxide 29 Anion Gap 9 BUN 28 H Creatinine 1.40 H Est GFR ( Amer) 59 L Est GFR (Non-Af Amer) 48 L Glucose 114 H Calcium 9.8 Total Bilirubin 0.8 Direct Bilirubin 0.2 Neonat Total Bilirubin Not Reportable Neonat Direct Bilirubin Not Reportable Neonat Indirect Bili Not Reportable AST 27 ALT 23 Alkaline Phosphatase 73 Troponin I 0.018 Total Protein 6.7 Albumin 3.6 Chest X-Ray 09/23/18 11:45 IMPRESSION: LOW LUNG VOLUMES. NO SIGNIFICANT RADIOGRAPHIC FINDING IN THE CHEST. pulmonary process. Patient has continued to be tachycardic on Cardizem infusion and it was titrated up. He is stated that his tightness began to recur and repeat EKG has been ordered. Plan to admit to the hospital for further cardiac evaluation. (BENITO GAN) - Vital Signs Vital signs: Temp Pulse Resp BP Pulse Ox 97.7 F 68 15 165/71 H 98 09/24/18 07:42 09/24/18 08:00 09/24/18 07:42 09/24/18 08:00 09/24/18 07:42 - Laboratory Laboratory results interpreted by me: 09/23/18 09/23/18 12:40 12:40 RBC 5.61 H RDW 14.3 H Lymphocytes % 11.2 L BUN 28 H Creatinine 1.40 H Est GFR ( Amer) 59 L Est GFR (Non-Af Amer) 48 L Glucose 114 H - EKG Interpretation by Me Additional EKG results interpreted by me: 09/23/18 12:08 Interpreted by myself 1135: Atrial fibrillation, rate 93, normal axis, LVH, no STEMI 09/23/18 13:56 Repeat EKG interpreted by myself 1352: Atrial fibrillation with RVR, rate 106, normal axis, LVH, no STEMI, no change from initial (BENITO GAN) Critical Care Note - Critical Care Note Total time excluding time spent on procedures (mins): 35 <BENITO GAN - Last Filed: 09/24/18 09:12> - Critical Care Note Comments: Critical care time 35 exclusive from separate billable procedures for a patient requiring complex medical decision making, and high potential for clinical deterioration. Time spent obtaining history from patient or surrogate, discussions with consultants, development of treatment plan with patient or surrogate, evaluation of patient's response to treatment, examination of patient, ordering and performing treatments and interventions, ordering and review of laboratory studies, re-evaluation of patient's condition, ordering and review of radiographic studies and review of old charts (BENITO GAN) Discharge - Dis[facility] Admitted: [facility] <ELEAZAR PATRICK - Last Filed: 09/23/18 15:24> <BENITO GAN - Last Filed: 09/24/18 09:12> - Discharge Clinical Impression: Atrial fibrillation with RVR, Chest pain Condition: Stable Disposition: ADMITTED INPATIENT
--- NOTE | 2018-09-23 12:12 | RADIOLOGY REPORT (SQ) ---
EXAM DESCRIPTION: CHEST SINGLE VIEW COMPLETED DATE/TIME: 09/23/2018 11:53 am REASON FOR STUDY: chest pain COMPARISON: 2017. NUMBER OF VIEWS: One view. TECHNIQUE: Single frontal radiographic view of the chest acquired. LIMITATIONS: None. FINDINGS: LUNGS AND PLEURA: Low lung volumes with basilar subsegmental atelectasis, particularly lef t. MEDIASTINUM AND HILAR STRUCTURES: No masses. No contour abnormality. HEART AND VASCULAR STRUCTURES: Normal size. No evidence for failure. BONES: No acute findings. HARDWARE: None in the chest. OTHER: No other significant finding. IMPRESSION: LOW LUNG VOLUMES. NO SIGNIFICANT RADIOGRAPHIC FINDING IN THE CHEST. TECHNICAL DOCUMENTATION: JOB ID: [id number] [employer]- All Rights Reserved Reading location - IP/workstation name: [email or web address]
[2018-09-23 12:51] LABS: ABSOLUTE BASOPHILS # (AUTO) 0.1 10^3/uL (0.0-0.2); ABSOLUTE EOSINOPHILS # (AUTO) 0.2 10^3/uL (0.0-0.6); ABSOLUTE LYMPHOCYTES (AUTO) 0.8 10^3/uL (0.5-4.7); ABSOLUTE MONOCYTES (AUTO) 0.7 10^3/uL (0.1-1.4); ABSOLUTE NEUT (AUTO) 5.4 10^3/uL (1.7-8.2); BASOPHILS % (AUTO) 0.8 % (0-2); EOSINOPHILS % (AUTO) 2.9 % (0-6); HEMOGLOBIN 15.1 g/dL (13.5-17.0); LYMPHOCYTES % (AUTO) 11.2 % (13-45); MEAN CORPUSCULAR HGB CONC 32.2 g/dL (32.0-36.0); MEAN CORPUSCULAR VOLUME 84 fl (80-97); MONOCYTES % (AUTO) 10.2 % (3-13); PLATELET COUNT 255 10^3/uL (150-450); RED BLOOD COUNT 5.61 10^6/uL (4.35-5.55); RED CELL DISTRIBUTION WIDTH 14.3 % (11.5-14.0); SEGMENTED NEUTROPHILS % (AUTO) 74.9 % (42-78); TOTAL CELLS COUNTED % (AUTO) 100 %; WHITE BLOOD COUNT 7.3 10^3/uL (4.0-10.5)
[2018-09-23] MEDS: DILTIAZEM HCL/D5W 125 MG/125 ML RTUINJ IV PRN ×2 (13:05→21:55)
[2018-09-23 13:09] LABS: ALANINE AMINOTRANSFERASE 23 U/L (21-72); ALBUMIN 3.6 g/dL (3.5-5.0); ALKALINE PHOSPHATASE 73 U/L (38-126); ANION GAP 9 (5-19); ASPARTATE AMINO TRANSFERASE 27 U/L (17-59); BILIRUBIN,DIRECT 0.2 mg/dL (0.0-0.4); BILIRUBIN,TOTAL 0.8 mg/dL (0.2-1.3); BLOOD UREA NITROGEN 28 mg/dL (7-20); CALCIUM 9.8 mg/dL (8.4-10.2); CARBON DIOXIDE 29 mmol/L (22-30); CHLORIDE 104 mmol/L (98-107); GLUCOSE 114 mg/dL (75-110); POTASSIUM 4.8 mmol/L (3.6-5.0); SODIUM 142.4 mmol/L (137-145); TOTAL PROTEIN 6.7 g/dL (6.3-8.2)
[2018-09-23] MEDS ORDERED: ONDANSETRON 4 MG TAB.RAPDIS PO PRN (16:39)
[2018-09-23] MEDS ORDERED: NITROGLYCERIN 0.4 MG/TAB 25 TAB/BOTTLE SL PRN (16:39)
[2018-09-23] MEDS ORDERED: DEXTROSE 40% GEL 15 GM TUBE PO PRN ×2 (16:54)
[2018-09-23] MEDS ORDERED: GLUCAGON,HUMAN RECOMB 1 MG INJ IM PRN (16:54)
[2018-09-23] MEDS ORDERED: DEXTROSE 50%-WATER 25 GM/50 ML DISP.SYRIN IV PRN ×2 (16:54)
--- NOTE | 2018-09-23 17:04 | PDOC H&P ---
History of Present Illness Admission Date/PCP: 09/23/18 15:34 DUNCAN VERDIN PA-C Patient complains of: chest pressure. rapid heart beat History of Present Illness: ADELAIDE COOPER JR is a 82 year old male Past Medical History Cardiac Medical History: Reports: Atrial Fibrillation, Congestive Heart Failure, Coronary Artery Disease, Myocardial Infarction - x4, Hyperlipidema, Hypertension Denies: DVT, Pulmonary Embolism Pulmonary Medical History: Denies: Asthma, Bronchitis, Chronic Obstructive Pulmonary Disease (COPD), Pneumonia, Tuberculosis Neurological Medical History: Denies: Seizures Endocrine Medical History: Reports: Diabetes Mellitus Type 2, Hypothyroidism Denies: Hyperthyroidism GI Medical History: Reports: Gastroesophageal Reflux Disease Denies: Cirrhosis, Hepatitis Musculoskeltal Medical History: Reports: Arthritis Psychiatric Medical History: Reports: Depression Hematology: Denies: Anemia Past Surgical History Past Surgical History: Reports: Cardiac Catheterization, Coronary Stent - 5, Tonsillectomy Social History Information Source: Patient Lives with: Family Smoking Status: Former Smoker Frequency of Alcohol Use: None Hx Recreational Drug Use: No Drugs: None Hx Prescription Drug Abuse: No Family History Family History: CAD, DM Parental Family History Reviewed: Yes Children Family History Reviewed: Yes Sibling(s) Family History Reviewed.: Yes Medication/Allergy Home Medications: Aspirin [Ecotrin 81 mg EC Tablet] 81 mg PO DAILY 01/06/18 Ezetimibe [Zetia] 10 mg PO DAILY 01/06/18 Ferrous Sulfate [Feosol] 325 mg PO BID 01/06/18 Insulin Aspart [Novolog Flexpen] 10 units SUBCUT MEALS 01/06/18 Insulin Glargine,Hum.rec.anlog [Lantus Solostar] 30 unit SQ QHS 01/06/18 Levothyroxine Sodium [Synthroid 0.1 mg Tablet] 0.1 mg PO Q6AM 01/06/18 Magnesium Oxide [Mag-Ox 400 mg Tablet] 400 mg PO DAILY 01/06/18 Nitroglycerin [Nitrostat 0.4 mg (1/150 Gr) Tabs 25/Bottle] 1 tab SL Q5MP PRN 01/06/18 Ubidecarenone/Vit E Acet [Co Q-10 100 mg Softgel] 100 mg PO DAILY 01/06/18 Loratadine [Claritin 10 mg Tablet] 10 mg PO DAILY 09/23/18 Nitroglycerin [Nitro-Dur 5 mg (0.2 mg/Hr) Transdermal Patch] 1 patch TD [facility] 09/23/18 Pantoprazole Sodium [Protonix [address] Tablet] 40 mg PO [facility] 09/23/18 Potassium Chloride [Klor-Con 10 Meq Capsule ER] 10 meq PO DAILY 09/23/18 Torsemide [Demadex 20 mg Tablet] 40 mg PO QAM 09/23/18 Vit A/Vit C/Vit E/Zinc/Copper [Preservision Areds Softgel] 1 each PO DAILY 09/23/18 Allergies/Adverse Reactions: amoxicillin [Amoxicillin] Allergy (Verified 01/06/18 19:52) amoxicillin trihydrate [From Augmentin XR] Allergy (Verified 01/06/18 19:52) cephalexin monohydrate [From Keflex] Allergy (Verified 01/06/18 19:52) Potassium Clavulanate * [From Augmentin XR] Allergy (Verified 01/06/18 19:52) Tuberculin,Ppd,Multi-Puncture [From Tuberculin PPD Mireya Test] Allergy (Verified 01/06/18 19:52) Review of Systems All systems: as per H Physical Exam Vital Signs: Temp Pulse Resp BP Pulse Ox 14 129/79 H 93 09/23/18 12:01 09/23/18 12:01 09/23/18 12:01 Intake & Output 09/22/18 09/23/18 09/24/18 06:59 06:59 06:59 Intake Total 19 Balance 19 Weight 88.904 kg General appearance: PRESENT: severe distress Head exam: PRESENT: atraumatic Eye exam: PRESENT: conjunctival injection Neck exam: PRESENT: carotid bruit. ABSENT: JVD Respiratory exam: PRESENT: crackles Cardiovascular exam: PRESENT: irregular rhythm, +S1, +S2, tachycardia GI/Abdominal exam: PRESENT: normal bowel sounds, soft Extremities exam: PRESENT: full ROM Musculoskeletal exam: PRESENT: ambulatory Neurological exam: PRESENT: alert, awake, oriented to person, oriented to place, oriented to time Results Laboratory Results: 09/23/18 12:40 09/23/18 12:40 09/23/18 09/23/18 12:40 12:40 WBC 7.3 RBC 5.61 H Hgb 15.1 Hct 47.0 MCV 84 MCH 27.0 MCHC 32.2 RDW 14.3 H Plt Count 255 Seg Neutrophils % 74.9 Lymphocytes % 11.2 L Monocytes % 10.2 Eosinophils % 2.9 Basophils % 0.8 Absolute Neutrophils 5.4 Absolute Lymphocytes 0.8 Absolute Monocytes 0.7 Absolute Eosinophils 0.2 Absolute Basophils 0.1 Sodium 142.4 Potassium 4.8 Chloride 104 Carbon Dioxide 29 Anion Gap 9 BUN 28 H Creatinine 1.40 H Est GFR ( Amer) 59 L Est GFR (Non-Af Amer) 48 L Glucose 114 H Calcium 9.8 Total Bilirubin 0.8 AST 27 ALT 23 Alkaline Phosphatase 73 Total Protein 6.7 Albumin 3.6 09/23/18 12:40 Troponin I 0.018 Impressions: Chest X-Ray 09/23/18 11:45 IMPRESSION: LOW LUNG VOLUMES. NO SIGNIFICANT RADIOGRAPHIC FINDING IN THE CHEST. Assessment & Plan - Diagnosis (1) Atrial fibrillation with RVR Is this a current diagnosis for this admission?: Yes Plan: cardizem drip (2) Chest pain Qualifiers: Chest pain type: unspecified Qualified Code(s): R07.9 - Chest pain, unsp ecified Is this a current diagnosis for this admission?: Yes Plan: possibly secondary to rapid a fib. 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
[2018-09-23] MEDS ORDERED: INSULIN GLARGINE,HUM.REC.ANLOG 1,000 UNIT/10 ML VIAL (PYX) SUBCUT PRN (17:27)
[2018-09-23] MEDS: INSULIN LISPRO 100 UNIT/ML 3 ML VIAL SUBCUT SCH ×2 (18:52→21:20)
[2018-09-23] MEDS: FERROUS SULFATE 325 MG TABLET PO SCH (18:52)
[2018-09-23 19:20] LABS: CREATINE KINASE MB 1.67 ng/mL (<4.55)
[2018-09-23 19:25] LABS: TROPONIN I 0.023 ng/mL
[2018-09-23] MEDS ORDERED: INSULIN GLARGINE,HUM.REC.ANLOG 1,000 UNIT/10 ML VIAL (PYX) SUBCUT ONE (21:27)
[2018-09-23] MEDS: INSULIN GLARGINE,HUM.REC.ANLOG 1,000 UNIT/10 ML VIAL SUBCUT SCH (21:28)
[2018-09-23] MEDS: ENOXAPARIN SODIUM INJ 100 MG/1 ML DISP.SYRIN SUBCUT SCH (21:28)
--- NOTE | 2018-09-23 23:26 | EKG REPORT ---
SEVERITY:- ABNORMAL ECG - ATRIAL FIBRILLATION : Confirmed by: Germaine Oscar MD 23-Sep-2018 23:25:48
--- NOTE | 2018-09-23 23:26 | EKG REPORT ---
SEVERITY:- ABNORMAL ECG - ATRIAL FIBRILLATION PROBABLE LVH WITH SECONDARY REPOL ABNRM : Confirmed by: Germaine Oscar MD 23-Sep-2018 23:25:55
[2018-09-24 01:23] LABS: CREATINE KINASE MB 1.58 ng/mL (<4.55); TROPONIN I 0.019 ng/mL
[2018-09-24] MEDS: LEVOTHYROXINE SODIUM 0.1 MG TABLET PO SCH (05:33)
--- NOTE | 2018-09-24 07:45 | PDOC PROGRESS REPORT ---
Subjective Progress Note for:: 09/24/18 Subjective:: The patient states to feel better. He denies any further chest pain or palpitations. His cardiac enzymes are negative. He is back in sinus rhythm. 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 His cardiac catheterization was essentially unremarkable last week Reason For Visit: ACS,RAPID AFIB WITH RVR, CAD, NIDDM Physical Exam Vital Signs: Temp Pulse Resp BP Pulse Ox 97.9 F 67 20 154/72 H 94 09/24/18 03:10 09/24/18 06:00 09/24/18 03:10 09/24/18 06:00 09/24/18 03:10 Intake & Output 09/23/18 09/24/18 09/25/18 06:59 06:59 06:59 Intake Total 363 Output Total 800 Balance -437 Weight 84 kg General appearance: PRESENT: mild distress Head exam: PRESENT: atraumatic Eye exam: PRESENT: conjunctiva pink Neck exam: PRESENT: carotid bruit. ABSENT: JVD Respiratory exam: PRESENT: clear to auscultation erika Cardiovascular exam: PRESENT: RRR, +S1, +S2 GI/Abdominal exam: PRESENT: normal bowel sounds, soft Musculoskeletal exam: PRESENT: ambulatory Neurological exam: PRESENT: alert, awake, oriented to person, oriented to place, oriented to time Results Laboratory Results: 09/23/18 12:40 09/23/18 12:40 09/23/18 09/23/18 12:40 12:40 WBC 7.3 RBC 5.61 H Hgb 15.1 Hct 47.0 MCV 84 MCH 27.0 MCHC 32.2 RDW 14.3 H Plt Count 255 Seg Neutrophils % 74.9 Lymphocytes % 11.2 L Monocytes % 10.2 Eosinophils % 2.9 Basophils % 0.8 Absolute Neutrophils 5.4 Absolute Lymphocytes 0.8 Absolute Monocytes 0.7 Absolute Eosinophils 0.2 Absolute Basophils 0.1 Sodium 142.4 Potassium 4.8 Chloride 104 Carbon Dioxide 29 Anion Gap 9 BUN 28 H Creatinine 1.40 H Est GFR ( Amer) 59 L Est GFR (Non-Af Amer) 48 L Glucose 114 H Calcium 9.8 Total Bilirubin 0.8 AST 27 ALT 23 Alkaline Phosphatase 73 Total Protein 6.7 Albumin 3.6 09/23/18 09/23/18 09/23/18 12:40 18:30 18:30 Creatine Kinase 47 L CK-MB (CK-2) 1.67 Troponin I 0.018 0.023 09/24/18 09/24/18 00:40 00:40 Creatine Kinase 46 L CK-MB (CK-2) 1.58 Troponin I 0.019 Impressions: Chest X-Ray 09/23/18 11:45 IMPRESSION: LOW LUNG VOLUMES. NO SIGNIFICANT RADIOGRAPHIC FINDING IN THE CHEST. Assessment & Plan - Diagnosis (1) Atrial fibrillation with RVR Is this a current diagnosis for this admission?: Yes Plan: Presently normal sinus rhythm on a Cardizem drip. Will switch to p.o. Cardizem (2) Chest pain Qualifiers: Chest pain type: unspecified Qualified Code(s): R07.9 - Chest pain, unspecified Is this a current diagnosis for this admission?: Yes Plan: Most probably related to rapid A. 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
[2018-09-24 07:49] LABS: ABSOLUTE BASOPHILS # (AUTO) 0.1 10^3/uL (0.0-0.2); ABSOLUTE EOSINOPHILS # (AUTO) 0.2 10^3/uL (0.0-0.6); ABSOLUTE MONOCYTES (AUTO) 0.7 10^3/uL (0.1-1.4); ABSOLUTE NEUT (AUTO) 5.3 10^3/uL (1.7-8.2); BASOPHILS % (AUTO) 0.9 % (0-2); HEMATOCRIT 46.6 % (37.9-51.0); HEMOGLOBIN 15.2 g/dL (13.5-17.0); LYMPHOCYTES % (AUTO) 13.3 % (13-45); MEAN CORPUSCULAR HEMOGLOBIN 27.3 pg (27.0-33.4); MEAN CORPUSCULAR HGB CONC 32.7 g/dL (32.0-36.0); MEAN CORPUSCULAR VOLUME 84 fl (80-97); MONOCYTES % (AUTO) 9.7 % (3-13); PLATELET COUNT 232 10^3/uL (150-450); RED BLOOD COUNT 5.57 10^6/uL (4.35-5.55); RED CELL DISTRIBUTION WIDTH 14.5 % (11.5-14.0); SEGMENTED NEUTROPHILS % (AUTO) 73.1 % (42-78); TOTAL CELLS COUNTED % (AUTO) 100 %; WHITE BLOOD COUNT 7.2 10^3/uL (4.0-10.5)
[2018-09-24] MEDS: DILTIAZEM HCL 120 MG CAP.SR.24H PO SCH ×2 (08:00→20:32)
[2018-09-24] MEDS: NITROGLYCERIN 5 MG (0.2 MG/HR) PATCH.TD24 TD SCH (08:08)
[2018-09-24] MEDS: INSULIN LISPRO 100 UNIT/ML 3 ML VIAL SUBCUT SCH ×7 (08:08→22:01)
[2018-09-24] MEDS: PANTOPRAZOLE SODIUM 40 MG TABLET.DR PO SCH (08:08)
[2018-09-24 08:11] LABS: ALANINE AMINOTRANSFERASE 18 U/L (21-72); ALBUMIN 3.3 g/dL (3.5-5.0); ALKALINE PHOSPHATASE 71 U/L (38-126); ANION GAP 10 (5-19); ASPARTATE AMINO TRANSFERASE 26 U/L (17-59); BILIRUBIN,DIRECT 0.3 mg/dL (0.0-0.4); BILIRUBIN,TOTAL 0.9 mg/dL (0.2-1.3); BLOOD UREA NITROGEN 24 mg/dL (7-20); CALCIUM 9.4 mg/dL (8.4-10.2); CARBON DIOXIDE 25 mmol/L (22-30); CHLORIDE 105 mmol/L (98-107); CREATINE KINASE 41 U/L (55-170); GLUCOSE 102 mg/dL (75-110); POTASSIUM 4.7 mmol/L (3.6-5.0); SODIUM 140.3 mmol/L (137-145); TOTAL PROTEIN 6.1 g/dL (6.3-8.2)
[2018-09-24 08:19] LABS: CREATINE KINASE MB 1.32 ng/mL (<4.55); TROPONIN I 0.017 ng/mL
--- NOTE | 2018-09-24 09:43 | EKG REPORT ---
SEVERITY:- ABNORMAL ECG - SINUS RHYTHM MULTIPLE ATRIAL PREMATURE COMPLEXES : Confirmed by: Germaine Oscar MD 24-Sep-2018 09:41:26
[2018-09-24] MEDS ORDERED: UBIDECARENONE PO SCH (10:00)
[2018-09-24] MEDS ORDERED: (PENDING PHARMACY ID) (Vit A/Vit C/Vit E/Zinc/Copper [Preservision Areds Softgel] 1 EACH) PO SCH (10:00)
[2018-09-24] MEDS ORDERED: VIT E ACET PO SCH (10:00)
[2018-09-24] MEDS: FERROUS SULFATE 325 MG TABLET PO SCH ×2 (10:03→17:42)
[2018-09-24] MEDS: POTASSIUM CHLORIDE 10 MEQ CAPSULE.ER PO SCH (10:03)
[2018-09-24] MEDS: TORSEMIDE 20 MG TABLET PO SCH (10:03)
[2018-09-24] MEDS: EZETIMIBE 10 MG TABLET PO SCH (10:03)
[2018-09-24] MEDS: ASPIRIN 81 MG TABLET, ENT COATED PO SCH (10:03)
[2018-09-24] MEDS: ENOXAPARIN SODIUM INJ 100 MG/1 ML DISP.SYRIN SUBCUT SCH ×2 (10:04→22:16)
[2018-09-24] MEDS: MAGNESIUM OXIDE 400 MG TABLET PO SCH (10:04)
[2018-09-24] MEDS: LORATADINE 10 MG TABLET PO SCH (10:04)
[2018-09-24] MEDS ORDERED: INSULIN GLARGINE,HUM.REC.ANLOG 1,000 UNIT/10 ML VIAL (PYX) SUBCUT ONE (22:15)
[2018-09-24] MEDS: INSULIN GLARGINE,HUM.REC.ANLOG 1,000 UNIT/10 ML VIAL SUBCUT SCH (22:16)
[2018-09-25] MEDS: LEVOTHYROXINE SODIUM 0.1 MG TABLET PO SCH (06:09)
--- NOTE | 2018-09-25 07:53 | EKG REPORT ---
SEVERITY:- BORDERLINE ECG - SINUS RHYTHM NONSPECIFIC ST-T CHANGES LATERAL LEADS : Confirmed by: Abel Maldonado MD 25-Sep-2018 07:53:03
--- NOTE | 2018-09-25 08:45 | PDOC DISCHARGE SUMMARY ---
General - Admit/Disc Date/PCP Admission Date/Primary Care Provider: 09/23/18 15:34 DUNCAN VERDIN PA-C Discharge Date: 09/25/18 - Discharge Diagnosis (1) Atrial fibrillation with RVR Is this a current diagnosis for this admission?: Yes Summary: We will continue Cardizem 120 mg daily CD. Follow-up with cardiology tomorrow. Will decide whether the patient needs to be on any anticoagulation (2) Chest pain Is this a current diagnosis for this admission?: Yes Summary: Resolved most probably related to A. fib with RVR (3) Anemia Is this a current diagnosis for this admission?: Yes (4) CKD (chronic kidney disease) stage 2, GFR 60-89 ml/min Is this a current diagnosis for this admission?: Yes Summary: Stable continue current medications (5) Diabetes mellitus type 2 with complications Is this a current diagnosis for this admission?: Yes Summary: Stable continue current treatment (6) Hypertension Is this a current diagnosis for this admission?: Yes Summary: Stable continue current treatment (7) Hypothyroid Is this a current diagnosis for this admission?: Yes Summary: Continue current medications - Additional Information Discharge Diet: Cardiac, Diabetic Discharge Activity: Activity As Tolerated Prescriptions: Diltiazem HCl [Cardizem Cd 120 mg Capsule] 120 mg PO DAILY #30 cap.sr.24h Home Medications: Aspirin [Ecotrin 81 mg EC Tablet] 81 mg PO DAILY 01/06/18 Ezetimibe [Zetia] 10 mg PO DAILY 01/06/18 Ferrous Sulfate [Feosol] 325 mg PO BID 01/06/18 Insulin Aspart [Novolog Flexpen] 10 units SUBCUT MEALS 01/06/18 Insulin Glargine,Hum.rec.anlog [Lantus Solostar] 30 unit SQ QHS 01/06/18 Levothyroxine Sodium [Synthroid 0.1 mg Tablet] 0.1 mg PO Q6AM 01/06/18 Magnesium Oxide [Mag-Ox 400 mg Tablet] 400 mg PO DAILY 01/06/18 Nitroglycerin [Nitrostat 0.4 mg (1/150 Gr) Tabs 25/Bottle] 1 tab SL Q5MP PRN 01/06/18 Ubidecarenone/Vit E Acet [Co Q-10 100 mg Softgel] 100 mg PO DAILY 01/06/18 Loratadine [Claritin 10 mg Tablet] 10 mg PO DAILY 09/23/18 Nitroglycerin [Nitro-Dur 5 mg (0.2 mg/Hr) Transdermal Patch] 1 patch TD QAM 09/23/18 Pantoprazole Sodium [Protonix [address] Tablet] 40 mg PO QAM 09/23/18 Potassium Chloride [Klor-Con 10 Meq Capsule ER] 10 meq PO DAILY 09/23/18 Torsemide [Demadex 20 mg Tablet] 40 mg PO QAM 09/23/18 Vit A/Vit C/Vit E/Zinc/Copper [Preservision Areds Softgel] 1 each PO DAILY 09/23/18 Diltiazem HCl [Cardizem Cd 120 mg Capsule] 120 mg PO DAILY #30 cap.sr.24h 09/25/18 History of Present Illness History of Present Illness: ADELAIDE COOPER JR is a 82 year old male Hospital Course Hospital Course: The patient was admitted directly from the emergency room with chest pain most probably related to rapid A. fib with rapid ventricular response. His cardiac enzymes were borderline but have drifted down. His kidney function has remained stable. Once the patient was placed on the Cardizem drip he remained in A. fib for a while and then converted to normal sinus rhythm once he was in sinus rhythm he was switched to p.o. Cardizem which controlled his rate. He did not have any recurrence of chest pain or shortness of breath. He tolerated medications well. His blood sugars were well controlled. He is presently scheduled for a follow-up with cardiology. He was recently admitted to the hospital with profound bradycardia unresponsive to atropine and needed an epinephrine drip. He was transferred to [place] and sotalol was stopped. He underwent a cardiac catheterization which apparently did not show any significant abnormalities and patient was discharged home Physical Exam Vital Signs: Temp Pulse Resp BP Pulse Ox 97.7 F 76 20 147/64 H 94 09/25/18 03:29 09/25/18 07:00 09/25/18 03:29 09/25/18 03:29 09/25/18 03:29 Intake & Output 09/24/18 09/25/18 09/26/18 06:59 06:59 06:59 Intake Total 363 1023 Output Total 800 3985 Balance -437 -061 Weight 84 kg 84 kg General appearance: PRESENT: no acute distress Head exam: PRESENT: atraumatic Eye exam: PRESENT: conjunctiva pink Mouth exam: PRESENT: dry mucosa Neck exam: PRESENT: carotid bruit. ABSENT: JVD Respiratory exam: PRESENT: clear to auscultation erika Cardiovascular exam: PRESENT: RRR, +S1, +S2 GI/Abdominal exam: PRESENT: normal bowel sounds, soft Extremities exam: PRESENT: full ROM Musculoskeletal exam: PRESENT: ambulatory Neurological exam: PRESENT: alert, awake, oriented to person, oriented to place, oriented to time Results Laboratory Results: 09/24/18 06:49 09/24/18 06:49 09/23/18 09/23/18 09/23/18 12:40 18:30 18:30 Creatine Kinase 47 L CK-MB (CK-2) 1.67 Troponin I 0.018 0.023 09/24/18 09/24/18 09/24/18 00:40 00:40 06:49 Creatine Kinase 46 L 41 L CK-MB (CK-2) 1.58 Troponin I 0.019 09/24/18 06:49 Creatine Kinase CK-MB (CK-2) 1.32 Troponin I 0.017 Impressions: Chest X-Ray 09/23/18 11:45 IMPRESSION: LOW LUNG VOLUMES. NO SIGNIFICANT RADIOGRAPHIC FINDING IN THE CHEST. Qualifiers - * PATIENT BEING DISCHARGED WITH ANY OF THE FOLLOWING DIAGNOSIS: No Acute Heart Failure Is this a Heart Failure Patient?: No
[2018-09-25] MEDS: INSULIN LISPRO 100 UNIT/ML 3 ML VIAL SUBCUT SCH ×2 (08:56)
[2018-09-25] MEDS: FERROUS SULFATE 325 MG TABLET PO SCH (08:59)
[2018-09-25] MEDS: EZETIMIBE 10 MG TABLET PO SCH (08:59)
[2018-09-25] MEDS: ASPIRIN 81 MG TABLET, ENT COATED PO SCH (08:59)
[2018-09-25] MEDS: PANTOPRAZOLE SODIUM 40 MG TABLET.DR PO SCH (08:59)
[2018-09-25] MEDS: TORSEMIDE 20 MG TABLET PO SCH (09:00)
[2018-09-25] MEDS: ENOXAPARIN SODIUM INJ 100 MG/1 ML DISP.SYRIN SUBCUT SCH (09:00)
[2018-09-25] MEDS: POTASSIUM CHLORIDE 10 MEQ CAPSULE.ER PO SCH (09:02)
[2018-09-25] MEDS: NITROGLYCERIN 5 MG (0.2 MG/HR) PATCH.TD24 TD SCH (09:03)
[2018-09-25] MEDS: LORATADINE 10 MG TABLET PO SCH (09:03)
[2018-09-25] MEDS: MAGNESIUM OXIDE 400 MG TABLET PO SCH (09:03)
[2018-09-25] MEDS ORDERED: DILTIAZEM HCL 120 MG CAP.SR.24H PO SCH (10:00)
[2018-09-25 10:06] VITALS: BP 167/64
== END 2018-09-25 10:45 | disposition home or self-care (01) | DRG 309 ==
LOC: ER 11:39 → EH 15:34 → 3N 17:14
PROVIDERS: ADMIT Internal Medicine; ATTEND Internal Medicine
DX: I48.2 Chronic atrial fibrillation (principal); I13.0 Hypertensive heart and chronic kidney disease with heart failure and stage 1 through stage 4 chronic kidney disease, or unspecified chronic kidney disease; I50.9 Heart failure, unspecified; N18.2 Chronic kidney disease, stage 2 (mild); D64.9 Anemia, unspecified; E11.22 Type 2 diabetes mellitus with diabetic chronic kidney disease; I25.10 Atherosclerotic heart disease of native coronary artery without angina pectoris; E03.9 Hypothyroidism, unspecified; I25.2 Old myocardial infarction; Z95.5 Presence of coronary angioplasty implant and graft; E78.5 Hyperlipidemia, unspecified; F32.9 Major depressive disorder, single episode, unspecified; M19.90 Unspecified osteoarthritis, unspecified site; Z82.49 Family history of ischemic heart disease and other diseases of the circulatory system; Z83.3 Family history of diabetes mellitus; Z79.4 Long term (current) use of insulin; Z79.82 Long term (current) use of aspirin; Z79.899 Other long term (current) drug therapy; Z88.1 Allergy status to other antibiotic agents; Z88.7 Allergy status to serum and vaccine
CPT/HCPCS: 36415; 71045; 80053; 82550; 82553; 82962; 83735; 84484; 85025; 93005; 93010; 99291; J1650; J1815; J3490

== ENCOUNTER 2018-09-26 10:12 | Inpatient (IN) | payer MEDICARE, OTHER ==
--- NOTE | 2018-09-26 10:23 | ER Document Report ---
ED General - General Stated Complaint: CHEST PAIN Time Seen by Provider: 09/26/18 10:23 Primary Care Provider: JESSICA HUBBARD MD [Primary Care Provider] - Follow up as needed TRAVEL OUTSIDE OF THE [place] IN LAST 30 DAYS: No - HPI Patient complains to provider of: Increasing weakness and fatigue Notes: 82-year-old male just discharged from the hospital yesterday presents with symptoms of dull aching chest pain 4/10 with radiation to his left arm. Nothing makes the pain better or worse. Also endorses shortness of breath and palpitations. All the symptoms started acutely this morning. Patient had been feeling better. Patient scheduled to see his assistant business manager at 3:30 PM today per During his hospitalization here he was on a diltiazem drip for 2 days. Return to sinus rhythm. Was discharged home last night on oral diltiazem. This morning patient back in atrial fibrillation causing some discomfort. Patient denies diaphoresis Patient had recent cardiac catheterization at [facility] that was all benign. Patient also states he had a procedure done on his heart block his atrial appendage with a "watchman". Patient did not require echocardiogram to validate no blood clot. Prior to chemical cardioversion. - Related Data Allergies/Adverse Reactions: amoxicillin [Amoxicillin] Allergy (Verified 01/06/18 19:52) amoxicillin trihydrate [From Augmentin XR] Allergy (Verified 01/06/18 19:52) cephalexin monohydrate [From Keflex] Allergy (Verified 01/06/18 19:52) Potassium Clavulanate * [From Augmentin XR] Allergy (Verified 01/06/18 19:52) Tuberculin,Ppd,Multi-Puncture [From Tuberculin PPD Mireya Test] Allergy (Verified 01/06/18 19:52) Past Medical History - Social History Smoking Status: Unknown if Ever Smoked Family History: CAD, DM - Past Medical History Cardiac Medical History: Reports: Hx Atrial Fibrillation, Hx Congestive Heart Failure, Hx Coronary Artery Disease, Hx Heart Attack - x4, Hx Hypercholesterolemia, Hx Hypertension Denies: Hx DVT, Hx Pulmonary Embolism Pulmonary Medical History: Denies: Hx Asthma, Hx Bronchitis, Hx COPD, Hx Pneumonia, Hx Tuberculosis Neurological Medical History: Denies: Hx Seizures Endocrine Medical History: Reports: Hx Diabetes Mellitus Type 1, Hx Diabetes Mellitus Type 2, Hx Hypothyroidism. Denies: Hx Hyperthyroidism Renal/ Medical History: Denies: Hx Peritoneal Dialysis GI Medical History: Denies: Hx Cirrhosis, Hx Gastroesophageal Reflux Disease, Hx Hepatitis Musculoskeletal Medical History: Reports Hx Arthritis Psychiatric Medical History: Reports: Hx Depression Infectious Medical History: Denies: Hx Hepatitis Past Surgical History: Reports: Hx Cardiac Catheterization, Hx Cardiac Surgery - stent x's4, patient had 2 stents on 07/18/2013 at [facility], Hx Coronary Stent - 5, Hx Tonsillectomy - Immunizations Hx Diphtheria, Pertussis, Tetanus Vaccination: Yes Hx Pneumococcal Vaccination: 05/25/13 Review of Systems - Review of Systems Notes: REVIEW OF SYSTEMS: CONSTITUTIONAL: -fevers, -chills EENT: -eye pain, -difficulty swallowing, -nasal congestion CARDIOVASCULAR: positive chest pain, -syncope. RESPIRATORY: -cough, -SOB GASTROINTESTINAL: -abdominal pain, -nausea, -vomiting, -diarrhea GENITOURINARY: -dysuria, -hematuria MUSCULOSKELETAL: -back pain, -neck pain SKIN: -rash or skin lesions. HEMATOLOGIC: -easy bruising or bleeding. LYMPHATIC: -swollen, enlarged glands. NEUROLOGICAL: -altered mental status or loss of consciousness, -headache, -kami rologic symptoms PSYCHIATRIC: -anxiety, -depression. ALL OTHER SYSTEMS REVIEWED AND NEGATIVE. Physical Exam - Vital signs Vitals: Temp BP 98.5 F 157/98 H 09/26/18 10:23 09/26/18 10:23 - Notes Notes: PHYSICAL EXAMINATION: GENERAL: Well-appearing, well-nourished and in no acute distress. HEAD: Atraumatic, normocephalic. EYES: Pupils equal round and reactive to light, extraocular movements intact, sclera anicteric, conjunctiva are normal. ENT: nares patent, oropharynx clear without exudates. Moist mucous membranes. NECK: Normal range of motion, supple without lymphadenopathy LUNGS: Breath sounds clear to auscultation bilaterally and equal. No wheezes rales or rhonchi. HEART: A. fib with RVR ABDOMEN: Soft, nontender, normoactive bowel sounds. No guarding, no rebound. No masses appreciated. EXTREMITIES: Normal range of motion, no pitting or edema. No cyanosis. NEUROLOGICAL: Cranial nerves grossly intact. Normal speech, normal gait. Normal sensory and motor exams. PSYCH: Normal mood, normal affect. SKIN: Warm, Dry, normal turgor, no rashes or lesions noted. Course - Re-evaluation Re-evalutation: 09/26/18 10:48 82-year-old male presents with acute onset of atrial fibrillation with rapid v entricular response. 09/26/18 11:11 Patient is well-appearing no hypoxia. Persistent tachycardia. Consult his assistant business manager Dr. Jessica Hubbard. Discussed case at length with Dr. Bueno regarding his recent hospitalization at [facility]. How the superintendent transmission would not do believe this patient this is probably his eighth episode of A. fib with RVR. Patient also had his sotalol stopped by [facility]. In the decrease his diltiazem. Jose Manuel with cardioversion the patient in our emergency department. Restarting sotalol and increasing diltiazem. reason with this plan. All labs within normal limits patient tolerates procedure well he was city patient is office in approximately 3 hours. 09/26/18 11:42 Attempted cardioversion not successfully converting patient. With Etomidate, observed bedside for approximately 20 minutes until he returns to baseline Dr. Bueno assistant business manager recommends patient will require diltiazem infusion. And should again be started on sotalol prior to discharge and increasing diltiazem to 180 mg daily. Patient will be admitted to the hospital ICU service diltiazem drip A. fib with RVR. ACS rule out 09/26/18 12:39 - Vital Signs Vital signs: Temp Pulse Resp BP Pulse Ox 98.5 F 11 L 150/65 H 98 09/26/18 10:23 09/26/18 12:07 09/26/18 12:07 09/26/18 12:07 - Laboratory Result Diagrams: 09/26/18 10:43 09/26/18 10:43 Laboratory results interpreted by me: 09/26/18 09/26/18 10:43 10:43 RBC 5.83 H RDW 14.7 H Seg Neutrophils % 78.5 H Lymphocytes % 10.5 L BUN 33 H Creatinine 1.77 H Est GFR ( Amer) 45 L Est GFR (Non-Af Amer) 37 L Glucose 218 H - EKG Interpretation by Me Rate: Tachycardia Rhythm: A.Fib Additional EKG results interpreted by me: 09/26/18 10:46 Patient presents A. fib with RVR, no ST elevations or depressions, no pathologic T wave inversions. Procedures - Additional Procedures Cardioversion/Defib Additional Procedures: Cardioversion/defib - Patient given etomidate for anal gesia. Attempted cardioversion with 200 J synchronized. Temporarily returned to sinus rhythm. Patient then returned to A. fib with RVR. Critical Care Note - Critical Care Note Total time excluding time spent on procedures (mins): 73 Discharge - Discharge Clinical Impression: Atrial fibrillation with RVR Chest pain Qualifiers: Chest pain type: other chest pain Qualified Code(s): R07.89 - Other chest pain Condition: Serious Disposition: ADMITTED INPATIENT Admitting Provider: [facility] Unit Admitted: ICU Referrals: JESSICA HUBBARD MD [Primary Care Provider] - Follow up as needed
[2018-09-26] MEDS ORDERED: DILTIAZEM HCL INJ 25 MG/5 ML VIAL IV ONE (10:45)
[2018-09-26 10:52] LABS: ABSOLUTE BASOPHILS # (AUTO) 0.1 10^3/uL (0.0-0.2); ABSOLUTE EOSINOPHILS # (AUTO) 0.1 10^3/uL (0.0-0.6); ABSOLUTE LYMPHOCYTES (AUTO) 0.8 10^3/uL (0.5-4.7); ABSOLUTE MONOCYTES (AUTO) 0.7 10^3/uL (0.1-1.4); ABSOLUTE NEUT (AUTO) 6.2 10^3/uL (1.7-8.2); EOSINOPHILS % (AUTO) 1.6 % (0-6); HEMATOCRIT 48.6 % (37.9-51.0); HEMOGLOBIN 15.9 g/dL (13.5-17.0); LYMPHOCYTES % (AUTO) 10.5 % (13-45); MEAN CORPUSCULAR HEMOGLOBIN 27.3 pg (27.0-33.4); MEAN CORPUSCULAR HGB CONC 32.7 g/dL (32.0-36.0); MEAN CORPUSCULAR VOLUME 83 fl (80-97); MONOCYTES % (AUTO) 8.4 % (3-13); PLATELET COUNT 254 10^3/uL (150-450); RED BLOOD COUNT 5.83 10^6/uL (4.35-5.55); RED CELL DISTRIBUTION WIDTH 14.7 % (11.5-14.0); SEGMENTED NEUTROPHILS % (AUTO) 78.5 % (42-78); TOTAL CELLS COUNTED % (AUTO) 100 %; WHITE BLOOD COUNT 7.9 10^3/uL (4.0-10.5)
[2018-09-26] MEDS ORDERED: ETOMIDATE INJ/PF 20 MG/10 ML SDV IV ONE (11:12)
[2018-09-26 11:19] LABS: ANION GAP 12 (5-19); BLOOD UREA NITROGEN 33 mg/dL (7-20); CALCIUM 9.7 mg/dL (8.4-10.2); CARBON DIOXIDE 27 mmol/L (22-30); CHLORIDE 103 mmol/L (98-107); GLUCOSE 218 mg/dL (75-110); POTASSIUM 4.6 mmol/L (3.6-5.0); SODIUM 141.9 mmol/L (137-145)
[2018-09-26] MEDS ORDERED: NORMAL SALINE 1000 ML 1,000 ML IV ONE (11:26)
[2018-09-26] MEDS ORDERED: SOTALOL HCL 80 MG TABLET PO ONE (11:26)
[2018-09-26] MEDS ORDERED: MORPHINE SULFATE 10 MG/ML INJ ONE (11:39)
[2018-09-26] MEDS ORDERED: DILTIAZEM HCL/D5W 125 MG/125 ML RTUINJ IV ONE (11:39)
[2018-09-26 12:05] LABS: TROPONIN I 0.017 ng/mL
--- NOTE | 2018-09-26 12:13 | RADIOLOGY REPORT (SQ) ---
EXAM DESCRIPTION: CHEST SINGLE VIEW COMPLETED DATE/TIME: 09/26/2018 11:18 am REASON FOR STUDY: chest pain COMPARISON: 09/23/2018 NUMBER OF VIEWS: One view. TECHNIQUE: Single frontal radiographic view of the chest acquired. LIMITATIONS: None. FINDINGS: LUNGS AND PLEURA: Chronic elevation left diaphragm. No opacities, masses or pneumothorax. No pleural effusion. MEDIASTINUM AND HILAR STRUCTURES: No masses. Contour normal. HEART AND VASCULAR STRUCTURES: Heart enlarged without failure. Normal vasculature. BONES: No acute findings. HARDWARE: None in the chest. OTHER: No other significant finding. IMPRESSION: No acute findings in the chest. TECHNICAL DOCUMENTATION: JOB ID: [id number] [employer]- All Rights Reserved Reading location - IP/workstation name: [email or web address]
[2018-09-26] MEDS: DILTIAZEM HCL/D5W 125 MG/125 ML RTUINJ IV PRN (13:14)
--- NOTE | 2018-09-26 16:33 | EKG REPORT ---
SEVERITY:- ABNORMAL ECG - SINUS RHYTHM CONVERTED FROM PA FIB PROBABLE LVH WITH SECONDARY REPOL ABNRM QT = 347MS, QTC IS 385 MS, THIS SERVES BASELINE BEFORE HE RESUMED HIS SOTALOL PO , PT NEEDS TO BE IN HOSP X 3 DAYS FOR CARDIAC MONITORING FOR PAFIB AND ANY PROARRHYTHMIAS, AND FOR DAILY QTC TO MAKE SURE NOT EXCESS WIDENING OF HIS QTC. : Confirmed by: Abel Maldonado MD 26-Sep-2018 16:33:31
--- NOTE | 2018-09-26 16:36 | EKG REPORT ---
SEVERITY:- ABNORMAL ECG - ATRIAL FIBRILLATION LVH WITH SECONDARY REPOLARIZATION ABNORMALITY ST DEPRESSION, PROBABLY RATE RELATED PROLONGED QT INTERVAL : Confirmed by: Abel Maldonado MD 26-Sep-2018 16:35:39
--- NOTE | 2018-09-26 16:40 | PDOC H&P ---
History of Present Illness Admission Date/PCP: 09/26/18 13:01 JESSICA HUBBARD MD Patient complains of: Palpitations. Chest discomfort History of Present Illness: ADELAIDE COOPER JR is a 82 year old male Past Medical History Cardiac Medical History: Reports: Atrial Fibrillation, Congestive Heart Failure, Coronary Artery Disease, Myocardial Infarction - x4, Hyperlipidema, Hypertension Denies: DVT, Pulmonary Embolism Pulmonary Medical History: Denies: Asthma, Bronchitis, Chronic Obstructive Pulmonary Disease (COPD), Pneumonia, Tuberculosis Neurological Medical History: Denies: Seizures Endocrine Medical History: Reports: Diabetes Mellitus Type 1, Diabetes Mellitus Type 2, Hypothyroidism Denies: Hyperthyroidism GI Medical History: Denies: Cirrhosis, Gastroesophageal Reflux Disease, Hepatitis Musculoskeltal Medical History: Reports: Arthritis Psychiatric Medical History: Reports: Depression Hematology: Denies: Anemia Past Surgical History Past Surgical History: Reports: Cardiac Catheterization, Coronary Stent - 5, Tonsillectomy Social History Smoking Status: Unknown if Ever Smoked Frequency of Alcohol Use: None Hx Recreational Drug Use: No Drugs: None Hx Prescription Drug Abuse: No Family History Family History: CAD, DM Parental Family History Reviewed: Yes Children Family History Reviewed: Yes Sibling(s) Family History Reviewed.: Yes Medication/Allergy Home Medications: Aspirin [Ecotrin 81 mg EC Tablet] 81 mg PO DAILY 01/06/18 Ezetimibe [Zetia] 10 mg PO DAILY 01/06/18 Ferrous Sulfate [Feosol] 325 mg PO BID 01/06/18 Insulin Aspart [Novolog Flexpen] 10 units SUBCUT MEALS 01/06/18 Insulin Glargine,Hum.rec.anlog [Lantus Solostar] 30 unit SQ QHS 01/06/18 Levothyroxine Sodium [Synthroid 0.1 mg Tablet] 0.1 mg PO Q6AM 01/06/18 Magnesium Oxide [Mag-Ox 400 mg Tablet] 400 mg PO DAILY 01/06/18 Nitroglycerin [Nitrostat 0.4 mg (1/150 Gr) Tabs 25/Bottle] 1 tab SL Q5MP PRN 01/06/18 Ubidecarenone/Vit E Acet [Co Q-10 100 mg Softgel] 100 mg PO DAILY 01/06/18 Loratadine [Claritin 10 mg Tablet] 10 mg PO DAILY 09/23/18 Nitroglycerin [Nitro-Dur 5 mg (0.2 mg/Hr) Transdermal Patch] 1 patch TD QAM 09/23/18 Pantoprazole Sodium [Protonix [address] Tablet] 40 mg PO QAM 09/23/18 Potassium Chloride [Klor-Con 10 Meq Capsule ER] 10 meq PO DAILY 09/23/18 Torsemide [Demadex 20 mg Tablet] 40 mg PO QAM 09/23/18 Vit A/Vit C/Vit E/Zinc/Copper [Preservision Areds Softgel] 1 each PO DAILY 04/03 Diltiazem HCl [Cardizem Cd 120 mg Capsule] 120 mg PO DAILY #30 cap.sr.24h 09/25/18 Doxycycline Hyclate [Vibramycin 100 mg Tablet] 100 mg PO BID 09/26/18 Sotalol HCl [Betapace 80 mg Tablet] 80 mg PO TID 09/26/18 Allergies/Adverse Reactions: amoxicillin [Amoxicillin] Allergy (Verified 01/06/18 19:52) amoxicillin trihydrate [From Augmentin XR] Allergy (Verified 01/06/18 19:52) cephalexin monohydrate [From Keflex] Allergy (Verified 01/06/18 19:52) Potassium Clavulanate * [From Augmentin XR] Allergy (Verified 01/06/18 19:52) Tuberculin,Ppd,Multi-Puncture [From Tuberculin PPD Mireya Test] Allergy (Verified 01/06/18 19:52) Physical Exam Vital Signs: Temp Pulse Resp BP Pulse Ox 98.5 F 11 L 126/72 H 95 09/26/18 10:23 09/26/18 16:01 09/26/18 16:01 09/26/18 16:01 Intake & Output 09/25/18 09/26/18 09/27/18 06:59 06:59 06:59 Intake Total 1028 Balance 1028 Weight 89 kg General appearance: PRESENT: mild distress Head exam: PRESENT: atraumatic Eye exam: PRESENT: conjunctival injection Neck exam: PRESENT: carotid bruit. ABSENT: JVD Respiratory exam: PRESENT: clear to auscultation erika Cardiovascular exam: PRESENT: irregular rhythm, +S1, +S2, tachycardia GI/Abdominal exam: PRESENT: normal bowel sounds, soft Extremities exam: PRESENT: full ROM Musculoskeletal exam: PRESENT: ambulatory Neurological exam: PRESENT: alert, awake, oriented to person, oriented to place, oriented to time Results Laboratory Results: 09/26/18 10:43 09/26/18 10:43 09/26/18 09/26/18 10:43 10:43 WBC 7.9 RBC 5.83 H Hgb 15.9 Hct 48.6 MCV 83 MCH 27.3 MCHC 32.7 RDW 14.7 H Plt Count 254 Seg Neutrophils % 78.5 H Lymphocytes % 10.5 L Monocytes % 8.4 Eosinophils % 1.6 Basophils % 1.0 Absolute Neutrophils 6.2 Absolute Lymphocytes 0.8 Absolute Monocytes 0.7 Absolute Eosinophils 0.1 Absolute Basophils 0.1 Sodium 141.9 Potassium 4.6 Chloride 103 Carbon Dioxide 27 Anion Gap 12 BUN 33 H Creatinine 1.77 H Est GFR ( Amer) 45 L Est GFR (Non-Af Amer) 37 L Glucose 218 H Calcium 9.7 09/26/18 09/26/18 10:25 15:11 Troponin I 0.017 0.051 NT-Pro-B Natriuret Pep 448 Impressions: Chest X-Ray 09/26/18 10:35 IMPRESSION: No acute findings in the chest. Assessment & Plan - Diagnosis (1) Atrial fibrillation with RVR Is this a current diagnosis for this admission?: Yes Plan: Will restart the Cardizem drip. We will consider restarting sotalol and possibly Cardizem (2) Chest pain Qualifiers: Chest pain type: other chest pain Qualified Code(s): R07.89 - Other chest pain; R07.8 - Other chest pain Is this a current diagnosis for this admission?: Yes Plan: Most probably related to rapid A. fib. I expect cardiac enzymes to be slightly elevated. The patient is status post cardiac catheterization which did not show any critical lesions 1 week out (3) CKD (chronic kidney disease) stage 2, GFR 60-89 ml/min Is this a current diagnosis for this admission?: Yes Plan: Continue current medication (4) Diabetes mellitus type 2 with complications Qualifiers: Is this a current diagnosis for this admission?: Yes Plan: Continue current medication
[2018-09-26] MEDS ORDERED: (PENDING PHARMACY ID) (Insulin Aspart [Novolog Flexpen] 10 UNITS) SUBCUT SCH (17:00)
[2018-09-26] MEDS: INSULIN LISPRO 100 UNIT/ML 3 ML VIAL SUBCUT SCH (18:33)
[2018-09-26] MEDS: FERROUS SULFATE 325 MG TABLET PO SCH (18:36)
[2018-09-26] MEDS ORDERED: DEXTROSE 40% GEL 15 GM TUBE PO PRN ×2 (21:03)
[2018-09-26] MEDS ORDERED: GLUCAGON,HUMAN RECOMB 1 MG INJ IM PRN (21:03)
[2018-09-26] MEDS ORDERED: DEXTROSE 50%-WATER 25 GM/50 ML DISP.SYRIN IV PRN ×2 (21:03)
[2018-09-26] MEDS ORDERED: INSULIN GLARGINE,HUM.REC.ANLOG 1,000 UNIT/10 ML VIAL SUBCUT SCH (22:00)
[2018-09-26] MEDS ORDERED: INSULIN GLARGINE HUM REC ANLOG 30 UNIT SQ SCH (22:00)
[2018-09-26] MEDS: ENOXAPARIN SODIUM INJ 100 MG/1 ML DISP.SYRIN SUBCUT SCH (22:46)
[2018-09-26] MEDS: NITROGLYCERIN 0.4 MG/TAB 25 TAB/BOTTLE SL PRN ×3 (23:27→23:39)
[2018-09-27] MEDS ORDERED: NITROGLYCERIN 2% OINTMENT 1 GM PACKET ONE
[2018-09-27] MEDS ORDERED: NITROGLYCERIN 2% OINTMENT 1 GM PACKET TP ONE (00:15)
[2018-09-27] MEDS ORDERED: MORPHINE SULFATE 10 MG/ML INJ IV PRN ×4 (00:23→00:24)
[2018-09-27 01:23] LABS: ANION GAP 10 (5-19); BLOOD UREA NITROGEN 30 mg/dL (7-20); CARBON DIOXIDE 25 mmol/L (22-30); CHLORIDE 104 mmol/L (98-107); CREATINE KINASE 46 U/L (55-170); GLUCOSE 113 mg/dL (75-110); POTASSIUM 4.2 mmol/L (3.6-5.0); SODIUM 139.1 mmol/L (137-145)
[2018-09-27 01:33] LABS: CREATINE KINASE MB 2.98 ng/mL (<4.55); TROPONIN I 0.057 ng/mL
[2018-09-27] MEDS: DILTIAZEM HCL/D5W 125 MG/125 ML RTUINJ IV PRN (03:26)
[2018-09-27 05:52] LABS: HEMOGLOBIN 14.6 g/dL (13.5-17.0); MEAN CORPUSCULAR HEMOGLOBIN 27.1 pg (27.0-33.4); MEAN CORPUSCULAR HGB CONC 32.4 g/dL (32.0-36.0); MEAN CORPUSCULAR VOLUME 84 fl (80-97); PLATELET COUNT 241 10^3/uL (150-450); RED BLOOD COUNT 5.39 10^6/uL (4.35-5.55); RED CELL DISTRIBUTION WIDTH 14.8 % (11.5-14.0); WHITE BLOOD COUNT 7.8 10^3/uL (4.0-10.5)
[2018-09-27] MEDS ORDERED: LEVOTHYROXINE SODIUM 0.1 MG TABLET PO SCH (06:00)
[2018-09-27] MEDS: INSULIN LISPRO 100 UNIT/ML 3 ML VIAL SUBCUT SCH ×3 (07:16→16:17)
--- NOTE | 2018-09-27 07:41 | EKG REPORT ---
SEVERITY:- ABNORMAL ECG - ATRIAL FIBRILLATION, RECURRENCE. RVR. PROBABLE POSTERIOR INFARCT NONSPECIFIC T ABNORMALITIES, LATERAL LEADS BORDERLINE PROLONGED QT INTERVAL QT = 354MS, QTC =496MS : Confirmed by: Abel Maldonado MD 27-Sep-2018 07:40:57
--- NOTE | 2018-09-27 07:43 | EKG REPORT ---
SEVERITY:- ABNORMAL ECG - SINUS RHYTHM , CONVERTED FROM PA FIB NONSPECIFIC T ABNORMALITIES, DIFFUSE LEADS QTC 414MS : Confirmed by: Abel Maldonado MD 27-Sep-2018 07:43:17
[2018-09-27] MEDS ORDERED: NITROGLYCERIN 5 MG (0.2 MG/HR) PATCH.TD24 TD SCH ×2 (08:00)
[2018-09-27] MEDS ORDERED: PANTOPRAZOLE SODIUM 40 MG TABLET.DR PO SCH (08:00)
[2018-09-27] MEDS ORDERED: TORSEMIDE 20 MG TABLET PO SCH (08:00)
[2018-09-27 08:05] LABS: APPEARANCE,URINE CLEAR; BILIRUBIN,URINE NEGATIVE (NEGATIVE); COLOR,URINE STRAW; GLUCOSE, URINE NEGATIVE (NEGATIVE); KETONES,URINE NEGATIVE (NEGATIVE); LEUKOCYTE ESTERASE,URINE NEGATIVE (NEGATIVE); NITRITE,URINE NEGATIVE (NEGATIVE); PROTEIN,URINE 30 mg/dL (NEGATIVE); URINE SPECIFIC GRAVITY 1.009; UROBILINOGEN,URINE NEGATIVE mg/dL (<2.0)
--- NOTE | 2018-09-27 08:32 | PDOC PROGRESS REPORT ---
Subjective Progress Note for:: 09/27/18 Subjective:: The patient states to feel better. He denies any further palpitations or chest discomfort. His cardiac enzymes are trending down. Discussed with Dr. Maldonado who is making arrangements for the patient to be transferred to [place] for possible ablation. He has suggested that we will place patient on Cardizem p.o. and back on sotalol which he was on prior to his symptomatic bradycardia. Reason For Visit: AFAB WITH RVR,CHEST PAIN Physical Exam Vital Signs: Temp Pulse Resp BP Pulse Ox 98.1 F 76 20 141/67 H 95 09/27/18 03:07 09/27/18 06:51 09/27/18 03:07 09/27/18 06:00 09/27/18 03:07 Intake & Output 09/26/18 09/27/18 09/28/18 06:59 06:59 06:59 Intake Total 1787 Output Total 250 Balance 1537 Weight 85.7 kg General appearance: PRESENT: mild distress Head exam: PRESENT: atraumatic Eye exam: PRESENT: conjunctival injection Neck exam: PRESENT: carotid bruit. ABSENT: JVD Respiratory exam: PRESENT: clear to auscultation erika Cardiovascular exam: PRESENT: RRR, +S1, +S2, systolic murmur GI/Abdominal exam: PRESENT: normal bowel sounds, soft Extremities exam: PRESENT: full ROM Musculoskeletal exam: PRESENT: ambulatory Neurological exam: PRESENT: alert, awake, oriented to person, oriented to place, oriented to time Results Laboratory Results: 09/27/18 05:27 09/27/18 00:40 09/26/18 09/26/18 09/26/18 10:43 10:43 14:47 WBC 7.9 RBC 5.83 H Hgb 15.9 Hct 48.6 MCV 83 MCH 27.3 MCHC 32.7 RDW 14.7 H Plt Count 254 Seg Neutrophils % 78.5 H Lymphocytes % 10.5 L Monocytes % 8.4 Eosinophils % 1.6 Basophils % 1.0 Absolute Neutrophils 6.2 Absolute Lymphocytes 0.8 Absolute Monocytes 0.7 Absolute Eosinophils 0.1 Absolute Basophils 0.1 Sodium 141.9 Potassium 4.6 Chloride 103 Carbon Dioxide 27 Anion Gap 12 BUN 33 H Creatinine 1.77 H Est GFR ( Amer) 45 L Est GFR (Non-Af Amer) 37 L Glucose 218 H Calcium 9.7 Urine Color STRAW Urine Appearance CLEAR Urine pH 5.0 Ur Specific [place] 1.009 Urine Protein 30 H Urine Glucose (UA) NEGATIVE Urine Ketones NEGATIVE Urine Blood NEGATIVE Urine Nitrite NEGATIVE Ur Leukocyte Esterase NEGATIVE Urine WBC (Auto) 1 Urine RBC (Auto) 1 09/27/18 09/27/18 00:40 05:27 WBC 7.8 RBC 5.39 Hgb 14.6 Hct 45.0 MCV 84 MCH 27.1 MCHC 32.4 RDW 14.8 H Plt Count 241 Seg Neutrophils % Lymphocytes % Monocytes % Eosinophils % Basophils % Absolute Neutrophils Absolute Lymphocytes Absolute Monocytes Absolute Eosinophils Absolute Basophils Sodium 139.1 Potassium 4.2 Chloride 104 Carbon Dioxide 25 Anion Gap 10 BUN 30 H Creatinine 1.66 H Est GFR ( Amer) 48 L Est GFR (Non-Af Amer) 40 L Glucose 113 H Calcium 9.0 Urine Color Urine Appearance Urine pH Ur Specific Alna Urine Protein Urine Glucose (UA) Urine Ketones Urine Blood Urine Nitrite Ur Leukocyte Esterase Urine WBC (Auto) Urine RBC (Auto) 09/26/18 09/26/18 09/26/18 10:25 15:11 20:45 Creatine Kinase CK-MB (CK-2) Troponin I 0.017 0.051 0.069 NT-Pro-B Natriuret Pep 448 09/27/18 09/27/18 09/27/18 00:40 00:40 05:27 Creatine Kinase 46 L CK-MB (CK-2) 2.98 Troponin I 0.057 0.047 NT-Pro-B Natriuret Pep 851 H Impressions: Chest X-Ray 09/26/18 10:35 IMPRESSION: No acute findings in the chest. Assessment & Plan - Diagnosis (1) Atrial fibrillation with RVR Is this a current diagnosis for this admission?: Yes Plan: Converted to normal sinus rhythm. Will start Cardizem p.o. and restart sotalol (2) Chest pain Qualifiers: Chest pain type: other chest pain Qualified Code(s): R07.89 - Other chest pain; R07.8 - Other chest pain Is this a current diagnosis for this admission?: Yes Plan: Most probably related to rapid A. fib which has resolved. Cardiac enzymes are trending down (3) CKD (chronic kidney disease) stage 2, GFR 60-89 ml/min Is this a current diagnosis for this admission?: Yes Plan: Stable continue current treatment (4) Diabetes mellitus type 2 with complications Qualifiers: Is this a current diagnosis for this admission?: Yes Plan: Stable continue current treatment
[2018-09-27] MEDS: FERROUS SULFATE 325 MG TABLET PO SCH ×2 (09:49→17:27)
[2018-09-27] MEDS: ENOXAPARIN SODIUM INJ 100 MG/1 ML DISP.SYRIN SUBCUT SCH (09:50)
[2018-09-27] MEDS ORDERED: MAGNESIUM OXIDE 400 MG TABLET PO SCH (10:00)
[2018-09-27] MEDS ORDERED: LORATADINE 10 MG TABLET PO SCH (10:00)
[2018-09-27] MEDS ORDERED: POTASSIUM CHLORIDE 10 MEQ CAPSULE.ER PO SCH (10:00)
[2018-09-27] MEDS ORDERED: DILTIAZEM HCL 180 MG CAPSULE.CR PO SCH (10:00)
[2018-09-27] MEDS ORDERED: ASPIRIN 81 MG TABLET, ENT COATED PO SCH (10:00)
[2018-09-27] MEDS ORDERED: EZETIMIBE 10 MG TABLET PO SCH (10:00)
[2018-09-27] MEDS ORDERED: SOTALOL HCL 80 MG TABLET PO SCH (10:00)
[2018-09-27] MEDS: METOPROLOL TARTRATE 25 MG TABLET PO SCH ×2 (10:35→15:16)
--- NOTE | 2018-09-27 14:06 | PDOC DISCHARGE SUMMARY ---
General - Admit/Disc Date/PCP Admission Date/Primary Care Provider: 09/26/18 13:01 JESSICA HUBBARD MD Discharge Date: 09/27/18 - Discharge Diagnosis (1) Atrial fibrillation with RVR Is this a current diagnosis for this admission?: Yes Summary: Patient is being transferred to [place] for possible ablation as suggested by cardiology (2) Chest pain Is this a current diagnosis for this admission?: Yes Summary: Resolved with cardiac enzymes trending down most probably related to A. fib with RVR (3) CKD (chronic kidney disease) stage 2, GFR 60-89 ml/min Is this a current diagnosis for this admission?: Yes Summary: Stable continue current medication (4) Diabetes mellitus type 2 with complications Is this a current diagnosis for this admission?: Yes Summary: Stable continue current treatment (5) HLD (hyperlipidemia) Is this a current diagnosis for this admission?: Yes Summary: Continue current treatment (6) Hypothyroid Is this a current diagnosis for this admission?: Yes Summary: Continue current treatment (7) Stented coronary artery Is this a current diagnosis for this admission?: Yes Summary: Continue current medications (8) 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 Is this a current diagnosis for this admission?: Yes Summary: The patient will need an intervention because he cannot tolerate blood thinners due to angiodysplasia and upper GI bleed - Additional Information Discharge Diet: Cardiac, Diabetic Discharge Activity: Activity As Tolerated Home Medications: Aspirin [Ecotrin 81 mg EC Tablet] 81 mg PO DAILY 01/06/18 Ezetimibe [Zetia] 10 mg PO DAILY 01/06/18 Ferrous Sulfate [Feosol] 325 mg PO BID 01/06/18 Insulin Aspart [Novolog Flexpen] 10 units SUBCUT MEALS 01/06/18 Insulin Glargine,Hum.rec.anlog [Lantus Solostar] 30 unit SQ QHS 01/06/18 Levothyroxine Sodium [Synthroid 0.1 mg Tablet] 0.1 mg PO Q6AM 01/06/18 Magnesium Oxide [Mag-Ox 400 mg Tablet] 400 mg PO DAILY 01/06/18 Nitroglycerin [Nitrostat 0.4 mg (1/150 Gr) Tabs 25/Bottle] 1 tab SL Q5MP PRN 01/06/18 Ubidecarenone/Vit E Acet [Co Q-10 100 mg Softgel] 100 mg PO DAILY 01/06/18 Loratadine [Claritin 10 mg Tablet] 10 mg PO DAILY 09/23/18 Nitroglycerin [Nitro-Dur 5 mg (0.2 mg/Hr) Transdermal Patch] 1 patch TD QAM 09/23/18 Pantoprazole Sodium [Protonix [address] Tablet] 40 mg PO QAM 09/23/18 Potassium Chloride [Klor-Con 10 Meq Capsule ER] 10 meq PO DAILY 09/23/18 Torsemide [Demadex 20 mg Tablet] 40 mg PO QAM 09/23/18 Vit A/Vit C/Vit E/Zinc/Copper [Preservision Areds Softgel] 1 each PO DAILY 09/23/18 Diltiazem HCl [Cardizem Cd 120 mg Capsule] 120 mg PO DAILY #30 cap.sr.24h 09/25/18 Doxycycline Hyclate [Vibramycin 100 mg Tablet] 100 mg PO BID 09/26/18 Sotalol HCl [Betapace 80 mg Tablet] 80 mg PO TID 09/26/18 History of Present Illness History of Present Illness: ADELAIDE COOPER JR is a 82 year old male Hospital Course Hospital Course: This is the second admission in 1 week with A. fib with RVR. The patient was evaluated previously and according to the cardiology the patient needs a ablation. The patient has been having recurrent episodes of bradycardia and tachycardia. He usually has chest pains with his RVR and positive troponins. He did quite well after the hospitalization. Unfortunately upon discharge 2 days later he was back in the emergency room with A. fib with RVR and positive troponins. A decision has been made to transfer the patient to [place] for further evaluation and treatment. Case was discussed with cardiology and everybody is in agreement Physical Exam Vital Signs: Temp Pulse Resp BP Pulse Ox 98.3 F 80 20 147/62 H 94 09/27/18 11:16 09/27/18 11:16 09/27/18 11:16 09/27/18 11:16 09/27/18 11:16 Intake & Output 09/26/18 09/27/18 09/28/18 06:59 06:59 06:59 Intake Total 1787 464 Output Total 250 300 Balance 1537 164 Weight 85.7 kg General appearance: PRESENT: mild distress Head exam: PRESENT: atraumatic Eye exam: PRESENT: conjunctival injection Neck exam: PRESENT: carotid bruit. ABSENT: JVD Respiratory exam: PRESENT: clear to auscultation erika Cardiovascular exam: PRESENT: RRR, +S1, +S2 GI/Abdominal exam: PRESENT: normal bowel sounds, soft Extremities exam: PRESENT: full ROM Musculoskeletal exam: PRESENT: ambulatory Results Laboratory Results: 09/27/18 05:27 09/27/18 00:40 09/26/18 09/27/18 09/27/18 14:47 00:40 05:27 WBC 7.8 RBC 5.39 Hgb 14.6 Hct 45.0 MCV 84 MCH 27.1 MCHC 32.4 RDW 14.8 H Plt Count 241 Sodium 139.1 Potassium 4.2 Chloride 104 Carbon Dioxide 25 Anion Gap 10 BUN 30 H Creatinine 1.66 H Est GFR ( Amer) 48 L Est GFR (Non-Af Amer) 40 L Glucose 113 H Calcium 9.0 Urine Color STRAW Urine Appearance CLEAR Urine pH 5.0 Ur Specific [place] 1.009 Urine Protein 30 H Urine Glucose (UA) NEGATIVE Urine Ketones NEGATIVE Urine Blood NEGATIVE Urine Nitrite NEGATIVE Ur Leukocyte Esterase NEGATIVE Urine WBC (Auto) 1 Urine RBC (Auto) 1 09/26/18 09/26/18 09/26/18 10:25 15:11 20:45 Creatine Kinase CK-MB (CK-2) Troponin I 0.017 0.051 0.069 NT-Pro-B Natriuret Pep 448 09/27/18 09/27/18 09/27/18 00:40 00:40 05:27 Creatine Kinase 46 L CK-MB (CK-2) 2.98 Troponin I 0.057 0.047 NT-Pro-B Natriuret Pep 851 H 09/27/18 12:50 Creatine Kinase CK-MB (CK-2) Troponin I 0.033 NT-Pro-B Natriuret Pep Impressions: Chest X-Ray 09/26/18 10:35 IMPRESSION: No acute findings in the chest. Qualifiers - * PATIENT BEING DISCHARGED WITH ANY OF THE FOLLOWING DIAGNOSIS: No Acute Heart Failure Is this a Heart Failure Patient?: No
[2018-09-27 23:02] VITALS: BP 146/55
== END 2018-09-27 21:28 | disposition short-term general hospital (02) | DRG 308 ==
LOC: ER 10:12 → EH 13:01 → 3S 18:52
PROVIDERS: ADMIT Internal Medicine; ATTEND Internal Medicine
PROC: 5A2204Z Restoration of Cardiac Rhythm, Single (ICD-10-PCS; principal; 2018-09-26)
DX: I48.91 Unspecified atrial fibrillation (principal); K55.21 Angiodysplasia of colon with hemorrhage; I13.0 Hypertensive heart and chronic kidney disease with heart failure and stage 1 through stage 4 chronic kidney disease, or unspecified chronic kidney disease; E11.22 Type 2 diabetes mellitus with diabetic chronic kidney disease; I50.9 Heart failure, unspecified; N18.2 Chronic kidney disease, stage 2 (mild); E78.5 Hyperlipidemia, unspecified; E03.9 Hypothyroidism, unspecified; I25.10 Atherosclerotic heart disease of native coronary artery without angina pectoris; M19.90 Unspecified osteoarthritis, unspecified site; F32.9 Major depressive disorder, single episode, unspecified; Z95.5 Presence of coronary angioplasty implant and graft; Z79.82 Long term (current) use of aspirin; Z79.4 Long term (current) use of insulin; I25.2 Old myocardial infarction; Z88.1 Allergy status to other antibiotic agents; Z88.0 Allergy status to penicillin; Z88.7 Allergy status to serum and vaccine; Z83.3 Family history of diabetes mellitus; Z82.49 Family history of ischemic heart disease and other diseases of the circulatory system
CPT/HCPCS: 36415; 71045; 80048; 80076; 81001; 82550; 82553; 82962; 83735; 83880; 84484; 85025; 85027; 93005; 93010; 96361; 96374; 96375; 99291; J1650; J1815; J2270; J3490; J7030

== ENCOUNTER → 2018-09-26 | Outpatient (CLI) | payer MEDICARE, OTHER ==
[2018-09-26 08:10] LABS: ALANINE AMINOTRANSFERASE 29 U/L (21-72); ALBUMIN 3.6 g/dL (3.5-5.0); ALKALINE PHOSPHATASE 76 U/L (38-126); ANION GAP 12 (5-19); ASPARTATE AMINO TRANSFERASE 33 U/L (17-59); BILIRUBIN,DIRECT 0.3 mg/dL (0.0-0.4); BILIRUBIN,TOTAL 0.8 mg/dL (0.2-1.3); BLOOD UREA NITROGEN 33 mg/dL (7-20); CALCIUM 9.4 mg/dL (8.4-10.2); CARBON DIOXIDE 29 mmol/L (22-30); CHLORIDE 102 mmol/L (98-107); GLUCOSE 132 mg/dL (75-110); POTASSIUM 4.7 mmol/L (3.6-5.0); SODIUM 143.1 mmol/L (137-145); TOTAL PROTEIN 6.6 g/dL (6.3-8.2)
== END ==
LOC: LAB 07:14
PROVIDERS: ATTEND Internal Medicine Cardiovascular Disease
DX: I48.0 Paroxysmal atrial fibrillation (principal); Z79.899 Other long term (current) drug therapy
CPT/HCPCS: 36415; 80048; 80076; 83735

== ENCOUNTER → 2018-10-06 | Outpatient (CLI) | payer MEDICARE, OTHER ==
[2018-10-06 11:29] LABS: ANION GAP 11 (5-19); BLOOD UREA NITROGEN 36 mg/dL (7-20); CALCIUM 9.3 mg/dL (8.4-10.2); CARBON DIOXIDE 30 mmol/L (22-30); CHLORIDE 103 mmol/L (98-107); GLUCOSE 121 mg/dL (75-110); POTASSIUM 4.6 mmol/L (3.6-5.0); SODIUM 143.9 mmol/L (137-145)
== END ==
LOC: OD 10:30
PROVIDERS: ATTEND Internal Medicine
DX: N19 Unspecified kidney failure (principal); E83.42 Hypomagnesemia
CPT/HCPCS: 36415; 80048; 83735

== ENCOUNTER → 2018-10-28 | Outpatient (CLI) | payer MEDICARE, OTHER ==
[2018-10-28 09:09] LABS: HEMATOCRIT 40.1 % (37.9-51.0); HEMOGLOBIN 13.1 g/dL (13.5-17.0); MEAN CORPUSCULAR HEMOGLOBIN 26.9 pg (27.0-33.4); MEAN CORPUSCULAR HGB CONC 32.8 g/dL (32.0-36.0); MEAN CORPUSCULAR VOLUME 82 fl (80-97); PLATELET COUNT 264 10^3/uL (150-450); RED BLOOD COUNT 4.89 10^6/uL (4.35-5.55); RED CELL DISTRIBUTION WIDTH 15.7 % (11.5-14.0); WHITE BLOOD COUNT 6.9 10^3/uL (4.0-10.5)
[2018-10-28 09:26] LABS: ALANINE AMINOTRANSFERASE 20 U/L (21-72); ALBUMIN 3.5 g/dL (3.5-5.0); ALKALINE PHOSPHATASE 73 U/L (38-126); ANION GAP 9 (5-19); ASPARTATE AMINO TRANSFERASE 20 U/L (17-59); BILIRUBIN,DIRECT 0.3 mg/dL (0.0-0.4); BILIRUBIN,TOTAL 0.7 mg/dL (0.2-1.3); BLOOD UREA NITROGEN 32 mg/dL (7-20); CALCIUM 9.3 mg/dL (8.4-10.2); CARBON DIOXIDE 32 mmol/L (22-30); CHLORIDE 101 mmol/L (98-107); CHOLESTEROL 128.89 mg/dL (0-200); GLUCOSE 130 mg/dL (75-110); POTASSIUM 4.9 mmol/L (3.6-5.0); TOTAL PROTEIN 6.3 g/dL (6.3-8.2); TRIGLYCERIDES 184 mg/dL (<150)
[2018-10-28 09:37] LABS: DIRECT LDL 69 mg/dL (<100)
[2018-10-28 09:38] LABS: VLDL CHOLESTEROL 36.8 mg/dL (10-31)
== END ==
LOC: LAB 08:09
PROVIDERS: ATTEND Internal Medicine Cardiovascular Disease
DX: K92.2 Gastrointestinal hemorrhage, unspecified (principal); I35.0 Nonrheumatic aortic (valve) stenosis; N18.9 Chronic kidney disease, unspecified; I48.0 Paroxysmal atrial fibrillation; R06.02 Shortness of breath; E78.2 Mixed hyperlipidemia; R94.5 Abnormal results of liver function studies
CPT/HCPCS: 36415; 80048; 80061; 80076; 83735; 83880; 84443; 85027

== ENCOUNTER 2018-12-06 09:17 | Emergency (ER) | payer MEDICARE, OTHER ==
--- NOTE | 2018-12-06 09:56 | ER Document Report ---
ED Medical Screen (RME) - General Chief Complaint: Chest Pain Stated Complaint: CHEST PAIN Time Seen by Provider: 12/06/18 09:53 Primary Care Provider: JESSICA HUBBARD MD [Primary Care Provider] - Follow up as needed Mode of Arrival: Wheelchair Information source: Patient Notes: 83-year-old male presented to ED for complaint of chest pain since last night. He has a history of [place] x4 cardiac cath, cardiac stents times 5 aortic valve replacement October 17, 2018 atrial fib and has a watchman filter. He is alert oriented respirations regular and unlabored speaking in full sentences. He states he is continuing to have pain. He states he is not allowed aspirin due to his aortic valve replacement. I have greeted and performed a rapid initial assessment of this patient. A comprehensive ED assessment and evaluation of the patient, analysis of test results and completion of medical decision making process will be conducted by an additional ED providers. Dictation of this chart was performed using voice recognition software; therefore, there may be some unintended grammatical errors. TRAVEL OUTSIDE OF THE [place] IN LAST 30 DAYS: No - Related Data Allergies/Adverse Reactions: amoxicillin [Amoxicillin] Allergy (Verified 01/06/18 19:52) amoxicillin trihydrate [From Augmentin XR] Allergy (Verified 01/06/18 19:52) cephalexin monohydrate [From Keflex] Allergy (Verified 01/06/18 19:52) Potassium Clavulanate * [From Augmentin XR] Allergy (Verified 01/06/18 19:52) Tuberculin,Ppd,Multi-Puncture [From Tuberculin PPD Mireya Test] Allergy (Verified 01/06/18 19:52) Past Medical History - Past Medical History Cardiac Medical History: Reports: Hx Atrial Fibrillation, Hx Congestive Heart Failure, Hx Coronary Artery Disease, Hx Heart Attack - x4, Hx Hypercholesterolemia, Hx Hypertension Denies: Hx DVT, Hx Pulmonary Embolism Pulmonary Medical History: Denies: Hx Asthma, Hx Bronchitis, Hx COPD, Hx Pneumonia, Hx Tuberculosis Neurological Medical History: Denies: Hx Seizures Endocrine Medical History: Reports: Hx Diabetes Mellitus Type 1, Hx Diabetes Mellitus Type 2, Hx Hypothyroidism. Denies: Hx Hyperthyroidism Renal/ Medical History: Denies: Hx Peritoneal Dialysis GI Medical History: Denies: Hx Cirrhosis, Hx Gastroesophageal Reflux Disease, Hx Hepatitis Musculoskeltal Medical History: Reports Hx Arthritis Psychiatric Medical History: Reports: Hx Depression Infectious Medical History: Denies: Hx Hepatitis Past Surgical History: Reports: Hx Cardiac Catheterization, Hx Cardiac Surgery - stent x's4, patient had 2 stents on 07/18/2013 at [facility], Hx Coronary Stent - 5, Hx Tonsillectomy - Immunizations Hx Diphtheria, Pertussis, Tetanus Vaccination: Yes History of Influenza Vaccine for 02/2017 - 07/2017 Season: Yes Influenza Administration Date for 02/2017 - 07/2017 Season: 02/13/17 Physical Exam - Vital signs Vitals: Temp Pulse Resp BP Pulse Ox 98.2 F 56 L 18 188/64 H 96 12/06/18 09:35 12/06/18 09:35 12/06/18 09:35 12/06/18 09:35 12/06/18 09:35 Course - Vital Signs Vital signs: Temp Pulse Resp BP Pulse Ox 98.2 F 56 L 18 188/64 H 96 12/06/18 09:35 12/06/18 09:35 12/06/18 09:35 12/06/18 09:35 12/06/18 09:35 Doctor's Discharge - Discharge Referrals: JESSICA HUBBARD MD [Primary Care Provider] - Follow up as needed
[2018-12-06 11:08] LABS: ABSOLUTE BASOPHILS # (AUTO) 0.1 10^3/uL (0.0-0.2); ABSOLUTE EOSINOPHILS # (AUTO) 0.1 10^3/uL (0.0-0.6); ABSOLUTE LYMPHOCYTES (AUTO) 0.9 10^3/uL (0.5-4.7); ABSOLUTE MONOCYTES (AUTO) 0.6 10^3/uL (0.1-1.4); ABSOLUTE NEUT (AUTO) 5.2 10^3/uL (1.7-8.2); EOSINOPHILS % (AUTO) 1.6 % (0-6); HEMATOCRIT 40.6 % (37.9-51.0); HEMOGLOBIN 13.2 g/dL (13.5-17.0); LYMPHOCYTES % (AUTO) 12.6 % (13-45); MEAN CORPUSCULAR HEMOGLOBIN 26.6 pg (27.0-33.4); MEAN CORPUSCULAR HGB CONC 32.4 g/dL (32.0-36.0); MEAN CORPUSCULAR VOLUME 82 fl (80-97); MONOCYTES % (AUTO) 8.5 % (3-13); PLATELET COUNT 234 10^3/uL (150-450); RED BLOOD COUNT 4.96 10^6/uL (4.35-5.55); SEGMENTED NEUTROPHILS % (AUTO) 76.3 % (42-78); TOTAL CELLS COUNTED % (AUTO) 100 %; WHITE BLOOD COUNT 6.9 10^3/uL (4.0-10.5)
[2018-12-06 11:15] LABS: PARTIAL THROMBOPLASTIN TIME 30.9 SEC (23.5-35.8); PROTHROMBIN TIME 13.2 SEC (11.4-15.4)
[2018-12-06 11:24] LABS: ALANINE AMINOTRANSFERASE 22 U/L (21-72); ALKALINE PHOSPHATASE 65 U/L (38-126); ANION GAP 8 (5-19); ASPARTATE AMINO TRANSFERASE 32 U/L (17-59); BILIRUBIN,DIRECT 0.3 mg/dL (0.0-0.4); BILIRUBIN,TOTAL 0.7 mg/dL (0.2-1.3); BLOOD UREA NITROGEN 47 mg/dL (7-20); CALCIUM 9.3 mg/dL (8.4-10.2); CARBON DIOXIDE 31 mmol/L (22-30); CHLORIDE 101 mmol/L (98-107); CREATINE KINASE 86 U/L (55-170); GLUCOSE 111 mg/dL (75-110); POTASSIUM 4.8 mmol/L (3.6-5.0); TOTAL PROTEIN 6.8 g/dL (6.3-8.2)
[2018-12-06 11:37] LABS: CREATINE KINASE MB 2.82 ng/mL (<4.55)
[2018-12-06 11:45] LABS: TROPONIN I < 0.012 ng/mL
--- NOTE | 2018-12-06 11:58 | RADIOLOGY REPORT (SQ) ---
EXAM DESCRIPTION: CHEST 2 VIEWS COMPLETED DATE/TIME: 12/06/2018 11:50 am REASON FOR STUDY: Chest pain history of CO x4 COMPARISON: 09/26/2018 EXAM PARAMETERS: NUMBER OF VIEWS: two views TECHNIQUE: Digital Frontal and Lateral radiographic views of the chest acquired. RADIATION DOSE: NA LIMITATIONS: none FINDINGS: LUNGS AND PLEURA: No opacities, masses or pneumothorax. No pleural effusion. MEDIASTINUM AND HILAR STRUCTURES: No masses or contour abnormalities. HEART AND VASCULAR STRUCTURES: Heart normal size. No evidence for failure. Aortic atherosclerosis. BONES: No acute findings. HARDWARE: None in the chest. OTHER: No other significant finding. IMPRESSION: NO ACUTE RADIOGRAPHIC FINDING IN THE CHEST. TECHNICAL DOCUMENTATION: JOB ID: [id number] [employer]- All Rights Reserved Reading location - IP/workstation name: [email or web address]
[2018-12-06] MEDS ORDERED: NORMAL SALINE 1000 ML 1,000 ML IV ONE (13:05)
--- NOTE | 2018-12-06 14:20 | RADIOLOGY REPORT (SQ) ---
EXAM DESCRIPTION: CTA CHEST COMPLETED DATE/TIME: 12/06/2018 1:58 pm REASON FOR STUDY: Right sided chest pain with elevated d-dimer COMPARISON: None. TECHNIQUE: CT scan of the chest performed using helical scanning technique with dynamic intravenous contrast injection. Images reviewed with lung, soft tissue and bone windows. Reconstructed coronal and sagittal MPR images reviewed. Additional 3 dimensional post-processing performed to develop Maximal Intensity Projection images (KS P). All images stored on PACS. All CT scanners at this facility use dose modulation, iterative reconstruction, and/or weight based d osing when appropriate to reduce radiation dose to as low as reasonably achievable (ALARA). [facility]: Dose Right [facility]: CareDose [facility]: Dose Right [facility]: Teradose 4D [facility]: [employer] CONTRAST TYPE AND DOSE: contrast/concentration: Omnipaque 300 mg/ml; Total Contrast Delivered: 62.0 ml; Total Saline Delivered: 80.0 ml Contrast bolus adequate for pulmonary arteries and aorta. RENAL FUNCTION: BUN 47 creatinine 1.7 RADIATION DOSE: CT Rad equipment meets quality standard of care and radiation dose reduction techniq ues were employed. CTDIvol: 9.9 - 17.8 mGy. DLP: 586 mGy-cm. . LIMITATIONS: None. FINDINGS: LUNGS AND PLEURA: Mild linear atelectasis in the lower lobes. No masses, infiltrates, or effusions. AORTA AND GREAT VESSELS: No aneurysm. No dissection. HEART: No pericardial effusion. Moderate to marked coronary artery calcifications. PULMONARY ARTERIES: No emboli visualized in the main pulmonary arteries or the segmental branches. HILAR AND MEDIASTINAL STRUCTURES: No identified masses or abnormal nodes. HARDWARE: Heart valve. UPPER ABDOMEN: No significant findings. Limited exam. THYROID AND OTHER SOFT TISSUES: No masses. No adenopathy. BONES: No acute or significant finding. 3D MIPS: Confirm above findings. OTHER: No other significant finding. IMPRESSION: There is no evidence of pulmonary emboli. There is no aortic aneurysm or dissection. COMMENT: Quality ID # [id number]: Final reports with documentation of one or more dose reduction techniques (e.g., Automated exposure control, adjustment of the mA and/or kV according to patient size, use of iterative reconstruction technique) TECHNICAL DOCUMENTATION: JOB ID: [id number] [employer]- All Rights Reserved Reading location - IP/workstation name: [email or web address]
--- NOTE | 2018-12-06 14:22 | ER Document Report ---
Entered by TONY ROACH SCRIBE 12/06/18 1258 Acting as scribe for:ALBIN GASTELUM MD ED General - General Chief Complaint: Chest Pain Stated Complaint: CHEST PAIN Time Seen by Provider: 12/06/18 09:53 Primary Care Provider: JESSICA HUBBARD MD [Primary Care Provider] - Follow up as needed Mode of Arrival: Wheelchair Information source: Patient Notes: Patient is an 83-year-old male that presents to the emergency department today with complaints of chest pain which began last night around 2230. Patient states the chest pain is sharp in nature stating that it comes and goes. Patient states when the pain sets in it would last for 5-10 minutes and then he remained pain-free for approximately 10-15 minutes. Patient states he has not had any chest pain since arriving here. Patient states he did notice that his pain seemed to be exacerbated when he turned his body to the right. TRAVEL OUTSIDE OF THE [place] IN LAST 30 DAYS: No - Related Data Allergies/Adverse Reactions: amoxicillin [Amoxicillin] Allergy (Verified 01/06/18 19:52) amoxicillin trihydrate [From Augmentin XR] Allergy (Verified 01/06/18 19:52) cephalexin monohydrate [From Keflex] Allergy (Verified 01/06/18 19:52) Potassium Clavulanate * [From Augmentin XR] Allergy (Verified 01/06/18 19:52) Tuberculin,Ppd,Multi-Puncture [From Tuberculin PPD Mireya Test] Allergy (Verified 01/06/18 19:52) Past Medical History - General Information source: Patient - Social History Smoking Status: Unknown if Ever Smoked Cigarette use (# per day): No Frequency of alcohol use: None Drug Abuse: None Family History: Reviewed & Not Pertinent, CAD, DM Patient has suicidal ideation: No Patient has homicidal ideation: No - Past Medical History Cardiac Medical History: Reports: Hx Atrial Fibrillation, Hx Congestive Heart Failure, Hx Coronary Artery Disease, Hx Heart Attack - x4, Hx Hypercholesterolemia, Hx Hypertension Neurological Medical History: Endocrine Medical History: Reports: Hx Diabetes Mellitus Type 1, Hx Diabetes Mellitus Type 2, Hx Hypothyroidism Musculoskeletal Medical History: Reports Hx Arthritis Psychiatric Medical History: Reports: Hx Depression Past Surgical History: Reports: Hx Cardiac Catheterization, Hx Cardiac Surgery - stent x's4, patient had 2 stents on 07/18/2013 at [facility], Hx Coronary Stent - 5, Hx Tonsillectomy - Immunizations Hx Diphtheria, Pertussis, Tetanus Vaccination: Yes Hx Pneumococcal Vaccination: 05/25/13 Review of Systems - Review of Systems Constitutional: No symptoms reported EENT: No symptoms reported Cardiovascular: See HPI, Chest pain Respiratory: No symptoms reported Gastrointestinal: No symptoms reported Genitourinary: No symptoms reported Male Genitourinary: No symptoms reported Musculoskeletal: No symptoms reported Skin: No symptoms reported Hematologic/Lymphatic: No symptoms reported Neurological/Psychological: No symptoms reported -: Yes All other systems reviewed and negative Physical Exam - Vital signs Vitals: Temp Pulse Resp BP Pulse Ox 98.2 F 56 L 18 188/64 H 96 12/06/18 09:35 12/06/18 09:35 12/06/18 09:35 12/06/18 09:35 12/06/18 09:35 - Notes Notes: Physical Exam: General: Alert, appears well. HEENT: Normocephalic. Atraumatic. PERRL. Extraocular movements intact. Oropharynx clear. Neck: Supple. Non-tender. Respiratory: No respiratory distress. Clear and equal breath sounds bilaterally. Right anterior chest wall tenderness with palpation. Cardiovascular: Occasional PACs, regular rate. Abdominal: Normal Inspection. Non-tender. No distension. Normal Bowel Sounds. Back: Non-tender. No deformity or step off. Extremities: Moves all four extremities. Upper extremities: Normal inspection. Normal ROM. Lower extremities: Normal inspection. No edema. Normal ROM. Neurological: Normal cognition. AAOx4. Normal speech. Psychological: Normal affect. Normal Mood. Skin: Warm. Dry. Normal color. Course - Vital Signs Vital signs: Temp Pulse Resp BP Pulse Ox 98.2 F 56 L 19 142/63 H 95 12/06/18 09:35 12/06/18 09:35 12/06/18 13:01 12/06/18 13:01 12/06/18 13:01 - Laboratory Result Diagrams: 12/06/18 10:42 12/06/18 10:42 Laboratory results interpreted by me: 12/06/18 12/06/18 12/06/18 10:42 10:42 10:42 Hgb 13.2 L MCH 26.6 L RDW 16.0 H Lymphocytes % 12.6 L D-Dimer 1.41 H Carbon Dioxide 31 H BUN 47 H Creatinine 1.70 H Est GFR ( Amer) 47 L Est GFR (Non-Af Amer) 39 L Glucose 111 H - Diagnostic Test Radiology reviewed: Image reviewed, Reports reviewed - CTA chest does not show any acute normality. Discharge - Discharge Clinical Impression: Dehydration Chest pain Qualifiers: Chest pain type: unspecified Qualified Code(s): R07.9 - Chest pain, unspecified Condition: Stable Disposition: HOME, SELF-CARE Additional Instructions: Chest Pain of Unclear Cause The exact cause of your chest pain isn't clear. Fortunately, there is no evidence of a dangerous medical condition. Further testing may be required to find the source of the pain. Most often, we find that this pain is coming from the chest wall -- the muscles or rib joints in the chest. But chest pain can come from the lung and lung lining, the esophagus, the heart valves or heart lining, and even the stoma ch or gallbladder. Rest. Eat lightly until the pain is gone. We may prescribe medicine for pain and inflammation. You should call the physician immediately if the pain radiates to the shoulder, jaw or arms; if you start to run a fever or develop a cough; or if you develop shortness of breath, or other new or alarming symptoms. CT scan of your chest did not show any abnormalities in your lungs or blood vessels in your chest. Your EKG was completely normal, with undetectable cardiac enzymes. Your lab work does show you to be somewhat dehydrated. You need to drink plenty of water throughout the day in the evening to help wash out the IV contrast and to rehydrate yourself. Call Dr. Hubbard this afternoon or tomorrow morning to schedule a follow-up appointment. RETURN TO THE EMERGENCY ROOM IF ANY NEW OR WORSENING SYMPTOMS. Referrals: JESSICA HUBBARD MD [Primary Care Provider] - Follow up in 3-5 days Maryibe Attestation: 12/06/18 13:09 I personally performed the services described in the documentation, reviewed and edited the documentation which was dictated to the scribe in my presence, and it accurately records my words and actions. I personally performed the services described in the documentation, reviewed and edited the documentation which was dictated to the scribe in my presence, and it accurately records my words and actions.
[2018-12-06 15:07] VITALS: BP 110/76
--- NOTE | 2018-12-07 | EKG REPORT ---
SEVERITY:- NORMAL ECG - SINUS RHYTHM : Confirmed by: Negro Chaidez 06-Dec-2018 23:59:46
== END 2018-12-06 15:11 | disposition home or self-care (01) ==
LOC: ER 09:17
DX: R07.9 Chest pain, unspecified (principal); E86.0 Dehydration; I49.1 Atrial premature depolarization; I25.10 Atherosclerotic heart disease of native coronary artery without angina pectoris; I10 Essential (primary) hypertension; I25.2 Old myocardial infarction; E11.9 Type 2 diabetes mellitus without complications; Z95.5 Presence of coronary angioplasty implant and graft; Z88.0 Allergy status to penicillin; Z88.1 Allergy status to other antibiotic agents; Z88.7 Allergy status to serum and vaccine; Z82.49 Family history of ischemic heart disease and other diseases of the circulatory system
CPT/HCPCS: 93005; 99285; 96360; 36415; 82553; 82550; 85025; 85610; 85730; 80053; 84484; 85379; 71046; 71275; 93010; J7030

== ENCOUNTER → 2019-01-04 | Outpatient (CLI) | payer MEDICARE, OTHER ==
[2019-01-04 07:45] LABS: ANION GAP 9 (5-19); BLOOD UREA NITROGEN 44 mg/dL (7-20); CALCIUM 9.3 mg/dL (8.4-10.2); CARBON DIOXIDE 30 mmol/L (22-30); CHLORIDE 103 mmol/L (98-107); GLUCOSE 119 mg/dL (75-110); POTASSIUM 4.7 mmol/L (3.6-5.0)
== END ==
LOC: LAB 06:48
PROVIDERS: ATTEND Internal Medicine Cardiovascular Disease
DX: I12.9 Hypertensive chronic kidney disease with stage 1 through stage 4 chronic kidney disease, or unspecified chronic kidney disease (principal); N18.9 Chronic kidney disease, unspecified; Z79.899 Other long term (current) drug therapy
CPT/HCPCS: 36415; 80048

== ENCOUNTER → 2019-01-26 | Outpatient (CLI) | payer MEDICARE, OTHER ==
[2019-01-26 07:20] LABS: HEMATOCRIT 41.1 % (37.9-51.0); HEMOGLOBIN 13.2 g/dL (13.5-17.0); MEAN CORPUSCULAR HEMOGLOBIN 26.7 pg (27.0-33.4); MEAN CORPUSCULAR HGB CONC 32.2 g/dL (32.0-36.0); MEAN CORPUSCULAR VOLUME 83 fl (80-97); PLATELET COUNT 219 10^3/uL (150-450); RED BLOOD COUNT 4.95 10^6/uL (4.35-5.55); RED CELL DISTRIBUTION WIDTH 15.7 % (11.5-14.0); WHITE BLOOD COUNT 6.6 10^3/uL (4.0-10.5)
[2019-01-26 07:42] LABS: ANION GAP 10 (5-19); BLOOD UREA NITROGEN 41 mg/dL (7-20); CALCIUM 8.8 mg/dL (8.4-10.2); CARBON DIOXIDE 27 mmol/L (22-30); CHLORIDE 104 mmol/L (98-107); GLUCOSE 129 mg/dL (75-110); POTASSIUM 4.9 mmol/L (3.6-5.0)
== END ==
LOC: LAB 06:45
PROVIDERS: ATTEND Internal Medicine Cardiovascular Disease
DX: I48.0 Paroxysmal atrial fibrillation (principal); K92.2 Gastrointestinal hemorrhage, unspecified; R06.02 Shortness of breath
CPT/HCPCS: 36415; 80048; 83880; 85027

== ENCOUNTER → 2019-02-12 | Outpatient (CLI) | payer MEDICARE, OTHER | LOC: RT 09:21 | PROVIDERS: ATTEND Internal Medicine Cardiovascular Disease | DX: I48.0 Paroxysmal atrial fibrillation (principal); R06.02 Shortness of breath; Z79.899 Other long term (current) drug therapy | CPT/HCPCS: 94010; 94729 ==

== ENCOUNTER → 2019-02-22 | Outpatient (CLI) | payer MEDICARE, OTHER ==
[2019-02-22 07:26] LABS: ANION GAP 9 (5-19); BLOOD UREA NITROGEN 32 mg/dL (7-20); CALCIUM 8.9 mg/dL (8.4-10.2); CARBON DIOXIDE 30 mmol/L (22-30); CHLORIDE 102 mmol/L (98-107); GLUCOSE 140 mg/dL (75-110); POTASSIUM 5.2 mmol/L (3.6-5.0)
== END ==
LOC: LAB 06:37
PROVIDERS: ATTEND Internal Medicine Cardiovascular Disease
DX: N18.9 Chronic kidney disease, unspecified (principal); R06.02 Shortness of breath; R22.9 Localized swelling, mass and lump, unspecified; Z79.899 Other long term (current) drug therapy
CPT/HCPCS: 36415; 80048; 83880

== ENCOUNTER → 2019-03-27 | Outpatient (CLI) | payer MEDICARE, OTHER ==
[2019-03-27 07:30] LABS: ANION GAP 7 (5-19); BLOOD UREA NITROGEN 27 mg/dL (7-20); CALCIUM 8.7 mg/dL (8.4-10.2); CARBON DIOXIDE 30 mmol/L (22-30); CHLORIDE 105 mmol/L (98-107); CHOLESTEROL 141.88 mg/dL (0-200); GLUCOSE 80 mg/dL (75-110); POTASSIUM 4.5 mmol/L (3.6-5.0); TRIGLYCERIDES 143 mg/dL (<150)
[2019-03-27 07:40] LABS: DIRECT LDL 87 mg/dL (<100)
[2019-03-27 08:24] LABS: ALBUMIN 3.8 g/dL (3.5-5.0); ALKALINE PHOSPHATASE 75 U/L (38-126); ASPARTATE AMINO TRANSFERASE 31 U/L (17-59); BILIRUBIN,DIRECT 0.2 mg/dL (0.0-0.4); BILIRUBIN,TOTAL 1.1 mg/dL (0.2-1.3); TOTAL PROTEIN 7.2 g/dL (6.3-8.2)
== END ==
LOC: LAB 06:34
PROVIDERS: ATTEND Internal Medicine Cardiovascular Disease
DX: E78.2 Mixed hyperlipidemia (principal); I48.0 Paroxysmal atrial fibrillation; N18.9 Chronic kidney disease, unspecified; I35.0 Nonrheumatic aortic (valve) stenosis; R06.02 Shortness of breath; R22.9 Localized swelling, mass and lump, unspecified; Z79.899 Other long term (current) drug therapy
CPT/HCPCS: 36415; 80048; 80061; 80076; 83735; 83880

== ENCOUNTER 2019-05-10 09:53 | Observation (INO) | payer MEDICARE, OTHER ==
--- NOTE | 2019-05-10 10:21 | ER Document Report ---
ED Medical Screen (RME) - General Chief Complaint: General Weakness Stated Complaint: WEAKNESS Time Seen by Provider: 05/10/19 10:12 Primary Care Provider: JESSICA HUBBARD MD [Primary Care Provider] - Follow up as needed Mode of Arrival: Wheelchair Information source: Patient, Relative Notes: This 83-year-old male with history of cardiac disease presents emergency depart ment with symptoms of a stroke. His reports that since April 22 he has been having problems with his speech facial drooping drooling. Reports he becomes dizzy when he stands up. Patient does have a slight droop on the right side of his face. I have greeted and performed a rapid initial assessment of this patient. A comprehensive ED assessment and evaluation of the patient, analysis of test results and completion of the medical decision making process will be conducted by additional ED providers. TRAVEL OUTSIDE OF THE [place] IN LAST 30 DAYS: No - Related Data Allergies/Adverse Reactions: amoxicillin [Amoxicillin] Allergy (Verified 05/10/19 10:10) amoxicillin trihydrate [From Augmentin XR] Allergy (Verified 05/10/19 10:10) cephalexin monohydrate [From Keflex] Allergy (Verified 05/10/19 10:10) Potassium Clavulanate * [From Augmentin XR] Allergy (Verified 05/10/19 10:10) Tuberculin,Ppd,Multi-Puncture [From Tuberculin PPD Mireya Test] Allergy (Verified 05/10/19 10:10) Past Medical History - Past Medical History Cardiac Medical History: Reports: Hx Atrial Fibrillation, Hx Congestive Heart Failure, Hx Coronary Artery Disease, Hx Heart Attack - x4, Hx Hypercholesterolemia, Hx Hypertension Denies: Hx DVT, Hx Pulmonary Embolism Pulmonary Medical History: Denies: Hx Asthma, Hx Bronchitis, Hx COPD, Hx Pneumonia, Hx Tuberculosis Neurological Medical History: Denies: Hx Seizures Endocrine Medical History: Reports: Hx Diabetes Mellitus Type 1, Hx Diabetes Mellitus Type 2, Hx Hypothyroidism. Denies: Hx Hyperthyroidism Renal/ Medical History: Denies: Hx Peritoneal Dialysis GI Medical History: Denies: Hx Cirrhosis, Hx Gastroesophageal Reflux Disease, Hx Hepatitis Musculoskeltal Medical History: Reports Hx Arthritis Psychiatric Medical History: Reports: Hx Depression Infectious Medical History: Denies: Hx Hepatitis Past Surgical History: Reports: Hx Cardiac Catheterization, Hx Cardiac Surgery - stent x's4, patient had 2 stents on 07/18/2013 at [facility], Hx Coronary Stent - 5, Hx Tonsillectomy - Immunizations Hx Diphtheria, Pertussis, Tetanus Vaccination: Yes Physical Exam - Vital signs Vitals: Temp Pulse Resp BP Pulse Ox 97.1 F 50 L 16 175/64 H 92 05/10/19 10:05 05/10/19 10:05 05/10/19 10:05 05/10/19 10:05 05/10/19 10:05 Course - Vital Signs Vital signs: Temp Pulse Resp BP Pulse Ox 97.1 F 50 L 16 175/64 H 92 05/10/19 10:05 05/10/19 10:05 05/10/19 10:05 05/10/19 10:05 05/10/19 10:05 Doctor's Discharge - Discharge Referrals: JESSICA HUBBARD MD [Primary Care Provider] - Follow up as needed
[2019-05-10 10:57] LABS: ABSOLUTE BASOPHILS # (AUTO) 0.1 10^3/uL (0.0-0.2); ABSOLUTE EOSINOPHILS # (AUTO) 0.1 10^3/uL (0.0-0.6); ABSOLUTE LYMPHOCYTES (AUTO) 0.8 10^3/uL (0.5-4.7); ABSOLUTE MONOCYTES (AUTO) 0.7 10^3/uL (0.1-1.4); ABSOLUTE NEUT (AUTO) 5.7 10^3/uL (1.7-8.2); EOSINOPHILS % (AUTO) 0.7 % (0-6); HEMATOCRIT 47.3 % (37.9-51.0); HEMOGLOBIN 15.3 g/dL (13.5-17.0); MEAN CORPUSCULAR HEMOGLOBIN 26.5 pg (27.0-33.4); MEAN CORPUSCULAR HGB CONC 32.2 g/dL (32.0-36.0); MEAN CORPUSCULAR VOLUME 82 fl (80-97); MONOCYTES % (AUTO) 9.7 % (3-13); PLATELET COUNT 209 10^3/uL (150-450); RED BLOOD COUNT 5.76 10^6/uL (4.35-5.55); RED CELL DISTRIBUTION WIDTH 16.6 % (11.5-14.0); SEGMENTED NEUTROPHILS % (AUTO) 77.6 % (42-78); TOTAL CELLS COUNTED % (AUTO) 100 %; WHITE BLOOD COUNT 7.4 10^3/uL (4.0-10.5)
[2019-05-10 11:01] LABS: INTERNATIONAL RATION (INR) 1.03
[2019-05-10 11:02] LABS: PARTIAL THROMBOPLASTIN TIME 30.7 SEC (23.5-35.8)
[2019-05-10 11:05] LABS: PROTHROMBIN TIME 13.5 SEC (11.4-15.4)
--- NOTE | 2019-05-10 11:05 | RADIOLOGY REPORT (SQ) ---
EXAM DESCRIPTION: CHEST SINGLE VIEW COMPLETED DATE/TIME: 05/10/2019 10:51 am REASON FOR STUDY: possible stroke COMPARISON: 12/06/2018 EXAM PARAMETERS: NUMBER OF VIEWS: One view. TECHNIQUE: Single frontal radiographic view of the chest acquired. RADIATION DOSE: NA LIMITATIONS: None. FINDINGS: LUNGS AND PLEURA: No opacities, masses or pneumothorax. No pleural effusion. MEDIASTINUM AND HILAR STRUCTURES: No masses. Contour normal. HEART AND VASCULAR STRUCTURES: Heart normal in size. Normal vasculature. BONES: No acute findings. HARDWARE: None in the chest. OTHER: No other significant finding. IMPRESSION: NO ACUTE RADIOGRAPHIC FINDING IN THE CHEST. TECHNICAL DOCUMENTATION: JOB ID: [id number] [email or web address] All Rights Reserved Reading location - IP/workstation name: [email or web address]
--- NOTE | 2019-05-10 11:07 | RADIOLOGY REPORT (SQ) ---
EXAM DESCRIPTION: CT HEAD WITHOUT COMPLETED DATE/TIME: 05/10/2019 10:55 am REASON FOR STUDY: possible stroke COMPARISON: 09/18/2018 TECHNIQUE: Axial images acquired through the brain without intravenous contrast. Images reviewed wi th bone, brain and subdural windows. Additional sagittal and coronal reconstructions were generated. Images stored on PACS. All CT scanners at this facility use dose modulation, iterative reconstruction, and/or weight based d osing when appropriate to reduce radiation dose to as low as reasonably achievable (ALARA). [facility]: Dose Right [facility]: CareDose [facility]: Dose Right [facility]: Teradose 4D [facility]: [employer] RADIATION DOSE: CT Rad equipment meets quality standard of care and radiation dose reduction techniq ues were employed. CTDIvol: 53.2 mGy. DLP: 1044 mGy-cm. mGy. LIMITATIONS: None. FINDINGS: VENTRICLES: Normal size and contour. CEREBRUM: No masses. No hemorrhage. No midline shift. No evidence for acute infarction. Few scatte red areas of low density in the white matter most likely chronic small vessel ischemic changes. CEREBELLUM: No masses. No hemorrhage. No alteration of density. No evidence for acute infarction. EXTRAAXIAL SPACES: No fluid collections. No masses. ORBITS AND GLOBE: No intra- or extraconal masses. Normal contour of globe without masses. CALVARIUM: No fracture. PARANASAL SINUSES: No fluid or mucosal thickening. SOFT TISSUES: No mass or hematoma. OTHER: No other significant finding. IMPRESSION: No acute intracranial pathology. No CT evidence of acute stroke or hemorrhage. Small v essel white matter disease. EVIDENCE OF ACUTE STROKE: NO. COMMENT: Quality ID # [id number]: Final reports with documentation of one or more dose reduction techniques (e.g., Automated exposure control, adjustment of the mA and/or kV according to patient size, use of iterative reconstruction technique) TECHNICAL DOCUMENTATION: JOB ID: [id number] [employer]- All Rights Reserved Reading location - IP/workstation name: [email or web address]
[2019-05-10 11:24] LABS: ALBUMIN 3.7 g/dL (3.5-5.0); ALKALINE PHOSPHATASE 83 U/L (38-126); ANION GAP 6 (5-19); ASPARTATE AMINO TRANSFERASE 28 U/L (17-59); BILIRUBIN,DIRECT 0.1 mg/dL (0.0-0.4); BILIRUBIN,TOTAL 1.2 mg/dL (0.2-1.3); BLOOD UREA NITROGEN 30 mg/dL (7-20); CALCIUM 9.1 mg/dL (8.4-10.2); CARBON DIOXIDE 31 mmol/L (22-30); CHLORIDE 105 mmol/L (98-107); CREATINE KINASE 87 U/L (55-170); GLUCOSE 125 mg/dL (75-110); POTASSIUM 5.1 mmol/L (3.6-5.0)
[2019-05-10 11:36] LABS: CREATINE KINASE MB 4.29 ng/mL (<4.55)
[2019-05-10 11:37] LABS: TROPONIN I < 0.012 ng/mL
--- NOTE | 2019-05-10 13:35 | ER Document Report ---
ED General - General Chief Complaint: General Weakness Stated Complaint: WEAKNESS Time Seen by Provider: 05/10/19 10:12 Mode of Arrival: Wheelchair Notes: 83-year-old male with history significant for hypertension, CKD, hyperlipidemia, A. fib, diabetes presents for few day history of right facial droop and slurred speech that is intermittent. Patient has also been complaining of dizziness upon standing and feeling unsteady which is ongoing. reports that she just noticed the right facial droop and slurred speech the last few days. Each of these lasts a few minutes. Patient denies any history of stroke. TRAVEL OUTSIDE OF THE [place] IN LAST 30 DAYS: No - Related Data Allergies/Adverse Reactions: amoxicillin [Amoxicillin] Allergy (Verified 05/10/19 10:10) amoxicillin trihydrate [From Augmentin XR] Allergy (Verified 05/10/19 10:10) cephalexin monohydrate [From Keflex] Allergy (Verified 05/10/19 10:10) Potassium Clavulanate * [From Augmentin XR] Allergy (Verified 05/10/19 10:10) Tuberculin,Ppd,Multi-Puncture [From Tuberculin PPD Mireya Test] Allergy (Verified 05/10/19 10:10) Past Medical History - General Information source: Patient, Relative - Social History Smoking Status: Never Smoker Family History: Reviewed & Not Pertinent, CAD, DM Patient has suicidal ideation: No Patient has homicidal ideation: No - Past Medical History Cardiac Medical History: Reports: Hx Atrial Fibrillation, Hx Congestive Heart Failure, Hx Coronary Artery Disease, Hx Heart Attack - x4, Hx Hypercholesterolemia, Hx Hypertension Denies: Hx DVT, Hx Pulmonary Embolism Pulmonary Medical History: Denies: Hx Asthma, Hx Bronchitis, Hx COPD, Hx Pneumonia, Hx Tuberculosis Neurological Medical History: Denies: Hx Seizures Endocrine Medical History: Reports: Hx Diabetes Mellitus Type 1, Hx Diabetes Mellitus Type 2, Hx Hypothyroidism. Denies: Hx Hyperthyroidism Renal/ Medical History: Denies: Hx Peritoneal Dialysis GI Medical History: Denies: Hx Cirrhosis, Hx Gastroesophageal Reflux Disease, Hx Hepatitis Musculoskeletal Medical History: Reports Hx Arthritis Psychiatric Medical History: Reports: Hx Depression Infectious Medical History: Denies: Hx Hepatitis Past Surgical History: Reports: Hx Cardiac Catheterization, Hx Cardiac Surgery - stent x's4, patient had 2 stents on 07/18/2013 at [facility], Hx Coronary Stent - 5, Hx Tonsillectomy - Immunizations Hx Diphtheria, Pertussis, Tetanus Vaccination: Yes Hx Pneumococcal Vaccination: 05/25/13 Review of Systems - Review of Systems Notes: Constitutional: Negative for fever. HENT: Negative for sore throat. Eyes: Negative for visual changes. Cardiovascular: Negative for chest pain. Respiratory: Negative for shortness of breath. Gastrointestinal: Negative for abdominal pain, vomiting or diarrhea. Genitourinary: Negative for dysuria. Musculoskeletal: Negative for back pain. Skin: Negative for rash. Neurological: Positive for generalized weakness, facial droop, slurred speech. Negative for headaches or numbness. 10 point ROS negative except as marked above and in HPI. Physical Exam - Vital signs Vitals: Temp Pulse Resp BP Pulse Ox 97.1 F 50 L 16 175/64 H 92 05/10/19 10:05 05/10/19 10:05 05/10/19 10:05 05/10/19 10:05 05/10/19 10:05 - Notes Notes: GENERAL: Well-appearing, well-nourished and in no acute distress. HEAD: Atraumatic, normocephalic. EYES: Pupils equal round and reactive to light, extraocular movements intact, sclera anicteric, conjunctiva are normal. NECK: Normal range of motion, supple without lymphadenopathy or JVD. LUNGS: Breath sounds clear to auscultation bilaterally and equal. No wheezes rales or rhonchi. HEART: Regular rate and rhythm without murmurs, rubs or gallops. EXTREMITIES: Normal range of motion, no pitting or edema. No clubbing or cyanosis. NEUROLOGICAL: Cranial nerves II through XII grossly intact. Normal speech. Mild right facial droop. No tongue deviation. PERRLA. EOM intact. No pronator drift. Medical Reviewer strength equal bilaterally. Upper/lower extremity strength equal bilaterally. [id number] intact. PSYCH: Normal mood, normal affect. SKIN: Warm, Dry, normal turgor, no rashes or lesions noted. Course - Re-evaluation Re-evalutation: 05/10/19 83-year-old male presents with possible TIA like symptoms. Patient is neuro grossly intact. EKG is unremarkable. Initial work-up including CT head is reassuring. Patient to be admitted for work-up of TIA. 05/10/19 14:[address] Saldaña who agrees with plan of care. Discussed pt with Dr. Nino, lead hospitalist, who states pt will go to [facility]. 05/10/19 14:04 Spoke to [facility] who accepted pt for admission. States will decide bed after seeing pt. 05/10/19 14:40 patient is not a TPA candidate due to being outside of the window. Symptoms have been intermittent for 3 days. - Vital Signs Vital signs: Temp Pulse Resp BP Pulse Ox 97.1 F 50 L 16 182/66 H 96 05/10/19 10:05 05/10/19 11:42 05/10/19 11:42 05/10/19 11:42 05/10/19 11:45 - Laboratory Result Diagrams: 05/10/19 10:43 05/10/19 10:43 Laboratory results interpreted by me: 05/10/19 05/10/19 10:43 10:43 RBC 5.76 H MCH 26.5 L RDW 16.6 H Lymph % (Auto) 11.0 L Potassium 5.1 H Carbon Dioxide 31 H BUN 30 H Creatinine 1.80 H Est GFR ( Amer) 44 L Est GFR (MDRD) Non-Af 36 L Glucose 125 H Discharge - Discharge Clinical Impression: TIA (transient ischemic attack) Condition: Stable Disposition: ADMITTED INPATIENT Admitting Provider: Trung (Hospitalist) - [facility]
[2019-05-10] MEDS ORDERED: ONDANSETRON HCL INJ/PF 4 MG/2 ML SDV IV PRN (14:22)
[2019-05-10] MEDS ORDERED: NORMAL SALINE 1000 ML 1,000 ML IV PRN (14:22)
[2019-05-10] MEDS ORDERED: TEMAZEPAM 15 MG CAPSULE PO PRN (14:22)
[2019-05-10] MEDS ORDERED: HYDROCODONE/ACETAMINOPHEN 5-325 MG TABLET PO PRN (14:22)
[2019-05-10] MEDS ORDERED: ACETAMINOPHEN 325 MG TABLET PO PRN (14:22)
[2019-05-10] MEDS ORDERED: GLUCAGON,HUMAN RECOMB 1 MG INJ IM PRN (14:26)
[2019-05-10] MEDS ORDERED: DEXTROSE 40% GEL 15 GM TUBE PO PRN ×2 (14:26)
[2019-05-10] MEDS ORDERED: DEXTROSE 50%-WATER 25 GM/50 ML DISP.SYRIN IV PRN ×2 (14:26)
--- NOTE | 2019-05-10 14:34 | PDOC H&P ---
History of Present Illness Admission Date/PCP: 05/10/2019 LEANDRA HOPKINS MD Patient complains of: Weakness History of Present Illness: ADELAIDE COOPER JR is a 83 year old male [facility] history of hypertension, chronic kidney disease, hyperlipidemia, atrial fibrillation, diabetes who for the past several days had right facial droop and slurred speech that is intermittent. Patient also been complaining dizziness upon standing and feeling unsteady which is ongoing patient also found to have bradycardia rate in the 40s and is on Coreg and amiodarone. His medication reconciliation shows sotalol 80 mg p.o. twice daily. Said no treatment prior arrival no true aggravating factors. Past Medical History Cardiac Medical History: Reports: Atrial Fibrillation, Congestive Heart Failure, Coronary Artery Disease, Myocardial Infarction - x4, Hyperlipidema, Hypertension Denies: DVT, Pulmonary Embolism Pulmonary Medical History: Denies: Asthma, Bronchitis, Chronic Obstructive Pulmonary Disease (COPD), Pneumonia, Tuberculosis Neurological Medical History: Denies: Seizures Endocrine Medical History: Reports: Diabetes Mellitus Type 1, Diabetes Mellitus Type 2, Hypothyroidism Denies: Hyperthyroidism GI Medical History: Denies: Cirrhosis, Gastroesophageal Reflux Disease, Hepatitis Musculoskeltal Medical History: Reports: Arthritis Psychiatric Medical History: Reports: Depression Hematology: Denies: Anemia Past Surgical History Past Surgical History: Reports: Cardiac Catheterization, Coronary Stent - 5, Tonsillectomy Social History Information Source: Patient Lives with: Family Smoking Status: Never Smoker Electronic Cigarette use?: No Frequency of Alcohol Use: None Hx Recreational Drug Use: No Drugs: None Hx Prescription Drug Abuse: No - Advance Directive Resuscitation Status: Full Code Family History Family History: CAD, DM Parental Family History Reviewed: Yes Children Family History Reviewed: Yes Sibling(s) Family History Reviewed.: Yes Medication/Allergy Home Medications: Aspirin [Ecotrin 81 mg EC Tablet] 81 mg PO DAILY 01/06/18 Ezetimibe [Zetia] 10 mg PO DAILY 01/06/18 Ferrous Sulfate [Feosol] 325 mg PO BID 01/06/18 Insulin Aspart [Novolog Flexpen] 10 units SUBCUT MEALS 01/06/18 Insulin Glargine,Hum.rec.anlog [Lantus Solostar] 30 unit SQ QHS 01/06/18 Levothyroxine Sodium [Synthroid 0.1 mg Tablet] 0.1 mg PO Q6AM 01/06/18 Magnesium Oxide [Mag-Ox 400 mg Tablet] 400 mg PO DAILY 01/06/18 Nitroglycerin [Nitrostat 0.4 mg (1/150 Gr) Tabs 25/Bottle] 1 tab SL Q5MP PRN 01/06/18 Ubidecarenone/Vit E Acet [Co Q-10 100 mg Softgel] 100 mg PO DAILY 01/06/18 Nitroglycerin [Nitro-Dur 5 mg (0.2 mg/Hr) Transdermal Patch] 1 patch TD QAM 09/23/18 Pantoprazole Sodium [Protonix [address] Tablet] 40 mg PO QAM 09/23/18 Potassium Chloride [Klor-Con 10 Meq Tablet ER] 10 meq PO DAILY 09/23/18 Torsemide [Demadex 20 mg Tablet] 40 mg PO QAM 09/23/18 Vit A/Vit C/Vit E/Zinc/Copper [Preservision Areds Softgel] 1 each PO DAILY 09/23/18 Sotalol HCl [Betapace 80 mg Tablet] 80 mg PO TID 09/26/18 Dexlansoprazole [Dexilant 60 mg Capsule] 60 mg PO DAILY 12/06/18 Allergies/Adverse Reactions: amoxicillin [Amoxicillin] Allergy (Verified 05/10/19 10:10) amoxicillin trihydrate [From Augmentin XR] Allergy (Verified 05/10/19 10:10) cephalexin monohydrate [From Keflex] Allergy (Verified 05/10/19 10:10) Potassium Clavulanate * [From Augmentin XR] Allergy (Verified 05/10/19 10:10) Tuberculin,Ppd,Multi-Puncture [From Tuberculin PPD Mireya Test] Allergy (Verified 05/10/19 10:10) Review of Systems Constitutional: PRESENT: weakness. ABSENT: chills, fever(s), headache(s), weight gain, weight loss Eyes: ABSENT: visual disturbances Ears: ABSENT: hearing changes Cardiovascular: PRESENT: other - Dizziness. ABSENT: chest pain, dyspnea on exertion, edema, orthropnea, palpitations Respiratory: ABSENT: cough, hemoptysis Gastrointestinal: ABSENT: abdominal pain, constipation, diarrhea, hematemesis, hematochezia, nausea, vomiting Genitourinary: ABSENT: dysuria, hematuria Musculoskeletal: ABSENT: joint swelling Integumentary: ABSENT: rash, wounds Neurological: ABSENT: abnormal gait, abnormal speech, confusion, dizziness, focal weakness, syncope Psychiatric: ABSENT: anxiety, depression, homidical ideation, suicidal ideation Endocrine: ABSENT: cold intolerance, heat intolerance, polydipsia, polyuria Hematologic/Lymphatic: ABSENT: easy bleeding, easy bruising Physical Exam Vital Signs: Temp Pulse Resp BP Pulse Ox 97.1 F 50 L 16 182/66 H 96 05/10/19 10:05 05/10/19 11:42 05/10/19 11:42 05/10/19 11:42 05/10/19 11:45 Intake & Output 05/09/19 05/10/19 05/11/19 06:59 06:59 06:59 Weight 111.6 kg General appearance: PRESENT: no acute distress, well-developed, well-nourished Head exam: PRESENT: atraumatic, normocephalic Eye exam: PRESENT: conjunctiva pink, EOMI, PERRLA. ABSENT: scleral icterus Ear exam: PRESENT: normal external ear exam Mouth exam: PRESENT: moist, tongue midline Neck exam: ABSENT: carotid bruit, JVD, lymphadenopathy, thyromegaly Respiratory exam: PRESENT: clear to auscultation erika. ABSENT: rales, rhonchi, wheezes Cardiovascular exam: PRESENT: bradycardia, RRR. ABSENT: diastolic murmur, rubs, systolic murmur Pulses: PRESENT: normal dorsalis pedis pul Vascular exam: PRESENT: normal capillary refill GI/Abdominal exam: PRESENT: normal bowel sounds, soft. ABSENT: distended, guarding, mass, organolmegaly, rebound, tenderness Rectal exam: PRESENT: deferred Extremities exam: PRESENT: full ROM. ABSENT: calf tenderness, clubbing, pedal edema Neurological exam: PRESENT: alert, awake, oriented to person, oriented to place, oriented to time, oriented to situation, CN II-XII grossly intact. ABSENT: motor sensory deficit Psychiatric exam: PRESENT: appropriate affect, normal mood. ABSENT: homicidal ideation, suicidal ideation Skin exam: PRESENT: dry, intact, warm. ABSENT: cyanosis, rash Results Laboratory Results: 05/10/19 10:43 05/10/19 10:43 05/10/19 05/10/19 10:43 10:43 WBC 7.4 RBC 5.76 H Hgb 15.3 Hct 47.3 MCV 82 MCH 26.5 L MCHC 32.2 RDW 16.6 H Plt Count 209 Seg Neutrophils % 77.6 Sodium 142.0 Potassium 5.1 H Chloride 105 Carbon Dioxide 31 H Anion Gap 6 BUN 30 H Creatinine 1.80 H Est GFR ( Amer) 44 L Glucose 125 H Calcium 9.1 Total Bilirubin 1.2 AST 28 Alkaline Phosphatase 83 Total Protein 7.0 Albumin 3.7 05/10/19 05/10/19 10:43 10:43 Creatine Kinase 87 CK-MB (CK-2) 4.29 Troponin I < 0.012 Impressions: Chest X-Ray 05/10/19 10:17 IMPRESSION: NO ACUTE RADIOGRAPHIC FINDING IN THE CHEST. Head CT 05/10/19 10:17 IMPRESSION: No acute intracranial pathology. No CT evidence of acute stroke or hemorrhage. Small vessel white matter disease. EVIDENCE OF ACUTE STROKE: NO. Assessment and Plan - Diagnosis (1) TIA (transient ischemic attack) Is this a current diagnosis for this admission?: Yes Plan: 05/10/2019-at this time I doubt that this is a TIA in nature. I will however do carotid Dopplers and an MRI to rule out. Patient has a heart rate in the 40s and having weakness and unsteadiness when he stands up. I suspect this is most likely due to medication administration of Coreg and amiodarone. Lipid panel. Lipitor 80 mg p.o. daily. (2) Bradycardia Is this a current diagnosis for this admission?: Yes Plan: 05/10/2019-patient with history of atrial fibrillation. Patient medications exhibited Coreg and amiodarone. He is reconciliation show sotalol twice daily. At this time is on hold all blood pressure medication that affects his heart rate and weight to his heart rate comes up and we will adjust dosages. I suspect this is the cause of his weakness and dizziness. (3) Type 2 diabetes mellitus Is this a current diagnosis for this admission?: Yes Plan: 05/10/2019-carbohydrate controlled diet and slight scale insulin before meals and at bedtime. (4) Hypertension Is this a current diagnosis for this admission?: Yes Plan: 05/10/2019-hydralazine 20 mg IV every 4 hours as needed systolic above 160 hold home medications as he is bradycardic. (5) Chronic kidney disease, stage III (moderate) Is this a current diagnosis for this admission?: Yes Plan: 05/10/2019-stable continue to follow (6) Hyperkalemia Is this a current diagnosis for this admission?: Yes Plan: 05/10/2019-potassium is 5.1. Hydrate with normal saline with 125 mL an hour overnight repeat BMP in a.m. (7) Hypothyroidism Is this a current diagnosis for this admission?: Yes Plan: 05/10/2019-continue Synthroid. TSH with T4 in a.m. - Time Time Spent with patient: 15-24 minutes - Inpatient Certification Based on my medical assessment, after consideration of the patient's comorbiditi es, presenting symptoms, or acuity I expect that the services needed warrant INPATIENT care.: Yes I certify that my determination is in accordance with my understanding of [facility]'s requirements for reasonable and necessary INPATIENT services [42 CFR 412.3e].: Yes Medical Necessity: Significant Comorbidiites Make Outpatient Treatment Too Risky, Need Close Monitoring Due to Risk of Patient Decompensation, Need For IV Fluids, Need For Continuous Telemetry Monitoring, Need for Neurological Checks
[2019-05-10 15:34] LABS: FREE T4 (FREE THYROXINE) 2.09 ng/dL (0.78-2.19)
[2019-05-10 15:48] LABS: THYROID STIMULATING HORMONE 6.73 uIU/mL (0.47-4.68)
[2019-05-10] MEDS: HYDRALAZINE HCL INJ/PF 20 MG/1 ML SDV IV PRN (16:22)
--- NOTE | 2019-05-10 16:26 | EKG REPORT ---
SEVERITY:- NORMAL ECG - SINUS RHYTHM : Confirmed by: Germaine Oscar MD 10-May-2019 16:24:57
[2019-05-10] MEDS: INSULIN REG, HUMAN 100 UNIT/ML 3 ML VIAL (PYX) SUBCUT SCH ×2 (17:00→21:27)
[2019-05-10 20:53] LABS: APPEARANCE,URINE CLEAR; BILIRUBIN,URINE NEGATIVE (NEGATIVE); COLOR,URINE YELLOW; GLUCOSE, URINE NEGATIVE (NEGATIVE); KETONES,URINE NEGATIVE (NEGATIVE); PROTEIN,URINE >=500 mg/dL (NEGATIVE); UROBILINOGEN,URINE NEGATIVE mg/dL (<2.0)
[2019-05-10] MEDS: HEPARIN SOD (PORCINE) 5,000 UNIT/ML 1 ML VIAL SUBCUT SCH (21:01)
[2019-05-10] MEDS ORDERED: ATORVASTATIN CALCIUM 80 MG TABLET PO SCH (22:00)
--- NOTE | 2019-05-10 22:05 | RADIOLOGY REPORT (SQ) ---
EXAM DESCRIPTION: US CAROTID DOPPLER BILATERAL COMPLETED DATE/TME: 05/10/2019 00:00 CLINICAL HISTORY: 83 years, Male, tia COMPARISON: None. TECHNIQUE: Transverse and longitudinal sonographic images of the cervical portions of the carotid arteries LIMITATIONS: None. FINDINGS: Mild visible atheromatous plaque associated with the carotid bifurcations bilaterally. Plaque formation is slightly worse on the left. Antegrade flow in the vertebral arteries bilaterally. Velocities are as follows (in peak systolic velocity): Right side: CCA: 120 cm/s ICA proximal: 120 cm/s, distal 139 cm/s ECA: 138 cm/s Vertebral artery: 60 cm/s Left side: CCA: 70 cm/s ICA proximal: 140 cm/s, distal 187 cm/s ECA: 104 cm/s Vertebral artery: 62 cm/s. Right ICA to CCA ratio: 1.2 Left ICA to CCA ratio: 2.1 IMPRESSION: Atheromatous plaque associated with the carotid bifurcations bilaterally, slightly worse on the left. Findings correspond to approximately 50-69% stenosis of the left ICA, and less than 50% of the right ICA, utilizing sonographic criteria. copyright 2010 [employer]- All Rights Reserved
[2019-05-11] MEDS: HEPARIN SOD (PORCINE) 5,000 UNIT/ML 1 ML VIAL SUBCUT SCH ×3 (06:16→22:56)
[2019-05-11] MEDS: INSULIN REG, HUMAN 100 UNIT/ML 3 ML VIAL (PYX) SUBCUT SCH ×4 (08:20→22:53)
--- NOTE | 2019-05-11 08:42 | PDOC PROGRESS REPORT ---
Subjective Progress Note for:: 05/11/19 Subjective:: 05/11/2019-no complaints Reason For Visit: TIA Physical Exam Vital Signs: Temp Pulse Resp BP Pulse Ox 98.4 F 52 L 18 152/61 H 96 05/11/19 07:22 05/11/19 07:22 05/11/19 07:22 05/11/19 07:22 05/11/19 07:22 Intake & Output 05/10/19 05/11/19 05/12/19 06:59 06:59 06:59 Intake Total 50 Balance 50 Weight 111.6 kg General appearance: PRESENT: no acute distress, well-developed, well-nourished Neck exam: ABSENT: carotid bruit, JVD, lymphadenopathy, thyromegaly Respiratory exam: PRESENT: clear to auscultation erika. ABSENT: rales, rhonchi, wheezes Cardiovascular exam: PRESENT: bradycardia, +S1, +S2 Pulses: PRESENT: +1 pedal pulses bilateral Vascular exam: PRESENT: normal capillary refill GI/Abdominal exam: PRESENT: normal bowel sounds, soft. ABSENT: distended, guarding, mass, organolmegaly, rebound, tenderness Extremities exam: PRESENT: full ROM. ABSENT: calf tenderness, clubbing, pedal edema Neurological exam: PRESENT: alert, awake, oriented to person, oriented to place, oriented to time, oriented to situation, CN II-XII grossly intact. ABSENT: motor sensory deficit Psychiatric exam: PRESENT: appropriate affect, normal mood. ABSENT: homicidal ideation, suicidal ideation Skin exam: PRESENT: dry, intact, warm. ABSENT: cyanosis, rash Results Laboratory Results: 05/10/19 10:43 05/10/19 10:43 05/10/19 05/10/19 05/10/19 10:43 10:43 10:43 WBC 7.4 RBC 5.76 H Hgb 15.3 Hct 47.3 MCV 82 MCH 26.5 L MCHC 32.2 RDW 16.6 H Plt Count 209 Seg Neutrophils % 77.6 Sodium 142.0 Potassium 5.1 H Chloride 105 Carbon Dioxide 31 H Anion Gap 6 BUN 30 H Creatinine 1.80 H Est GFR ( Amer) 44 L Glucose 125 H Calcium 9.1 Total Bilirubin 1.2 AST 28 Alkaline Phosphatase 83 Total Protein 7.0 Albumin 3.7 TSH 6.73 H Free T4 2.09 Urine Color Urine Appearance Urine pH Ur Specific [place] Urine Protein Urine Glucose (UA) Urine Ketones Urine Blood Urine RBC (Auto) 05/10/19 14:55 WBC RBC Hgb Hct MCV MCH MCHC RDW Plt Count Seg Neutrophils % Sodium Potassium Chloride Carbon Dioxide Anion Gap BUN Creatinine Est GFR ( Amer) Glucose Calcium Total Bilirubin AST Alkaline Phosphatase Total Protein Albumin TSH Free T4 Urine Color YELLOW Urine Appearance CLEAR Urine pH 6.0 Ur Specific [place] 1.020 Urine Protein >=500 H Urine Glucose (UA) NEGATIVE Urine Ketones NEGATIVE Urine Blood NEGATIVE Urine RBC (Auto) 2 05/10/19 05/10/19 10:43 10:43 Creatine Kinase 87 CK-MB (CK-2) 4.29 Troponin I < 0.012 Impressions: Carotid Doppler Study 05/10/19 00:00 IMPRESSION: Atheromatous plaque associated with the carotid bifurcations bilaterally, slightly worse on the left. Findings correspond to approximately 50-69% stenosis of the left ICA, and less than 50% of the right ICA, utilizing sonographic criteria. copyright 2010 [employer]- All Rights Reserved Chest X-Ray 05/10/19 10:17 IMPRESSION: NO ACUTE RADIOGRAPHIC FINDING IN THE CHEST. Head CT 05/10/19 10:17 IMPRESSION: No acute intracranial pathology. No CT evidence of acute stroke or hemorrhage. Small vessel white matter disease. EVIDENCE OF ACUTE STROKE: NO. Assessment and Plan - Diagnosis (1) TIA (transient ischemic attack) Is this a current diagnosis for this admission?: Yes Plan: 05/10/2019-at this time I doubt that this is a TIA in nature. I will however do carotid Dopplers and an MRI to rule out. Patient has a heart rate in the 40s and having weakness and unsteadiness when he stands up. I suspect this is most likely due to medication administration of Coreg and amiodarone. Lipid panel. Lipitor 80 mg p.o. daily. 05/11/2019-I do not suspect TIA at this time. We are awaiting MRI. Doppler was negative. (2) Bradycardia Is this a current diagnosis for this admission?: Yes Plan: 05/10/2019-patient with history of atrial fibrillation. Patient medications exhibited Coreg and amiodarone. He is reconciliation show sotalol twice daily. At this time is on hold all blood pressure medication that affects his heart rate and weight to his heart rate comes up and we will adjust dosages. I suspect this is the cause of his weakness and dizziness. 05/11/2019-improving. Patient heart rate in the mid 50s and patient has no more symptomology. We will continue to hold rate controlling medications and r eassess (3) Type 2 diabetes mellitus Is this a current diagnosis for this admission?: Yes Plan: 05/10/2019-carbohydrate controlled diet and slight scale insulin before meals and at bedtime. 05/11/2019-stable (4) Hypertension Is this a current diagnosis for this admission?: Yes Plan: 05/10/2019-hydralazine 20 mg IV every 4 hours as needed systolic above 160 hold home medications as he is bradycardic. 05/11/2019-restart patient's home losartan. Continue PRN hydralazine (5) Chronic kidney disease, stage III (moderate) Is this a current diagnosis for this admission?: Yes Plan: 05/10/2019-stable continue to follow 05/11/2019-stable (6) Hyperkalemia Is this a current diagnosis for this admission?: Yes Plan: 05/10/2019-potassium is 5.1. Hydrate with normal saline with 125 mL an hour overnight repeat BMP in a.m. 05/11/2019-awaiting a.m. labs. Treat as appropriate (7) Hypothyroidism Is this a current diagnosis for this admission?: Yes Plan: 05/10/2019-continue Synthroid. TSH with T4 in a.m. 05/11/2019-awaiting TSH and T4. Synthroid continues - Time Time Spent with patient: 15-24 minutes
[2019-05-11] MEDS: LOSARTAN POTASSIUM 50 MG TABLET PO SCH (09:13)
[2019-05-11] MEDS ORDERED: ASPIRIN 81 MG TABLET, ENT COATED PO SCH (10:00)
[2019-05-11] MEDS ORDERED: CLOPIDOGREL BISULFATE 75 MG TABLET PO SCH (10:00)
[2019-05-11] MEDS ORDERED: LEVOTHYROXINE SODIUM 0.1 MG TABLET PO SCH (10:00)
[2019-05-11] MEDS: HYDRALAZINE HCL INJ/PF 20 MG/1 ML SDV IV PRN (20:27)
[2019-05-12] MEDS: HEPARIN SOD (PORCINE) 5,000 UNIT/ML 1 ML VIAL SUBCUT SCH (05:57)
[2019-05-12] MEDS ORDERED: LEVOTHYROXINE SODIUM 0.112 MG TABLET PO SCH (06:00)
[2019-05-12] MEDS: INSULIN REG, HUMAN 100 UNIT/ML 3 ML VIAL (PYX) SUBCUT SCH ×4 (07:56→21:34)
[2019-05-12] MEDS: HYDRALAZINE HCL INJ/PF 20 MG/1 ML SDV IV PRN (08:34)
[2019-05-12] MEDS: LOSARTAN POTASSIUM 50 MG TABLET PO SCH (09:05)
[2019-05-12] MEDS ORDERED: HYDRALAZINE HCL 25 MG TABLET PO PRN (10:58)
--- NOTE | 2019-05-12 12:41 | PDOC PROGRESS REPORT ---
Subjective Progress Note for:: 05/12/19 Subjective:: 05/11/2019-no complaints 05/12/2019-no complaints this a.m. Reason For Visit: TIA Physical Exam Vital Signs: Temp Pulse Resp BP Pulse Ox 97.7 F 57 L 18 166/67 H 99 05/12/19 07:50 05/12/19 07:50 05/12/19 07:50 05/12/19 07:50 05/12/19 07:50 Intake & Output 05/11/19 05/12/19 05/13/19 06:59 06:59 06:59 Intake Total 50 Balance 50 Weight 111.6 kg General appearance: PRESENT: no acute distress, well-developed, well-nourished Head exam: PRESENT: atraumatic, normocephalic Eye exam: PRESENT: conjunctiva pink, EOMI, PERRLA. ABSENT: scleral icterus Ear exam: PRESENT: normal external ear exam Mouth exam: PRESENT: moist, tongue midline Neck exam: ABSENT: carotid bruit, JVD, lymphadenopathy, thyromegaly Respiratory exam: PRESENT: clear to auscultation erika. ABSENT: rales, rhonchi, wheezes Cardiovascular exam: PRESENT: RRR. ABSENT: diastolic murmur, rubs, systolic murmur Pulses: PRESENT: normal dorsalis pedis pul Vascular exam: PRESENT: normal capillary refill GI/Abdominal exam: PRESENT: normal bowel sounds, soft. ABSENT: distended, guarding, mass, organolmegaly, rebound, tenderness Rectal exam: PRESENT: deferred Extremities exam: PRESENT: full ROM. ABSENT: calf tenderness, clubbing, pedal edema Neurological exam: PRESENT: alert, awake, oriented to person, oriented to place, oriented to time, oriented to situation, CN II-XII grossly intact. ABSENT: motor sensory deficit Psychiatric exam: PRESENT: appropriate affect, normal mood. ABSENT: homicidal ideation, suicidal ideation Skin exam: PRESENT: dry, intact, warm. ABSENT: cyanosis, rash Results Laboratory Results: 05/10/19 10:43 05/10/19 10:43 05/10/19 05/10/19 10:43 10:43 Creatine Kinase 87 CK-MB (CK-2) 4.29 Troponin I < 0.012 Impressions: Carotid Doppler Study 05/10/19 00:00 IMPRESSION: Atheromatous plaque associated with the carotid bifurcations bilaterally, slightly worse on the left. Findings correspond to approximately 50-69% stenosis of the left ICA, and less than 50% of the right ICA, utilizing sonographic criteria. copyright 2010 [email or web address]- All Rights Reserved Chest X-Ray 05/10/19 10:17 IMPRESSION: NO ACUTE RADIOGRAPHIC FINDING IN THE CHEST. Head CT 05/10/19 10:17 IMPRESSION: No acute intracranial pathology. No CT evidence of acute stroke or hemorrhage. Small vessel white matter disease. EVIDENCE OF ACUTE STROKE: NO. Assessment and Plan - Diagnosis (1) TIA (transient ischemic attack) Is this a current diagnosis for this admission?: Yes Plan: 05/10/2019-at this time I doubt that this is a TIA in nature. I will however do carotid Dopplers and an MRI to rule out. Patient has a heart rate in the 40s and having weakness and unsteadiness when he stands up. I suspect this is most likely due to medication administration of Coreg and amiodarone. Lipid panel. Lipitor 80 mg p.o. daily. 05/11/2019-I do not suspect TIA at this time. We are awaiting MRI. Doppler was negative. 05/12/2019-ruled out at this time. Stable follow. Unable to have MRI secondary to cardiac valve (2) Bradycardia Is this a current diagnosis for this admission?: Yes Plan: 05/10/2019-patient with history of atrial fibrillation. Patient medications exhibited Coreg and amiodarone. He is reconciliation show sotalol twice daily. At this time is on hold all blood pressure medication that affects his heart rate and weight to his heart rate comes up and we will adjust dosages. I suspect this is the cause of his weakness and dizziness. 05/11/2019-improving. Patient heart rate in the mid 50s and patient has no more symptomology. We will continue to hold rate controlling medications and reass ess 05/12/2019-improved. Discussed with Dr. Goncalves this morning. Will resume amiodarone 200 mg p.o. daily and decrease Coreg to 6.25 mg p.o. twice daily and get patient high-dose aspirin. (3) Type 2 diabetes mellitus Is this a current diagnosis for this admission?: Yes Plan: 05/10/2019-carbohydrate controlled diet and slight scale insulin before meals and at bedtime. 05/11/2019-stable 05/12/2019-stable (4) Hypertension Is this a current diagnosis for this admission?: Yes Plan: 05/10/2019-hydralazine 20 mg IV every 4 hours as needed systolic above 160 hold home medications as he is bradycardic. 05/11/2019-restart patient's home losartan. Continue PRN hydralazine 05/04/2019-mildly elevated. I did discuss with Dr. goncalves. I have added hydralazine 12.5 mg p.o. twice daily for systolic blood pressure above 150 (5) Chronic kidney disease, stage III (moderate) Is this a current diagnosis for this admission?: Yes Plan: 05/10/2019-stable continue to follow 05/11/2019-stable 05/12/2019-stable (6) Hyperkalemia Is this a current diagnosis for this admission?: Yes Plan: 05/10/2019-potassium is 5.1. Hydrate with normal saline with 125 mL an hour overnight repeat BMP in a.m. 05/11/2019-awaiting a.m. labs. Treat as appropriate 05/12/2019-stable (7) Hypothyroidism Is this a current diagnosis for this admission?: Yes Plan: 05/10/2019-continue Synthroid. TSH with T4 in a.m. 05/11/2019-awaiting TSH and T4. Synthroid continues 05/12/2019-after discussing with Dr. goncalves he wants patient remain at 100 mics of Synthroid secondary to fear of accelerated atrial fibrillation. - Time Time Spent with patient: 15-24 minutes - Inpatient Certification Based on my medical assessment, after consideration of the patient's comorbidities, presenting symptoms, or acuity I expect that the services needed warrant INPATIENT care.: Yes I certify that my determination is in accordance with my understanding of Medicare's requirements for reasonable and necessary INPATIENT services [42 CFR 412.3e].: Yes Medical Necessity: Significant Comorbidiites Make Outpatient Treatment Too Risky, Need Close Monitoring Due to Risk of Patient Decompensation, Need For Continuous Telemetry Monitoring
--- NOTE | 2019-05-12 14:57 | RADIOLOGY REPORT (SQ) ---
EXAM DESCRIPTION: CT HEAD WITHOUT COMPLETED DATE/TIME: 05/12/2019 2:47 pm REASON FOR STUDY: tia R41.82 ALTERED MENTAL STATUS, UNSPECIFIED COMPARISON: 05/10/2019 TECHNIQUE: Axial images acquired through the brain without intravenous contrast. Images reviewed wi th bone, brain and subdural windows. Additional sagittal and coronal reconstructions were generated. Images stored on PACS. All CT scanners at this facility use dose modulation, iterative reconstruction, and/or weight based d osing when appropriate to reduce radiation dose to as low as reasonably achievable (ALARA). [facility]: Dose Right [facility]: CareDose [facility]: Dose Right [facility]: Teradose 4D [facility]: Smart C3 Metrics RADIATION DOSE: CT Rad equipment meets quality standard of care and radiation dose reduction techniq ues were employed. CTDIvol: 53.2 mGy. DLP: 937 mGy-cm. mGy. LIMITATIONS: None. FINDINGS: VENTRICLES: Normal size and contour. CEREBRUM: No masses. No hemorrhage. No midline shift. No evidence for acute infarction. Normal gra y/white matter differentiation. No areas of low density in the white matter. CEREBELLUM: Cerebellum unremarkable. Minimal low density in the left aspect of the aj, possibly ar tifact. Probably present before. . EXTRAAXIAL SPACES: No fluid collections. No masses. ORBITS AND GLOBE: No intra- or extraconal masses. Normal contour of globe without masses. CALVARIUM: No fracture. PARANASAL SINUSES: No fluid or mucosal thickening. SOFT TISSUES: No mass or hematoma. OTHER: No other significant finding. IMPRESSION: 1. No acute intracranial abnormality detected. 2. Low density in the left aspect of the aj could represent an area of brainstem lacunar infarct. Probably present previously. Correlate with upper brainstem symptoms. If clinically warranted, MRI with diffusion-weighted imaging can be considered. EVIDENCE OF ACUTE STROKE: NO. COMMENT: Quality ID # [id number]: Final reports with documentation of one or more dose reduction techniques (e.g., Automated exposure control, adjustment of the mA and/or kV according to patient size, use of iterative reconstruction technique) TECHNICAL DOCUMENTATION: JOB ID: [id number] [email or web address]- All Rights Reserved Reading location - IP/workstation name: [email or web address]
[2019-05-12] MEDS: CARVEDILOL 6.25 MG TABLET PO SCH (21:31)
[2019-05-13] MEDS ORDERED: LEVOTHYROXINE SODIUM 0.1 MG TABLET PO SCH (06:00)
[2019-05-13] MEDS: INSULIN REG, HUMAN 100 UNIT/ML 3 ML VIAL (PYX) SUBCUT SCH (07:09)
--- NOTE | 2019-05-13 09:12 | PDOC DISCHARGE SUMMARY ---
Impression - Admit/DC Date/PCP Admission Date/Primary Care Provider: 05/10/19 14:29 LEANDRA HOPKINS MD Discharge Date: 05/13/19 - Discharge Diagnosis (1) TIA (transient ischemic attack) Is this a current diagnosis for this admission?: Yes (2) Bradycardia Is this a current diagnosis for this admission?: Yes (3) Type 2 diabetes mellitus Is this a current diagnosis for this admission?: Yes (4) Chronic kidney disease, stage III (moderate) Is this a current diagnosis for this admission?: Yes (5) Hyperkalemia Is this a current diagnosis for this admission?: Yes (6) Hypertension Is this a current diagnosis for this admission?: Yes (7) Hypothyroidism Is this a current diagnosis for this admission?: Yes - Additional Information Resuscitation Status: Full Code Discharge Diet: Cardiac Discharge Activity: Activity As Tolerated Referrals: JESSICA HUBBARD MD [EMERITUS] - Follow up as needed (May 31 Someone will call you with appointment time and date.) Prescriptions: Carvedilol [Coreg 6.25 mg Tablet] 6.25 mg PO Q12 30 Days #60 tablet Home Medications: Amiodarone HCl [Cordarone 200 mg Tablet] 200 mg PO DAILY 05/10/19 Aspirin [Adult Aspirin Regimen] 81 mg PO DAILY 05/10/19 Atorvastatin Calcium [Lipitor 40 mg Tablet] 40 mg PO QHS 05/10/19 Fluticasone Propionate [Flonase Nasal Brandon 50 Mcg/Brandon 16 gm] 2 spray NS DAILY 05/10/19 Insulin Aspart [Novolog Flexpen] 10 unit SQ TID 05/10/19 Insulin Glargine,Hum.rec.anlog [Lantus Insulin 100 Unit/1 ml 10 ml] 30 unit SUBCUT QHS 05/10/19 Levothyroxine Sodium [Synthroid 0.1 mg Tablet] 0.1 mg PO DAILY 05/10/19 Losartan Potassium [Cozaar 50 mg Tablet] 50 mg PO DAILY 05/10/19 Magnesium Oxide [Mag-Ox 400 mg Tablet] 400 mg PO BID 05/10/19 Carvedilol [Coreg 6.25 mg Tablet] 6.25 mg PO Q12 30 Days #60 tablet 05/13/19 Levothyroxine Sodium [Synthroid 0.1 mg Tablet] 0.1 mg PO Q6AM tablet 05/13/19 History of Present Illiness History of Present Illness: ADELAIDE COOPER JR is a 83 year old male with a history of atrial fibrillation, congestive heart failure, coronary artery disease, multiple myocardial infarctions, hypertension and hyperlipidemia who presented to the emergency department on 05/10/2019-he reports a right facial droop with some slurred speech. He reported that this is intermittent. The patient mentioned dizziness upon standing with a feeling of unsteadiness. The patient was also found to be bradycardic with heart rate in the 40s. He was referred to the hospital service for TIA work-up. Hospital Course Hospital Course: The patient had a fairly uneventful hospital course. Carotid Dopplers revealed a 50 to 70% narrowing on the left and less than 50% narrowing on the right. CT scan showed no evidence of stroke. The symptoms resolved quickly. The patient certainly could have had a TIA. He has atherosclerosis in the carotid arteries. He exhibited bradycardia but had hypertension. It is difficult to know the le ngth of time of the uncontrolled blood pressure. Would not expect systolic pressures under 200 to cause a hypertensive encephalopathy. That would be more global as opposed to unilateral. He is on statin therapy and aspirin. Carotid endarterectomies are usually not considered unless stenosis is 80% or greater. Improved blood pressure control would be the intervention to modify first. The patient did fully recover by the time of discharge. Physical Exam Vital Signs: Temp Pulse Resp BP Pulse Ox 97.6 F 57 L 18 158/57 H 93 05/13/19 07:02 05/13/19 07:02 05/13/19 07:02 05/13/19 07:02 05/13/19 07:02 Intake & Output 05/12/19 05/13/19 05/14/19 06:59 06:59 06:59 Intake Total 200 Output Total 275 Balance -75 Weight 86.7 kg General appearance: PRESENT: no acute distress, cooperative, well-developed, well-nourished, other - Sitting on the edge of the bed eating breakfast Head exam: PRESENT: atraumatic, normocephalic Ear exam: PRESENT: normal external ear exam. ABSENT: bleeding - Besides no been helpful never apologized, drainage Respiratory exam: PRESENT: symmetrical, unlabored. ABSENT: accessory muscle use, rales, rhonchi, tachypnea, wheezes Cardiovascular exam: PRESENT: RRR, +S1, +S2, systolic murmur - 2/6 GI/Abdominal exam: PRESENT: normal bowel sounds, soft. ABSENT: distended, guarding, tenderness Rectal exam: PRESENT: deferred Extremities exam: ABSENT: pedal edema Musculoskeletal exam: PRESENT: ambulatory, full ROM, normal inspection Neurological exam: PRESENT: alert, awake, oriented to person, oriented to place, oriented to time, oriented to situation, CN II-XII grossly intact. ABSENT: motor sensory deficit Psychiatric exam: PRESENT: appropriate affect. ABSENT: agitated, anxious Results Laboratory Results: WBC 7.4 10^3/uL (4.0-10.5) 05/10/19 10:43 RBC 5.76 10^6/uL (4.35-5.55) H 05/10/19 10:43 Hgb 15.3 g/dL (13.5-17.0) 05/10/19 10:43 Hct 47.3 % (37.9-51.0) 05/10/19 10:43 MCV 82 fl (80-97) 05/10/19 10:43 MCH 26.5 pg (27.0-33.4) L 05/10/19 10:43 MCHC 32.2 g/dL (32.0-36.0) 05/10/19 10:43 RDW 16.6 % (11.5-14.0) H 05/10/19 10:43 Plt Count 209 10^3/uL (150-450) 05/10/19 10:43 Lymph % (Auto) 11.0 % (13-45) L 05/10/19 10:43 [place] % (Auto) 9.7 % (3-13) 05/10/19 10:43 Eos % (Auto) 0.7 % (0-6) 05/10/19 10:43 Baso % (Auto) 1.0 % (0-2) 05/10/19 10:43 Absolute Neuts (auto) 5.7 10^3/uL (1.7-8.2) 05/10/19 10:43 Absolute Lymphs (auto) 0.8 10^3/uL (0.5-4.7) 05/10/19 10:43 Absolute Monos (auto) 0.7 10^3/uL (0.1-1.4) 05/10/19 10:43 Absolute Eos (auto) 0.1 10^3/uL (0.0-0.6) 05/10/19 10:43 Absolute Basos (auto) 0.1 10^3/uL (0.0-0.2) 05/10/19 10:43 Seg Neutrophils % 77.6 % (42-78) 05/10/19 10:43 PT 13.5 SEC (11.4-15.4) 05/10/19 10:43 INR 1.03 05/10/19 10:43 APTT 30.7 SEC (23.5-35.8) 05/10/19 10:43 Sodium 142.0 mmol/L (137-145) 05/10/19 10:43 Potassium 5.1 mmol/L (3.6-5.0) H 05/10/19 10:43 Chloride 105 mmol/L (98-107) 05/10/19 10:43 Carbon Dioxide 31 mmol/L (22-30) H 05/10/19 10:43 Anion Gap 6 (5-19) 05/10/19 10:43 BUN 30 mg/dL (7-20) H 05/10/19 10:43 Creatinine 1.80 mg/dL (0.52-1.25) H 05/10/19 10:43 Est GFR ( Amer) 44 (>60) L 05/10/19 10:43 Est GFR (MDRD) Non-Af 36 (>60) L 05/10/19 10:43 Glucose 125 mg/dL (75-110) H 05/10/19 10:43 POC Glucose 121 mg/dL (70-110) H 05/13/19 07:01 Calcium 9.1 mg/dL (8.4-10.2) 05/10/19 10:43 Total Bilirubin 1.2 mg/dL (0.2-1.3) 05/10/19 10:43 Direct Bilirubin 0.1 mg/dL (0.0-0.4) 05/10/19 10:43 Neonat Total Bilirubin Not Reportable 05/10/19 10:43 Neonat Direct Bilirubin Not Reportable 05/10/19 10:43 Neonat Indirect Bili Not Reportable 05/10/19 10:43 AST 28 U/L (17-59) 05/10/19 10:43 ALT 26 U/L (<50) 05/10/19 10:43 Alkaline Phosphatase 83 U/L (38-126) 05/10/19 10:43 Creatine Kinase 87 U/L (55-170) 05/10/19 10:43 CK-MB (CK-2) 4.29 ng/mL (<4.55) 05/10/19 10:43 Troponin I < 0.012 ng/mL 05/10/19 10:43 Total Protein 7.0 g/dL (6.3-8.2) 05/10/19 10:43 Albumin 3.7 g/dL (3.5-5.0) 05/10/19 10:43 TSH 6.73 uIU/mL (0.47-4.68) H 05/10/19 10:43 Free T4 2.09 ng/dL (0.78-2.19) 05/10/19 10:43 Urine Color YELLOW 05/10/19 14:55 Urine Appearance CLEAR 05/10/19 14:55 Urine pH 6.0 (5.0-9.0) 05/10/19 14:55 Ur Specific [place] 1.020 05/10/19 14:55 Urine Protein >=500 mg/dL (NEGATIVE) H 05/10/19 14:55 Urine Glucose (UA) NEGATIVE mg/dL (NEGATIVE) 05/10/19 14:55 Urine Ketones NEGATIVE mg/dL (NEGATIVE) 05/10/19 14:55 Urine Blood NEGATIVE (NEGATIVE) 05/10/19 14:55 Urine Nitrite (Reflex) NEGATIVE (NEGATIVE) 05/10/19 14:55 Urine Bilirubin NEGATIVE (NEGATIVE) 05/10/19 14:55 Urine Urobilinogen NEGATIVE mg/dL (<2.0) 05/10/19 14:55 Leukocyte Esterase Rfl NEGATIVE (NEGATIVE) 05/10/19 14:55 Urine RBC (Auto) 2 /HPF 05/10/19 14:55 U Hyaline Cast (Auto) 1 /LPF 05/10/19 14:55 Urine WBC (Reflex) 1 /HPF 05/10/19 14:55 Squamous Epi Cells Auto <1 /HPF 05/10/19 14:55 Urine Mucus (Auto) RARE /LPF 05/10/19 14:55 Urine Ascorbic Acid 40 (NEGATIVE) H 05/10/19 14:55 05/10/19 10:43 CK-MB (CK-2) 4.29 Troponin I < 0.012 Impressions: Carotid Doppler Study 05/10/19 00:00 IMPRESSION: Atheromatous plaque associated with the carotid bifurcations bilaterally, slightly worse on the left. Findings correspond to approximately 50-69% stenosis of the left ICA, and less than 50% of the right ICA, utilizing sonographic criteria. copyright 2011 [employer]- All Rights Reserved Chest X-Ray 05/10/19 10:17 IMPRESSION: NO ACUTE RADIOGRAPHIC FINDING IN THE CHEST. Head CT 05/10/19 10:17 IMPRESSION: No acute intracranial pathology. No CT evidence of acute stroke or hemorrhage. Small vessel white matter disease. EVIDENCE OF ACUTE STROKE: NO. Head CT 05/12/19 00:00 IMPRESSION: 1. No acute intracranial abnormality detected. 2. Low density in the left aspect of the aj could represent an area of brainstem lacunar infarct. Probably present previously. Correlate with upper brainstem symptoms. If clinically warranted, MRI with diffusion-weighted imaging can be considered. EVIDENCE OF ACUTE STROKE: NO. Plan Health Concerns: Cardiac comorbidities with uncontrolled hypertension and carotid stenosis of 50 to 70%. Plan of Treatment: Continue antihypertensive regimen in addition to aspirin. He is at high risk with underlying diabetes mellitus and good control will reduce risk. Continue levothyroxine as well. Goals: Well-controlled blood pressure. Diabetes is not unreasonable at this time. Dietary scrutiny regarding diabetes, low-sodium and low-fat. Follow-up with his primary care provider within 7 to 10 days (the holiday schedule has offices closed during the week). Time Spent: Greater than 30 Minutes Stroke Is this a Stroke Patient?: Yes Stroke Pt being discharged on Anti-thrombolytic therapy?: Yes Stroke Pt being discharged on Anti-coagulation therapy?: No Reason(s) for not prescribing Anti-coagulation therapy:: Not indicated Stroke Pt being discharged on Statins?: Yes Acute Heart Failure - Is this a Heart Failure Patient?: No
[2019-05-13] MEDS: LOSARTAN POTASSIUM 50 MG TABLET PO SCH (09:16)
[2019-05-13] MEDS: CARVEDILOL 6.25 MG TABLET PO SCH (09:16)
[2019-05-13 09:25] VITALS: BP 150/54
[2019-05-13] MEDS ORDERED: ASPIRIN 325 MG TABLET PO SCH (10:00)
[2019-05-13] MEDS ORDERED: AMIODARONE HCL 200 MG TABLET PO SCH (10:00)
== END 2019-05-13 10:28 | disposition home or self-care (01) ==
LOC: ER 09:53 → EH 14:29 → 3N 20:05
PROVIDERS: ADMIT Hospitalist; ATTEND Hospitalist
DX: G45.9 Transient cerebral ischemic attack, unspecified (principal); R00.1 Bradycardia, unspecified; E11.22 Type 2 diabetes mellitus with diabetic chronic kidney disease; I12.9 Hypertensive chronic kidney disease with stage 1 through stage 4 chronic kidney disease, or unspecified chronic kidney disease; N18.3 Chronic kidney disease, stage 3 (moderate); E87.5 Hyperkalemia; E03.9 Hypothyroidism, unspecified; I25.2 Old myocardial infarction; I48.91 Unspecified atrial fibrillation; E78.5 Hyperlipidemia, unspecified; I25.10 Atherosclerotic heart disease of native coronary artery without angina pectoris; Z79.899 Other long term (current) drug therapy; Z79.82 Long term (current) use of aspirin; Z79.4 Long term (current) use of insulin; Z95.5 Presence of coronary angioplasty implant and graft; Z82.49 Family history of ischemic heart disease and other diseases of the circulatory system
CPT/HCPCS: 93005; 99285; 36415; 84439; 82553; 82962 ×4; 82550; 84443; 85025; 85610; 85730; 80053; 81001; 84484; 93880; 71045; 70450 ×2; 93010; G0378 ×4; A9270 ×10; J1644 ×3; J0360 ×3; J3490 ×4; J7030

== ENCOUNTER → 2019-06-19 | Outpatient (CLI) | payer MEDICARE, OTHER ==
[2019-06-19 07:51] LABS: ALBUMIN 3.6 g/dL (3.5-5.0); ALKALINE PHOSPHATASE 84 U/L (38-126); ANION GAP 5 (5-19); ASPARTATE AMINO TRANSFERASE 32 U/L (17-59); BILIRUBIN,TOTAL 0.9 mg/dL (0.2-1.3); BLOOD UREA NITROGEN 32 mg/dL (7-20); CALCIUM 8.8 mg/dL (8.4-10.2); CARBON DIOXIDE 34 mmol/L (22-30); CHLORIDE 103 mmol/L (98-107); GLUCOSE 97 mg/dL (75-110); POTASSIUM 5.4 mmol/L (3.6-5.0); TOTAL PROTEIN 6.7 g/dL (6.3-8.2)
== END ==
LOC: LAB 07:03
PROVIDERS: ATTEND Internal Medicine Cardiovascular Disease
DX: I48.0 Paroxysmal atrial fibrillation (principal); I35.0 Nonrheumatic aortic (valve) stenosis; R22.9 Localized swelling, mass and lump, unspecified; R06.02 Shortness of breath; Z79.899 Other long term (current) drug therapy
CPT/HCPCS: 36415; 80048; 80076; 83735; 83880

== ENCOUNTER → 2019-06-22 | Outpatient (CLI) | payer MEDICARE, OTHER ==
[2019-06-22 07:44] LABS: ALBUMIN 3.7 g/dL (3.5-5.0); ALKALINE PHOSPHATASE 83 U/L (38-126); ANION GAP 8 (5-19); ASPARTATE AMINO TRANSFERASE 33 U/L (17-59); BILIRUBIN,DIRECT 0.1 mg/dL (0.0-0.4); BILIRUBIN,TOTAL 1.2 mg/dL (0.2-1.3); BLOOD UREA NITROGEN 30 mg/dL (7-20); CALCIUM 8.8 mg/dL (8.4-10.2); CARBON DIOXIDE 32 mmol/L (22-30); CHLORIDE 103 mmol/L (98-107); GLUCOSE 78 mg/dL (75-110); POTASSIUM 5.1 mmol/L (3.6-5.0)
== END ==
LOC: LAB 07:02
PROVIDERS: ATTEND Internal Medicine Cardiovascular Disease
DX: I48.0 Paroxysmal atrial fibrillation (principal); Z79.899 Other long term (current) drug therapy
CPT/HCPCS: 36415; 80048; 80076; 83735

== ENCOUNTER 2019-08-29 16:11 | Emergency (ER) | payer MEDICARE, OTHER ==
--- NOTE | 2019-08-29 17:01 | ER Document Report ---
Entered by COTY CUADRA SCRIBE 08/29/19 2285 Acting as scribe for:BABAR TURNER DO ED General - General Chief Complaint: Eye Pain Stated Complaint: LEFT EYE PAIN Primary Care Provider: LEANDRA HOPKINS MD [Primary Care Provider] - Follow up as needed Information source: Patient Notes: This 83-year-old male presents to the emergency department complaining of left eye popped blood vessel that happened two days prior to arrival. Patient said that he woke up two days ago and noticed redness in his left eye. Patient explains that he went to see his primary care provider and they told him to come to the emergency department. Patient reports that his left eye itches in the cor ner but denies pain or blurred vision. Patient reports a chronic cough and denies throat pain. TRAVEL OUTSIDE OF THE [place] IN LAST 30 DAYS: No - Related Data Allergies/Adverse Reactions: amoxicillin [Amoxicillin] Allergy (Verified 05/10/19 10:10) amoxicillin trihydrate [From Augmentin XR] Allergy (Verified 05/10/19 10:10) cephalexin monohydrate [From Keflex] Allergy (Verified 05/10/19 10:10) Potassium Clavulanate * [From Augmentin XR] Allergy (Verified 05/10/19 10:10) Tuberculin,Ppd,Multi-Puncture [From Tuberculin PPD Mireya Test] Allergy (Verified 05/10/19 10:10) Home Medications: amiodarone, meclizine, carvedilol, lantus, levothyroxine, aspirin, mag oxide, zetia, losartan Past Medical History - General Information source: Patient - Social History Smoking Status: Former Smoker Cigarette use (# per day): No Chew tobacco use (# tins/day): No Frequency of alcohol use: None Drug Abuse: None Family History: Reviewed & Not Pertinent, CAD, DM Patient has suicidal ideation: No Patient has homicidal ideation: No - Past Medical History Cardiac Medical History: Reports: Hx Atrial Fibrillation, Hx Congestive Heart Failure, Hx Coronary Artery Disease, Hx Heart Attack - x4, Hx Hypercholesterolemia, Hx Hypertension Neurological Medical History: Endocrine Medical History: Reports: Hx Diabetes Mellitus Type 2, Hx Hypothyroidism Musculoskeletal Medical History: Reports Hx Arthritis Psychiatric Medical History: Reports: Hx Depression Past Surgical History: Reports: Hx Cardiac Catheterization, Hx Coronary Stent - 5, Hx Tonsillectomy - Immunizations Hx Diphtheria, Pertussis, Tetanus Vaccination: Yes Hx Pneumococcal Vaccination: 05/25/13 Review of Systems - Review of Systems Constitutional: No symptoms reported EENT: See HPI, Other - Eye itch. denies: Blurred vision, Throat pain Cardiovascular: No symptoms reported Respiratory: See HPI, Cough Gastrointestinal: No symptoms reported Genitourinary: No symptoms reported Male Genitourinary: No symptoms reported Musculoskeletal: No symptoms reported Skin: No symptoms reported Hematologic/Lymphatic: No symptoms reported Neurological/Psychological: No symptoms reported -: Yes All other systems reviewed and negative Physical Exam - Vital signs Vitals: Temp Pulse Resp BP Pulse Ox 97.6 F 57 L 18 221/74 H 96 08/29/19 16:18 08/29/19 16:18 08/29/19 16:18 08/29/19 16:18 08/29/19 16:18 - Notes Notes: Physical Exam: General: Alert, appears well. HEENT: Atraumatic. PERRL. Extraocular movements intact. Oropharynx clear. Left eye has a subconjunctival hemorrhage. Neck: Supple. Non-tender. Respiratory: No respiratory distress. Clear and equal breath sounds bilaterally. Cardiovascular: Regular rate and rhythm. Abdominal: Normal Inspection. Non-tender. No distension. Normal Bowel Sounds. Back: No gross abnormalities. Extremities: Moves all four extremities. Upper extremities: Normal inspection. Normal ROM. Lower extremities: Normal inspection. No edema. Normal ROM. Neurological: Normal cognition. AAOx4. Normal speech. Psychological: Normal affect. Normal Mood. Skin: Warm. Dry. Normal color. Course - Re-evaluation Re-evalutation: 08/29/19 18:50 MDM 83 year old male sent due to left sub hemorrhage. No visual change or eye pain. He lives with some renal insuf and tells me he "always" has elevated BP when he his here. - Vital Signs Vital signs: Temp Pulse Resp BP Pulse Ox 97.6 F 57 L 25 H 228/66 H 98 08/29/19 16:18 08/29/19 16:18 08/29/19 18:37 08/29/19 18:37 08/29/19 18:37 - Laboratory Result Diagrams: 08/29/19 16:58 08/29/19 18:11 Laboratory results interpreted by me: 08/29/19 08/29/19 16:58 18:11 RBC 5.65 H RDW 16.3 H Potassium 5.1 H BUN 29 H Creatinine 1.77 H Est GFR ( Amer) 45 L Est GFR (MDRD) Non-Af 37 L - Diagnostic Test Radiology reviewed: Reports reviewed Discharge - Discharge Clinical Impression: Hypertension Qualifiers: Hypertension type: unspecified Qualified Code(s): I10 - Essential (primary) hypertension Subconjunctival hematoma Qualifiers: Laterality: left Qualified Code(s): H11.32 - Conjunctival hemorrhage, left eye Condition: Good Disposition: HOME, SELF-CARE Instructions: High Blood Pressure ([facility]), High Blood Pressure, Requiring Treatment ([facility]), Subconjunctival Hemorrhage ([facility]) Additional Instructions: Your blood pressure was elevated here. Be sure and have it rechecked. Take your medicine as directed. Please return here for any problems or any concerns. Referrals: LEANDRA HOPKINS MD [Primary Care Provider] - Follow up as needed I personally performed the services described in the documentation, reviewed and edited the documentation which was dictated to the scribe in my presence, and it accurately records my words and actions.
[2019-08-29] MEDS ORDERED: HYDRALAZINE HCL 10 MG TABLET PO ONE (17:02)
--- NOTE | 2019-08-29 17:18 | RADIOLOGY REPORT (SQ) ---
EXAM DESCRIPTION: CT HEAD WITHOUT IMAGES COMPLETED DATE/TIME: 08/29/2019 4:43 pm REASON FOR STUDY: dizziness COMPARISON: 05/12/2019 TECHNIQUE: Axial images acquired through the brain without intravenous contrast. Images reviewed wi th bone, brain and subdural windows. Additional sagittal and coronal reconstructions were generated. Images stored on PACS. All CT scanners at this facility use dose modulation, iterative reconstruction, and/or weight based d osing when appropriate to reduce radiation dose to as low as reasonably achievable (ALARA). [facility]: Dose Right [facility]: CareDose [facility]: Dose Right [facility]: Teradose 4D [facility]: [employer] RADIATION DOSE: CT Rad equipment meets quality standard of care and radiation dose reduction techniq ues were employed. CTDIvol: 53.2 mGy. DLP: 1017 mGy-cm. mGy. LIMITATIONS: None. FINDINGS: VENTRICLES: Normal size and contour. CEREBRUM: No masses. No hemorrhage. No midline shift. No evidence for acute infarction. Normal gra y/white matter differentiation. No areas of low density in the white matter. CEREBELLUM: No masses. No hemorrhage. No alteration of density. No evidence for acute infarction. EXTRAAXIAL SPACES: No fluid collections. No masses. ORBITS AND GLOBE: No intra- or extraconal masses. Normal contour of globe without masses. CALVARIUM: No fracture. PARANASAL SINUSES: No fluid or mucosal thickening. SOFT TISSUES: No mass or hematoma. OTHER: No other significant finding. IMPRESSION: NORMAL BRAIN CT WITHOUT CONTRAST. EVIDENCE OF ACUTE STROKE: NO. COMMENT: Quality ID # [id number]: Final reports with documentation of one or more dose reduction techniques (e.g., Automated exposure control, adjustment of the mA and/or kV according to patient size, use of iterative reconstruction technique) TECHNICAL DOCUMENTATION: JOB ID: [id number] 2010 [employer]- All Rights Reserved Reading location - IP/workstation name: [email or web address]
[2019-08-29 17:34] LABS: ABSOLUTE BASOPHILS # (AUTO) 0.1 10^3/uL (0.0-0.2); ABSOLUTE EOSINOPHILS # (AUTO) 0.2 10^3/uL (0.0-0.6); ABSOLUTE LYMPHOCYTES (AUTO) 1.3 10^3/uL (0.5-4.7); ABSOLUTE MONOCYTES (AUTO) 0.9 10^3/uL (0.1-1.4); ABSOLUTE NEUT (AUTO) 4.9 10^3/uL (1.7-8.2); BASOPHILS % (AUTO) 1.2 % (0-2); EOSINOPHILS % (AUTO) 3.1 % (0-6); HEMATOCRIT 46.8 % (37.9-51.0); HEMOGLOBIN 15.8 g/dL (13.5-17.0); LYMPHOCYTES % (AUTO) 17.4 % (13-45); MEAN CORPUSCULAR HEMOGLOBIN 27.9 pg (27.0-33.4); MEAN CORPUSCULAR HGB CONC 33.7 g/dL (32.0-36.0); MEAN CORPUSCULAR VOLUME 83 fl (80-97); MONOCYTES % (AUTO) 11.8 % (3-13); PLATELET COUNT 223 10^3/uL (150-450); RED BLOOD COUNT 5.65 10^6/uL (4.35-5.55); RED CELL DISTRIBUTION WIDTH 16.3 % (11.5-14.0); SEGMENTED NEUTROPHILS % (AUTO) 66.5 % (42-78); TOTAL CELLS COUNTED % (AUTO) 100 %; WHITE BLOOD COUNT 7.3 10^3/uL (4.0-10.5)
[2019-08-29 17:46] LABS: INTERNATIONAL RATION (INR) 1.01; PROTHROMBIN TIME 13.3 SEC (11.4-15.4)
[2019-08-29] MEDS ORDERED: HYDRALAZINE HCL INJ/PF 20 MG/1 ML SDV IV ONE (17:56)
[2019-08-29 18:37] LABS: ALBUMIN 3.6 g/dL (3.5-5.0); ALKALINE PHOSPHATASE 86 U/L (38-126); ANION GAP 5 (5-19); ASPARTATE AMINO TRANSFERASE 32 U/L (17-59); BLOOD UREA NITROGEN 29 mg/dL (7-20); CALCIUM 8.5 mg/dL (8.4-10.2); CARBON DIOXIDE 29 mmol/L (22-30); CHLORIDE 106 mmol/L (98-107); GLUCOSE 102 mg/dL (75-110); POTASSIUM 5.1 mmol/L (3.6-5.0); TOTAL PROTEIN 6.5 g/dL (6.3-8.2)
[2019-08-29 19:15] VITALS: BP 185/55
== END 2019-08-29 19:16 | disposition home or self-care (01) ==
LOC: ER 16:11
DX: H11.32 Conjunctival hemorrhage, left eye (principal); H57.12 Ocular pain, left eye; I11.0 Hypertensive heart disease with heart failure; I50.9 Heart failure, unspecified; Z88.1 Allergy status to other antibiotic agents; R05 Cough; Z88.8 Allergy status to other drugs, medicaments and biological substances; Z79.899 Other long term (current) drug therapy; Z79.82 Long term (current) use of aspirin; Z87.891 Personal history of nicotine dependence; I48.91 Unspecified atrial fibrillation; I25.10 Atherosclerotic heart disease of native coronary artery without angina pectoris; I25.2 Old myocardial infarction; E11.9 Type 2 diabetes mellitus without complications
CPT/HCPCS: 99284; 96374; 36415; 85025; 85610; 80053; 70450; A9270; J0360; J3490

== ENCOUNTER → 2019-09-18 | Outpatient (CLI) | payer MEDICARE, OTHER ==
[2019-09-18 09:19] LABS: ALBUMIN 3.6 g/dL (3.5-5.0); ALKALINE PHOSPHATASE 80 U/L (38-126); ANION GAP 5 (5-19); ASPARTATE AMINO TRANSFERASE 38 U/L (17-59); BILIRUBIN,DIRECT 0.1 mg/dL (0.0-0.4); BLOOD UREA NITROGEN 35 mg/dL (7-20); CALCIUM 8.9 mg/dL (8.4-10.2); CARBON DIOXIDE 31 mmol/L (22-30); CHLORIDE 104 mmol/L (98-107); GLUCOSE 113 mg/dL (75-110); TOTAL PROTEIN 6.7 g/dL (6.3-8.2)
== END ==
LOC: OD 07:30
PROVIDERS: ATTEND Internal Medicine Cardiovascular Disease
DX: I48.0 Paroxysmal atrial fibrillation (principal); Z79.899 Other long term (current) drug therapy
CPT/HCPCS: 36415; 80048; 80076; 83735

== ENCOUNTER → 2019-12-12 | Outpatient (CLI) | payer MEDICARE, OTHER ==
--- NOTE | 2019-12-13 12:30 | Pulmonary Function Test ---
Pulmonary Function Test Date of Procedure:: 12/13/19 INDICATION:: Amiodarone Referring Provider: Abel HUBBARD MD Merchant Mariner: Jojo Mann, [employer] KNITTER, INSURANCE VERIFICATION REPRESENTATIVE - Report Spirometry: Spirometry: pre-FVC: 2.99 L 104% pre-FEV:1 2.08 L 96% pre-FEV1/FVC %: 70 predicted: 77 [id number]%: 1.20 L 57% Diffusion Capactity: DLCO: 17.8 102% DLCO/VA: 4.37 134% Impression: Small airways disease is noted. Patient does not meet criteria for obstructive ventilatory defect. Normal diffusion capacity.
== END ==
LOC: RT 11:28
PROVIDERS: ATTEND Internal Medicine Cardiovascular Disease
DX: I48.0 Paroxysmal atrial fibrillation (principal); Z79.01 Long term (current) use of anticoagulants; Z79.899 Other long term (current) drug therapy
CPT/HCPCS: 94010; 94729

== ENCOUNTER → 2019-12-13 | Outpatient (CLI) | payer MEDICARE, OTHER ==
[2019-12-13 08:05] LABS: HEMATOCRIT 45.2 % (37.9-51.0); HEMOGLOBIN 14.9 g/dL (13.5-17.0); MEAN CORPUSCULAR HEMOGLOBIN 27.4 pg (27.0-33.4); MEAN CORPUSCULAR VOLUME 83 fl (80-97); PLATELET COUNT 215 10^3/uL (150-450); RED BLOOD COUNT 5.46 10^6/uL (4.35-5.55); RED CELL DISTRIBUTION WIDTH 16.2 % (11.5-14.0); WHITE BLOOD COUNT 7.2 10^3/uL (4.0-10.5)
[2019-12-13 08:40] LABS: ALBUMIN 3.6 g/dL (3.5-5.0); ALKALINE PHOSPHATASE 80 U/L (38-126); ASPARTATE AMINO TRANSFERASE 33 U/L (17-59); BILIRUBIN,TOTAL 0.9 mg/dL (0.2-1.3); BLOOD UREA NITROGEN 38 mg/dL (7-20); CHOLESTEROL 145.12 mg/dL (0-200); GLUCOSE 78 mg/dL (75-110); POTASSIUM 4.8 mmol/L (3.6-5.0); TOTAL PROTEIN 6.7 g/dL (6.3-8.2); TRIGLYCERIDES 163 mg/dL (<150)
[2019-12-13 08:49] LABS: ANION GAP 5 (5-19); CARBON DIOXIDE 31 mmol/L (22-30); CHLORIDE 104 mmol/L (98-107)
[2019-12-13 08:51] LABS: DIRECT LDL 81 mg/dL (<100)
[2019-12-13 08:59] LABS: VLDL CHOLESTEROL 32.6 mg/dL (10-31)
--- NOTE | 2019-12-13 11:29 | RADIOLOGY REPORT (SQ) ---
EXAM DESCRIPTION: CHEST PA/LATERAL IMAGES COMPLETED DATE/TIME: 12/13/2019 7:54 am REASON FOR STUDY: ESSENTIAL (PRIMARY) HYPERTENSION, PAROXYSMAL ATRIAL FIBRILLATION COMPARISON: 05/10/2019 EXAM PARAMETERS: NUMBER OF VIEWS: two views TECHNIQUE: Digital Frontal and Lateral radiographic views of the chest acquired. RADIATION DOSE: NA LIMITATIONS: none FINDINGS: LUNGS AND PLEURA: Chronic elevation left diaphragm. No opacities, masses or pneumothorax. No pleural effusion. MEDIASTINUM AND HILAR STRUCTURES: No masses or contour abnormalities. HEART AND VASCULAR STRUCTURES: Heart normal size. No evidence for failure. BONES: No acute findings. HARDWARE: None in the chest. OTHER: No other significant finding. IMPRESSION: NO SIGNIFICANT RADIOGRAPHIC FINDING IN THE CHEST. TECHNICAL DOCUMENTATION: JOB ID: [id number] 2010 [employer]- All Rights Reserved Reading location - IP/workstation name: [email or web address]
== END ==
LOC: OD 07:19
PROVIDERS: ATTEND Internal Medicine Cardiovascular Disease
DX: I10 Essential (primary) hypertension (principal); I48.0 Paroxysmal atrial fibrillation; E78.00 Pure hypercholesterolemia, unspecified; E03.9 Hypothyroidism, unspecified; Z79.899 Other long term (current) drug therapy
CPT/HCPCS: 36415; 71046; 80048; 80061; 80076; 83735; 84443; 85027

== ENCOUNTER → 2020-01-24 | Outpatient (CLI) | payer MEDICARE, OTHER ==
[2020-01-24 08:45] LABS: ANION GAP 7 (5-19); BLOOD UREA NITROGEN 28 mg/dL (7-20); CALCIUM 8.7 mg/dL (8.4-10.2); CARBON DIOXIDE 33 mmol/L (22-30); CHLORIDE 102 mmol/L (98-107); GLUCOSE 116 mg/dL (75-110); POTASSIUM 4.8 mmol/L (3.6-5.0)
[2020-01-24 08:56] LABS: FREE T4 (FREE THYROXINE) 1.38 ng/dL (0.78-2.19)
[2020-01-24 09:11] LABS: THYROID STIMULATING HORMONE 23.3 uIU/mL (0.47-4.68)
== END ==
LOC: OD 07:14
PROVIDERS: ATTEND Internal Medicine Cardiovascular Disease
DX: E03.9 Hypothyroidism, unspecified (principal); N18.9 Chronic kidney disease, unspecified
CPT/HCPCS: 36415; 80048; 84439; 84443

== ENCOUNTER → 2020-02-07 | Outpatient (CLI) | payer MEDICARE, OTHER ==
[2020-02-07 10:36] LABS: ANION GAP 7 (5-19); BLOOD UREA NITROGEN 35 mg/dL (7-20); CALCIUM 8.8 mg/dL (8.4-10.2); CARBON DIOXIDE 31 mmol/L (22-30); CHLORIDE 104 mmol/L (98-107); GLUCOSE 133 mg/dL (75-110); POTASSIUM 4.8 mmol/L (3.6-5.0)
== END ==
LOC: OD 09:36
PROVIDERS: ATTEND Internal Medicine Cardiovascular Disease
DX: N18.9 Chronic kidney disease, unspecified (principal)
CPT/HCPCS: 36415; 80048

== ENCOUNTER → 2020-02-28 | Outpatient (CLI) | payer MEDICARE, OTHER ==
[2020-02-28 09:27] LABS: ALBUMIN 3.8 g/dL (3.5-5.0); ALKALINE PHOSPHATASE 95 U/L (38-126); ASPARTATE AMINO TRANSFERASE 47 U/L (17-59); BILIRUBIN,DIRECT 0.3 mg/dL (0.0-0.4); BILIRUBIN,TOTAL 1.1 mg/dL (0.2-1.3); TOTAL PROTEIN 6.7 g/dL (6.3-8.2)
[2020-02-28 10:29] LABS: ANION GAP 9 (5-19); BLOOD UREA NITROGEN 35 mg/dL (7-20); CALCIUM 8.8 mg/dL (8.4-10.2); CARBON DIOXIDE 30 mmol/L (22-30); CHLORIDE 103 mmol/L (98-107); GLUCOSE 183 mg/dL (75-110); POTASSIUM 4.9 mmol/L (3.6-5.0)
== END ==
LOC: OD 08:05
PROVIDERS: ATTEND Internal Medicine Cardiovascular Disease
DX: I48.0 Paroxysmal atrial fibrillation (principal); Z79.899 Other long term (current) drug therapy
CPT/HCPCS: 36415; 80048; 80076; 83735; 84443

== ENCOUNTER → 2020-03-14 | Outpatient (CLI) | payer MEDICARE, OTHER ==
[2020-03-14 09:46] LABS: ANION GAP 9 (5-19); BLOOD UREA NITROGEN 47 mg/dL (7-20); CALCIUM 8.8 mg/dL (8.4-10.2); CARBON DIOXIDE 29 mmol/L (22-30); CHLORIDE 104 mmol/L (98-107); GLUCOSE 115 mg/dL (75-110); POTASSIUM 5.2 mmol/L (3.6-5.0)
== END ==
LOC: OD 07:58
PROVIDERS: ATTEND Internal Medicine Cardiovascular Disease
DX: I12.9 Hypertensive chronic kidney disease with stage 1 through stage 4 chronic kidney disease, or unspecified chronic kidney disease (principal); N18.9 Chronic kidney disease, unspecified; Z79.899 Other long term (current) drug therapy
CPT/HCPCS: 36415; 80048

== ENCOUNTER → 2020-03-29 | Outpatient (CLI) | payer MEDICARE, OTHER ==
[2020-03-29 09:56] LABS: ABSOLUTE BASOPHILS # (AUTO) 0.1 10^3/uL (0.0-0.2); ABSOLUTE EOSINOPHILS # (AUTO) 0.2 10^3/uL (0.0-0.6); ABSOLUTE LYMPHOCYTES (AUTO) 0.9 10^3/uL (0.5-4.7); ABSOLUTE MONOCYTES (AUTO) 0.9 10^3/uL (0.1-1.4); ABSOLUTE NEUT (AUTO) 6.8 10^3/uL (1.7-8.2); BASOPHILS % (AUTO) 1.1 % (0-2); EOSINOPHILS % (AUTO) 2.7 % (0-6); HEMATOCRIT 43.7 % (37.9-51.0); HEMOGLOBIN 14.1 g/dL (13.5-17.0); LYMPHOCYTES % (AUTO) 9.8 % (13-45); MEAN CORPUSCULAR HEMOGLOBIN 27.3 pg (27.0-33.4); MEAN CORPUSCULAR HGB CONC 32.3 g/dL (32.0-36.0); MEAN CORPUSCULAR VOLUME 85 fl (80-97); PLATELET COUNT 202 10^3/uL (150-450); RED BLOOD COUNT 5.17 10^6/uL (4.35-5.55); RED CELL DISTRIBUTION WIDTH 15.9 % (11.5-14.0); SEGMENTED NEUTROPHILS % (AUTO) 76.4 % (42-78); TOTAL CELLS COUNTED % (AUTO) 100 %; WHITE BLOOD COUNT 8.9 10^3/uL (4.0-10.5)
[2020-03-29 10:02] LABS: ALBUMIN 3.8 g/dL (3.5-5.0); ALKALINE PHOSPHATASE 86 U/L (38-126); ANION GAP 11 (5-19); ASPARTATE AMINO TRANSFERASE 29 U/L (17-59); BILIRUBIN,DIRECT 0.2 mg/dL (0.0-0.4); BILIRUBIN,TOTAL 1.1 mg/dL (0.2-1.3); BLOOD UREA NITROGEN 33 mg/dL (7-20); CALCIUM 8.9 mg/dL (8.4-10.2); CARBON DIOXIDE 28 mmol/L (22-30); CHLORIDE 102 mmol/L (98-107); GLUCOSE 123 mg/dL (75-110); POTASSIUM 5.5 mmol/L (3.6-5.0); TOTAL PROTEIN 6.7 g/dL (6.3-8.2)
== END ==
LOC: OD 08:11
PROVIDERS: ATTEND Internal Medicine
DX: E11.21 Type 2 diabetes mellitus with diabetic nephropathy (principal); I10 Essential (primary) hypertension; I25.10 Atherosclerotic heart disease of native coronary artery without angina pectoris; E78.5 Hyperlipidemia, unspecified
CPT/HCPCS: 36415; 80053; 83036; 85025

== ENCOUNTER → 2020-04-15 | Outpatient (CLI) | payer MEDICARE, OTHER ==
[2020-04-15 09:21] LABS: BLOOD UREA NITROGEN 32 mg/dL (7-20); CALCIUM 8.8 mg/dL (8.4-10.2); CARBON DIOXIDE 30 mmol/L (22-30); CHLORIDE 106 mmol/L (98-107); GLUCOSE 104 mg/dL (75-110); POTASSIUM 4.9 mmol/L (3.6-5.0)
[2020-04-15 09:26] LABS: ANION GAP 4 (5-19)
== END ==
LOC: OD 08:01
PROVIDERS: ATTEND Internal Medicine Cardiovascular Disease
DX: E03.9 Hypothyroidism, unspecified (principal); N18.9 Chronic kidney disease, unspecified; E78.5 Hyperlipidemia, unspecified
CPT/HCPCS: 36415; 80048; 84443

== ENCOUNTER → 2020-05-28 | Outpatient (CLI) | payer MEDICARE, OTHER ==
[2020-05-28 09:21] LABS: ALBUMIN 3.8 g/dL (3.5-5.0); ALKALINE PHOSPHATASE 82 U/L (38-126); ANION GAP 10 (5-19); ASPARTATE AMINO TRANSFERASE 24 U/L (17-59); BILIRUBIN,DIRECT 0.2 mg/dL (0.0-0.4); BILIRUBIN,TOTAL 0.8 mg/dL (0.2-1.3); BLOOD UREA NITROGEN 34 mg/dL (7-20); CALCIUM 8.8 mg/dL (8.4-10.2); CARBON DIOXIDE 26 mmol/L (22-30); CHLORIDE 106 mmol/L (98-107); GLUCOSE 90 mg/dL (75-110); TOTAL PROTEIN 6.8 g/dL (6.3-8.2)
== END ==
LOC: OD 07:51
PROVIDERS: ATTEND Internal Medicine Cardiovascular Disease
DX: I48.0 Paroxysmal atrial fibrillation (principal); Z79.899 Other long term (current) drug therapy
CPT/HCPCS: 36415; 80048; 80076; 83735